=== PATIENT | female | born 1970 | race Caucasian/White ===

== ENCOUNTER → 2017-11-30 13:50 | Outpatient (REF) | payer MEDICAID, SELFPAY ==
[2017-12-03 13:58] LABS: Chlamydia Result Negative; GC Result Negative; Specimen Description CERVIX
== END ==
LOC: LBN 13:50
PROVIDERS: Visit Provider Nurse Practitioner Women's Health
DX: Z11.3 Encounter for screening for infections with a predominantly sexual mode of transmission (principal)
CPT/HCPCS: 87491; 87591

== ENCOUNTER 2017-12-19 02:43 | Outpatient (CLI) | payer MEDICAID, SELFPAY ==
--- NOTE | 2017-12-19 07:48 | DI.US_ITS ---
SYMPTOM/DIAGNOSIS: LT SIDED PELVIC PAIN, H/O LT OOPHORECTOMY PELVIC ULTRASOUND: Transabdominal and transvaginal examination was performed. Comparison is made with 05/28/17. The uterus measures 10 cm. long by 5.4 cm. AP by 6.1 cm. transverse. The endometrial stripe is within normal limits at .2 cm. Note is made of an intrauterine device within good position. No discrete myometrial mass is present. The patient is status post left oophorectomy. The right ovary measures 2 by 1.5 by 2.2 cm. A small follicular cyst is seen. There is blood flow to the right ovary. No suspicious pelvic or adnexal mass is seen. No free pelvic fluid or hydronephrosis is present. Incidental note is made of a single, non obstructing calculus in each of the kidneys. IMPRESSION: 1. Status post left oophorectomy. 2. Intrauterine device in good position. 3. No evidence of a pelvic mass sonographically. 4. Bilateral nephrolithiasis.
== END 2017-12-19 03:03 ==
PROVIDERS: Visit Provider Nurse Practitioner Women's Health
DX: R10.2 Pelvic and perineal pain (principal); N20.0 Calculus of kidney; N83.01 Follicular cyst of right ovary; Z97.5 Presence of (intrauterine) contraceptive device; Z90.721 Acquired absence of ovaries, unilateral
CPT/HCPCS: 76830; 76856

== ENCOUNTER 2018-01-23 01:04 | Outpatient (CLI) | payer MEDICAID, SELFPAY ==
--- NOTE | 2018-01-23 07:44 | DI.CT_ITS ---
SYMPTOMS/DIAGNOSIS: POSITIVE CVA TENDERNESS ,LEFT, H/O BLOOD CLOTS CT EXAMINATION OF THE ABDOMEN AND PELVIS: The study was carried out with an intravenous administration of 100 cc of Omnipaque 350. Only a small portion of the lung bases is demonstrated and appears unremarkable. The liver is incompletely imaged. No abnormality involving the mid or lower portion of the liver is seen. The gallbladder is intact. The possibility of small gallstones could not, however, be entirely excluded. The pancreas and spleen are intact. There is bilateral nonobstructing nephrolithiasis. The adrenals are intact. Surgical clips at the gastroesophageal junction attest to prior surgery. Gas and fluid are identified in the stomach. There is no evidence of bowel obstruction. The appendix is normal. A moderate quantity of gas and scattered fecal material are noted in the colon. The bladder is incompletely distended, but appears grossly intact. An IUD is noted in the uterus. A small right ovarian cyst is identified. There is no evidence of free air or free fluid in the abdomen. A very small fat-containing umbilical hernia is identified. There is no evidence of an aortic aneurysm. No acute bony abnormality is identified. SUMMARY: No evidence of an acute abdomen. Note is made of nonobstructing bilateral nephrolithiasis.
[2018-01-23] MEDS: Omnipaque 350 MG/ML 100 ML BTL IJ (08:30)
== END 2018-01-23 01:24 ==
PROVIDERS: Visit Provider Nurse Practitioner Gerontology
DX: N20.0 Calculus of kidney (principal); R14.0 Abdominal distension (gaseous); N83.291 Other ovarian cyst, right side; Z97.5 Presence of (intrauterine) contraceptive device
CPT/HCPCS: 74178; J3490

== ENCOUNTER 2018-03-14 08:33 | Day surgery (SDC) | payer MEDICAID, SELFPAY ==
[2018-03-14] VITALS (8 sets, daily range): BP systolic 140–217; BP diastolic 96–107; PULSE 66–76; RESP 16–19; TEMP 36.6–36.7; O2SAT 95–98
[2018-03-14] MEDS: Lactated Ringers 1,000 ML 80 ML IV (09:20)
[2018-03-14] MEDS: Lidocaine 2% Jelly 6 ML SYR (10:34)
[2018-03-14] MEDS: Omnipaque 300 MG/ML 50 ML BTL (10:44)
--- NOTE | 2018-03-14 11:28 | W.PM.DSUDISC ---
Discharge Plan Disposition Patient Disposition: HOME Condition: Stable Discharge Details Attending Provider: Catalino Mayfield Primary Care Provider: Vanita Haywood Home Meds and New Rx's Prescriptions: No Action omeprazole 40 mg capsule,delayed release(DR/EC) 40 mg PO DAILY Qty: 1 RF: 0 hydrochlorothiazide 12.5 mg capsule 12.5 mg PO DAILY Qty: 1 RF: 0 allopurinol 300 mg tablet 300 mg PO DAILY Qty: 1 RF: 0 atorvastatin 20 mg tablet 20 mg PO DAILY RF: 0 aspirin [Aspir-Low] 81 MG tablet,delayed release (DR/EC) 81 mg PO DAILY Qty: 90 RF: 4 lisinopril 20 mg tablet 20 mg PO DAILY Qty: 90 RF: 3 acetaminophen-codeine 300-30 mg tablet 1 tab PO QID PRN MDD 4 tab (120mg) PRN (Reason: pain) Qty: 100 RF: 0 tizanidine 4 mg tablet 4 mg PO HS RF: 0 acetaminophen 325 mg Capsule 650 mg PO PRN PRNRF: 0 ascorbic acid (vitamin C) [Vitamin C] 500 MG tablet 500 mg PO DAILY RF: 0 Discharge Instructions Additional Instructions: Followup 4 to 6 weeks with renal US on day of appt No need to strain urine Activity:: Activity as Tolerated Diet:: As Tolerated Discharge Orders Discharge Orders: Discharge Order (Routine); Ordered 03/14/18 Ordered By: Catalino Mayfield
--- NOTE | 2018-03-14 11:28 | DI.RAD_ITS ---
SYMPTOM/DIAGNOSIS:BILAT KIDNEY STONES OR RETROGRADE: Fluoroscopy Time: 19.6 sec 3.51 mGy Fluoroscopy was provided for Dr. Mayfield in the OR while performing a retrograde examination. Images show contrast injection into the left collecting system. A filling defect is seen in the renal pelvis. Please see procedure note for details.
--- NOTE | 2018-03-14 16:34 | ROE_ITS ---
DATE OF OPERATION: March 14, 2018 PREOPERATIVE DIAGNOSIS: Left renal stones. POSTOPERATIVE DIAGNOSIS: Left renal stones. PROCEDURE: Cystoscopy, left retrograde pyelogram, left flexible ureteroscopy, Holmium laser of renal stones, evacuation of stone fragments. SURGEON: Catalino Mayfield M.D. ANESTHESIA: General. COMPLICATIONS: None. ESTIMATED BLOOD LOSS: Minimal. HISTORY: This is a 47-year-old woman who has a history of chronic pain. She has been having some wo rsening left back pain. She was evaluated with a CT scan which demonstrated nonobstructing bilateral kidney stones. She is concerned that the stones may be playing a part in her pain. She presents no w for stone manipulation. OPERATIVE REPORT: The patient was brought to the Operating Room on 03/14/18. After successful induct ion of general anesthesia, she was placed in the dorsal lithotomy position. Her genitalia was preppe d and draped. A 22 Wolof rigid cystoscope was passed through the urethra into the bladder. The bladder was inspec ute with the 30-degree lens. Both ureteral orifices appeared normal. No blood was seen coming from either side. No stones were s een within patient's bladder. We passed a 6 Wolof access catheter through the cystoscope into the left ureteral orifice. We left the access catheter in place and removed the cystoscope. A left retrograde pyelogram was then performed using Omnipaque injected through the access catheter. This outlined the calices for mapping purposes. I then passed a guide wire through the access catheter and maneuvered the wire into the upper pole ca lyx. We removed the axis catheter and replaced it with a dual-lumen catheter. A second wire was then posi tioned, this time in the lower pole calyx. We then passed a ureteral access sheath over the working wire and positioned the access catheter with the tip in the proximal ureter. We left the second wire in place as a safety wire. I then passed the flexible ureteroscope through the sheath, up to the proximal ureter. I inspected e ach of the calices and identified stones in nearly all of the calices. The largest stone burden was in the upper pole. The larger stones were treated with a 272 micron Holmium laser fiber. We used a power setting of 800 and a rate of 8. I was able to fragment the stones quite easily. Any of the la rge fragments were then grasped in a 0-tip stone basket and removed. The fragments were then sent to Pathology for chemical analysis. Any small fragments were left in place as it was expected that the se would be able to pass. Once all of the larger stone fragments had been removed we inspected each of the calices again, with no significant remaining stone burden. We removed the ureteroscope as well as the ureteral access sh [facility]. We elected not to place a ureteral stent. She tolerated this procedure well with no complications. cc: Vanita Haywood N.P.
[2018-03-19 19:33] LABS: Source: Kidney
== END 2018-03-14 13:20 | disposition home or self-care (01) ==
PROVIDERS: Visit Provider Urology
PROC: (CPT 52353; principal; 2018-03-14 10:30)
DX: N20.0 Calculus of kidney (principal); G89.29 Other chronic pain; M54.5 Low back pain; Z87.442 Personal history of urinary calculi; J44.9 Chronic obstructive pulmonary disease, unspecified; I10 Essential (primary) hypertension
CPT/HCPCS: 52353; 81025; 74420; 82360; J0690; J1885; J2250; J2405; Q9967

== ENCOUNTER 2018-04-16 01:13 | Outpatient (CLI) | payer MEDICAID, SELFPAY ==
--- NOTE | 2018-04-16 08:42 | DI.US_ITS ---
SYMPTOMS/DIAGNOSIS: BILATERAL KIDNEY STONES, N20.0, ? HYDRONEPHROSIS RENAL ULTRASOUND: Routine examination. The right kidney measures 11.3 cm long, the left kidney measures 11.2 cm long. There is bilateral nephrolithiasis. No hydronephrosis is identified. The largest stone is seen in the inferior pole of the right kidney and measures 6 mm in size. There is symmetric blood flow to the kidneys. Prevoid urinary bladder volume was only 31 cc. The bladder was not adequately prepared. Postvoid urinary bladder volume was 0. IMPRESSION: Bilateral nephrolithiasis. No evidence of hydronephrosis.
== END 2018-04-16 01:33 ==
PROVIDERS: Visit Provider Urology
DX: N20.0 Calculus of kidney (principal)
CPT/HCPCS: 76770

== ENCOUNTER 2018-05-27 13:23 | Outpatient (REF) | payer MEDICAID, SELFPAY ==
--- NOTE | 2018-05-27 11:25 | PAPFT_PTH ---
PATIENT: Delaney Preston LOC: [facility] U#:[id number] AGE/SX: 47/F ROOM: RE05/27/[address]: Vanita Haywood APRN : 1970 BED: DIS: 05/27/2018 SPEC #: [id number] RECD: 05/27/18 18:22 STATUS: ADELAIDE REDaina #: [id number] MASON: 05/27/18 11:[address]: Vanita Haywood DEPT: [facility], [facility] Cytology RECD BY: Jeanette Gutierrez Tissues: 1 - CX/ENDOCX FOR PAP SMEARS Procedures: PAP THIN PREP/UVM Screening HPV DNA PROBE Comments: [id number]
== END 2018-05-27 13:43 ==
LOC: LBN 13:23
DX: Z12.4 Encounter for screening for malignant neoplasm of cervix (principal); Z11.51 Encounter for screening for human papillomavirus (HPV)
CPT/HCPCS: 88142; 87624

== ENCOUNTER 2018-07-12 02:51 | Outpatient (CLI) | payer MEDICAID, SELFPAY ==
[2018-07-12 09:46] LABS: ALT 23 U/L (12-78); AST 13 U/L (15-37); Albumin 3.8 g/dL (3.4-5.0); Alkaline Phosphatase 96 U/L (46-116); Anion Gap 8.6 mmol/L (3-11); BUN 8 mg/dL (7-18); Bilirubin, Total 0.5 mg/dL (0.2-1.0); CO2 30.4 mmol/L (21.0-32.0); CREATININE 0.67 mg/dL (0.55-1.02); Calcium 9.1 mg/dL (8.5-10.1); Chloride 102 mmol/L (98-107); Cholesterol 215 mg/dL (50-200); Glucose 98 mg/dL (70-100); HDL Cholesterol 43 mg/dL (40-60); LDL CHOLESTEROL 144 mg/dL (<100); Potassium 3.4 mmol/L (3.5-5.1); Sodium 141 mmol/L (136-145); Total Protein 7.1 g/dL (6.4-8.2); Triglyceride 112 mg/dL (30-150)
== END 2018-07-12 03:11 ==
DX: E03.9 Hypothyroidism, unspecified (principal); K21.9 Gastro-esophageal reflux disease without esophagitis; F17.200 Nicotine dependence, unspecified, uncomplicated; R63.8 Other symptoms and signs concerning food and fluid intake; E78.5 Hyperlipidemia, unspecified; I10 Essential (primary) hypertension; M25.561 Pain in right knee; G89.29 Other chronic pain; M54.5 Low back pain
CPT/HCPCS: 36415; 80053; 80061; 83721

== ENCOUNTER 2018-07-19 00:21 | Outpatient (CLI) | payer MEDICAID, SELFPAY ==
--- NOTE | 2018-07-19 15:30 | DI.MAMMO_ITS ---
SYMPTOMS/DIAGNOSIS: SCREENING, Z12.31 MAMMOGRAM: Mammograms were interpreted according to the usual protocol including computer analysis with CAD system, tomosynthesis and C view imaging. The breasts are of moderate density with fairly symmetrical distribution of fibroglandular tissue. No dominant mass or clumped microcalcification is identified in either breast. The current examination is compared with previous examinations including January 2017 and there is question of increased prominence of a focal area of asymmetric density seen laterally in the right breast on CC view only. Additional mammographic views of this area are requested to include CC spot compression view of the right breast. CONCLUSION: Additional mammographic views of the right breast requested as described above. Breast ultrasound may be indicated as well depending on the results of the additional mammographic views. Category 0. Breast density Category B. MQSA ASSESSMENT OF FINDINGS: Incomplete: Needs additional imaging evaluation. Category 0. Patient will receive a letter notifying them of these results. BI-RADS category B. There are scattered areas of fibroglandular density.
== END 2018-07-19 00:41 ==
DX: R92.8 Other abnormal and inconclusive findings on diagnostic imaging of breast
CPT/HCPCS: 77063; 77067

== ENCOUNTER 2018-08-02 09:00 | Outpatient (CLI) | payer MEDICAID, SELFPAY ==
--- NOTE | 2018-08-02 09:30 | DI.MAMMO_ITS ---
SYMPTOM/DIAGNOSIS: F/U MAMMO, INCREASED PROMINENCE OF FOCAL AREA OF ASYMMETRIC DENSITY RIGHT BREAST ADDITIONAL VIEWS: Additional images are interpreted according to the usual protocol including tomosynthesis and 2D imaging. A CC spot compression view of the lateral right breast was performed for a questioned nodular asymmetry. No persistent abnormality is seen. The findings are consistent with overlying fibroglandular tissue. IMPRESSION: Category 1, negative mammogram. Yearly screening mammography is recommended. SA ASSESSMENT OF FINDINGS: Negative. Category 1. Patient will receive a letter notifying them of these results. BI-RADS category B. There are scattered areas of fibroglandular density.
== END 2018-08-02 09:20 ==
DX: Z12.31 Encounter for screening mammogram for malignant neoplasm of breast (principal); R92.8 Other abnormal and inconclusive findings on diagnostic imaging of breast; N64.59 Other signs and symptoms in breast
CPT/HCPCS: 77063; 77067

== ENCOUNTER 2018-09-13 09:08 | Emergency (ER) | payer MEDICAID, SELFPAY ==
[2018-09-13] VITALS (32 sets, daily range): BP systolic 93–130; BP diastolic 45–80; PULSE 58–90; RESP 11–20; TEMP 37.1; O2SAT 92–98
--- NOTE | 2018-09-13 09:39 | DI.RAD_ITS ---
SYMPTOM/DIAGNOSIS: S/P FALL, R/O ACUTE FRACTURE LEFT SHOULDER: Five views. Comparison chest x-ray is 07/29/14 Post surgical changes are seen in the proximal left humerus and acromioclavicular joint. No acute fracture or dislocation is seen. The soft tissues are unremarkable. IMPRESSION: No acute abnormality.
--- NOTE | 2018-09-13 09:42 | W.ED.GENAD ---
Discharge Plan Disposition Patient Disposition: HOME Condition: Improving Discharge Details Chief Complaint: Chest Pain Clinical Impression: Syncope, Chest wall pain, Contusion of left shoulder, Contusion, buttock Primary Care Provider: Vanita Haywood ED Provider: Shelly Alvarez Home Meds and New Rx's Prescriptions: Continued albuterol sulfate 90 mcg/actuation HFA aerosol inhaler 2 puff IH Q6H PRN (Reason: shortness of breath or wheezing) Qty: 24 RF: 2 hydrochlorothiazide 12.5 mg capsule 12.5 mg PO DAILY Qty: 1 RF: 0 allopurinol 300 mg tablet 300 mg PO DAILY Qty: 90 RF: 4 aspirin [Aspir-Low] 81 MG tablet,delayed release (DR/EC) 81 mg PO DAILY Qty: 90 RF: 4 lisinopril 20 mg tablet 20 mg PO DAILY Qty: 90 RF: 3 tizanidine 4 mg tablet 4 mg PO HS Qty: 30 RF: 2 omeprazole 40 mg capsule,delayed release(DR/EC) 40 mg PO DAILY Qty: 90 RF: 3 acetaminophen-codeine 300-30 mg tablet 1 tab PO TID PRN MDD 3 tab (90mg) Qty: 90 RF: 0 acetaminophen 325 mg Capsule 650 mg PO PRN PRNRF: 0 Discharge Instructions Instructions: Syncope (ED), Contusion in Adults (ED), Chest Wall Pain (ED) Additional Instructions: Alternate Tylenol and Motrin as needed and directed for pain. Drink plenty of fluids and get plenty of rest. Follow-up with Zaira from respiratory therapy today regarding placement of the Holter monitor. Call your primary care doctor today to schedule a follow-up appointment for reevaluation next week. Return immediately to the emergency department if you develop any worsening or new concerning symptoms. Discharge Data Discharge Physician: Shelly Alvarez Medical Decision Making 47-year-old female with history of GERD, hypertension, hyperlipidemia, COPD who presents for evaluation status post syncopal episode 2 days ago. She states her was concerned due to his own cardiac history and wanted her evaluated. She is complaining of left shoulder and right buttock pain, and left neck stiffness. She is also complaining of chest heaviness that started a few hours prior to her syncopal episode and has been worse since then. Vitals within normal limits. Patient appears nontoxic. She has anterior chest tenderness to palpation without evidence of trauma or rash. Pain in left shoulder with range of motion and tenderness but no deformity. Normal buttock exam without evidence of deformity or trauma. Considering patient's age and history, will do a cardiac work-up. Pain in left shoulder with range of motion and palpation. Lower midline C-spine tenderness. No focal deficits. Suspect her chest heaviness is muscular as it is reproducible. Denies any tearing sensation so doubt dissection. She is PERC negative and no DVT/PE risk factors so doubt PE. Will obtain a chest x-ray, CT head and cervical spine, left shoulder x-ray and give a dose of Toradol. 1220 --labs and imaging reviewed. Potassium 3.1, patient given oral potassium. Remainder of labs unremarkable. D-dimer and troponin negative. Chest x-ray, shoulder x-ray, and CT head and C-spine negative. Patient feels much better and she is requesting to go home. Discussed with respiratory department regarding placement of a Holter monitor. There are no Holter models available at this time but will be possibly available later today. Zaira discussed with patient at bedside and she will call patient at home today and patient will likely return to the hospital this evening for placement of a Holter monitor. Patient instructed to call her primary care doctor today to schedule follow-up appointment for reevaluation and for referral for an outpatient stress test. She is instructed to return here immediately with any worsening or new concerning symptoms. Medical Records Medical records reviewed: Yes I reviewed the patient's medical records. Imaging Data Radiologic Study: Radiologist's impression: CT BRAIN: Noncontrast. Comparison 01/28/[address] was performed. The ventricular system is normal in appearance. There is no evidence of an intracranial mass lesion. There is no evidence of a subdural or epidural hematoma. No focal areas of decreased attenuation are seen. CONCLUSION: Normal noncontrast Cranial CT. CT CERVICAL SPINE: Multiple contiguous axial images of the cervical spine were obtained. Sagittal and coronal reformatted images were evaluated on the [employer]'s workstation. There is normal alignment of the cervical spine. No acute fractures or subluxations are seen. Mild degenerative changes are present throughout the cervical spine. The odontoid is intact, lateral masses well aligned. The soft tissues are unremarkable. No acute abnormality is seen in the lung apices. IMPRESSION: No acute fractures or subluxations of the cervical spine. Radiologic Study #2: Radiologist's impression: CHEST X-RAY: PA and lateral. Comparison 07/29/14. The heart is normal in size. The lungs are clear. The mediastinal structures and pleura appear intact. CONCLUSION: Normal chest. Radiologic Study #3: Radiologist's impression: LEFT SHOULDER: Five views. Comparison chest x-ray is 07/29/14 Post surgical changes are seen in the proximal left humerus and acromioclavicular joint. No acute fracture or dislocation is seen. The soft tissues are unremarkable. IMPRESSION: No acute abnormality. Lab Data Lab results reviewed: Yes I reviewed the patient's lab results. Laboratory Tests Range/Units 09/13/18 09/13/18 09/13/18 09:25 09:25 09:25 WBC (4.4-10.8) k/cumm 8.95 RBC (4.00-5.20) m/cumm 4.49 Hgb (12.0-15.5) g/dL 14.5 Hct (36.0-46.0) % 41.9 MCV (80-95) fL 93.3 MCH (27.0-33.0) pg 32.3 MCHC (32.0-36.0) g/dL 34.6 RDW (11.7-14.6) % 13.1 Plt Count (130-400) x1000/uL 341 MPV (8.0-11.0) fL 10.5 Immature Gran % 0.1 Neutrophils % 64.9 Lymphocytes % 25.5 Monocytes % 7.6 Eosinophils % 1.6 Basophils % 0.3 Absolute Neutrophils (1.2-6.7) k/cumm 5.81 Absolute Lymphocytes (1.2-3.4) k/cumm 2.28 Absolute Monocytes (0.11-0.7) k/cumm 0.68 Absolute Eosinophils (0.0-0.7) k/cumm 0.14 Absolute Basophils (0.0-0.2) k/cumm 0.03 D-Dimer (<500) ng/mlFEU 270 Sodium (136-145) mmol/L 137 Potassium (3.5-5.1) mmol/L 3.1 L Chloride (98-107) mmol/L 99 Carbon Dioxide (21.0-32.0) mmol/L 28.7 Anion Gap (3-11) mmol/L 9.3 BUN (7-18) mg/dL 9 Creatinine (0.55-1.02) mg/dL 0.69 Estimated GFR/1.73 m2 (mL/min/1.73m2) >= 60.00 Glucose (70-100) mg/dL 88 Calcium (8.5-10.1) mg/dL 9.0 Magnesium (1.8-2.4) mg/dL 2.1 Total Bilirubin (0.2-1.0) mg/dL 0.4 AST (15-37) U/L 11 L ALT (12-78) U/L 18 Alkaline Phosphatase (46-116) U/L 81 Troponin I (0.00-0.06) ng/mL < 0.02 Total Protein (6.4-8.2) g/dL 7.6 Albumin (3.4-5.0) g/dL 3.4 ECG Data Attestation: I personally reviewed and interpreted this ECG (s) as follows: Interpretation: rate of 82bpm. Sinus. TWI in III. No acute ST elevation or depression. QTc 437. QRS 98. No acute change from previous EKG. HPI General Mode of arrival: ambulatory. Date/Time Provider Initiated Documentation: 09/13/18 09:09. Limitations to Documentation: no limitations. Information obtained by: patient. HPI Narrative: Pt is a 47yo F who presents to the ED with a complaint of syncopal episode 2 days ago. Patient states she was standing in her kitchen pouring a bowl of cereal when she felt funny. She states she cannot describe with this funny feeling was like but describes it as possibly dizziness. She states she then woke up on the floor. She states she thinks she hit her head but denies any head injury and admitted to some headache yesterday but not today. She also is complaining of left-sided neck stiffness, left shoulder and right buttock pain from the fall. She states she has been able to ambulate without pain. She states she has had anterior chest heaviness since a few hours prior to her syncopal episode 2 days ago. She states since the syncopal episode and fall, her chest heaviness has been slightly worse. She states the pain is currently 7/10. She states she has otherwise been eating and drinking normally, denies any vomiting or diarrhea, abdominal pain, urinary symptoms, fever, or shortness of breath. She states she has not taken any medication for her symptoms. She denies any recent travel, recent surgery, leg pain or swelling. Related Data Home Medications Medication Instructions Recorded Confirmed aspirin [Aspir-Low] 81 mg PO DAILY #90 07/06/15 09/13/18 hydrochlorothiazide 12.5 mg capsule 12.5 mg PO DAILY #1 cap 12/12/17 09/13/18 lisinopril 20 mg tablet 20 mg PO DAILY #90 tab 12/12/17 09/13/18 acetaminophen 650 mg PO PRN PRN 03/13/18 09/13/18 albuterol sulfate HFA 90 2 puff IH Q6H PRN #24 gm 05/27/18 09/13/18 mcg/actuation aerosol inhaler tizanidine 4 mg tablet 4 mg PO HS #30 tab 08/08/18 09/13/18 allopurinol 300 mg tablet 300 mg PO DAILY #90 tab 08/28/18 09/13/18 acetaminophen 300 mg-codeine 30 mg 1 tab PO TID PRN #90 tab MDD 3 tab 09/05/18 09/13/18 tablet (90mg) omeprazole 40 mg capsule,delayed 40 mg PO DAILY #90 cap 09/05/18 09/13/18 release Previous Rx's Medication Instructions Recorded hydrochlorothiazide 12.5 mg capsule 12.5 mg PO DAILY #1 cap 12/12/17 lisinopril 20 mg tablet 20 mg PO DAILY #90 tab 12/12/17 albuterol sulfate HFA 90 2 puff IH Q6H PRN #24 gm 05/27/18 mcg/actuation aerosol inhaler tizanidine 4 mg tablet 4 mg PO HS #30 tab 08/08/18 allopurinol 300 mg tablet 300 mg PO DAILY #90 tab 08/28/18 acetaminophen 300 mg-codeine 30 mg 1 tab PO TID PRN #90 tab MDD 3 tab 09/05/18 tablet (90mg) omeprazole 40 mg capsule,delayed 40 mg PO DAILY #90 cap 09/05/18 release Allergies Allergy/AdvReac Type Severity Reaction Status Date / Time doxycycline Allergy Intermediate hives Verified 09/13/18 09:21 Tetracyclines Allergy Intermediate hives Verified 09/13/18 09:21 adhesive Allergy Unknown skin rash Verified 09/13/18 09:21 nortriptyline AdvReac Mild hyperactivi Verified 09/13/18 09:21 ty General Stated Complaint: Chest Pain MAMIE: 2 Review of Systems Review of Systems All systems reviewed & are unremarkable except as noted in HPI and below Constitutional Reports as per HPI, Denies chills and Denies fever(s) Eyes Denies blurry vision ENT Denies dizziness, Denies sore throat and Denies throat swelling Cardiovascular Reports chest pain and Denies dyspnea Respiratory Denies cough and Denies dyspnea Gastrointestinal Denies abdominal pain, Denies diarrhea and Denies vomiting Genitourinary Denies hematuria and Denies dysuria Musculoskeletal Denies back pain, Denies numbness and Reports other (L shoulder pain, R buttock pain) Integumentary/Breasts Denies lesions and Denies rash Neurologic Denies dizziness, Denies focal weakness and Denies numbness Allergic/Immunologic Denies throat swelling [facility] Medical History Uric acid renal calculus (Resolved) Chronic GERD (Acute 11/20/12) Smoker (Acute 11/20/12) Increased BMI (Acute 05/25/16) Hyperlipidemia (Chronic 04/18/12) Urinary, incontinence, stress female (Chronic) Essential hypertension (Chronic 05/25/16) Chronic pain of right knee (Chronic 12/02/14) Chronic obstructive lung disease (Chronic 08/01/12) Chronic low back pain (Chronic 11/20/12) Asthma (Chronic 11/20/12) Asthma COPD (chronic obstructive pulmonary disease) Chronic back pain GERD (gastroesophageal reflux disease) Hoarseness of voice Hypertension Surgical History Arthroplasty of knee Endoscopy (~2004) GASTROPEXY Ligation of fallopian tube Manipulation, Under Anesthesia (03/13/12) [place] Fundoplication (~2002) Oophrectomy, Left (06/06/17) Open Carpal Tunnel release Replacement of total knee joint (01/15/12) Family History Mother Essential hypertension Hyperlipidemia Father Diabetes Essential hypertension Heart disease Hyperlipidemia Stroke Asthma Sister Essential hypertension Sister Essential hypertension Brother No problems noted. 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 Pets and animals: Yes Pets and animals: cat(s) and dog(s) Dottie/Buddhism: None Do you feel safe at home: Yes Do you feel safe in your relationship?: Yes Exam Const General: cooperative and healthy appearing Orientation: alert and awake HENMT Head: normal to inspection Ears: hearing grossly normal bilaterally, external ears normal and TM's normal bilaterally General nose exam: external nose normal Face and sinus: normal facial exam Mouth: oral mucosae normal Teeth and gingiva: dentition normal Throat: posterior oropharynx normal Eyes General: appearance normal, both eyes and all related structures Eyelids: eyelids normal Pupils: PERRL EOM: EOM intact bilaterally Neck Neck: normal visual inspection Lymphatic: no lymphadenopathy noted Chest Chest: normal inspection of the chest and tenderness (anterior chest tender to palp, no evidence of trauma) Resp Effort & Inspection: normal respiratory effort and able to speak in complete sentences Auscultation: clear to auscultation bilaterally Cardio Rate: regular rate Rhythm: regular rhythm GI Inspection: normal to inspection Palpation: soft, not firm, no guarding, no hepatosplenomegaly, no masses and nontender Auscultation: normal bowel sounds Back/Spine/Pelvis Back: no CVA tenderness Cervical Spine: cervical muscular tenderness (L sided) and cervical spinal tenderness (lower midline spine) Thoracic/Lumbar Spine: thoracic and lumbar spine normal to inspection, No thoracic spinal tenderness and No lumbar spinal tenderness Back/spine/pelvis image: 1. Localized area of tenderness without step-off, crepitus, ecchymosis, erythema, edema. Skin General skin exam: no rashes or lesions noted Neuro General: alert, awake, moves all extremities, no meningeal signs and no focal motor deficits Cranial Nerves: CN's II-XI intact bilaterally Cognition: normal cognition Speech: speech normal Gait: normal gait Motor: muscle tone normal throughout and strength 5/5 throughout Sensory Exam: no sensory deficits noted Extrem General: normal to inspection, full ROM and normal capillary refill Other: Pain in left shoulder with range of motion and palpation. No deformities noted. No ecchymosis, erythema, edema noted to left shoulder. Tenderness to palpation overlying left trapezius with no evidence of trauma. Full range of motion at hips bilaterally without pain, shortening or external rotation. Left radial and ulnar pulses intact. Cap refill less than 2 seconds. Psych Appearance: grossly normal Mental Status: mental status grossly normal Speech and Movement: speech and movement normal Affect: normal affect Thought Process: normal Course Vital Signs Temperature 98.8 F 09/13/18 09:12 Pulse 90 09/13/18 09:12 Respiratory Rate 20 09/13/18 09:12 Blood Pressure 121/80 09/13/18 09:12 Pulse Oximetry 98 09/13/18 09:12 Temperature 98.8 F 09/13/18 09:12 Temperature Source Temporal Artery Scan 09/13/18 09:12 Pulse 82 09/13/18 09:16 Pulse 84 09/13/18 09:20 Respiratory Rate 20 09/13/18 09:22 Respiratory Effort Non-Labored 09/13/18 09:22 Respiratory Depth Normal 09/13/18 09:22 Respiratory Pattern Normal 09/13/18 09:22 Blood Pressure 122/78 09/13/18 09:16 Blood Pressure Mean 84 09/13/18 09:16 Pulse Oximetry 95 09/13/18 09:20 Oxygen Delivery Method Room Air 09/13/18 09:12 Oxygen Flow Rate 0 09/13/18 09:12 Pain Level 6 09/13/18 09:12
[2018-09-13 09:55] LABS: Abs Immature Grans 0.01 k/cumm (0.0-0.09); Absolute Basophil Count 0.03 k/cumm (0.0-0.2); Absolute Eosinophil Count 0.14 k/cumm (0.0-0.7); Absolute Lymphocyte Count 2.28 k/cumm (1.2-3.4); Absolute Monocyte Count 0.68 k/cumm (0.11-0.7); Absolute Neutrophil Count 5.81 k/cumm (1.2-6.7); Basophils % 0.3; Eosinophils % 1.6; HCT 41.9 % (36.0-46.0); HGB 14.5 g/dL (12.0-15.5); Immature Grans % 0.1; Lymphocytes % 25.5; Mean Corp. HGB Concentration 34.6 g/dL (32.0-36.0); Mean Corpuscular Hemoglobin 32.3 pg (27.0-33.0); Mean Corpuscular Volume 93.3 fL (80-95); Mean Platelet Volume 10.5 fL (8.0-11.0); Monocytes % 7.6; Neutrophils % 64.9; Platelet Count 341 x1000/uL (130-400); RBC 4.49 m/cumm (4.00-5.20); RBC Distribution Width 13.1 % (11.7-14.6); White Blood Cell Count 8.95 k/cumm (4.4-10.8)
[2018-09-13 10:24] LABS: ALT 18 U/L (12-78); AST 11 U/L (15-37); Albumin 3.4 g/dL (3.4-5.0); Alkaline Phosphatase 81 U/L (46-116); Anion Gap 9.3 mmol/L (3-11); BUN 9 mg/dL (7-18); Bilirubin, Total 0.4 mg/dL (0.2-1.0); CO2 28.7 mmol/L (21.0-32.0); CREATININE 0.69 mg/dL (0.55-1.02); Chloride 99 mmol/L (98-107); Glucose 88 mg/dL (70-100); Magnesium 2.1 mg/dL (1.8-2.4); Potassium 3.1 mmol/L (3.5-5.1); Sodium 137 mmol/L (136-145); Total Protein 7.6 g/dL (6.4-8.2)
[2018-09-13 10:29] LABS: D-Dimer 270 ng/mlFEU (<500)
[2018-09-13 10:31] LABS: Troponin I < 0.02 ng/mL (0.00-0.06)
[2018-09-13] MEDS: Potassium Chloride 20 MEQ TABCR 40 MEQ PO (10:42)
--- NOTE | 2018-09-13 10:45 | DI.RAD_ITS ---
SYMPTOM/DIAGNOSIS; CHEST HEAVINESS, R/O ACUTE DISEASE CHEST X-RAY: PA and lateral. Comparison 07/29/14. The heart is normal in size. The lungs are clear. The mediastinal structures and pleura appear intact. CONCLUSION: Normal chest.
[2018-09-13] MEDS: Ketorolac 30 MG/ML VIAL IVP (11:08)
[2018-09-13] MEDS: Normal Saline 250 ML 500 ML IV (11:08)
--- NOTE | 2018-09-17 10:30 | HOLTER_ITS ---
DATE OF DICTATION: September 17, 2018 STUDY INDICATION: Syncope. REQUESTING PROVIDER: Vanita Haywood N.P. FINDINGS: The patient was monitored for 2 days. Baseline sinus rhythm. Average heart rate 75 bpm. Heart rate range 55-130 bpm. No PVC's. 5 PAC's. No pauses greater than 3 seconds. No high degree heart block. Two patient events. None of these events correlated with arrhythmias. FINAL INTERPRETATION: Normal study.
== END 2018-09-13 12:41 | disposition home or self-care (01) ==
PROVIDERS: Emergency Provider Physician Assistant
DX: R55 Syncope and collapse (principal); R07.89 Other chest pain; S30.0XXA Contusion of lower back and pelvis, initial encounter; S40.012A Contusion of left shoulder, initial encounter; I10 Essential (primary) hypertension; J44.9 Chronic obstructive pulmonary disease, unspecified
CPT/HCPCS: 36415; 80053; 96361; 96374; 99284; 70450; 71046; 72125; 73030; 83735; 84484; 85025; 85379; 93225; J1885

== ENCOUNTER 2018-09-16 13:03 | Outpatient (CLI) | payer MEDICAID, SELFPAY | END 2018-09-16 13:23 | PROVIDERS: Visit Provider Physician Assistant | DX: R55 Syncope and collapse (principal); I49.1 Atrial premature depolarization | CPT/HCPCS: 93226 ==

== ENCOUNTER 2018-11-01 01:01 | Outpatient (CLI) | payer MEDICAID, SELFPAY ==
--- NOTE | 2018-11-01 13:17 | DI.US_ITS ---
SYMPTOMS/DIAGNOSIS: F/U STONES, BILATERAL KIDNEY STONES, N20.0 RENAL ULTRASOUND: Comparison is made with 19. The left kidney measures 10.6 cm in length. A 5 mm stone is seen in the mid left kidney. There is also question of additional calcification at the upper pole of the left kidney. There is mild dilatation of the right renal pelvis and intrarenal collecting system when compared with the previous exams. The right kidney measures 11.1 cm in length. There are multiple nonobstructing stones in both upper and lower poles of the right kidney. No right hydronephrosis is seen. The prevoid bladder volume measures 372 cc's. There is no postvoid residual. No bladder calculi or wall thickening are seen. Both ureteral jets were visualized. IMPRESSION: Bilateral renal calculi, right greater than left. There is apparent mild left hydronephrosis, not seen on the previous exam.
== END 2018-11-01 01:21 ==
PROVIDERS: Visit Provider Urology
DX: N20.0 Calculus of kidney (principal); N13.30 Unspecified hydronephrosis
CPT/HCPCS: 76770

== ENCOUNTER 2018-11-07 07:47 | Day surgery (SDC) | payer MEDICAID, SELFPAY ==
[2018-11-07 08:19] VITALS: BP 154/92; PULSE 64; RESP 16; TEMP 35.7; O2SAT 96
[2018-11-07] MEDS: Lactated Ringers 1,000 ML 80 ML IV (08:36)
[2018-11-07] MEDS: ceFAZolin 1 GM/50 ML BAG IVPB (10:49)
[2018-11-07] MEDS: Lidocaine 2% Jelly 6 ML SYR (11:03)
[2018-11-07] MEDS: Omnipaque 300 MG/ML 50 ML BTL (11:05)
--- NOTE | 2018-11-07 12:06 | W.PM.DSUDISC ---
Discharge Plan Disposition Patient Disposition: HOME Condition: Stable Discharge Details Reason For Visit: BILATERAL KIDNEY STONE Attending Provider: Catalino Mayfield Primary Care Provider: Vanita Haywood Home Meds and New Rx's Prescriptions: New ketorolac 10 mg tablet 10 mg PO Q6H MDD 4 PRN (Reason: pain) Qty: 15 RF: 0 tamsulosin 0.4 mg capsule 0.4 mg PO DAILY PRN (Reason: ureteral spasm) Qty: 7 RF: 0 No Action albuterol sulfate 90 mcg/actuation HFA aerosol inhaler 2 puff IH Q6H PRN (Reason: shortness of breath or wheezing) Qty: 24 RF: 2 hydrochlorothiazide 12.5 mg capsule 12.5 mg PO DAILY Qty: 1 RF: 0 allopurinol 300 mg tablet 300 mg PO DAILY Qty: 90 RF: 4 aspirin [Aspir-Low] 81 MG tablet,delayed release (DR/EC) 81 mg PO DAILY Qty: 90 RF: 4 lisinopril 20 mg tablet 20 mg PO DAILY Qty: 90 RF: 3 omeprazole 40 mg capsule,delayed release(DR/EC) 40 mg PO DAILY Qty: 90 RF: 3 tizanidine 4 mg tablet 4 mg PO HS Qty: 30 RF: 2 acetaminophen-codeine 300-30 mg tablet 1 tab PO TID PRN MDD 3 tab (90mg) Qty: 90 RF: 0 acetaminophen 325 mg Capsule 650 mg PO PRN PRNRF: 0 Discharge Instructions Additional Instructions: No need to strain urine F/U 4 to 6 weeks for renal US and stone analyses Script for Flomax and Ketorolac sent to pharmacy Activity:: Activity as Tolerated Shower/Bathe:: 24 hours Diet:: As Tolerated Discharge Orders Discharge Orders: Discharge Order (Routine); Ordered 11/07/18 Ordered By: Catalino Mayfield DS: Diagnosis Discharge Diagnosis (1) Bilateral kidney stones: Status: Acute
[2018-11-07 12:12] VITALS: BP 128/68; PULSE 62; RESP 14; TEMP 36.6; O2SAT 95
--- NOTE | 2018-11-07 12:15 | DI.RAD_ITS ---
SYMPTOMS/DIAGNOSIS: BILATERAL KIDNEY STONES BILATERAL RETROGRADE EXAMINATION: Fluoroscopy Time: 36.4 sec., 6.58 mGy. Under fluoroscopic control, Dr. Mayfield carried out a bilateral retrograde examination. When compared with the previous study of 03/14/18, a filling defect is no longer seen at the ureteropelvic junction of the left kidney and the study appears unremarkable. A retrograde study of the left kidney reveals incomplete filling of the intrarenal collecting structures with apparent deformity of an upper and mid pole calyx. The visualized portions of the right ureter are unremarkable. Please see Dr. Mayfield's procedure report for further information.
[2018-11-07 12:17] VITALS: BP 131/59; PULSE 63; RESP 15; TEMP 36.6; O2SAT 96
[2018-11-07 12:22] VITALS: BP 146/60; PULSE 60; RESP 15; TEMP 36.6; O2SAT 96
[2018-11-07 12:27] VITALS: BP 146/60; PULSE 63; RESP 15; TEMP 36.6; O2SAT 96
[2018-11-07] MEDS: Ketorolac 30 MG/ML VIAL IVP (12:27)
[2018-11-07] MEDS: Phenazopyridine 200 MG TAB PO (13:00)
[2018-11-07 13:05] VITALS: BP 138/81; PULSE 61; RESP 16; TEMP 35.8; O2SAT 95
--- NOTE | 2018-11-08 07:29 | ROE_ITS ---
REPORT OF OPERATIVE PROCEDURE DATE OF PROCEDURE November 07, 2018 PREOPERATIVE DIAGNOSIS Bilateral kidney stones. POSTOPERATIVE DIAGNOSIS Bilateral kidney stones. PROCEDURE Cystoscopy, bilateral retrograde pyelogram, bilateral flexible ureteroscopy, left renal stone extract ion, right sided Holmium laser lithotripsy of renal stone, and extraction of stone fragments. SURGEON Catalino Mayfield M.D. ANESTHESIA General. COMPLICATIONS None. ESTIMATED BLOOD LOSS Minimal. SPECIMENS 1. Left-sided kidney stones for chemical analysis. 2. Right-sided kidney stones for chemical analysis. HISTORY This is a 47-year-old woman who has a history of chronic pain. She has a finding of bilateral nonobst ructing kidney stones. She is not sure if the stones are contributing to any of her pain at this poin t, but she is interested in having them removed to prevent future renal colic episodes and to see if her current pain improves. PROCEDURE DESCRIPTION The patient was brought to the Operating Room on 11/07/2018. After successful induction of general anes thesia, she was placed in the dorsal lithotomy position. Her genitalia was prepped and draped. A #22-[place] rigid cystoscope was passed through the urethra into the bladder. The bladder was inspec ute with a 30-degree lens. We began on the left side and found the left ureteral orifice. The orifice was cannulated with a #6-F rench access catheter. A retrograde film was obtained to outline the calyces. A Glidewire was advanced through the access catheter. A Dual lumen catheter was then passed over the wire and a second wire was positioned. We choose one of the wires as a working wire and the second as a safety wire. We then passed a ureteral access sheath over the working wire. We positioned the tip of the sheath in the proximal ureter. The flexible ureteroscope was then introduced through the access sheath and each of the calyces was i nspected. Multiple small stones were identified in the calyces. These stones seemed adherent to the calyceal mu cosa. We were able to manipulate the stones and remove them directly in a ZeroTip stone basket. Multi ple small fragments were sent to Pathology for chemical analysis. We then performed a similar procedure on the right side. We removed the flexible ureteroscope and efra dewires. We re-introduced the #22-[place] rigid cystoscope. The right ureteral orifice was identified and a #6-[place] access catheter was passed through the cyst oscope into the right ureteral orifice. A retrograde film was obtained by injecting Omnipaque through the access catheter under fluoroscopic guidance. We again outlined the calyceal system, no stones or hydronephrosis were seen in the ureters. We passed a Glidewire up through the access catheter. We removed the access catheter and replaced it with a Dual lumen catheter. A second wire was then positioned. A ureteral access sheath was advanced over the working wire leaving the safety wire in place. The fle xible ureteroscope was passed through the access sheath up to the renal pelvis. Each of the calyces were inspected. The largest stone burden was in the upper pole, we initially were able to grasp the stone, but brought it down to the upper ureter. We then used a 272 Micron Holmium laser fiber to fragment the stone into two. We were able to grasp the two fragments in Zero tip stone baskets and remove them from the ureter. We re-introduced the scope and again, identified multiple stones and multiple calyces. Each of the la rger fragments were grasped in a Zero tip stone basket and removed. The right sided stones were all placed together in a specimen cup and sent to pathology for chemical analysis. We then passed an access catheter over the safety wire. We positioned the access catheter in the uppe r ureter and injected Omnipaque. No ureteral extravasation was seen, so we elected not to use a urete ral stent postop. The patient tolerated this procedure well. There were no complications.
== END 2018-11-07 13:26 | disposition home or self-care (01) ==
PROVIDERS: Visit Provider Urology
PROC: (CPT 52353; principal; 2018-11-07 09:00)
DX: N20.0 Calculus of kidney (principal); J44.9 Chronic obstructive pulmonary disease, unspecified; K21.9 Gastro-esophageal reflux disease without esophagitis; I10 Essential (primary) hypertension; F17.210 Nicotine dependence, cigarettes, uncomplicated
CPT/HCPCS: 52353; 52352; 74420; 82365; J0690; J1885; J2405; J3010; Q9967

== ENCOUNTER 2019-03-19 09:15 | Emergency (ER) | payer OTHER, SELFPAY ==
[2019-03-19 09:18] VITALS: BP 180/91; PULSE 75; RESP 18; TEMP 36.6; O2SAT 95
[2019-03-19] MEDS: Acetaminophen 325 MG TAB (09:39)
--- NOTE | 2019-03-19 09:39 | ED.GENADUL_ITS ---
Discharge Plan Disposition Patient Disposition: HOME Condition: Stable Discharge Details Chief Complaint: Orthopedic Clinical Impression: Left wrist sprain, Muscle strain of left upper arm Primary Care Provider: Vanita Haywood ED Provider: Shelly Alvarez Home Meds and New Rx's Prescriptions: Continued albuterol sulfate 90 mcg/actuation HFA aerosol inhaler 2 puff IH Q6H PRN (Reason: shortness of breath or wheezing) Qty: 24 RF: 2 allopurinol 300 mg tablet 300 mg PO DAILY Qty: 90 RF: 4 aspirin [Aspir-Low] 81 MG tablet,delayed release (DR/EC) 81 mg PO DAILY Qty: 90 RF: 4 lisinopril 20 mg tablet 20 mg PO DAILY Qty: 90 RF: 3 omeprazole 40 mg capsule,delayed release(DR/EC) 40 mg PO DAILY Qty: 90 RF: 3 tizanidine 4 mg tablet 4 mg PO HS Qty: 30 RF: 1 acetaminophen-codeine 300-30 mg tablet 1 tab PO TID PRN MDD 3 tab (90mg) Qty: 90 RF: 0 acetaminophen 325 mg Capsule 650 mg PO PRN PRNRF: 0 Discharge Instructions Instructions: Muscle Strain (ED), Wrist Sprain (ED) Additional Instructions: Rest, ice, elevate left wrist as much as possible. Take Tylenol as needed and directed for pain. Follow-up with your primary care doctor within the next week for reevaluation as needed. Return to the emergency department if you develop any worsening or new concerning symptoms. Stand Alone Forms: Work Release Discharge Data Discharge Physician: Shelly Alvarez Medical Decision Making 48-year-old female presents with left wrist pain with radiation up to her left upper arm and shoulder after using her left outstretched arm at the brace when near falling yesterday at work. Denies any other injuries. There is tenderness to palpation of dorsal wrist with a localized area of swelling but no obvious deformity. Neurovascular intact. Normal range of motion at left shoulder and left upper arm without evidence of trauma or deformity. She cannot take ibuprofen due to GI issues. Xray negative. Pt given work note and wrist splint. Advise on RICE. Usual and customary return precautions given prior to discharge Medical Records Medical records reviewed: Yes I reviewed the patient's medical records. Imaging Data Radiologic Study: Radiologist's impression: XR WRIST LT COMPLETE CLINICAL HISTORY: s/p fall onto L wrist, r/o acute fracture. TECHNIQUE: 2D digital imaging was performed. COMPARISON: No exams were available for comparison FINDINGS: BONES: No acute fracture is present. No bony destructive lesion is seen. JOINTS: The carpal bones are normally aligned. SOFT TISSUE: Normal. IMPRESSION: Unremarkable radiographs of the left wrist. HPI General Mode of arrival: ambulatory . Date/Time Provider Initiated Documentation: 03/19/19 09:17 . Limitations to Documentation: no limitations . Information obtained by: patient . HPI Narrative: Patient is a 48-year-old female who presents with left wrist left upper arm and left shoulder pain after fall at work yesterday. Patient states she was turning at work yesterday when she lost her footing and used her outstretched left arm to stabilize herself and is now completing a pain in her left wrist and radiating from her left upper arm to left shoulder. Patient denies head injury, other pain or injury. Patient has not taken any medication for pain today. Patient states she has not taken anything for pain today. Patient states she cannot take ibuprofen due to issues with her stomach. Related Data Home Medications Medication Instructions Recorded Confirmed aspirin [Aspir-Low] 81 mg PO DAILY #90 07/06/15 03/19/19 lisinopril 20 mg tablet 20 mg PO DAILY #90 tab 12/12/17 03/19/19 acetaminophen 650 mg PO PRN PRN 03/13/18 03/19/19 albuterol sulfate 90 mcg/actuation 2 puff IH Q6H PRN #24 gm 05/27/18 03/19/19 aerosol inhaler allopurinol 300 mg tablet 300 mg PO DAILY #90 tab 08/28/18 03/19/19 omeprazole 40 mg capsule,delayed 40 mg PO DAILY #90 cap 09/05/18 03/19/19 release tizanidine 4 mg tablet 4 mg PO HS #30 tab 01/29/19 03/19/19 acetaminophen 300 mg-codeine 30 mg 1 tab PO TID PRN #90 tab MDD 3 tab 03/07/19 03/19/19 tablet (90mg) Previous Rx's Medication Instructions Recorded lisinopril 20 mg tablet 20 mg PO DAILY #90 tab 12/12/17 albuterol sulfate 90 mcg/actuation 2 puff IH Q6H PRN #24 gm 05/27/18 aerosol inhaler allopurinol 300 mg tablet 300 mg PO DAILY #90 tab 08/28/18 omeprazole 40 mg capsule,delayed 40 mg PO DAILY #90 cap 09/05/18 release tizanidine 4 mg tablet 4 mg PO HS #30 tab 01/29/19 acetaminophen 300 mg-codeine 30 mg 1 tab PO TID PRN #90 tab MDD 3 tab 03/07/19 tablet (90mg) Allergies Allergy/AdvReac Type Severity Reaction Status Date / Time doxycycline Allergy Intermediate hives Verified 03/19/19 09:24 Tetracyclines Allergy Intermediate hives Verified 03/19/19 09:24 adhesive Allergy Unknown skin rash Verified 03/19/19 09:24 nortriptyline AdvReac Mild hyperactivi Verified 03/19/19 09:24 ty General Stated Complaint: Orthopedic MAMIE: 4 Review of Systems All systems reviewed & are unremarkable except as noted in HPI and below Constitutional Constitutional: Reports as per HPI, Denies chills and Denies fever(s) Eyes Eyes: Denies blurry vision ENT Ears, Nose, Mouth, and Throat: Denies dizziness, Denies sore throat and Denies throat swelling Cardiovascular Cardiovascular: Denies chest pain and Denies dyspnea Respiratory Respiratory: Denies cough and Denies dyspnea Gastrointestinal Gastrointestinal: Denies abdominal pain, Denies diarrhea and Denies vomiting Genitourinary Genitourinary: Denies hematuria and Denies dysuria Musculoskeletal Musculoskeletal: Denies back pain and Denies numbness Integumentary/Breasts Skin/Breast: Denies lesions and Denies rash Neurologic Neurologic: Denies dizziness, Denies focal weakness and Denies numbness Allergic/Immunologic Allergic/Immunologic: Denies throat swelling [facility] Medical History Asthma Asthma (Chronic 11/20/12) Carpal tunnel syndrome (Chronic) Chronic back pain Chronic GERD (Acute 11/20/12) CHRONIC HOARSENESS SECONDARY TO GERD Chronic low back pain (Chronic 11/20/12) Chronic obstructive lung disease (Chronic 08/01/12) Chronic pain of right knee (Chronic 12/02/14) COPD (chronic obstructive pulmonary disease) Cyst of left ovary (Resolved 05/30/17) Essential hypertension (Chronic 05/25/16) GERD (gastroesophageal reflux disease) Gout (Chronic) Hoarseness of voice secondary to reflux Hyperlipidemia (Chronic 04/18/12) Hypertension Increased BMI (Acute 05/25/16) Migraine headache (Chronic) Plantar wart (Resolved) Smoker (Acute 11/20/12) Uric acid renal calculus (Resolved) Urinary, incontinence, stress female (Chronic) Surgical History Arthroplasty of knee RIGHT Endoscopy (~2004) NEG GASTROPEXY History of bilateral ligation of fallopian tubes (Chronic) History of cystoscopy (Acute) Cysto/laser/retorgrade History of endoscopy (Chronic) History of salpingo-oophorectomy (Resolved 06/06/17) Ligation of fallopian tube Manipulation, Under Anesthesia (03/13/12) right TKA Yosi Fundoplication (~2002) Oophrectomy, Left (06/06/17) L oophorectomy. Bilateral salpingectomy. Benign indications. Open Carpal Tunnel release RIGHT Replacement of total knee joint (01/15/12) right Status post carpal tunnel release (Resolved) Status post Oysi fundoplication (Resolved) Status post surgical manipulation of knee joint (Resolved) Social History Smoking/Tobacco Use Status: Current every day Tobacco Type: cigarettes Smoking packs per day: 1 Smoking cigarettes per day: 20.0 Years smoked: 30 Smoking pack- years: 30.00 Alcohol Intake: current Alcohol Intake frequency: holidays/special occasions only Alcohol type: beer Drug use: Never Substance use type: does not use Household members: other Details: 2 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 Pets and animals: Yes Pets and animals: cat(s) and dog(s) Dottie/Synagogue: None Do you feel safe at home: Yes Do you feel safe in your relationship?: Yes Exam Const General: cooperative, healthy appearing and no acute distress HENMT Head: normal to inspection Mouth: oral mucosae normal Eyes General: appearance normal, both eyes and all related structures Neck Neck: normal visual inspection Resp Effort & Inspection: normal respiratory effort and able to speak in complete sentences Cardio Rate: regular rate Skin General skin exam: no rashes or lesions noted Neuro General: alert, awake and oriented x3 Motor: muscle tone normal throughout Extrem Other: Tenderness to palpation left dorsal wrist. There is a 2 x 2 centimeter area of edema in center of dorsal wrist. No obvious ecchymosis. No erythema. Some pain with range of motion. No left snuffbox tenderness. Full range of motion at left shoulder and upper arm with some pain but no obvious deformity, crepitus, clicking. No shoulder, upper arm, elbow or forearm edema, ecchymosis, erythema. No tenderness to palpation of left elbow or forearm. Left radial and ulnar pulses intact. Cap refill less than 2 seconds. Psych Appearance: grossly normal Affect: normal affect Course Vital Signs Vital signs: Vital Signs Temperature 97.9 F 03/19/19 09:18 Pulse 75 03/19/19 09:18 Respiratory Rate 18 03/19/19 09:18 Blood Pressure 180/91 H 03/19/19 09:18 Pulse Oximetry 95 03/19/19 09:18 Temperature 97.9 F 03/19/19 09:18 Temperature Source Skin 03/19/19 09:18 Pulse 75 03/19/19 09:18 Respiratory Rate 18 03/19/19 09:18 Respiratory Effort Non-Labored 03/19/19 09:23 Blood Pressure 180/91 H 03/19/19 09:18 Pulse Oximetry 95 03/19/19 09:18 Oxygen Delivery Method Room Air 03/19/19 09:18 Oxygen Flow Rate 0 03/19/19 09:18 Pain Level 5 03/19/19 09:18
[2019-03-19 10:58] VITALS: BP 122/86; PULSE 78; RESP 18; TEMP 36.9; O2SAT 98
== END 2019-03-19 11:00 | disposition home or self-care (01) ==
PROVIDERS: Emergency Provider Physician Assistant
DX: S63.502A Unspecified sprain of left wrist, initial encounter (principal); S46.812A Strain of other muscles, fascia and tendons at shoulder and upper arm level, left arm, initial encounter; W19.XXXA Unspecified fall, initial encounter; Y99.0 Civilian activity done for income or pay; J44.9 Chronic obstructive pulmonary disease, unspecified; F17.210 Nicotine dependence, cigarettes, uncomplicated; I10 Essential (primary) hypertension
CPT/HCPCS: 29125; 99283; 73110; L3908

== ENCOUNTER 2020-12-27 10:13 | Outpatient (CLI) | payer OTHER, SELFPAY ==
--- NOTE | 2020-12-27 09:30 | DI.RAD_ITS ---
Exam(s) XR SHOULDER LT COMPLETE 2+V EXAM: XR SHOULDER LT COMPLETE 2+V CLINICAL HISTORY: left shoulder pain M25.512. TECHNIQUE: 2D digital imaging was performed. COMPARISON: CR XR shoulder LT complete 2+V from 09/13/2018 FINDINGS: No evidence of fracture nor dislocation glenohumeral joint. No degenerative changes in the glenohume ral joint. There is a lucency in the proximal diaphysis of the humerus consistent with a biceps teno desis site. There has been resection of the distal clavicle, unchanged. No calcifications evident i n the soft tissues including the subacromial space. IMPRESSION: Findings as above but appearing unchanged when compared to September 2018. DATA REPOSITORY: RADIATION DOSE DELIVERED:
== END 2020-12-27 10:33 ==
PROVIDERS: Visit Provider Nurse Practitioner Family
DX: M25.512 Pain in left shoulder (principal)
CPT/HCPCS: 73030

== ENCOUNTER 2021-02-17 01:04 | Outpatient (CLI) | payer OTHER, SELFPAY ==
--- NOTE | 2021-02-17 08:20 | DI.MRI_ITS ---
Exam(s) MR UPPER JOINT RT WO EXAM: MR UPPER JOINT RT WO CLINICAL HISTORY: persistent left shoulder pain, r/o rotator cuff TEAR,M25.512. TECHNIQUE: Multiplanar multisequence MRI was performed. COMPARISON: None. FINDINGS: Bones: There is no fracture or contusion pattern. Subchondral cyst posterior humeral head. The acromioclav icular joint shows no significant inferior spurring.. Glenohumeral joint: Small glenohumeral. Small amount of fluid in subacromial subdeltoid bursa and subcoracoid bursa.. Rotator Cuff: The supraspinatus and infraspinatus tendons are intact. The subscapularis and teres minor are normal. No significant muscle atrophy. Labrum and biceps anchor: The biceps tendon is located. . The labrum is within normal limits. IMPRESSION: Small joint effusion and fluid in the subacromial subdeltoid bursa. No evidence of rotator cuff tear . DATA REPOSITORY:
--- NOTE | 2021-02-17 11:30 | DI.MRI_ITS ---
Exam(s) MR UPPER JOINT LT WO EXAM: MR UPPER JOINT LT WO CLINICAL HISTORY: PERSISTENT LT SHOULDER PAIN, ? ROTATOR CUFF TEAR, M25.512. TECHNIQUE: Multiplanar multisequence MRI was performed. COMPARISON: Plain films 27 December 2020 FINDINGS: Bones: There is no fracture or contusion pattern. There has been previous distal clavicular resection. No n o evidence of current and impingement. Glenohumeral joint: No subacromial, subcoracoid or glenohumer al joint effusion is present. Rotator Cuff: The supraspinatus and infraspinatus tendons are intact. The subscapularis and teres minor are normal. Labrum and biceps anchor: The long head of the biceps tendon is not seen. The short head of the biceps tendon appears intact. There is a postsurgical defect in the upper humeral shaft. The labrum is within normal limits. IMPRESSION: Previous surgery. The long head of the biceps tendon is not seen. Clinical correlation is recommend ed. DATA REPOSITORY:
== END 2021-02-17 01:24 ==
PROVIDERS: Visit Provider Family Medicine
DX: M25.512 Pain in left shoulder (principal); Z98.890 Other specified postprocedural states
CPT/HCPCS: 73221

== ENCOUNTER 2021-04-15 00:27 | Outpatient (CLI) | payer OTHER, SELFPAY ==
--- NOTE | 2021-04-15 06:15 | DI.MAMMO_ITS ---
Exam(s) MAMMO SCREENING EXAM: MAMMO SCREENING CLINICAL HISTORY: screening,Z12.39 TECHNIQUE: Bilateral full field digital CC and MLO mammographic images were obtained with 3D tomosyn thesis and utilizing computer aided detection (CAD). COMPARISON: Available for comparison. FINDINGS: Masses/Architectural Distortion: There is a focal asymmetry in the retroareolar region of the right b reast seen on the craniocaudad view 5 cm from the nipple. This area should be further evaluated with spot compression view. Microcalcifications: No suspicious pleomorphic-type are seen. Skin Thickening/Nipple Retraction: None. IMPRESSION: 1. Focal asymmetry in the retroareolar region of the right breast seen on the CC view. 2. This area should be further evaluated with a spot compression view. Ultrasound may be indicated a t that time. BI-RADS Category 0 - Assessment Incomplete: Need additional imaging evaluation Breast Density - Category B - Scattered areas of fibroglandular density Breast density category C or D implies that the patient has dense breast tissue. Dense breast tissue is very common and is not abnormal but dense breast tissue can make it harder to find cancer on a ma mmogram. Also, dense breast tissue may increase their breast cancer risk. This information about the result of the mammogram report was provided to the patient to raise their awareness. Use this report when you speak with the patient about their risks for breast cancer, which includes their family hist ory. At that time, you may recommend for more screening tests (Ultrasound or MRI) as they might be us eful based on their risk. A negative radiographic report should not delay biopsy if a dominant or clinically suspicious mass is present. Up to ten percent of cancers are not identified on mammography. A negative report may reinforce clinical impression. Adenosis and dense breasts may obscure an underlying neoplasm. False positive reports average 6 to 10%. Patient will receive a letter notifying them of these results.
== END 2021-04-15 00:47 ==
DX: Z12.31 Encounter for screening mammogram for malignant neoplasm of breast (principal); R92.8 Other abnormal and inconclusive findings on diagnostic imaging of breast
CPT/HCPCS: 77063; 77067

== ENCOUNTER 2021-05-04 00:38 | Outpatient (CLI) | payer OTHER, SELFPAY ==
--- NOTE | 2021-05-04 | DI.US_ITS ---
Exam(s) MG MAMMO SCREEN CALL BACK UNI US BREAST RT COMPLETE EXAM: MG MAMMO SCREEN CALL BACK UNI - RIGHT and COMPLETE RIGHT BREAST ULTRASOUND CLINICAL HISTORY: F/U ABNL MAMMO, FOCAL ASYMMETRY RETROAREOLAR REGION, RT BREAST. TECHNIQUE: Unilateral spot mammographic images obtained with 3D tomosynthesisand utilizing computer aided detection (CAD). . Complete RIGHT breast Ultrasound was also performed, including all 4 quadrants, the retroareolar az on, and the ipsilateral axilla. COMPARISON: Prior mammograms were reviewed. This additional imaging was performed due to findings described on the recent screening mammogram of . FINDINGS: Additional mammographic views performed todayrevealed that this new nodule persists. Ultrasound performed today reveals a corresponding finding at the 12 o'clock position which has the a ppearance of a mildly septated wider than taller cyst measuring 6 x 4 millimeter.. There are no othe r focal findings in all 4 quadrants of the right breast. Right axilla is negative for significant adenopathy. IMPRESSION: Benign findings. The new nodule on the mammogram corresponds to a 6 x 4 millimeter septated microcys t. Appropriate follow-up is repeat right breast mammogram in 6 months, with earlier imaging if a self d etected breast changes noted.. The patient was informed of these findings and recommendations prior to leaving the department today. BI-RADS Category 3 - 6 month - Probably Benign Finding: Recommend follow-up mammography in 6 months Breast Density - Category B - Scattered areas of fibroglandular density Breast density Category C or D implies that the patient has dense breast tissue. Dense breast tissue can make it harder to find cancer on a mammogram. Dense breast tissue is also associated with an incr eased risk of breast cancer. This information about the result of the mammogram report was provided to the patient to raise their awareness. Use this report when you speak with the patient about their risks for breast cancer, which includes their family history. At that time, you may recommend additional screening tests (Ultrasoun d or MRI) as these tests may add significant information. A negative radiographic report should not delay biopsy if a dominant or clinically suspicious mass is present. Up to ten percent of cancers are not identified on mammography. A negative report may reinforce clinical impression. Adenosis and dense breasts may obscure an underlying neoplasm. False positive reports average 6 to 10%. Patient will receive a letter notifying them of these results.
== END 2021-05-04 00:58 ==
DX: Z12.31 Encounter for screening mammogram for malignant neoplasm of breast (principal); R92.8 Other abnormal and inconclusive findings on diagnostic imaging of breast; N60.01 Solitary cyst of right breast
CPT/HCPCS: 76642; 77063; 77067

== ENCOUNTER 2021-07-12 08:06 | Emergency (ER) | payer OTHER, SELFPAY ==
[2021-07-12] VITALS (42 sets, daily range): BP systolic 109–143; BP diastolic 63–80; PULSE 67–97; RESP 9–24; TEMP 37–37.1; O2SAT 90–99
--- NOTE | 2021-07-12 08:00 | RT.EKG_ITS ---
APPROVED REPORT Exam: Resting ECG Reason for Exam: chest pain Patient Location: E HR:75 bpm ECG Measurements Heart Rate 75 AXIS AK 151 P 29 QRSd 91 QRS -16 QT 379 T -4 QTc 424 Conclusion Sinus rhythm...normal P axis, V-rate 60- 99
[2021-07-12] MEDS: nitroGLYcerin 0.4 MG TAB SL ×2 (08:39→08:47)
--- NOTE | 2021-07-12 08:39 | ED.GENADUL_ITS ---
Discharge Plan Disposition Patient Disposition: AGAINST MEDICAL ADVICE Condition: Serious Discharge Details Clinical Impression: Chest pain Primary Care Provider: Vanita Haywood ED Provider: Jesus Watson Home Meds and New Rx's Prescriptions: New nitroglycerin 0.4 mg tablet, sublingual 0.4 mg sublingual Q5-15M PRN (Reason: chest pain) Qty: 30 0RF Rx Instructions: do not exceed 3 doses per episode Continued albuterol sulfate 90 mcg/actuation HFA aerosol inhaler 2 puff IH Q6H PRN (Reason: shortness of breath or wheezing) Qty: 24 2RF acetaminophen-codeine 300-30 mg tablet 1 tab PO TID PRN MDD 3 tab (90mg) Qty: 62 0RF Rx Instructions: monthly refills only- weaning -May fill 06/27/21 aspirin [Aspir-Low] 81 MG tablet,delayed release (DR/EC) 81 mg PO DAILY Qty: 90 4RF omeprazole 40 mg capsule,delayed release(DR/EC) 40 mg PO DAILY Qty: 90 3RF acetaminophen 325 mg capsule 650 mg PO PRN PRN (Reason: fever or pain) Qty: 30 0RF tizanidine 4 mg tablet 4 mg PO HS Qty: 30 11RF lisinopril 20 mg tablet 20 mg PO DAILY Qty: 90 3RF Discharge Instructions Instructions: Against Medical Advice (ED) Additional Instructions: You are leaving AGAINST MEDICAL ADVICE and may have life-threatening or lifestyle modifying disease that will not be treated. Please follow-up with your primary care physician as soon as possible. Please have cardiac stress test as soon as possible. Avoid any exertional activities until cleared by your doctor. Return to the ER at any time for further work-up and treatment as recommended. Stand Alone Forms: Work Release Referrals: Vanita Haywood NP [Primary Care Provider] - Discharge Data Discharge Date/Time-TO BE ENTERED AT DEPARTURE: 07/12/21 13:33 Medical Decision Making 844 --50-year-old female with history of hypertension, hyperlipidemia, chronic smoker, positive family history for coronary artery disease, here with chest pain now localized to lower upper arm with associated diaphoresis earlier and continued lightheadedness. High concern for acute coronary syndrome. EKG was reviewed and interpreted by me: Please see report, no STEMI, T wave inversion noted lead III. S1Q3T3 present. Patient has no lower extremity edema or calf pain/tenderness. Plan to trend troponin. I will give nitroglycerin sublingual as initial dose earlier today did seem to help her discomfort. -- Patient reassessed and pain free after nitro x1. -- Labs reviewed, initial trop neg. Ddimer neg. Patient reassessed and remains pain free. 1300 -- I called and attempted to arrange cardiac stress testing today and unfortunate this was not available. Plan for hospitalization given concerning history and elevated heart score. Plan discussed with patient who declined - she prefer to go home and have outpatient stress test. I had a lenghty discussion with the patient about my diagnostic/treatment plan. She declines plan and wishes to leave against medical advise. I reiterated my concerns to the patient and explained the risks of leaving prior to completion of workup and treatment. I specifically emphasized the possibility of life- threatening or lifestyle modifying disease that would not be appropriately treated if they leave. Patient verbalized understanding of my concerns and the potential for life threatening or lifestyle modifying disease. Patient has capacity to make informed decision. I again explained my concerns and urged the patient to stay for treatment as outlined. Patient continued to refuse. I then discussed potential less ideal alternatives to diagnostic/treatment plan as outlines and patient refused. I recommended that the patient follow-up with primary care physician TRAN or return to the Emergency Department at any time for further treatment. I will prescribe nitroglycerin sublingual and encouraged her to take aspirin daily. I also recommended she avoid any exertional activities until cleared. HPI General Mode of arrival: ambulatory . Date/Time Provider Initiated Documentation: 07/12/21 08:14 . Limitations to Documentation: no limitations . Information obtained by: patient . HPI Narrative: 50-year-old female with history of hypertension, hyperlipidemia, COPD, chronic smoker, positive family history of coronary artery disease, here with chest pain. Patient notes chest pain started around 5 AM this morning and has persisted. She notes that when the pain came on she had diaphoresis and felt lightheaded. Pain is waxing and waning but constantly present. Patient notes pain is currently 3/10 but has been more severe. Pain localized to left chest initially and now left upper arm. Patient took one of her husbands nitroglycerin sublingual tablet earlier this morning which did seem to help discomfort. Patient notes she did take full dose aspirin today, she denies associated leg swelling or calf pain recently. Patient has associated lightheadedness and weakness in her legs bilaterally. Yesterday she was feeling well with no symptoms. Related Data Home Medications Medication Instructions Recorded Confirmed aspirin 81 mg tablet,delayed 81 mg PO DAILY #90 07/06/15 07/12/21 release (Aspir-Low) albuterol sulfate 90 mcg/actuation 2 puff IH Q6H PRN #24 gm 05/27/18 07/12/21 aerosol inhaler omeprazole 40 mg capsule,delayed 40 mg PO DAILY #90 cap 09/05/18 07/12/21 release acetaminophen 325 mg capsule 650 mg PO PRN PRN #30 cap 09/02/20 07/12/21 lisinopril 20 mg tablet 20 mg PO DAILY #90 tab 10/28/20 07/12/21 tizanidine 4 mg tablet 4 mg PO HS #30 tab 10/28/20 07/12/21 acetaminophen 300 mg-codeine 30 mg 1 tab PO TID PRN #62 tab MDD 3 tab 04/26/21 07/12/21 tablet (90mg) nitroglycerin 0.4 mg sublingual 0.4 mg SUBLINGUAL Q5-15M PRN #30 07/12/21 tablet tab Previous Rx's Medication Instructions Recorded albuterol sulfate 90 mcg/actuation 2 puff IH Q6H PRN #24 gm 05/27/18 aerosol inhaler omeprazole 40 mg capsule,delayed 40 mg PO DAILY #90 cap 09/05/18 release acetaminophen 325 mg capsule 650 mg PO PRN PRN #30 cap 09/02/20 lisinopril 20 mg tablet 20 mg PO DAILY #90 tab 10/28/20 tizanidine 4 mg tablet 4 mg PO HS #30 tab 10/28/20 acetaminophen 300 mg-codeine 30 mg 1 tab PO TID PRN #62 tab MDD 3 tab 04/26/21 tablet (90mg) nitroglycerin 0.4 mg sublingual 0.4 mg SUBLINGUAL Q5-15M PRN #30 07/12/21 tablet tab Allergies Allergy/AdvReac Type Severity Reaction Status Date / Time doxycycline Allergy Intermediate hives Verified 07/12/21 08:42 Tetracyclines Allergy Intermediate hives Verified 07/12/21 08:42 adhesive Allergy Unknown skin rash Verified 07/12/21 08:42 nortriptyline AdvReac Mild hyperactivi Verified 07/12/21 08:42 ty General Stated Complaint: Chest Pain MAMIE: 2 Review of Systems All systems reviewed & are unremarkable except as noted in HPI and below Constitutional Constitutional: Denies fever(s) Cardiovascular Cardiovascular: Reports chest pain and Denies dyspnea Respiratory Respiratory: Denies dyspnea Gastrointestinal Gastrointestinal: Reports nausea PFSH All Active Problems (Updated 07/12/21 @ 13:07 by Jesus Watson MD) Chest pain (Acute) Mammography less than 12 months ago (Acute) Right breast microcyst Tendinitis of left rotator cuff (Acute) Colon cancer screening (Acute) Cellulitis, face (Acute) Bilateral kidney stones (Acute) Carpal tunnel syndrome (Chronic) History of bilateral ligation of fallopian tubes (Chronic) History of endoscopy (Chronic) Chronic GERD (Acute 11/20/12) CHRONIC HOARSENESS SECONDARY TO GERD Smoker (Acute 11/20/12) Increased BMI (Acute 05/25/16) Hyperlipidemia (Chronic 04/18/12) Urinary, incontinence, stress female (Chronic) Essential hypertension (Chronic 05/25/16) Chronic pain of right knee (Chronic 12/02/14) Chronic obstructive lung disease (Chronic 08/01/12) Chronic low back pain (Chronic 11/20/12) Asthma (Chronic 11/20/12) Medical History (Updated 07/12/21 @ 13:07 by Jesus Watson MD) COPD (chronic obstructive pulmonary disease) Gout Hoarseness of voice secondary to reflux Hypertension Migraine headache Surgical History Arthroplasty of knee RIGHT Endoscopy (~2004) NEG GASTROPEXY History of cystoscopy Cysto/laser/retorgrade History of salpingo-oophorectomy (06/06/17) Ligation of fallopian tube Manipulation, Under Anesthesia (03/13/12) right TKA Yosi Fundoplication (~2002) Oophrectomy, Left (06/06/17) L oophorectomy. Bilateral salpingectomy. Benign indications. Open Carpal Tunnel release RIGHT Replacement of total knee joint (01/15/12) right Family History Mother Essential hypertension Hyperlipidemia Father Diabetes Essential hypertension Heart disease Hyperlipidemia Stroke Asthma Sister Essential hypertension Sister Essential hypertension Brother No problems noted. Social History Smoking/Tobacco Use Status: Current every day Tobacco Type: cigarettes Smoking packs per day: 1 Smoking cigarettes per day: 20.0 Years smoked: 30 Smoking pack- years: 30.00 Tobacco: How many years used: 35 Quit status: not considering quitting Second Hand Exposure: Yes Smoking risk assessment performed?: Yes Alcohol Intake: current Alcohol Intake frequency: a few times a month Alcohol type: beer Drug use: Never Substance use type: does not use Counseling given: No Caregiver/Support person: No Household members: spouse and children Housing: house Communication Needs: None Do you need help understanding health information?: Never 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 Pets and animals: Yes Pets and animals: cat(s) and dog(s) Sexually active: No Do you think of yourself as: straight/heterosexual Current gender identity: female What is your relationship status?: How often do you talk on the phone with friends or family?: three or more times per week How often do you get together with friends or relatives?: twice per week How often do you attend holiness or jew services?: decline to answer Do you belong to any clubs or organized social groups?: no Panel score (0-1 are the most socially isolated patients): 2 What type of physical activity do you participate in: walking Duration: 45-60 minutes/day Frequency: 3-4 times per week Dottie/Jew: None Special dottie needs: No Seatbelt use: always Drive intox or ride w/intox residential driver: No Do you feel safe at home: Yes Do you feel safe in your relationship?: Yes Exam Const General: cooperative and no acute distress HENMT Mouth: moist mucous membranes Eyes Conjunctivae: normal conjunctivae Sclera: normal sclerae Neck Neck: trachea midline and supple Resp Auscultation: clear to auscultation bilaterally, no rales, no rhonchi and no wheezes Cardio Rate: regular rate and not tachycardic Rhythm: regular rhythm Heart Sounds: no gallops, no murmurs and no rubs GI Palpation: soft, not firm, no guarding, no masses, not rigid and nontender Skin General skin exam: no rashes or lesions noted Neuro General: patient alert, patient awake, patient oriented x3 and tone normal Extrem General: no calf tenderness and no edema Psych Appearance: grossly normal Mental Status: mental status grossly normal Speech and Movement: speech and movement normal Course Vital Signs Vital signs: Vital Signs Temperature 37.1 C 07/12/21 08:23 Pulse 77 07/12/21 08:23 Respiratory Rate 17 07/12/21 08:23 Blood Pressure 143/79 H 07/12/21 08:23 Pulse Oximetry 98 07/12/21 08:23 Temperature 37.1 C 07/12/21 08:23 Temperature Source Temporal Artery Scan 07/12/21 08:23 Pulse 77 07/12/21 08:23 Respiratory Rate 18 07/12/21 08:35 Respiratory Effort Non-Labored 07/12/21 08:35 Respiratory Depth Normal 07/12/21 08:35 Respiratory Pattern Normal 07/12/21 08:35 Blood Pressure 143/79 H 07/12/21 08:23 Blood Pressure Position Sitting 07/12/21 08:23 Pulse Oximetry 98 07/12/21 08:23 Oxygen Delivery Method Room Air 07/12/21 08:23 Oxygen Flow Rate 0 07/12/21 08:23 Pain Level 4 07/12/21 08:35
[2021-07-12 08:41] LABS: Abs Immature Grans 0.04 10^3/uL (0.0-0.06); Absolute Basophil Count 0.04 10^3/uL (0.0-0.2); Absolute Eosinophil Count 0.14 10^3/uL (0.0-0.7); Absolute Lymphocyte Count 1.81 10^3/uL (1.2-3.4); Absolute Monocyte Count 0.71 10^3/uL (0.1-0.8); Absolute Neutrophil Count 6.41 10^3/uL (1.2-6.7); Basophils % 0.4; Eosinophils % 1.5; HCT 45.5 % (36.0-46.0); HGB 15.1 g/dL (11.2-15.7); Immature Grans % 0.4; Lymphocytes % 19.8; MCH 31.5 pg (27.0-33.0); MCHC 33.2 % (32.0-36.0); MCV 94.8 fL (80-95); MPV 10.2 fL (8.0-11.0); Monocytes % 7.8; Neutrophils % 70.1; Nucleated RBC 0 %; Platelet Count 284 10^3/uL (130-400); RDW 12.3 % (11.7-14.6); RDW-SD 43.1 fL; WBC 9.15 10^3/uL (4.4-10.8)
[2021-07-12 08:53] LABS: ALT 23 U/L (14-59); AST 9 U/L (15-37); Albumin 4.1 g/dL (3.4-5.0); Alkaline Phosphatase 93 U/L (46-116); Anion Gap 7.2 mmol/L (3-11); BUN 11 mg/dL (7-18); Bilirubin, Total 0.5 mg/dL (0.2-1.0); CO2 27.8 mmol/L (21.0-32.0); CREATININE 0.7 mg/dL (0.55-1.02); Calcium 8.8 mg/dL (8.5-10.1); Chloride 106 mmol/L (98-107); Glucose 81 mg/dL (74-106); Potassium 3.6 mmol/L (3.5-5.1); Sodium 141 mmol/L (136-145); Total Protein 7.8 g/dL (6.4-8.2); Troponin I < 50 ng/L (<or=60)
[2021-07-12 09:22] LABS: D-Dimer 309 ng/mlFEU (<500)
--- NOTE | 2021-07-12 09:45 | DI.RAD_ITS ---
Exam(s) XR CHEST 2V PA LATERAL EXAM: XR CHEST 2V PA LATERAL CLINICAL HISTORY: chest pain TECHNIQUE: 2D digital imaging was performed of the chest. Two images were obtained. PA and lateral views were obtained. COMPARISON: CR XR CHEST 2V PA LATERAL from 09/13/2018 FINDINGS: MEDIASTINUM: Normal. HEART: Normal. PULMONARY VASCULATURE: Normal. LUNGS: Clear. PLEURAL SPACE: No pleural effusion or pneumothorax. BONE:Within normal limits for the patient's age. OTHER FINDINGS:Normal. IMPRESSION: No acute pulmonary findings. DATA REPOSITORY: RADIATION DOSE DELIVERED:
[2021-07-12 11:10] LABS: COVID-19 PCR Negative (Negative); Source Nasal/Nares
--- NOTE | 2021-07-12 12:00 | RT.EKG_ITS ---
APPROVED REPORT Exam: Resting ECG Reason for Exam: chest pain Patient Location: E HR:66 bpm ECG Measurements Heart Rate 66 AXIS WI 144 P 20 QRSd 94 QRS 0 QT 425 T 5 QTc 445 Conclusion Sinus rhythm...normal P axis, V-rate 60- 99
[2021-07-12 12:09] LABS: Troponin I < 50 ng/L (<or=60)
--- NOTE | 2021-07-12 12:25 | NUR.NOTE ---
Nursing Note: F/U EKG done after repeat blood work done. Pt denies pain, SOB or other complaints at this time, at bedside, cont. to monitor.
== END 2021-07-12 13:33 | disposition left against medical advice (07) ==
PROVIDERS: Emergency Provider Student in an Organized Health Care Education/Training Program
DX: R07.9 Chest pain, unspecified (principal); Z53.29 Procedure and treatment not carried out because of patient's decision for other reasons; M79.622 Pain in left upper arm; Z20.822 Contact with and (suspected) exposure to COVID-19
CPT/HCPCS: 36415; 80053; 87635; 93005; 99284; 71046; 84484; 85025; 85379; 93010

== ENCOUNTER 2021-07-14 00:27 | Outpatient (CLI) | payer OTHER, SELFPAY ==
--- NOTE | 2021-07-14 15:00 | ETT_ITS ---
APPROVED REPORT Exam: Exercise Treadmill Patient Location: Out-Patient Room/Bed: Stress Nurse: Anisa Linton RN Ordering Provider:JOHN MURPHY, Contact Number: [phone] BMI: 29.11 Baseline Rhythm: Sinus Rhythm Comment: Flipped T waves lead III Indications: Chest pain Medical History Medical History: Hypertension, hyperlipidemia, asthma, COPD, smoker (current), obesity, gerd Cardiac Medications: Aspirin, lisinopril, nitroglycerin, omeprazole, albuterol sulfate Allergies: Adhesives, nortriptyline, doxycycline, tetracyclines Cardiac Risk Factors: Hypertension, hyperlipidemia, asthma, COPD, smoker (current), obesity Previous Cardiac Procedures: None Pretest Chest Pain Characteristics: None Exercise History: Sedentary Physical Disabilities: None Lung Sounds: Inspiratory wheezing in BLL Heart Sounds: Regular Stress Test Details Test: Exercise stress testing was performed using a Cristóbal protocol. Rest Stress HR Resting HR Supine: 71 bpm Max Heart Rate (APMHR): 170 bpm Resting HR Standin bpm Target HR (85% APMHR): 144 bpm Max HR Achieved: 146 bpm % of APMHR: 85 Recovery HR: 83 bpm HR response to stress: Normal HR response to stress BP Resting BP Supine: 114/68 mmHg Resting BP Standin/68 mmHg Max BP: 162/78 mmHg Recovery BP: 178/84 mmHg BP response to stress: Normal blood pressure response to stress. ECG Resting ECG: Sinus Rhythm, flipped T waves lead III Ectopy: None Stress ECG: Sinus Tachycardia ST Change: No significant ST segment changes noted Arrhythmia: None Recovery ECG: Sinus Rhythm Recovery ST Change: No significant ST segment changes noted Recovery Arrhythmia: None Clinical Reason for Termination: Fatigue, Dyspnea Stress Symptoms: General Fatigue, Dyspnea Exercise duration: 7 min57 sec Highest Stage Reached: Stage 3: 3.4 mph at 14% grade. Exercise capacity: 10.06 METs Real Treadmill Score: 7.6 Rate Pressure Product: [id number] Stress ECG Conclusion 1. The resting electrocardiogram showed minor inferolateral ST-T abnormalities 2. Patient exercised on the Cristóbal protocol and completed a workload of 10.06 METS, stopping due to fa tigue 3. Normal heart rate and blood pressure response to exercise. Patient achieved 85% of predicted hear t rate for age 4. There was no electrocardiographic evidence of myocardial ischemia 5. There were no significant dysrhythmias Real Treadmill Score is 7.6 which is Low risk. 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 Denied angina during exercise.
== END 2021-07-14 00:47 ==
LOC: DI 00:28
PROVIDERS: Visit Provider Student in an Organized Health Care Education/Training Program
DX: R07.89 Other chest pain (principal); Z72.0 Tobacco use
CPT/HCPCS: 93017

== ENCOUNTER 2021-08-04 14:48 | Outpatient (REF) | payer OTHER, SELFPAY ==
[2021-08-04 14:08] LABS: *AMPHETAMINES SCREEN URINE Negative (Negative); *BARBITURATES SCREEN URINE Negative (Negative); *BENZODIAZEPINES SCREEN URINE Negative (Negative); Cannabinoids THC Negative (Negative); Cocaine Screen,Urine Negative (Negative); METHADONE URINE SCREEN Negative (Negative); OPIATES URINE SCREEN Positive (Negative)
[2021-08-04 14:09] LABS: Tricyclic Antidepressants Negative (Negative)
== END 2021-08-04 14:49 | disposition home or self-care (01) ==
LOC: LBN 14:48
DX: G89.4 Chronic pain syndrome (principal)
CPT/HCPCS: 80307

== ENCOUNTER 2021-11-03 02:04 | Outpatient (CLI) | payer OTHER, SELFPAY ==
--- NOTE | 2021-11-03 | DI.MAMMO_ITS ---
Exam(s) MG MAMMO DIAGNOSTIC UNI EXAM: MAMMO DIAGNOSTIC UNI CLINICAL HISTORY: F/U ABNL MAMMO, 3-6 MO F/U RT BREAST, Z09, R92.8. TECHNIQUE: Craniocaudal and mediolateral oblique Full Field Digital Mammography views of the right b reast with Computer Aided Diagnosis followed by Tomosynthesis. COMPARISON: Comparison with prior examinations. FINDINGS: Mammography/Tomosynthesis: Masses/Architectural Distortion: None seen. Microcalcifictions: No suspicious pleomorphic-type are seen. Skin Thickening/Nipple Retraction: None. IMPRESSION: 1. No evidence of malignancy is noted. 2. Unless there is more urgent need, follow-up screening mammography is recommended, as per [employer] [employer] guidelines. 3. The findings were discussed with the patient on the date of the examination. BI-RADS Category 1 - Negative Breast Density - Category B - Scattered areas of fibroglandular density Breast density Category C or D implies that the patient has dense breast tissue. Dense breast tissue can make it harder to find cancer on a mammogram. Dense breast tissue is also associated with an incr eased risk of breast cancer. This information about the result of the mammogram report was provided to the patient to raise their awareness. Use this report when you speak with the patient about their risks for breast cancer, which includes their family history. At that time, you may recommend additional screening tests (Ultrasoun d or MRI) as these tests may add significant information. A negative radiographic report should not delay biopsy if a dominant or clinically suspicious mass is present. Up to ten percent of cancers are not identified on mammography. A negative report may reinforce clinical impression. Adenosis and dense breasts may obscure an underlying neoplasm. False positive reports average 6 to 10%. Patient will receive a letter notifying them of these results.
== END 2021-11-03 02:24 ==
LOC: DI 02:05
DX: R92.8 Other abnormal and inconclusive findings on diagnostic imaging of breast (principal)
CPT/HCPCS: 77061; 77065; G0279

== ENCOUNTER 2022-03-24 08:51 | Outpatient (CLI) | payer OTHER, SELFPAY ==
--- NOTE | 2022-03-24 08:55 | DI.RAD_ITS ---
Exam(s) XR KNEE RT 3V AP,LAT,JUAN DIEGO EXAM: XR KNEE RT 3V AP,LAT,JUAN DIEGO CLINICAL HISTORY: right knee pain. TECHNIQUE: 2D digital imaging was performed. COMPARISON: CR RIGHT KNEE 3 VIEWS from 07/28/2016 FINDINGS: 3 views Satisfactory position alignment of the components of the knee prosthesis. No fracture or loosening e vident. IMPRESSION: Satisfactory appearance. DATA REPOSITORY: RADIATION DOSE DELIVERED:
== END 2022-03-24 08:52 | disposition home or self-care (01) ==
LOC: DIORS 08:52
PROVIDERS: PCP Nurse Practitioner Family; Referring Provider Nurse Practitioner Family; Visit Provider Student in an Organized Health Care Education/Training Program
DX: M25.561 Pain in right knee (principal); Z96.651 Presence of right artificial knee joint
CPT/HCPCS: 73562

== ENCOUNTER 2022-04-07 00:20 | Outpatient (CLI) | payer OTHER, SELFPAY ==
--- NOTE | 2022-04-07 07:15 | DI.NM_ITS ---
Exam(s) NM BONE SCAN 3 PHASE EXAM: NM BONE SCAN 3 PHASE CLINICAL HISTORY: PAIN, ?LOOSENING,infection,z96.651,t84.84xa,t84.52xa. TECHNIQUE: Injected Dose: 20 mCi Tc-99m MDP COMPARISON: CR XR KNEE RT 3V AP,LAT,JUAN DIEGO from 03/24/[address] LOWER EXTREMITY RT WO from 04/07/2022 FINDINGS: Perfusion: Symmetric. Blood Pool: Mildly increased activity around the femoral and tibial components of the prosthesis. Delayed: Increased activity is noted at the medial femoral condyle and tibial plateau, greater medial ly. Findings are suspicious for loosening. No significantly increased activity in the patella. IMPRESSION: 1. Increased activity around the femoral and tibial components of the total knee prosthesis greater m edially, suspicious for loosening. DATA REPOSITORY:
--- NOTE | 2022-04-07 07:15 | DI.CT_ITS ---
Exam(s) CT LOWER EXTREMITY RT WO EXAM: CT LOWER EXTREMITY RT WO CLINICAL HISTORY: PAIN, ?LOOSENING,infection,t84.84xa,z96.651,t84.52xa. TECHNIQUE: Imaging Protocol: Axial computed tomography images with coronal and sagittal reformatted images were created and reviewed. CONTRAST MATERIAL: Noncontrast COMPARISON: CR RIGHT KNEE LIMITED 1 OR 2 VIEW from 04/22/2015 CR RIGHT KNEE 3 VIEWS from 07/28/2016 CR XR KNEE RT 3V AP,LAT,JUAN DIEGO from 03/24/2022 FINDINGS: There is a total knee prosthesis in place which creates artifact. There is no evidence of fracture. There is an elongated area of lucency seen in the distal femur at the medial metaphyseal region which is consistent with cystic change. There is no evidence of loosen ing of the the femoral or tibial components. The patella is unremarkable as visualized but is partia lly obscured by artifact. No significant joint effusion is visible. The bones appear osteopenic. T he soft tissues are unremarkable. IMPRESSION: Elongated area of cystic change in the medial femoral metaphysis. No evidence of fracture or prosthe tic loosening. RADIATION DOSE DELIVERED: 354.08mGy.cm Total DLP DATA REPOSITORY: All CT scans at this facility are submitted to the National Radiology Data Registry (NRDR) Dose Index Registry (DIR) with the [employer] ([employer]). RADIATION OPTIMIZATION: All CT scans at this facility use at least one of these dose optimization te chniques: automated exposure control; mA and/or kV adjustment per patient size (includes targeted exa ms where dose is matched to clinical indication); or iterative reconstruction.
[2022-04-07 10:59] LABS: ESR 13 mm/hr (0-30)
[2022-04-07 11:09] LABS: C-Reactive Protein 0.62 mg/dL (0.0-0.3)
== END 2022-04-07 00:40 ==
LOC: DI 00:20
PROVIDERS: PCP Nurse Practitioner Family; Visit Provider Student in an Organized Health Care Education/Training Program
DX: T84.52XA Infection and inflammatory reaction due to internal left hip prosthesis, initial encounter (principal); T84.84XA Pain due to internal orthopedic prosthetic devices, implants and grafts, initial encounter; Z96.651 Presence of right artificial knee joint; M25.561 Pain in right knee; M85.88 Other specified disorders of bone density and structure, other site
CPT/HCPCS: 85652; 73700; 78315; 86140

== ENCOUNTER 2022-04-13 16:13 | Outpatient (REF) | payer OTHER, SELFPAY ==
[2022-04-13 14:07] LABS: Clarity Cloudy
[2022-04-13 14:08] LABS: Nucleated Cells 1910 uL (0)
== END 2022-04-13 16:14 | disposition home or self-care (01) ==
LOC: LBN 16:13
PROVIDERS: PCP Nurse Practitioner Family; Visit Provider Student in an Organized Health Care Education/Training Program
DX: T84.84XA Pain due to internal orthopedic prosthetic devices, implants and grafts, initial encounter (principal); Z96.651 Presence of right artificial knee joint
CPT/HCPCS: 87070; 87205; 89051

== ENCOUNTER 2022-05-04 02:32 | Outpatient (CLI) | payer OTHER, SELFPAY ==
[2022-05-04 13:41] LABS: HCT 45.2 % (36.0-46.0); HGB 15.2 g/dL (11.2-15.7); MCH 31.7 pg (27.0-33.0); MCHC 33.6 % (32.0-36.0); MCV 94 fL (80-95); MPV 9.8 fL (8.0-11.0); Platelet Count 260 10^3/uL (130-400); RBC 4.79 10^6/uL (3.93-5.22); RDW 12.6 % (11.7-14.6); RDW-SD 43.9 fL; WBC 8.71 10^3/uL (4.4-10.8)
[2022-05-04 13:51] LABS: Anion Gap 8.8 mmol/L (3-11); BUN 8 mg/dL (7-18); CO2 27.2 mmol/L (21.0-32.0); CREATININE 0.9 mg/dL (0.55-1.02); Calcium 9.1 mg/dL (8.5-10.1); Chloride 102 mmol/L (98-107); Glucose 89 mg/dL (74-106); Potassium 3.1 mmol/L (3.5-5.1); Sodium 138 mmol/L (136-145)
== END 2022-05-04 02:33 | disposition home or self-care (01) ==
LOC: LBO 02:32
PROVIDERS: PCP Nurse Practitioner Family; Visit Provider Student in an Organized Health Care Education/Training Program
DX: T84.038A Mechanical loosening of other internal prosthetic joint, initial encounter (principal); T84.84XA Pain due to internal orthopedic prosthetic devices, implants and grafts, initial encounter; Z96.651 Presence of right artificial knee joint; M25.561 Pain in right knee; Z01.818 Encounter for other preprocedural examination; Z01.812 Encounter for preprocedural laboratory examination
CPT/HCPCS: 36415; 80048; 85027

== ENCOUNTER 2022-05-09 12:28 | Observation (INO) | payer OTHER, SELFPAY ==
[2022-05-09] VITALS (13 sets, daily range): BP systolic 114–145; BP diastolic 57–82; PULSE 61–86; RESP 14–20; TEMP 36.1–36.8; O2SAT 93–99; BMI 29.6
--- NOTE | 2022-05-09 | DI.RAD_ITS ---
Exam(s) XR KNEE RT 2V AP,LAT EXAM: XR KNEE RT 2V AP,LAT CLINICAL HISTORY: s/p revision R TKA. TECHNIQUE: 2D digital imaging was performed of the right knee. Two views obtained. AP and lateral views were obtained. COMPARISON: CR XR KNEE RT 3V AP,LAT,JUAN DIEGO from 03/24/2022 FINDINGS: BONES: No acute fracture is present. No bony destructive lesion is seen. JOINTS: The patient is now status post right total knee revision. The orthopedic hardware appears in good position. No lucencies are seen in or about the orthopedic hardware. No joint effusion is see n. SOFT TISSUE: Postsurgical changes are seen in the soft tissues. IMPRESSION: Status post right TKA revision. DATA REPOSITORY: RADIATION DOSE DELIVERED:
--- NOTE | 2022-05-09 08:52 | W.PM.DS.N ---
Date of service: 05/10/22 Time of Service: 07:30 DS: Diagnosis Discharge Diagnosis (1) Aseptic loosening of prosthetic knee: Status: Acute Discharge Plan Disposition Patient Disposition: Home Condition: Good Discharge Details Reason For Visit: aseptic loosening of right TKA Admit Date/Time: 05/09/22 09:44 Admit Provider: Neal Pichardo Attending Provider: Neal Pichardo Primary Care Provider: Laureano Benoit Hospital Course Hospital Course: Patient was admitted to the medical/surgical floor following the procedure. The surgery was tolerated well without any notable medical, surgical, or anesthetic complications. Mobilization began postoperatively. She was voiding spontaneously. Vitals were stable. Physical therapy worked with the patient and was cleared for discharge home. No acute medical issues. Pain was controlled on oral regimen. Home Meds and New Rx's Prescriptions: New acetaminophen 500 mg tablet 500 mg PO Q6H PRN (Reason: pain) Qty: 60 2RF aspirin 81 mg tablet,delayed release (DR/EC) 81 mg PO BID 30 Days Qty: 60 0RF celecoxib [Celebrex] 200 mg capsule 200 mg PO BID PRNQty: 60 0RF Rx Instructions: Take one tablet twice daily for pain and inflammation docusate sodium [Colace] 100 mg capsule 100 mg PO BID Qty: 30 0RF dexamethasone 4 mg tablet 4 mg PO DAILY Qty: 2 0RF Rx Instructions: Take one tablet once daily for two days Continued sertraline 50 mg tablet 100 mg PO DAILY Qty: 90 3RF lisinopril 20 mg tablet 20 mg PO DAILY Qty: 90 3RF albuterol sulfate 90 mcg/actuation HFA aerosol inhaler 2 puff IH Q6H PRN (Reason: shortness of breath or wheezing) Qty: 24 2RF acetaminophen-codeine 300-30 mg tablet 1 tab PO BID MDD 2 tab (60mg) PRN (Reason: pain) Qty: 56 0RF Rx Instructions: Continue weaning. omeprazole 40 mg capsule,delayed release(DR/EC) 40 mg PO DAILY Qty: 90 3RF gabapentin 300 mg capsule 300 mg PO BID Qty: 180 0RF tizanidine 4 mg tablet 4 mg PO HS Qty: 30 3RF nitroglycerin 0.4 mg tablet, sublingual 0.4 mg sublingual Q5-15M PRN (Reason: chest pain) Qty: 30 0RF Label Comments: only taken once in the ER here at [facility] per pt Rx Instructions: do not exceed 3 doses per episode Discontinued aspirin [Aspir-Low] 81 MG tablet,delayed release (DR/EC) 81 mg PO DAILY Qty: 90 acetaminophen 325 mg capsule 650 mg PO PRN PRN (Reason: fever or pain) Qty: 30 0RF Discharge Instructions Additional Instructions: Revision Total Knee Discharge Instructions Activity: The most important activity is to walk and to work on gentle motion (both flexion and extension). You should try to take short walks a few times a day. It is important that when resting you work on keeping the knee straight. Avoid putting a pillow behind the knee as this will encourage flexion. Work on range of motion exercises as provided by Physical Therapy. - Start outpatient physical therapy within 2 weeks. - You should wear the RAYNE hose on both legs for 2 weeks. You may remove these at night. You may also use any compression sock in place of the RAYNE hose. - Utilize [employer] to review exercises, see videos on exercises and obtain basic information pertaining to your surgery and your recovery. Dressing: Remove the Rai wrap by 2 days after your surgery and put on the RAYNE stocking given to you from the hospital. Keep the surgical dressing (underneath the RAI wrap) in place for at least one week. After the first week it may be removed and replaced with light gauze and tape or nothing. The wound and dressing may get wet after 3 days but avoid soaking the dressing or otherwise it will need to be changed. Many people prefer covering the dressing with cling wrap (saran wrap) to minimize it from getting soaked. If it gets wet, just pat dry. If it starts to peel off then it will need to be changed. Medications: - You should take Tylenol and anti-inflammatory Celebrex as your primary pain control medications. If the Celebrex is too expensive or not covered, please call the office for another alternative (Advil/Ibuprofen or Naproxen/Aleve) - You have been prescribed a stronger pain medication Oxycodone for breakthrough pain, take as needed as prescribed. - You normally take a stomach acid reduction agent Omeprazole to help reduce stomach acid and reflux - continue with this medication. - You normally take Gabapentin - continue with this medication especially at night for restlessness and nerve pain. - You will be taking Aspirin 81mg twice a day for DVT prevention unless instructed otherwise. - You have also been prescribed Decadron to take to control post-operative nausea and pain. You will start this tomorrow. - If you have constipation you should take Colace (which has been prescribed) or Miralax (which is available [id number]). It takes most people 3-4 days to have a bowel movement. Follow-up: 2 weeks If you have any acute concerns or questions, please do not hesitate to contact the office at [phone]. You may contact Dr. Pichardo with any questions after hours through the hospital at [phone] or on his cell phone at [phone]. Referrals: Neal Pichardo MD [ [facility] STAFF PHYSICIAN] - Activity:: Activity as Tolerated Equipment/Supplies:: Walker Diet:: As Tolerated Discharge Orders Discharge Orders: Discharge Order (Routine); Ordered 05/10/22 Ordered By: Neal Pichardo DS: Summary Time Spent with Patient providing and/or coordinating discharge services: Less than 30 minutes Status at Discharge Functional status at discharge: uses cane/walker Overall status at discharge: patient is progressing back to baseline Mental Status: mental status grossly normal Speech and Movement: speech and movement normal Mood: congruent mood Affect: normal affect Exam Psych Mental Status: mental status grossly normal Speech and Movement: speech and movement normal Mood: congruent mood Affect: normal affect DS: Data Vitals/I&O Vitals and I&O: Intake & Output 05/08/22 05/08/22 05/09/22 11:59 23:59 11:59 Weight 171 lb Data Completed and Pending Labs on day of discharge: Labs from last 24 hours 05/09/22 10:00 COVID-19 Source Pending SARS-CoV-2 (PCR) Pending [facility] All Active Problems Aseptic loosening of prosthetic knee (Acute) RIGHT Screening for colorectal cancer (Acute) Right knee pain (Acute) Anxiety (Chronic) Chronic pain syndrome (Chronic) Chronic low back pain (Chronic 11/20/12) Essential hypertension (Chronic 05/25/16) Hyperlipidemia (Chronic 04/18/12) Smoker (Chronic 11/20/12) Overweight (BMI 25.0-29.9) (Acute) Mammography less than 12 months ago (Chronic) Right breast microcyst Tendinitis of left rotator cuff (Chronic) Chronic GERD (Chronic 11/20/12) CHRONIC HOARSENESS SECONDARY TO GERD Chronic obstructive lung disease (Chronic 08/01/12) Asthma (Chronic 11/20/12) Urinary, incontinence, stress female (Chronic) Medical History Bilateral kidney stones COPD (chronic obstructive pulmonary disease) Gout Hoarseness of voice secondary to reflux Hypertension Migraine headache Plantar wart Uric acid renal calculus Surgical History Endoscopy (~2004) NEG GASTROPEXY History of cystoscopy Cysto/laser/retorgrade History of salpingo-oophorectomy (06/06/17) History of total right knee replacement (TKR) (01/15/12) Ligation of fallopian tube Manipulation, Under Anesthesia (03/13/12) right TKA Yosi Fundoplication (~2002) Oophrectomy, Left (06/06/17) L oophorectomy. Bilateral salpingectomy. Benign indications. Open Carpal Tunnel release RIGHT Replacement of total knee joint (01/15/12) right Family History Mother Essential hypertension Hyperlipidemia Father Diabetes Essential hypertension Heart disease Hyperlipidemia Stroke Asthma Sister Essential hypertension Sister Essential hypertension Brother No problems noted. Social History Smoking/Tobacco Use Status: Current every day Tobacco Type: cigarettes Smoking packs per day: 1 Smoking cigarettes per day: 20.0 Years smoked: 30 Smoking pack-years: 30.00 Tobacco: How many years used: 35 Quit status: considering quitting Second Hand Exposure: Yes Smoking risk assessment performed?: Yes Alcohol Intake: current Alcohol Intake frequency: a few times a month Alcohol type: beer Drug use: Never Substance use type: does not use Counseling given: No Caregiver/Support person: No Household members: spouse and children Housing: house Communication Needs: None Do you need help understanding health information?: Never 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 Pets and animals: Yes Pets and animals: cat(s) and dog(s) Sexually active: No Do you think of yourself as: straight/heterosexual Current gender identity: female What is your relationship status?: How often do you talk on the phone with friends or family?: three or more times per week How often do you get together with friends or relatives?: twice per week How often do you attend shinto or rastafarian services?: decline to answer Do you belong to any clubs or organized social groups?: no Panel score (0-1 are the most socially isolated patients): 2 What type of physical activity do you participate in: walking Duration: 45-60 minutes/day Frequency: 3-4 times per week Dottie/Samaritan: None Special dottie needs: No Seatbelt use: always Drive intox or ride w/intox sales route driver: No Do you feel safe at home: Yes Do you feel safe in your relationship?: Yes Time Spent with Patient Time Spent with Patient: <45 minutes Time was spent: preparing to see the patient(eg.review tests) and ordering medications,tests, procedures
[2022-05-09 10:04] LABS: Source Nasal/Nares
[2022-05-09] MEDS: Lactated Ringers 1,000 ML 80 ML IV (10:30)
[2022-05-09] MEDS: Acetaminophen 500 MG TAB 1000 MG PO ×2 (10:40→17:47)
[2022-05-09] MEDS: Celecoxib 200 MG CAP 400 MG PO (10:40)
[2022-05-09] MEDS: Gabapentin 300 MG CAP PO (10:42)
[2022-05-09 10:45] LABS: COVID-19 PCR Negative (Negative)
--- NOTE | 2022-05-09 11:25 | ANES.PREOP_ITS ---
General Info Date of Service Date Performed: 05/09/22 Height: 5 ft 4.5 in Weight: 79.6 kg Body Mass Index (BMI): 29.6 Surgical Procedure: Operation Date: 05/09/22 13:55 Proposed Procedure Side Surgeon p Knee Total Revision-ATTUNE Right Neal Pichardo MD Meds Allergies and Home Medications Allergies Allergy/AdvReac Type Severity Reaction Status Date / Time doxycycline Allergy Intermediate hives Verified 05/08/22 13:34 Tetracyclines Allergy Intermediate hives Verified 05/08/22 13:34 adhesive Allergy Unknown skin rash Verified 05/08/22 13:34 nortriptyline AdvReac Mild hyperactivi Verified 05/08/22 13:34 ty Home Medication Medication Instructions Recorded omeprazole 40 mg capsule,delayed 40 mg PO DAILY #90 caps 09/05/18 release nitroglycerin 0.4 mg sublingual 0.4 mg sublingual Q5-15M PRN chest 07/12/21 tablet pain #30 tabs gabapentin 300 mg capsule 300 mg PO BID #180 caps 02/15/22 tizanidine 4 mg tablet 4 mg PO HS #30 tabs 02/20/22 albuterol sulfate 90 mcg/actuation 2 puff inhalation Q6H PRN 02/24/22 aerosol inhaler shortness of breath or wheezing #24 grams lisinopril 20 mg tablet 20 mg PO DAILY #90 tabs 02/24/22 sertraline 50 mg tablet 100 mg PO DAILY anxiety #90 tabs 02/24/22 acetaminophen 300 mg-codeine 30 mg 1 tab PO BID PRN pain #56 tabs 04/25/22 tablet acetaminophen 500 mg tablet 500 mg PO Q6H PRN pain #60 tabs 05/09/22 aspirin 81 mg tablet,delayed 81 mg PO BID 30 days #60 tabs 05/09/22 release celecoxib 200 mg capsule (Celebrex) 200 mg PO BID PRN #60 caps 05/09/22 dexamethasone 4 mg tablet 4 mg PO DAILY #2 tabs 05/09/22 docusate sodium 100 mg capsule 100 mg PO BID #30 caps 05/09/22 (Colace) Current Visit Medications: Current Medications Generic Name Dose Route Start Last Admin Trade Name Freq PRN Reason Stop Dose Admin Acetaminophen 1,000 mg 05/09/22 06:00 05/09/22 10:40 Acetaminophen 500 Mg Tab PO 1,000 mg PREOP ZAYRA Administration Acetaminophen 1,000 mg 05/09/22 14:00 Acetaminophen 500 Mg Tab PO TID ZAYRA Aspirin 81 mg 05/09/22 20:00 Aspirin E.C. 81 Mg Tabec PO BID ZAYRA Celecoxib 400 mg 05/09/22 06:00 05/09/22 10:40 Celecoxib 200 Mg Cap PO 400 mg PREOP ZAYRA Administration Celecoxib 200 mg 05/09/22 20:00 Celecoxib 200 Mg Cap PO BID ZAYRA Dexamethasone 4 mg 05/10/22 08:30 Dexamethasone 4 Mg Tab PO 05/11/22 08:31 DAILY ZAYRA Docusate Sodium 100 mg 05/09/22 08:49 Docusate Sodium 100 Mg Cap PO BID PRN PRN Constipation Gabapentin 300 mg 05/09/22 06:00 05/09/22 10:42 Gabapentin 300 Mg Cap PO 300 mg PREOP ZAYRA Administration Gabapentin 300 mg 05/09/22 22:00 Gabapentin 300 Mg Cap PO HS ZAYRA Hydromorphone HCl 0.5 mg 05/09/22 08:49 Hydromorphone 2 Mg/Ml Syr IVP Q2H PRN PRN Tranexamic Acid 1,000 mg/ 60 mls @ 360 mls/hr 05/09/22 06:00 Sodium Chloride IVPB 05/09/22 18:00 PREOP ZAYRA Ringer's Solution 1,000 mls @ 80 mls/hr 05/09/22 06:00 05/09/22 10:30 IV 06/07/22 23:59 80 mls/hr INFUSION ZAYRA Administration Cefazolin Sodium/Dextrose 2 gm in 50 mls @ 100 mls/hr 05/09/22 06:00 Ancef Duplex IVPB 06/07/22 23:59 PREOP ZAYRA Cefazolin Sodium/Dextrose 1 gm in 50 mls @ 100 mls/hr 05/09/22 10:00 Ancef Duplex IVPB 05/10/22 02:29 Q8H [facility] IV Miscellaneous Supplies 1 each 05/09/22 06:00 Iv Access IV 06/07/22 23:59 DIRECTED ZAYRA Oxycodone HCl 0 mg 05/09/22 08:49 Oxycodone 5 Mg Tab PO Q3H PRN PRN Pain Pantoprazole Sodium 40 mg 05/10/22 07:30 Pantoprazole 40 Mg Tabcr PO DAILY@0730 ZAYRA Sodium Chloride 0 ml 05/09/22 06:00 Normal Saline Flush 10 Ml Syr IV 06/07/22 23:59 PRN PRN Sodium Chloride 0 ml 05/09/22 06:00 Normal Saline 10 Ml Vial IJ 06/07/22 23:59 DIRECTED PRN Sterile Water 0 ml 05/09/22 06:00 Water,Injection,Sterile 10 Ml Vial IJ 06/07/22 23:59 DIRECTED PRN PFSH Active Problems Active Problems: Problem Status Onset Code 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, Z96.659 Screening for colorectal cancer Z12.11, Z12.12 Right knee pain M25.561 Anxiety F41.9 Chronic pain syndrome G89.4 Chronic low back pain 11/20/12 M54.5, G89.29 Essential hypertension 05/25/16 I10 Hyperlipidemia 04/18/12 E78.5 Smoker 11/20/12 F17.200 Overweight (BMI 25.0-29.9) E66.3 Mammography less than 12 months ago Z78.9 Tendinitis of left rotator cuff M75.82 Chronic GERD 11/20/12 K21.9 Chronic obstructive lung disease 08/01/12 J44.9 Asthma 11/20/12 J45.909 Urinary, incontinence, stress female N39.3 Medical History Medical History Bilateral kidney stones COPD (chronic obstructive pulmonary disease) Gout Hoarseness of voice secondary to reflux Hypertension Migraine headache Plantar wart Uric acid renal calculus Medical History Comments:: smoked 1 cigarette this am Surgical History Surgical History Endoscopy (~2004) NEG GASTROPEXY History of cystoscopy Cysto/laser/retorgrade History of salpingo-oophorectomy (06/06/17) History of total right knee replacement (TKR) (01/15/12) Ligation of fallopian tube Manipulation, Under Anesthesia (03/13/12) right TKA Yosi Fundoplication (~2002) Oophrectomy, Left (06/06/17) L oophorectomy. Bilateral salpingectomy. Benign indications. Open Carpal Tunnel release RIGHT Replacement of total knee joint (01/15/12) right Tobacco Smoking/Tobacco Use Status: Current every day Tobacco Type: cigarettes Smoking packs per day: 1 Smoking cigarettes per day: 20.0 Years smoked: 30 Smoking pack- years: 30.00 Passive smoking exposure: Yes Second hand exposure: Yes Alcohol Alcohol Intake: current Alcohol intake frequency: a few times a month Alcohol type: beer Substance Use Substance use: Never Substance use type: does not use Vital Signs and Lab Results Vital Signs Most Recent Vital Signs in EMR: Most Recent Vital Signs Temp Pulse Resp BP Pulse Ox 36.8 C 71 16 141/79 H 98 05/09/22 10:00 05/09/22 10:00 05/09/22 10:00 05/09/22 10:00 05/09/22 10:00 Lab Results Blood Type / Crossmatch: No Data to Display Complete Blood Count: White Blood Count 8.71 10^3/uL (4.4-10.8) 05/04/22 13:37 Red Blood Count 4.79 10^6/uL (3.93-5.22) 05/04/22 13:37 Hemoglobin 15.2 g/dL (11.2-15.7) 05/04/22 13:37 Hematocrit 45.2 % (36.0-46.0) 05/04/22 13:37 Platelet Count 260 10^3/uL (130-400) 05/04/22 13:37 Complete Metabolic Panel: Sodium 138 mmol/L (136-145) 05/04/22 13:37 Potassium 3.1 mmol/L (3.5-5.1) L 05/04/22 13:37 Chloride 102 mmol/L (98-107) 05/04/22 13:37 Carbon Dioxide 27.2 mmol/L (21.0-32.0) 05/04/22 13:37 BUN 8 mg/dL (7-18) 05/04/22 13:37 Creatinine 0.9 mg/dL (0.55-1.02) 05/04/22 13:37 Est GFR (CKD-EPI 2020) 77.40 (mL/min/1.73m2) 05/04/22 13:37 Calcium 9.1 mg/dL (8.5-10.1) 05/04/22 13:37 Glucose 89 mg/dL (74-106) 05/04/22 13:37 Liver Function Panel: No Data to Display Coagulation Panel: No Data to Display Cardiac Panel: No Data to Display Arterial Blood Gas: No Data to Display Venous Blood Gas: No Data to Display Pancreas Panel: No Data to Display Thyroid Panel: No Data to Display Infectious Disease: Coronavirus (COVID-19)(PCR) Negative (Negative) 05/09/22 09:55 Coronavirus 2019 Source Nasal/Nares 05/09/22 09:55 Blood Cultures: No Data to Display Toxicology Panel: No Data to Display Panel: No Data to Display Imaging and Studies Imaging and Studies Study information below may be from another EMR and interpreted by another provider. Please see original notes in EMR for more complete details. EKG Summary: Conclusion Sinus rhythm...normal P axis, V-rate 60- 99 07/12/21 Stress Test Summary: Stress ECG Conclusion 1. The resting electrocardiogram showed minor inferolateral ST-T abnormalities 2. Patient exercised on the Cristóbal protocol and completed a workload of 10.06 METS, stopping due to fatigue 3. Normal heart rate and blood pressure response to exercise. Patient achieved 85% of predicted heart rate for age 4. There was no electrocardiographic evidence of myocardial ischemia 5. There were no significant dysrhythmias Real Treadmill Score is 7.6 which is Low risk. 07/14/21 Anesthesia Assessment and Plan Anesthesia History Personal History: No History of Anesthesia Complications Family History: No Family History of Anesthesia Complications Exercise Tolerance Exercise Tolerance: Metabolic Equivalents>4 Pertinent Negatives Pertinent Negatives: No Symptoms of GERD, No Major Cardiovascular Symptoms or Complaints and No History of CVA/TIA Cardiac & Pulmonary Exam Cardiac Exam: Normal S1/S2 Heart Sounds Pulmonary Exam: Clear Bilateral Breath Sounds Implantable Cardiac Device Does patient have a Pacemaker or an ICD?: No Airway Exam Known Difficult Airway: No Mallampati Class: 3 Mouth Opening: Normal (> 3cm) Thyromental Distance: Greater than 3 cm Neck Range of Motion: Full ROM Neck Circumference: Normal Teeth Condition: Generalized Poor Dentition Airway Comments: Missing teeth- one tooth on upper left. Missing lower molars ASA Classification ASA Score: ASA 3 Emergency Case?: No NPO Status NPO Status: NPO Clears >2 hours, Solids >8 hours Status Status: Not Per Patient Anesthesia Plan Resuscitation Status: Full Code Anesthesia Technique: Spinal Anesthesia Airway Planned: Natural Airway Pain Management: Surgeon and patient request nerve block Monitors Used: Standard Monitors Preoperative Comments:: COPD - inhailer hasn?t been used in months Nitro prescription never used per patient outside of trip to ED
[2022-05-09] MEDS: Bupivacaine 0.25% Pres-Free 10 ML VIAL (12:00)
[2022-05-09] MEDS: Lidocaine 2% Pres-Free 5 ML VIAL (12:00)
--- NOTE | 2022-05-09 12:20 | W.ANESNERVE ---
Nerve Block Single Injection Procedure Date and Time Date Performed: 05/09/22 Procedure Start: 12:00 Location Where Procedure Performed Procedure Location: Day Surgery Unit Reason Performed: Postoperative Analgesia Requesting Provider: Neal Pichardo Timeout Performed Timeout Performed: Yes Monitoring Used ECG, Blood Pressure, SpO2 and See EMR for corresponding vital signs Sterility Sterility: Hand Hygiene, Surgical Cap, Surgical Mask, Sterile Gloves and Chlorhexidine Sedation Given During Procedure Sedation Given (Indicate Dose Given): Versed IV Dose:: 2 mg Patient Mental Status Patient Mental Status: Awake Nerve Block 1st Nerve Block: Laterality: Right Block Type: Adductor Canal Ultrasound Image Saved?: Yes Needle / Catheter Used: 100mm SonoPlex II Local Anesthetic Bolus (Indicate Dose Given): Lidocaine used for local infiltration of skin, Injected in 3-5ml increments after negative blood aspiration and Bupivacaine 0.25% Dose:: 15 ml Additives (Indicate Dose Given): None Ultrasound: Sterile probe cover and gel used Nerve Stimulator: Not Used Paresthesia: None Procedure Tolerated: No Complications and Patient tolerated well Procedure Outcome: Successful Performed By: Jessy Phillips Supervised By: Gladis Adrian
[2022-05-09] MEDS: ceFAZolin 2 GM/50 ML BAG IVPB (12:26)
--- NOTE | 2022-05-09 15:54 | W.ANESPOSTOP ---
Postoperative Evaluation Date, Time and Location Date Performed: 05/09/22 Time Performed: 15:54 Patient Location: PACU Vital Signs Most Recent Imported Vital Signs: Most Recent Vital Signs Temp Pulse Resp BP Pulse Ox 36.8 C 71 16 145/82 H 95 05/09/22 12:00 05/09/22 10:00 05/09/22 12:10 05/09/22 12:10 05/09/22 12:10 Pain Score Most Recent Pain Score: Most Recent Pain Score Pain Level 0 05/09/22 12:10 Assessment Mental Status: Awake (Alert & Oriented to Patient Baseline) Airway and Respiratory Function: Patent airway with normal (patient baseline) respiratory exam Cardiovascular Function: Hemodynamically Stable Hydration Status: Adequately Hydrated Nausea & Vomiting: No Nausea or Vomiting Pain: Pt. Denies Any Pain Peripheral Nerve Block: Regional nerve block not resolved at time of post operative discharge
[2022-05-09] MEDS: HYDROmorphone 2 MG/ML SYR IVP ×2 (16:11→16:21)
[2022-05-09] MEDS: Normal Saline 10 ML VIAL IJ (16:11)
--- NOTE | 2022-05-09 17:05 | PT.INIE ---
Date of service: 05/09/22 Time of Service: 17:05 PT Notes Visit Reasons: aseptic loosening of right TKA Physical Therapy Inpatient Initial Evaluation Date: 05/09/2022 Referring Doctor: RAKAN Escobar PT Orders: PT CONSULT: S/p Ortho surgery Precautions: Fall. Standard. WBAT on R LE with Loftstrand crutches. Patient Profile/Admitting Diagnosis: Delaney 50-year-old female with a septic loosening of right TKA and is status post right total knee arthroplasty revision on postoperative day 0. PMHX: Medical History? Bilateral kidney stones COPD (chronic obstructive pulmonary disease) Gout Hoarseness of voice secondary to refluxHypertension Migraine headache Plantar wart Uric acid renal calculus Surgical History? Endoscopy (~2004) NEG GASTROPEXY History of cystoscopy Cysto/laser/retorgradeHistory of salpingo-oophorectomy (06/06/17) History of total right knee replacement (TKR) (01/15/12) Ligation of fallopian tube Manipulation, Under Anesthesia (03/13/12) right TKA Yosi Fundoplication (~2002) Oophrectomy, Left (06/06/17) L oophorectomy. Bilateral salpingectomy. Benign indications. Open Carpal Tunnel release RIGHT Replacement of total knee joint (01/15/12) right Social History/Home Situation: Will have support at home. Independent with all aspects of ADLs prior to surgery. 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 Has 2 steps to enter the house. Equipment Owned/DME: Bilateral Loftstrand crutches given by friend Subjective: Reports -09/2009 pain in the right knee at rest and with movement. Agreeable to getting out of bed for supper for the session. States that she has had 15 falls in the past year due to her right knee giving way when it started to become sore when she would walk. Feels much better with forearm crutch use. Does not feel safe with the FWW. Does indicate that she still needs to feel more confident with forearm crutch use. Objective: General Observation: Supine in bed. IV through the right LE. GAVIN wraps to right LE. Cryocuff to right knee. Left finger flexion contracture, pre-existing. Mental Status: Alert and oriented as to person, place, time, and purpose. Able to pay attention, focus, and respond appropriately. Pain: 5?6/10 in right knee Vital Signs: WNL both monitored by nursing staff. ROM: Right Upper Extremity: Shoulder Flexion WFL. Shoulder abduction WFL. Elbow flexion WFL. Wrist flexion WFL. Functional opening and closing of hand WFL. Left Upper Extremity: Shoulder Flexion WFL. Shoulder abduction WFL. Elbow flexion WFL. Wrist flexion WFL. Functional opening and closing of hand decreased. Right Lower Extremity: Hip flexion WFL. Hip abduction WFL. Knee flexion 0 degrees to 90 degrees. Knee extension 90 degrees to 0 degrees.. Ankle dorsiflexion WFL. Ankle plantarflexion WFL. Left Lower Extremity: Hip flexion WFL. Hip abduction WFL. Knee flexion WFL. Ankle dorsiflexion WFL. Ankle plantarflexion WFL. Strength: Right Upper Extremity: Shoulder flexors 5/5. Shoulder abductors 5/5. Elbow flexors 5/5. Elbow extensors 5/5. Base Ply Hand strong. Left Upper Extremity: Shoulder flexors 5/5. Shoulder abductors 5/5. Elbow flexors 5/5. Elbow extensors 5/5. Base Ply Hand weak but minimally functional. Right Lower Extremity: Hip flexors4 /5. Hip abductors 4/5. Knee flexors 3-/5. Knee extensors 3/5. Ankle dorsiflexors 4/5. Ankle plantarflexors 4/5. Left Lower Extremity: Hip flexors 5/5. Hip abductors 5/5. Knee flexors 5/5. Knee extensors 5/5. Ankle dorsiflexors 5/5. Ankle plantarflexors 5/5. Bed Mobility/Transfers:. Supine to sit supervision Sit to stand minimal assist as patient needed support for momentary instability she had when she stood up for the first time Stand to sit minimal assist with forearm crutches Bed to bedside commode minimal assist with forearm crutches Bedside commode to bedside chair with minimal assist with forearm crutches Gait: Instructed patient with level surface ambulation of 10 feet requiring minimal assist using Loftsrand crutches. Maria Victoria decreased. Step height and length asymmetric. Full knee extension at midstance on the R. Balance: Static Sitting: Normal Dynamic Sitting: Normal Static Standing: Fair Dynamic Standing: Fair Special Tests: Mobility Limitations Standardized Measure [facility] AM-PAC 6 clicks Basic Mobility Inpatient Short Form: Raw Score: 20 CMS Score: 36% deficit Informed Consent/Education: Patient was instructed in purpose of PT consult and plan of care. Agreeable to proceed with established PT POC to achieve personal goals. Assessment: Requires the use of bilateral Loftstrand crutches due to pre-existing left fwrist/hand flexion contracture. Patient presents with clinical signs and symptoms consistent with current/admitting diagnoses that have resulted to mobility limitations, gait instability, generalized weakness, and overall ADL decline as demonstrated by the following impairment level findings: 1. Decreased strength to R knee major muscle groups 2. Impaired sitting/standing balance 3. Impaired activity tolerance 4. Limitation of joint range of motion in R knee flexion 5. Pain in the R knee at 5-6/10 Impairments are contributing to the following functional limitations: 1. Decline in transfer skills 2. Difficulty with ambulation without assistive device and physical assistance 3. Increased completion time for mobility ADL performance 4. Increased risk for falls 5. Difficulty with managing steps alone safely Patient is assessed as a 61611 moderate complexity based on the following: History: 51-year-old female with past medical history as indicated above Examination: Demonstrable impairment in strength, balance, and mobility level with underlying impairments and functional limitations as exhibited above as well as deficit score of 36% utilizing the [facility] Mobility Inpatient Short Form Presentation: Evolving Decision Makin moderate complexity Goals: Goals X1 week 1. Supine-Sit independent 2. Sit-Supine independent 3. Sit-Stand independent 4. Stand-Sit independent with Lofstrand crutches 5. Bed-Chair independent with Lofstrand crutches 6. Chair-Bed independent with Lofstrand crutches 7. Independent gait on level surface with use of Lofstrand crutches for at least 300 feet without report of pain nor dyspnea 8. Independent stair negotiation while holding onto [] rails for at least [] steps without report of pain nor dyspnea 9. Independent with home exercise program 10. Good static and dynamic standing balance/tolerance Plan of Care/Treatment Plan: 1-2x/day, 7 days/week x 1 week. Plan of care has been reviewed with the MANAGER COMM[employer]ITY OUTREACH providing the service under Physical Therapy direction. Initiate Physical Therapy intervention for pain management as needed, strengthening, bed mobility, transfers, gait, stairs, balance training, and use of assistive device. DISCHARGE RECOMMENDATIONS: [] Home with no services [] [X] Home with services. Patient will benefit from home health PT services in order to progress mobility level using forearm crutches, assess home safety, identify additional equipment needs, and establish a functional maintenance program that will increase ability of patient to remain at home. [] Home with outpatient PT [] [] SNF for continued rehabilitation [] [] Prison [facility] [] [] SNF versus LTC based on ability to participate and progress [] TREATMENT CODE/TIME: 49697 x 26 minutes beginning at 17:05 PM. Thank you for the opportunity to participate in the care of this patient. Ashley Silveira PT, DPT, CLT [facility] [place], [place]
--- NOTE | 2022-05-09 17:16 | W.PM.OP ---
Date of service: 05/09/22 Time of Service: 15:45 Operative Note Operative Note DATE OF PROCEDURE: 05/09/22 PRE-OP DIAGNOSIS: Aseptic Loosening - Right Knee Replacement POST-OP DIAGNOSIS: same PROCEDURE: Revision Right Knee Replacement SURGEON: Neal Pichardo PERSONAL BANKING REPRESENTATIVE: Jenni Watson ANESTHESIA TYPE: Spinal Refer to Anesthesia Record ESTIMATED BLOOD LOSS: 200 PATHOLOGY: none sent TOURNIQUET TIME: 44 COMPLICATIONS: None Patient was transported to: PACU Patient's condition: stable Implants: 1. Depuy Revision Tibial Tray, Cemented, Size 4 - 37mm Cementless Sleeve - 14x60 Cementless Stem 2. Depuy Revision Femoral Component, Cemented, Size 5 - [id number] Cementless Stem - 4mm Distal Augment - Medial and Lateral - 4mm Posterior Augment - Medial and Lateral 3. Depuy CRS Poly, 5x8mm Indications: Delaney is a 51-year-old female who previously had a right knee replacement done in 2011. She reported some pain and limited motion since the initial surgery but in the last 6 months to 1 year she has had quite debilitating pain and instability of the right knee. Work-up revealed that the knee had aseptic loosening. She was negative for infection. Therefore, I recommended a revision knee replacement. I discussed the risk of the procedure to include bleeding, infection, pain, stiffness, damage nerves and vessels, damage to muscle and tendons, weakness, need for repeat procedures, loosening, blood clot. Despite these risks, she elects to proceed. Findings: There is minimal attachment of cement to the tibial component. The femur had cystic change underlying the cement although the majority the cement was adherent to the femoral body itself. Both components were removed with minimal difficulty. A revision arthroplasty was placed. Procedure Description: Delaney was greeted in the preoperative holding area where the correct side was identified and marked. The consent was reviewed with the patient and signed. The history and physical was updated. All questions were answered. Preoperative mediacations were administered: Acetaminophen 1000mg, Celebrex 400mg, and Gabapentin 300mg. An adductor canal block was then administered by the anesthesia team in the PACU. Delaney was taken back to the operating room. A spinal anesthestic was then administered. The patient was placed into the supine position on the operating room table. A nonsterile tourniquet was placed high onto the leg but only used for cementing. Posts were placed for positioning during the procedure. All bony prominences were well padded. Prophylactic antibiotics in the form of Cefazolin were administered. 1g of Tranxemic Acid was given intravenously within 30 minutes of incision. The right leg was then prepped with Chloraprep and draped in a standard fashion with impervious stockinette. A second prep with Chloraprep was performed prior to application of Iodine impregnated skin protection. A timeout to confirm correct identity, side and site, procedure, allergies, anesthesia, and medical concerns was performed. With the knee in some flexion, the previous midline incision was utilized. Full thickness skin flaps were raised once the extensor mechanism was encountered. These were raised medially and laterally. Any bleeding was controlled with electrocautery. Once the extensor mechanism was fully exposed, a medial parapatellar arthrotomy was performed in a flexed position. All bleeding from the arthrotomy and the geniculate arteries was coagulated. A medial subperiosteal peel was performed with electrocautery to the midcoronal plane. The fat pad was removed while keeping the patellar tendon protected. The anterior distal femur synovium was removed for later visualization. The remnant PCL was resected. Extensive synovectomy was performed. Using 2 Allis and 2 Glo clamps the synovium was resected along with any adhesions and scar tissue from the entirety of the knee medially and laterally as well as superiorly. I also released adhesions between the femur and the extensor mechanism and synovium. The adherent tissue between the patellar tendon and the proximal tibia and the tibial tray was also released such that I was able to view the periphery of the tibial tray. Likewise any attachments adjacent to the femoral component were also removed such that I had excellent visualization of the cement?bone interface with the implant. Once the interface of both tibial and femoral components was able to be fully assessed. There is noted to be some fluid extravasating from the anterior chamfer and a portion of the distal femur. I use a set of flexible osteotomes to ensure that the interface between the implant the bone was released. This was done around the periphery of the femoral implant. Then using a bone tamp I was able to remove the femoral component without any significant difficulty. The majority the cement was attached to the femoral component. There is no significant bone loss. However, there was a cystic change within the bone around the level of the notch and the anterior flange. Additionally there is also some cystic change in the posterior condyles where cement was not fully adherent to the femoral component. This excess cement which was remaining of the bone was removed without difficulty using a rongeur. I also fully resected any other soft tissue attachments within the notch including PCL remnant and synovium capsule. The tibia was subluxed forward with the patella translated for excellent visualization of the entirety of the tibial component. Using a flexible osteotome I the layer between the cement and the component with minimal difficulty. There is no resistance laterally and only a slight amount medially. Therefore, I took a bone tamp and easily displaced the tibial component approximately. The tibial component was removed with no cement adherent to the backside of the tibia. I then used curettes and rongeurs as well as osteotomes to remove any remaining cement within the tibia. This was done in such a way to minimize any bone loss. Both femur and tibia were thoroughly irrigated with a pulse lavage and any excess soft tissue, necrotic or destructive bone, or cement was then removed. With the services now exposed I then proceeded with preparation of the revision knee arthroplasty. Using a reamer on hand, I prepared the tibia expecting to use a sleeve with a 60 mm stem. This was taken up to a size 14 mm stem where there was good cortical contact and engagement with rotational control of the tibia. I went ahead and reamed up to a 15 mm stem to allow some ease of insertion of the tibial component. Using the beena-size pneumatic impactor, I proceeded to broach the proximal tibia. This was taken up to a size 37 mm sleeve. This had excellent rotational and axial control within the proximal tibia. I did sync this about 2 mm below the lowest point of the tibia based on preoperative planning where it appeared that the joint line had been raised. I then used the top of the sleeve as a plane to cut the proximal tibia while the surrounding soft tissues were protected. The sleeve was removed and a trial implant was placed. The tibial baseplate was rotated appropriately. This was locked into position. The keel was punched. Attention was then turned to the femur. Similarly, I used a reamer on hand to prepare the femur. This was taken up to size 18 mm stem. This had excellent cortical fixation at that point with good rotational control of femur. I did prepare up to a 19 mm for the majority of the course of this stem to aid in insertion. Given the large box of the femoral component and good bone of the distal medial and lateral aspect of the femur I did not place a sleeve. With the stem in position I then freshened up the distal cut of the femur. Given the joint line being slightly high I went ahead and proceeded with 4 mm augments both medially and laterally. A size 5 femur was selected, upsizing by 1 from her previous 2.5 mm Sigma femoral component. I then used a spacer block to assess the extension gap, approximately 8 mm. I then brought the knee to 90 degrees of flexion and set the rotation the femoral component using the 8 mm spacer block. The femoral component was pinned into position with rotation now locked. The anterior cut was freshened, taking minimal bone. Anterior and posterior chamfers were cut. The posterior condyles each needed augmentation of 4 mm. These cuts were freshened as well. The box cut for the CRS implant was then performed. The cutting guides were removed. Trial components were placed. The knee was taken through range of motion. This had excellent congruity medially. There is approximately 2 to 3 mm of laxity with varus stress throughout the entire motion of the knee, with very firm endpoints. Given the congruity of the medial side I excepted this slight laxity in the lateral compartment. The trial components were removed. The final components, except for the polyethylene were opened on the back table. The periosteal and capsular tissues, especially posteriorly, around the knee were then systematically injected with a periarticular cocktail consisting of 246mg of Ropivacaine, 0.5mg of Epinephrine, 0.08mg of Clonidine, and 30mg of Ketorolac, diluted to 100cc.. The tourniquet was then inflated to 300mmHg. The knee was thoroughly irrigated with a pulse lavage and dried. On the back table, the implants were opened and assembled. The tibia was a size 4 tibia with a 37 mm sleeve on a 14 x 60 mm stem. Femur was assembled with a 18 x 110 mm stem and 4 mm augments medially and laterally distally as well as posteriorly. Once all the components were assembled, 2 batches of medium viscosity cement were prepared with vacuum assistance. After the cement was ready a small amount was placed on to the back side of the tibial component ensuring that no cement was placed onto the cementless stem or sleeve. Likewise, cement was placed over the entire backside of the femur concentrating around the box to ensure cement in all aspects of the femur but not on any of the cementless stem. Cement was manual pressurized and impregnated into the cut surface of the tibia. The tibial component was then inserted into the cut surface and impacted into position. Excess cement was removed and the component was reimpacted. Again, excess cement was removed and our attention was then turned to the femur. The femoral cut surface was once again dried and cement was manually impacted into the cut surface. The tibial component is seated fully without sign of fracture or malpositioning. Cement was also manually pressurized into the surface of the femur. The femoral component was impacted. Excess cement was removed. It was ensured to be down against the cut surface. The trial polyethylene was then inserted and the leg was brought out into full extension for the duration of the cement curing process, approximately 18min. While the cement was hardening, the knee was irrigated with Surgiphor chlorhexadine solution. This was allowed to sit in the knee for 3 minutes and then it was thoroughly irrigated with saline. After the cement had finally cured, approximately 18min, the clamp was removed from the patella and the knee was taken through range of motion. A size 8mm polyethylene component provided the best range of motion and stability with less than 2mm gapping with medial and lateral stress and full extension without significant hyperextension. The patella was tracking with a no-thumbs technique. The trial poly was removed and once again the knee was checked for any loose, excess, or errant cement. The poly component was then inserted and impacted into position after cleaning and drying the tibial tray. The capsule was then reapproximated with a No. 2 FiberWire at multiple locations. The capsule was finally closed with a No. 2 Stratafix, barbed suture. The tourniquet was then released and the arthrotomy appeared watertight without significant bleeding. Deep tissues were then reapproximated with 0 Vicryl and 2-0 Vicryl. The skin was closed with a running 3-0 Monocryl in a subcuticular fashion. This was reinforced with skin glue. A Mepilex silver dressing was applied along with a [id number] GAVIN wrap. A CryoCuff was applied. Delaney was transferred to the hospital bed without difficulty an suffering no apparent complication. Delaney has a good prognosis. Physical therapy will start today and without restrictions, weight-bearing as tolerated. Aspirin 81mg BID will be used for DVT prophylaxis.
[2022-05-09] MEDS: ceFAZolin 1 GM/50 ML BAG IVPB (17:47)
[2022-05-09] MEDS: oxyCODONE 5 MG TAB PO ×2 (18:03→22:14)
[2022-05-09] MEDS: Normal Saline Flush 10 ML SYR IV (20:21)
[2022-05-09] MEDS: Docusate Sodium 100 MG CAP PO (20:21)
[2022-05-09] MEDS: Celecoxib 200 MG CAP PO (20:22)
[2022-05-09] MEDS: HYDROmorphone 2 MG/ML SYR 0.5 MG IVP (20:22)
[2022-05-09] MEDS: Aspirin E.C. 81 MG TABEC PO (20:22)
[2022-05-10] MEDS: oxyCODONE 5 MG TAB PO ×3 (02:16→09:45)
[2022-05-10] MEDS: tiZANidine 4 MG TABLET PO (02:17)
[2022-05-10] MEDS: ceFAZolin 1 GM/50 ML BAG IVPB ×2 (02:17→09:44)
[2022-05-10] MEDS: Normal Saline Flush 10 ML SYR IV ×2 (02:17→09:45)
[2022-05-10 03:15] VITALS: BP 100/52; PULSE 51; RESP 16; TEMP 36.1; O2SAT 97
[2022-05-10 07:17] VITALS: BP 106/65; PULSE 61; RESP 14; TEMP 36; O2SAT 97
--- NOTE | 2022-05-10 07:31 | W.PM.PROGNOT ---
Date of Service Date of service: 05/10/22 Time of Service: 07:32 Assessment and Plan Assessment and plan (1) Aseptic loosening of prosthetic knee: Status: Acute Assessment and plan: Delaney is a 51-year-old who is status post right knee revision arthroplasty for aseptic loosening. She is doing very well. She has been able to mobilize physical therapy. She has no signs complication. At this point she is cleared for discharge to home. Subjective Subjective Interval history since last seen: Delaney is doing well. No acute complaints. She has been able to mobilize with controlled pain. Voiding spontaneously. No F/C. No CP/SOB. Exam Const General: cooperative, healthy appearing, comfortable and no acute distress Extrem Other: Right lower extremity has a clean dry and intact dressing. She is able to straight leg raise without lag. She has active ankle dorsiflexion, plantarflexion, great toe extension, great toe flexion. Sensation intact light touch over the deep and superficial peroneal nerve and tibial nerve. Objective Last Vital Signs Temp 36.0 C L 05/10/22 07:17 Pulse 61 05/10/22 07:17 Resp 14 05/10/22 07:17 BP 106/65 05/10/22 07:17 Pulse Ox 97 05/10/22 07:17 Laboratory Results - last 24 hr 05/09/22 09:55 COVID-19 Source Nasal/Nares SARS-CoV-2 (PCR) Negative Objective Narrative Objective Narrative: X-ray of the right knee was reviewed. This shows a well-placed revision knee arthroplasty without sign of fracture or complication. PAWSS Have you Been Recently Intoxicated or Drunk Within the Last 30 days?: Yes Have you Ever Experienced Previous Episodes of Alcohol Withdrawal?: No Have you ever Experienced Withdrawal Seizures?: No Have you ever Experienced Delirium Tremens(DT)s?: No Have you ever undergone Alcohol Rehabilitation Treatment (i.e, inpt ot outpatient treatment programs)?: No Have you ever Experienced Blackouts?: No Have you ever Combined Alcohol with other Downers within the last 90 days?: No Have you ever Combined Alcohol with any other Substance of Abuse during the last 90 days?: No Positive Blood Alcohol level on Presentation? [PCS.BAL]: No Evidence of Increased Autonomic Activity (i.e. HR>120, tremor, sweating, agitation, nausea)?: No Result: 1 Time Spent with Patient Time Spent with Patient: <25 minutes Time was spent: indepentently interpreting results and counseling the patient
[2022-05-10] MEDS: Acetaminophen 500 MG TAB 1000 MG PO (07:50)
[2022-05-10] MEDS: Celecoxib 200 MG CAP PO (07:50)
[2022-05-10] MEDS: Lisinopril 20 MG TAB PO (07:51)
[2022-05-10] MEDS: Sertraline 50 MG TAB 100 MG PO (07:51)
[2022-05-10] MEDS: Dexamethasone 4 MG TAB PO (07:51)
[2022-05-10] MEDS: Gabapentin 300 MG CAP PO (07:51)
[2022-05-10] MEDS: Omeprazole 20 MG CAPCR 40 MG PO (07:51)
[2022-05-10] MEDS: Aspirin E.C. 81 MG TABEC PO (07:51)
--- NOTE | 2022-05-10 09:49 | PDOC.CMDIS ---
- If Service Date Differs Date of service: 05/10/22 Time of Service: 09:49 LACE Index Scoring Tool - Questions: Length of Stay (in days): 1 Acuity (Admit via E.D.?): No Comorbidities: Chronic Pulmonary Disease E.D. Visits: 1 - Answers: Total Score: 4 Risk of Readmission: Low Risk Care Management Discharge Reason for Hospitalization: Aseptic Loosening of right TKA Discharge Plan: Delaney is discharged home via private vehicle with family. She will follow up with community providers and discharge plan of care as prescribed. No [facility] services are ordered. New RX's are transmitted to [facility]. Delaney will follow up with Dr. Pichardo on 05/22/22, as scheduled. Patient/Family Education Needs: Review discharge instructions, limitations and medications. Discuss ask me three and goals of self care.
[2022-05-10 10:59] VITALS: BP 107/65; PULSE 59; RESP 16; TEMP 36.6; O2SAT 95
--- NOTE | 2022-05-10 12:34 | PT.INTREAT ---
Date of service: 05/10/22 Time of Service: 10:15 PT Notes Visit Reasons: aseptic loosening of right TKA Inpatient Physical Therapy Treatment Note [facility] Date: 05/10/2022 PRECAUTIONS: Activity as tolerated, Fall, WBAT R SUBJECTIVE: Delaney is pleasant and agreeable to participating in PT. She reports that she has been up and walking in the hallways last night. She is feeling better after taking pain meds and is looking forward to discharging to home later today. OBJECTIVE: PAIN: Patient c/o R knee discomfort with ther ex BED MOBILITY/TRANSFERS Sit-stand: S Stand-sit: S GAIT Assistive Device: Lofstrand Forearm Crutches Weight bearing: WBAT R Assist: SBA Distance: 350' Deviation: Somewhat antalgic gait THEREX: Patient was issued and in instructed in a HEP for LE strengthening and stabilization, to include: ankle pumps, quad sets, glute sets, heel slides, LAQ, hip flexion, hip abduction and SLR. STAIRS: Up/down 3x4 and 2x6 using B rails and a step-to pattern with supervision ASSESSMENT: Patient tolerated session well, with minimal c/o R knee discomfort with therex completion. She was able to tolerate a progression in gait distance with B Lofstrand crutches support and SBA. PLAN: Patient to discharge to home later today, per provider. Recommend follow up with OP PT when cleared by Orthopedic Surgeon. TREATMENT CODE/TIME: 25 minutes; 56226, [id number] (10:15)
--- NOTE | 2022-05-10 18:10 | INDS_ITS ---
PT Notes Visit Reasons: Aseptic Loosening of Right TKA Physical Therapy Inpatient Discharge Summary Date: 05/10/2022 Dates of service: 05/09/2022 through 05/10/2022 This is a clinical summary of care provided for the duration of dates listed above. No charge was made in the completion of this documentation. Referring Doctor: RAKAN Escobar PT Orders: PT CONSULT: S/p Ortho surgery Precautions: Fall. Standard.? WBAT on R LE with Loftstrand crutches. Patient Profile/Admitting Diagnosis:? Delaney 50-year-old female with a septic loosening of right TKA and is status post right total knee arthroplasty revision on postoperative day 0. PMHX: Medical History? Bilateral kidney stones COPD (chronic obstructive pulmonary disease) Gout Hoarseness of voice secondary to refluxHypertension Migraine headache Plantar wart Uric acid renal calculus Surgical History? Endoscopy (~2004) NEG GASTROPEXY History of cystoscopy Cysto/laser/retorgradeHistory of salpingo-oophorectomy (06/06/17) History of total right knee replacement (TKR) (01/15/12) Ligation of fallopian tube Manipulation, Under Anesthesia (03/13/12) right TKA Yosi Fundoplication (~2002) Oophrectomy, Left (06/06/17) L oophorectomy. Bilateral salpingectomy. Benign indications. Open Carpal Tunnel release RIGHT Replacement of total knee joint (01/15/12) right Social History/Home Situation: Will have support at home.? Independent with all aspects of ADLs prior to surge ry.? 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 Has 2 steps to enter the house. Equipment Owned/DME: Bilateral Loftstrand crutches given by friend Subjective: NT. See most recent ELECTROMECHANICAL TECHNOLOGIST notes. Objective: General Observation: NT. See most recent ELECTROMECHANICAL TECHNOLOGIST notes. Mental Status: NT. See most recent ELECTROMECHANICAL TECHNOLOGIST notes. Pain: NT. See most recent ELECTROMECHANICAL TECHNOLOGIST notes. Vital Signs: NT. See most recent ELECTROMECHANICAL TECHNOLOGIST notes. ROM: Right Upper Extremity: ? Shoulder Flexion WFL. Shoulder abduction WFL. Elbow flexion WFL. Wrist flexion WFL. Functional opening and closing of hand WFL. Left Upper Extremity:? Shoulder Flexion WFL. Shoulder abduction WFL. Elbow flexion WFL. Wrist flexion WFL. Functional opening and closing of hand decreased. Right Lower Extremity: Hip flexion WFL. Hip abduction WFL. Knee flexion 0 degrees to 90 degrees.? Knee extension 90 degrees to 0 degrees.. Ankle dorsiflexion WFL. Ankle plantarflexion WFL. Left Lower Extremity: Hip flexion WFL. Hip abduction WFL. Knee flexion WFL. Ankle dorsiflexion WFL. Ankle plantarflexion WFL. Strength: Right Upper Extremity: Shoulder flexors 5/5. Shoulder abductors 5/5. Elbow flexors 5/5. Elbow extensors 5/5. Chainstitch Hemmer strong. Left Upper Extremity: Shoulder flexors 5/5. Shoulder abductors 5/5. Elbow flexors 5/5. Elbow extensors 5/5. Chainstitch Hemmer weak but minimally functional. Right Lower Extremity: Hip flexors4 /5. Hip abductors 4/5. Knee flexors 3-/5. Knee extensors 3/5. Ankle dorsiflexors 4/5. Ankle plantarflexors 4/5. Left Lower Extremity: Hip flexors 5/5. Hip abductors 5/5. Knee flexors 5/5. Knee extensors 5/5. Ankle dorsiflexors 5/5. Ankle plantarflexors 5/5. BED MOBILITY/TRANSFERS? Sit-stand: S? Stand-sit: S? GAIT? Assistive Device: Lofstrand Forearm Crutches? Weight bearing: WBAT R Assist: SBA? Distance:? 350'? Deviation: Somewhat antalgic gait? Balance: Static Sitting: Normal Dynamic Sitting: Normal Static Standing: Fair Dynamic Standing: Fair Assessment: Requires the use of bilateral Loftstrand crutches due to pre-existing left fwrist/hand flexion contracture. ? Patient presents with clinical signs and symptoms consistent with current/admitting diagnoses that have resulted to mobility limitations, gait instability, generalized weakness, and overall ADL decline as demonstrated by the following impairment level findings: 1.? Decreased strength to R knee major muscle groups 2.? Impaired sitting/standing balance 3.? Impaired activity tolerance 4.? Limitation of joint range of motion in R knee flexion Impairments are contributing to the following functional limitations: 1.? Decline in transfer skills 2.? Difficulty with ambulation without assistive device and physical assistance 3.? Increased completion time for mobility ADL performance 4.? Increased risk for falls 5.? Difficulty with managing steps alone safely Goals: Goals X1 week 1. Supine-Sit independent NOT MET 2. Sit-Supine independent NOT MET 3. Sit-Stand independent NOT MET 4. Stand-Sit independent with Lofstrand crutches NOT MET 5. Bed-Chair independent with Lofstrand crutches NOT MET 6. Chair-Bed independent with Lofstrand crutches NOT MET 7. Independent gait on level surface with use of Lofstrand crutches for at least 300 feet without report of pain nor dyspnea NOT MET 8. Independent stair negotiation while holding onto [] rails for at least [] steps without report of pain nor dyspnea NOT MET 9. Independent with home exercise program NOT MET 10. Good static and dynamic standing balance/tolerance NOT MET DISCHARGE RECOMMENDATIONS: [] ? Home with no services [] [X] ? Home with services.? Patient will benefit from home health PT services in order to progress mobility level using forearm crutches, assess home safety, identify additional equipment needs, and establish a functional maintenance program that will increase ability of patient to remain at home. [] ? Home with outpatient PT [] [] ? SNF for continued rehabilitation [] [] ? Group Home Care [] [] ? SNF versus LTC based on ability to participate and progress [] TREATMENT CODE/TIME: NC Thank you for the opportunity to participate in the care of this patient. Ashley Silveira PT, DPT, CLT [facility] [place], [place]
== END 2022-05-10 11:59 | disposition home or self-care (01) | DRG 468 ==
LOC: MS 05-10 09:28 → PDS 08-16 11:46 → SUR 08-16 11:46 → MS 08-16 11:48
PROVIDERS: Admitting Provider Student in an Organized Health Care Education/Training Program; PCP Nurse Practitioner Family; Visit Provider Student in an Organized Health Care Education/Training Program
PROC: 0SPC0JZ Removal of Synthetic Substitute from Right Knee Joint, Open Approach (ICD-10-PCS; CPT 27487; principal; 2022-05-09 13:45)
DX: T84.038A Mechanical loosening of other internal prosthetic joint, initial encounter (principal); F41.9 Anxiety disorder, unspecified; G89.4 Chronic pain syndrome; M54.50 Low back pain, unspecified; I10 Essential (primary) hypertension; E78.5 Hyperlipidemia, unspecified; F17.210 Nicotine dependence, cigarettes, uncomplicated; K21.9 Gastro-esophageal reflux disease without esophagitis; J44.9 Chronic obstructive pulmonary disease, unspecified; N39.3 Stress incontinence (female) (male); E66.3 Overweight; Z68.28 Body mass index [BMI] 28.0-28.9, adult; M10.9 Gout, unspecified; G43.909 Migraine, unspecified, not intractable, without status migrainosus; Z79.899 Other long term (current) drug therapy
CPT/HCPCS: 27487; 76942; 87635; 97110; 97162; 97530; 73560; J0690; J1100; J1170; J2250; J2370; J2405; J3490; J8540

== ENCOUNTER 2022-05-22 13:25 | Outpatient (CLI) | payer OTHER, SELFPAY ==
--- NOTE | 2022-05-22 13:15 | DI.RAD_ITS ---
Exam(s) XR KNEE RT 2V AP,LAT EXAM: XR KNEE RT 2V AP,LAT INDICATION: 1ST POST OP REVISION R TKA. COMPARISON: CR XR KNEE RT 2V AP,LAT from 05/09/2022 TECHNIQUE: 2D digital imaging was performed. Two views. FINDINGS: Revised right knee prosthesis appears unchanged. No suspicious bony lucencies. Diffuse soft tissue edema, greatest anterior to patella.. DATA REPOSITORY: RADIATION DOSE DELIVERED:
--- NOTE | 2022-05-22 13:22 | DI.RAD_ITS ---
Exam(s) XR ANKLE RT COMPLETE EXAM: XR ANKLE RT COMPLETE CLINICAL HISTORY: eval R ankle/hindfoot pain s/p TKA. TECHNIQUE: 2D digital imaging was performed. Three views. COMPARISON: No exams were available for comparison FINDINGS: BONES: No acute fracture is present. No bony destructive lesion is seen. Calcaneal enthesophyte. Ti ny plantar calcaneal spur. JOINTS: The ankle mortise is normally aligned. Joint space is maintained. SOFT TISSUE: Lower extremity edema, greater around the medial malleolus. No foreign body or abnormal gas collection. IMPRESSION: Soft tissue edema. Heel spurs. DATA REPOSITORY: RADIATION DOSE DELIVERED:
== END 2022-05-22 13:26 | disposition home or self-care (01) ==
LOC: DIORS 13:26
PROVIDERS: PCP Nurse Practitioner Family; Referring Provider Nurse Practitioner Family; Visit Provider Student in an Organized Health Care Education/Training Program
DX: T84.038A Mechanical loosening of other internal prosthetic joint, initial encounter (principal); Z96.651 Presence of right artificial knee joint; M25.571 Pain in right ankle and joints of right foot
CPT/HCPCS: 73560; 73610

== ENCOUNTER 2022-07-17 09:20 | Outpatient (CLI) | payer OTHER, SELFPAY ==
--- NOTE | 2022-07-17 08:00 | DI.RAD_ITS ---
Exam(s) XR TIB/FIB RT EXAM: XR TIB/FIB RT CLINICAL HISTORY: right tibia pain. TECHNIQUE: 2D digital imaging was performed of the right tibia and fibula. Two images were obtained. AP and lateral views were obtained. COMPARISON: CR XR KNEE RT 2V AP,LAT from 05/22/2022 FINDINGS: BONES: No acute fracture is present. No bony destructive lesion is seen. There are stable postsurgica l changes of a right total knee replacement. The distal fibula is not included on the AP view. SOFT TISSUE: Normal. IMPRESSION: No acute abnormality. DATA REPOSITORY: RADIATION DOSE DELIVERED:
== END 2022-07-17 09:21 | disposition home or self-care (01) ==
LOC: DIORS 09:21
PROVIDERS: PCP Nurse Practitioner Family; Referring Provider Nurse Practitioner Family; Visit Provider Physician Assistant
DX: M79.661 Pain in right lower leg; T84.038A Mechanical loosening of other internal prosthetic joint, initial encounter; Z96.651 Presence of right artificial knee joint
CPT/HCPCS: 73590

== ENCOUNTER 2022-11-13 09:08 | Outpatient (CLI) | payer OTHER, SELFPAY ==
--- NOTE | 2022-11-13 08:45 | DI.RAD_ITS ---
Exam(s) XR KNEE RT 3V AP,LAT,JUAN DIEGO XR TIB/FIB RT EXAM: XR TIB/FIB RT INDICATION: F/U R KNEE REVISION SURGERY. COMPARISON: CR XR TIB/FIB RT from 07/17/2022 CR XR KNEE RT 3V AP,LAT,JUAN DIEGO from 11/13/2022 TECHNIQUE: 2D digital imaging was performed. Two views. FINDINGS: There has been no change in the alignment of the revised right knee prosthesis. No abnormal surround ing bony lucencies. No abnormalities are seen are seen distally in the tibia or fibula. The ankle i s unremarkable as visualized. DATA REPOSITORY: RADIATION DOSE DELIVERED:
== END 2022-11-13 09:09 | disposition home or self-care (01) ==
LOC: DIORS 09:08
PROVIDERS: PCP Nurse Practitioner Family; Visit Provider Student in an Organized Health Care Education/Training Program
DX: Z47.1 Aftercare following joint replacement surgery (principal); Z96.651 Presence of right artificial knee joint
CPT/HCPCS: 73562; 73590

== ENCOUNTER 2022-11-15 02:43 | Outpatient (CLI) | payer OTHER, SELFPAY ==
[2022-11-15 11:07] LABS: C-Reactive Protein 0.84 mg/dL (0.0-0.3)
[2022-11-15 11:12] LABS: ESR 14 mm/hr (0-30)
== END 2022-11-15 02:44 | disposition home or self-care (01) ==
LOC: LBO 02:43
PROVIDERS: PCP Nurse Practitioner Family; Visit Provider Student in an Organized Health Care Education/Training Program
DX: M25.561 Pain in right knee (principal); Z96.651 Presence of right artificial knee joint; T84.032A Mechanical loosening of internal right knee prosthetic joint, initial encounter
CPT/HCPCS: 36415; 85652; 86140

== ENCOUNTER 2023-02-04 10:36 | Emergency (ER) | payer OTHER, SELFPAY ==
[2023-02-04] VITALS (16 sets, daily range): BP systolic 122–161; BP diastolic 60–80; PULSE 75–103; RESP 12–26; TEMP 36.5; O2SAT 92–98
--- NOTE | 2023-02-04 10:45 | DI.CT_ITS ---
Exam(s) CT ABDOMEN PELVIS W EXAM: CT ABDOMEN PELVIS W CLINICAL HISTORY: L sided flank/side pain. TECHNIQUE: Imaging Protocol: Axial computed tomography images with coronal and sagittal reformatted images were created and reviewed CONTRAST MATERIAL: Intravenous: Omnipaque 350 Contrast volume:100 ml Oral: / no FINDINGS: ABDOMEN and PELVIS: Lung Bases: Normal where visualized. Tiny hiatal hernia. Surgical clips near the GE junction. Liver: Normal density. No measurable mass. Gallbladder and biliary tract: No radiodense calculus or dilation. Pancreas: Normal density. No abnormal calcifications or inflammatory process. No evidence of mass. Spleen: Normal. Kidneys: Normal size, contour and axis. Tiny nonobstructing ureteral calculi. No obstructive uropat hy. No suspicious masses seen. No perinephric stranding. Adrenal glands: No masses seen. Vasculature: Abdominal aorta non-dilated. Mild atherosclerotic changes. Soft tissues: Small fatty containing umbilical hernia. Bladder: No gross wall thickening. No calculi.No focal mass. Bowel: Diverticulosis. No evidence of diverticulitis. No obstruction. No bowel wall thickening. A ppendix normal. Peritoneal cavity: No ascites. No focal collection or mesenteric inflammatory response. Bones: Unremarkable for age. Reproductive organs: Within normal limits. IUD. Lymph nodes: Unremarkable. IMPRESSION:: Bilateral nonobstructing renal calculi. Diverticulosis. No evidence of diverticulitis. RADIATION DOSE DELIVERED: Total DLP DATA REPOSITORY: All CT scans at this facility are submitted to the National Radiology Data Registry (NRDR) Dose Index Registry (DIR) with the [employer] (ACR). RADIATION OPTIMIZATION: All CT scans at this facility use at least one of these dose optimization te chniques: automated exposure control; mA and/or kV adjustment per patient size (includes targeted exa ms where dose is matched to clinical indication); or iterative reconstruction.
--- NOTE | 2023-02-04 10:54 | W.ED.GENAD ---
Discharge Plan Disposition Patient Disposition: Home Discharge Details Clinical Impression: Diverticulosis, Bilateral kidney stones Primary Care Provider: Laureano Benoit ED Provider: Ted Rushing Home Meds and New Rx's Prescriptions: New ondansetron 4 mg tablet,disintegrating 4 mg PO TID 3 Days Qty: 9 0RF tramadol 50 mg tablet 50 mg PO TID PRN (Reason: pain) Qty: 7 0RF No Action lisinopril 20 mg tablet 20 mg PO DAILY Qty: 90 3RF albuterol sulfate 90 mcg/actuation HFA aerosol inhaler 2 puff IH Q6H PRN (Reason: shortness of breath or wheezing) Qty: 24 2RF acetaminophen 500 mg tablet 500 mg PO Q6H PRN (Reason: pain) Qty: 60 2RF gabapentin 300 mg capsule 600 mg PO BID Qty: 270 1RF Rx Instructions: 300 mg qam and 600 mg qpm sertraline 100 mg tablet 100 mg PO DAILY Qty: 90 3RF omeprazole 40 mg capsule,delayed release(DR/EC) 40 mg PO DAILY Qty: 90 3RF tizanidine 4 mg tablet See Rx Instructions .ROUTE .COMPLEX Qty: 30 3RF Dose Instruction: TAKE ONE TABLET BY MOUTH EVERY DAY AT BEDTIME Rx Instructions: TAKE ONE TABLET BY MOUTH EVERY DAY AT BEDTIME hydrocodone-acetaminophen 5-325 mg tablet 1 tab PO QHS MDD 1 tab PRN (Reason: pain) Qty: 30 0RF aspirin 81 mg tablet,delayed release (DR/EC) 81 mg PO DAILY Patient Comments: TAKE ONE TABLET BY MOUTH TWICE A DAY nitroglycerin 0.4 mg tablet, sublingual 0.4 mg sublingual Q5-15M PRN (Reason: chest pain) Qty: 30 0RF Patient Comments: only taken once in the ER here at [facility] per pt Rx Instructions: do not exceed 3 doses per episode Discharge Instructions Instructions: Kidney Stones (ED) HPI General Date/Time Provider Initiated Documentation: 02/04/23 10:39. HPI Narrative: 52 year old female presents to the ED with c/o left sided back/flank pain over the past 5 days. She says that the pain has been constant, maybe a little worse with bending over, otherwise nothing making better or worse. She did have a fall 2 days prior to that, stating she went outside her house at night, light was not on and she tripped, but does not think this is related. Since her pain started she has had a decreased appetite, but denies any fever/chills, no n/v/d, no urinary sx's, no blood in her urine or stool. No cp/sob. Related Data Home Medications Medication Instructions Recorded Confirmed omeprazole 40 mg capsule,delayed 40 mg PO DAILY #90 caps 09/05/18 02/04/23 release nitroglycerin 0.4 mg sublingual 0.4 mg sublingual Q5-15M PRN chest 07/12/21 02/04/23 tablet pain #30 tabs albuterol sulfate 90 mcg/actuation 2 puff inhalation Q6H PRN 02/24/22 02/04/23 aerosol inhaler shortness of breath or wheezing #24 grams lisinopril 20 mg tablet 20 mg PO DAILY #90 tabs 02/24/22 02/04/23 acetaminophen 500 mg tablet 500 mg PO Q6H PRN pain #60 tabs 06/19/22 02/04/23 gabapentin 300 mg capsule 600 mg (2 x 300 mg) PO BID #270 08/25/22 02/04/23 caps sertraline 100 mg tablet 100 mg PO DAILY anxiety #90 tabs 08/25/22 02/04/23 tizanidine 4 mg tablet See Rx Instructions .Route 11/21/22 02/04/23 .COMPLEX #30 tabs hydrocodone 5 mg-acetaminophen 325 1 tab PO QHS PRN pain #30 tabs 01/15/23 02/04/23 mg tablet aspirin 81 mg tablet,delayed 81 mg PO DAILY 02/04/23 02/04/23 release ondansetron 4 mg disintegrating 4 mg PO TID 3 days #9 tabs 02/04/23 tablet tramadol 50 mg tablet 50 mg PO TID PRN pain #7 tabs 02/04/23 Previous Rx's Medication Instructions Recorded omeprazole 40 mg capsule,delayed 40 mg PO DAILY #90 caps 09/05/18 release nitroglycerin 0.4 mg sublingual 0.4 mg sublingual Q5-15M PRN chest 07/12/21 tablet pain #30 tabs albuterol sulfate 90 mcg/actuation 2 puff inhalation Q6H PRN 02/24/22 aerosol inhaler shortness of breath or wheezing #24 grams lisinopril 20 mg tablet 20 mg PO DAILY #90 tabs 02/24/22 acetaminophen 500 mg tablet 500 mg PO Q6H PRN pain #60 tabs 06/19/22 gabapentin 300 mg capsule 600 mg (2 x 300 mg) PO BID #270 08/25/22 caps sertraline 100 mg tablet 100 mg PO DAILY anxiety #90 tabs 08/25/22 tizanidine 4 mg tablet See Rx Instructions .Route 11/21/22 .COMPLEX #30 tabs hydrocodone 5 mg-acetaminophen 325 1 tab PO QHS PRN pain #30 tabs 01/15/23 mg tablet ondansetron 4 mg disintegrating 4 mg PO TID 3 days #9 tabs 02/04/23 tablet tramadol 50 mg tablet 50 mg PO TID PRN pain #7 tabs 02/04/23 Allergies Allergy/AdvReac Type Severity Reaction Status Date / Time doxycycline Allergy Intermediate hives Verified 02/04/23 10:59 Tetracyclines Allergy Intermediate hives Verified 02/04/23 10:59 adhesive Allergy Unknown skin rash Verified 02/04/23 10:59 nortriptyline AdvReac Mild hyperactivi Verified 02/04/23 10:59 ty General Stated Complaint: Nk/Back Pain MAMIE: 3 Review of Systems Narrative: CONST: no fever or chills HEENT: no sore throat SKIN: no rashes PULM: no sob, no cough CARD: no cp, no palpitations ABD: no abd pain. +flank pain EXTR: no swelling NEURO: No focal weakness PFSH All Active Problems (Updated 02/04/23 @ 12:33 by Ted Rushing MD) Bilateral kidney stones (Acute) Diverticulosis (Acute) Painful total knee replacement, right (Acute) Asthma (Chronic 11/20/12) Chronic low back pain (Chronic 11/20/12) Chronic obstructive lung disease (Chronic 08/01/12) Essential hypertension (Chronic 05/25/16) Urinary, incontinence, stress female (Chronic) Hyperlipidemia (Chronic 04/18/12) Smoker (Chronic 11/20/12) Chronic GERD (Chronic 11/20/12) CHRONIC HOARSENESS SECONDARY TO GERD Tendinitis of left rotator cuff (Chronic) Mammography less than 12 months ago (Chronic) Right breast microcyst Chronic pain syndrome (Chronic) Overweight (BMI 25.0-29.9) (Acute) Anxiety (Chronic) Right knee pain (Acute) Screening for colorectal cancer (Acute) 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 - 05/09/22 Achilles tendinitis of right lower extremity (Acute) Medical History Bilateral kidney stones COPD (chronic obstructive pulmonary disease) Gout Hoarseness of voice secondary to reflux Hypertension Migraine headache Plantar wart Uric acid renal calculus Surgical History Endoscopy (~2004) NEG GASTROPEXY History of cystoscopy Cysto/laser/retorgrade History of salpingo-oophorectomy (06/06/17) History of total right knee replacement (TKR) (01/15/12) Ligation of fallopian tube Manipulation, Under Anesthesia (03/13/12) right TKA Yosi Fundoplication (~2002) Oophrectomy, Left (06/06/17) L oophorectomy. Bilateral salpingectomy. Benign indications. Open Carpal Tunnel release RIGHT Replacement of total knee joint (01/15/12) right Family History Mother Essential hypertension Hyperlipidemia Father Diabetes Essential hypertension Heart disease Hyperlipidemia Stroke Asthma Sister Essential hypertension Sister Essential hypertension Brother No problems noted. Social History Smoking/Tobacco Use Status: Current every day Tobacco Type: cigarettes Smoking packs per day: 1 Smoking cigarettes per day: 20.0 Years smoked: 30 Smoking pack-years: 30.00 Tobacco: How many years used: 35 Quit status: considering quitting Second Hand Exposure: Yes Smoking risk assessment performed?: Yes Alcohol Intake: current Alcohol Intake frequency: a few times a month Alcohol type: beer Drug use: Never Substance use type: does not use Counseling given: No Caregiver/Support person: No Household members: spouse and children Housing: house Communication Needs: None Do you need help understanding health information?: Never 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 Pets and animals: Yes Pets and animals: cat(s) and dog(s) Sexually active: No Do you think of yourself as: straight/heterosexual Current gender identity: female What is your relationship status?: How often do you talk on the phone with friends or family?: three or more times per week How often do you get together with friends or relatives?: twice per week How often do you attend tenriism or mosque services?: decline to answer Do you belong to any clubs or organized social groups?: no Panel score (0-1 are the most socially isolated patients): 2 What type of physical activity do you participate in: walking Duration: 45-60 minutes/day Frequency: 3-4 times per week Dottie/Christian: None Special dottie needs: No Seatbelt use: always Drive intox or ride w/intox interstate bus driver: No Do you feel safe at home: Yes Do you feel safe in your relationship?: Yes Exam Narrative Exam Narrative: Const: well appearing, no acute distress HEENT: normocephalic, atraumatic; MMM Lungs: CTA, no wheezing or rales Heart: RRR Abd: soft, NT/ND. +L CVA tenderness Ext: well perfused Neuro: non-focal Skin: no rashes Course 52 yo female with L flank pain over the past 5 days, with some intermittent nausea, zofran given in the ED. CT a/p showed b/l kidney stones, diverticulosis, otherwise nothing acute, and labs reassuring. Will give rx for pain/nausea, and f/u with pcp. Return for any worsening or concerning sx's. Vital Signs Vital signs: Vital Signs Temperature 36.5 C 02/04/23 10:39 Pulse 94 H 02/04/23 10:39 Respiratory Rate 18 02/04/23 10:39 Blood Pressure 161/69 H 02/04/23 10:39 Pulse Oximetry 98 02/04/23 10:39 Temperature 36.5 C 02/04/23 10:39 Temperature Source Oral 02/04/23 10:39 Pulse 94 H 02/04/23 10:39 Respiratory Rate 18 02/04/23 10:39 Respiratory Effort Normal 02/04/23 10:46 Blood Pressure 161/69 H 02/04/23 10:39 Pulse Oximetry 98 02/04/23 10:39 Oxygen Delivery Method Room Air 02/04/23 10:39 Oxygen Flow Rate 0 02/04/23 10:39 Pain Level 10 02/04/23 10:39
[2023-02-04 11:23] LABS: Abs Immature Grans 0.03 10^3/uL (0.0-0.06); Absolute Basophil Count 0.03 10^3/uL (0.0-0.2); Absolute Eosinophil Count 0.06 10^3/uL (0.0-0.7); Absolute Lymphocyte Count 1.41 10^3/uL (1.2-3.4); Absolute Monocyte Count 0.27 10^3/uL (0.1-0.8); Absolute Neutrophil Count 5.69 10^3/uL (1.2-6.7); Basophils % 0.4; Eosinophils % 0.8; HCT 45.1 % (36.0-46.0); HGB 14.8 g/dL (11.2-15.7); Immature Grans % 0.4; Lactate 3.4 mmol/L (0.6-1.4); Lymphocytes % 18.8; MCHC 32.8 % (32.0-36.0); MCV 92 fL (80-95); MPV 9.9 fL (8.0-11.0); Monocytes % 3.6; Platelet Count 261 10^3/uL (130-400); RBC 4.93 10^6/uL (3.93-5.22); RDW 12.9 % (11.7-14.6); RDW-SD 43.8 fL; WBC 7.49 10^3/uL (4.4-10.8)
[2023-02-04 11:26] LABS: Bilirubin Negative (Negative); Blood Negative (Negative); Clarity Clear (Clear); Glucose Negative (Negative); Ketones Negative (Negative); Leukocyte Esterase Negative (Negative); Nitrite Negative (Negative); Specific Gravity <= 1.005 (1.005-1.025); Urobilinogen 0.2 mg/dL (Up to 0.2); pH 5.5 (5-8)
[2023-02-04] MEDS: Normal Saline - Diluent 50 ML VIAL IJ (11:29)
[2023-02-04] MEDS: Omnipaque 350 MG/ML 100 ML BTL IJ (11:31)
[2023-02-04] MEDS: Normal Saline Flush 10 ML SYR IVP (11:33)
[2023-02-04] MEDS: Normal Saline 1,000 ML 1000 ML IV (11:37)
[2023-02-04 11:39] LABS: ALT 18 U/L (14-59); AST 10 U/L (15-37); Albumin 3.9 g/dL (3.4-5.0); Alkaline Phosphatase 99 U/L (46-116); Anion Gap 10.3 mmol/L (3-11); BUN 7 mg/dL (7-18); Bilirubin, Total 0.3 mg/dL (0.2-1.0); CO2 24.7 mmol/L (21.0-32.0); Calcium 9.2 mg/dL (8.5-10.1); Chloride 100 mmol/L (98-107); Estimated GFR 67.78 (mL/min/1.73m2); Glucose 169 mg/dL (74-106); Lipase 21 U/L (16-77); Potassium 3.3 mmol/L (3.5-5.1); Sodium 135 mmol/L (136-145); Total Protein 8.2 g/dL (6.4-8.2)
[2023-02-04] MEDS: Ondansetron 4 MG/2 ML VIAL IVP (11:42)
--- NOTE | 2023-02-04 12:06 | DI.VRAD_ITS ---
PROCEDURE INFORMATION: Exam: CT Abdomen And Pelvis With Contrast Exam date and time: 02/04/2023 11:23 AM Age: 52 years old Clinical indication: Other: Left flank pain and side pain; Patient HX: HX of stones TECHNIQUE: Imaging protocol: Computed tomography of the abdomen and pelvis with contrast. Contrast material: OMNIPAQUE 350; Contrast volume: 100 ml; Contrast route: INTRAVENOUS (IV); COMPARISON: CT Abdomen^UROGRAM (Adult) 01/23/2018 8:07 AM FINDINGS: Lungs: Visualized portions lung bases included appear clear bilaterally. Diaphragm: Possible small hiatal hernia. Clips project upper abdomen and near upper stomach. Liver: Liver appears within normal. Gallbladder and bile ducts: No calcific stone seen of gallbladder. No bile duct dilatation seen. Pancreas: Pancreas appears within normal. Spleen: Spleen appears within normal. Adrenal glands: Adrenals appear within normal bilaterally. Kidneys and ureters: Numerous stones/calculi of kidneys, nonobstructing, bilaterally, with the largest measured at about 8-9 mm projecting lower right kidney, similar to 01/23/2018. Some of the stones/calculi appear progressed , with some diminished or absent compared to01/23/2018. Otherwise, no calcific stone seen of visualized portions ureters bilaterally, nor urinary bladder. No marked dilation seen of visualized portions of renal collecting systems, ureters bilaterally. No marked perinephric stranding seen bilaterally. Probable areas renal cortical/parenchymal thinning or atrophy bilaterally. Hypodense lesion mid upper medial right kidney suggesting tiny cyst perhaps slightly more prominent than 01/23/2018. Stomach and bowel: Stomach appears partly filled with gas, fluid. Small bowel pattern appears nonobstructive. Diverticula of colon without current radiographic evidence of acute diverticulitis. Appendix: No acute appendicitis seen. Intraperitoneal space: No free intraperitoneal air and no free abdominal or pelvic fluid collection seen. Vasculature: Atherosclerotic disease, but no aneurysm seen of abdominal aorta. Lymph nodes: Scattered small lymph nodes, nonspecific. Urinary bladder: Urinary bladder appears partly filled. Reproductive: IUD within uterus. Bones/joints: Degenerative changes spine. Soft tissues: Fat containing umbilical/paraumbilical hernia. IMPRESSION: Numerous stones/calculi of kidneys, nonobstructing, bilaterally, with the largest measured at about 8-9 mm projecting lower right kidney, similar to 01/23/2018. Some of the stones/calculi appear progressed, with some diminished or absent compared to01/23/2018. Otherwise, no calcific stone seen of visualized portions ureters bilaterally, nor urinary bladder. No marked dilation seen of visualized portions of renal collecting systems, ureters bilaterally. No marked perinephric stranding seen bilaterally. Probable areas renal cortical/parenchymal thinning or atrophy bilaterally. Hypodense lesion mid upper medial right kidney suggesting tiny cyst perhaps slightly more prominent than 01/23/2018. Dictated and Authenticated by: Jairon Dolan MD. Ordering:PATY Jean MD
== END 2023-02-04 12:47 | disposition home or self-care (01) ==
PROVIDERS: Emergency Provider Emergency Medicine; PCP Nurse Practitioner Family
DX: N20.0 Calculus of kidney (principal); K57.90 Diverticulosis of intestine, part unspecified, without perforation or abscess without bleeding
CPT/HCPCS: 80053; 83690; 96374; 99285; 74177; 81003; 83605; 85025; 99284; J2405; J3490

== ENCOUNTER 2023-02-22 06:11 | Day surgery (SDC) | payer OTHER, SELFPAY ==
[2023-02-22] VITALS (9 sets, daily range): BP systolic 133–176; BP diastolic 60–98; PULSE 59–74; RESP 13–18; TEMP 36.1–36.8; O2SAT 93–97; BMI 31.3
--- NOTE | 2023-02-22 06:42 | W.PM.HP.N ---
Date of service: 02/22/23 Time of Service: 06:42 Assessment and Plan Assessment and plan (1) Bilateral kidney stones: Status: Acute Assessment and plan: We will move ahead with bilateral ureteroscopy. I would expect that we can extract the left-sided kidney stones without needing to fragment them any further. On the right side, we will certainly need to holmium laser lithotripter. We may need a staged procedure on the right given the much larger stone burden. History of Present Illness History of Present Illness Chief Complaint: Bilateral kidney stones Narrative: This is a 52-year-old woman who has a history of kidney stones. He has undergone bilateral ureteroscopy's in the past. Her stone analysis has shown calcium oxalate monohydrate and calcium phosphate composition's. She came in to see us with bilateral back pain. Her CT scan demonstrated nonobstructing stones, so we do not believe that the stones are the source of her pain. She is interested in moving ahead with treatment of her stones to prevent future episodes of renal colic. Given the size of the stones, we expect that we would be able to simply extract the left-sided stones. There is a much larger right sided lower pole stone that will require holmium laser lithotripsy. She is not having any fevers, chills or gross hematuria. Review of Systems Narrative: No fevers or chills No vision change or dysphasia No diabetes or thyroid SOB related to asthma. No cough or hemoptysis No chest pain or palpitations GERD. No hepatitis, ulcers, jaundice No seizures, strokes or peripheral neuropathy No bleeding disorders or anemia Chronic pain. Knee prosthesis within past 2 years. No gout PFSH All Active Problems Bilateral kidney stones (Acute) Diverticulosis (Acute) Painful total knee replacement, right (Acute) Asthma (Chronic 11/20/12) Chronic low back pain (Chronic 11/20/12) Chronic obstructive lung disease (Chronic 08/01/12) Essential hypertension (Chronic 05/25/16) Urinary, incontinence, stress female (Chronic) Hyperlipidemia (Chronic 04/18/12) Smoker (Chronic 11/20/12) Chronic GERD (Chronic 11/20/12) CHRONIC HOARSENESS SECONDARY TO GERD Tendinitis of left rotator cuff (Chronic) Mammography less than 12 months ago (Chronic) Right breast microcyst Chronic pain syndrome (Chronic) Overweight (BMI 25.0-29.9) (Acute) Anxiety (Chronic) Right knee pain (Acute) Screening for colorectal cancer (Acute) 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 Bilateral salpingectomy. Benign indications. Yosi Fundoplication (~2002) Manipulation, Under Anesthesia (03/13/12) right TKA GASTROPEXY Endoscopy (~2004) NEG Family History Mother Essential hypertension Hyperlipidemia Father Diabetes Essential hypertension Heart disease Hyperlipidemia Stroke Asthma Sister Essential hypertension Sister Essential hypertension Brother No problems noted. Social History Smoking/Tobacco Use Status: Current every day Tobacco Type: cigarettes Smoking packs per day: 1 Smoking cigarettes per day: 20.0 Years smoked: 30 Smoking pack-years: 30.00 Tobacco: How many years used: 35 Quit status: considering quitting Second Hand Exposure: Yes Smoking risk assessment performed?: Yes Alcohol Intake: former Drug use: Never Substance use type: does not use Counseling given: No Details: pt denies current use of alcohol Caregiver/Support person: No Household members: spouse and children Housing: house Communication Needs: None Do you need help understanding health information?: Never 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 Pets and animals: Yes Pets and animals: cat(s) and dog(s) Sexually active: No Do you think of yourself as: straight/heterosexual Current gender identity: female What is your relationship status?: How often do you talk on the phone with friends or family?: three or more times per week How often do you get together with friends or relatives?: twice per week How often do you attend mu-ism or adventist services?: decline to answer Do you belong to any clubs or organized social groups?: no Panel score (0-1 are the most socially isolated patients): 2 What type of physical activity do you participate in: walking Duration: 45-60 minutes/day Frequency: 3-4 times per week Dottie/Evangelical: None Special dottie needs: No Seatbelt use: always Drive intox or ride w/intox 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 driver: No Do you feel safe at home: Yes Do you feel safe in your relationship?: Yes Meds Allergies and Home Medications Allergies Allergy/AdvReac Type Severity Reaction Status Date / Time doxycycline Allergy Intermediate hives Verified 02/22/23 06:22 Tetracyclines Allergy Intermediate hives Verified 02/22/23 06:22 adhesive Allergy Unknown skin rash Verified 02/22/23 06:22 nortriptyline AdvReac Mild hyperactivi Verified 02/22/23 06:22 ty Home Medications Medication Instructions Recorded Confirmed Type omeprazole 40 mg capsule,delayed 40 mg PO DAILY #90 caps 09/05/18 02/22/23 Rx release nitroglycerin 0.4 mg sublingual 0.4 mg sublingual Q5-15M PRN chest 07/12/21 02/22/23 Rx tablet pain #30 tabs albuterol sulfate 90 mcg/actuation 2 puff inhalation Q6H PRN 02/24/22 02/22/23 Rx aerosol inhaler shortness of breath or wheezing #24 grams lisinopril 20 mg tablet 20 mg PO DAILY #90 tabs 02/24/22 02/22/23 Rx acetaminophen 500 mg tablet 500 mg PO Q6H PRN pain #60 tabs 06/19/22 02/22/23 Rx gabapentin 300 mg capsule 600 mg (2 x 300 mg) PO BID #270 08/25/22 02/22/23 Rx caps sertraline 100 mg tablet 100 mg PO DAILY anxiety #90 tabs 08/25/22 02/22/23 Rx tizanidine 4 mg tablet See Rx Instructions .Route 11/21/22 02/22/23 Rx .COMPLEX #30 tabs aspirin 81 mg tablet,delayed 81 mg PO DAILY 02/04/23 02/21/23 History release tramadol 50 mg tablet 50 mg PO TID PRN pain #40 tabs 02/07/23 02/22/23 Rx hydrocodone 5 mg-acetaminophen 325 1 tab PO QHS PRN pain #30 tabs 02/17/23 02/22/23 Rx mg tablet Exam Const General: cooperative Neck Neck: supple Resp Effort & Inspection: normal respiratory effort Auscultation: clear to auscultation bilaterally Cardio Rate: regular rate Rhythm: regular rhythm GI Inspection: normal to inspection and obesity Palpation: soft Neuro General: patient alert, patient awake and patient oriented x3 Results Last Vital Signs Temp 36.8 C 02/22/23 06:28 Pulse 74 02/22/23 06:28 Resp 18 02/22/23 06:28 BP 149/98 H 02/22/23 06:28 Pulse Ox 96 02/22/23 06:28 Time Spent Time spent with Patient: <40 minutes Time was spent: other
--- NOTE | 2023-02-22 06:56 | ANES.PREOP_ITS ---
General Info Date of Service Date Performed: 02/22/23 Height: 5 ft 4.5 in Weight: 84.1 kg Body Mass Index (BMI): 31.3 Surgical Procedure: Operation Date: 02/22/23 07:40 Proposed Procedure Side Surgeon p Cystoscopy/Laser/Retrograde/Ureteroscopy Bilateral Catalino Mayfield MD Meds Allergies and Home Medications Allergies Allergy/AdvReac Type Severity Reaction Status Date / Time doxycycline Allergy Intermediate hives Verified 02/22/23 06:22 Tetracyclines Allergy Intermediate hives Verified 02/22/23 06:22 adhesive Allergy Unknown skin rash Verified 02/22/23 06:22 nortriptyline AdvReac Mild hyperactivi Verified 02/22/23 06:22 ty Home Medication Medication Instructions Recorded omeprazole 40 mg capsule,delayed 40 mg PO DAILY #90 caps 09/05/18 release nitroglycerin 0.4 mg sublingual 0.4 mg sublingual Q5-15M PRN chest 07/12/21 tablet pain #30 tabs albuterol sulfate 90 mcg/actuation 2 puff inhalation Q6H PRN 02/24/22 aerosol inhaler shortness of breath or wheezing #24 grams lisinopril 20 mg tablet 20 mg PO DAILY #90 tabs 02/24/22 acetaminophen 500 mg tablet 500 mg PO Q6H PRN pain #60 tabs 06/19/22 gabapentin 300 mg capsule 600 mg (2 x 300 mg) PO BID #270 08/25/22 caps sertraline 100 mg tablet 100 mg PO DAILY anxiety #90 tabs 08/25/22 tizanidine 4 mg tablet See Rx Instructions .Route 11/21/22 .COMPLEX #30 tabs aspirin 81 mg tablet,delayed 81 mg PO DAILY 02/04/23 release tramadol 50 mg tablet 50 mg PO TID PRN pain #40 tabs 02/07/23 hydrocodone 5 mg-acetaminophen 325 1 tab PO QHS PRN pain #30 tabs 02/17/23 mg tablet Current Visit Medications: Current Medications Generic Name Dose Route Start Last Admin Trade Name Freq PRN Reason Stop Dose Admin Ringer's Solution 1,000 mls @ 80 mls/hr 02/22/23 06:00 IV 03/08/23 23:59 INFUSION ZAYRA Cefazolin Sodium/Dextrose 2 gm in 50 mls @ 100 mls/hr 02/22/23 06:00 Ancef Duplex IVPB 02/22/23 23:59 PREOP ZAYRA Gentamicin Sulfate 160 mg/ 104 mls @ 208 mls/hr 02/22/23 06:00 Sodium Chloride IVPB 02/22/23 16:00 PREOP ZAYRA IV Miscellaneous Supplies 1 each 02/22/23 06:00 Iv Access IV 03/08/23 23:59 DIRECTED ZAYRA Sodium Chloride 0 ml 02/22/23 06:00 Normal Saline Flush 10 Ml Syr IV 03/08/23 23:59 PRN PRN Sodium Chloride 0 ml 02/22/23 06:00 Normal Saline 10 Ml Vial IJ 03/08/23 23:59 DIRECTED PRN Sterile Water 0 ml 02/22/23 06:00 Water,Injection,Sterile 10 Ml Vial IJ 03/08/23 23:59 DIRECTED PRN PFSH Active Problems Active Problems: Problem Status Onset Code Bilateral kidney stones N20.0 Diverticulosis K57.90 Painful total knee replacement, right T84.84XA, Z96.651 Asthma 11/20/12 J45.909 Chronic low back pain 11/20/12 M54.5, G89.29 Chronic obstructive lung disease 08/01/12 J44.9 Essential hypertension 05/25/16 I10 Urinary, incontinence, stress female N39.3 Hyperlipidemia 04/18/12 E78.5 Smoker 11/20/12 F17.200 Chronic GERD 11/20/12 K21.9 Tendinitis of left rotator cuff M75.82 Mammography less than 12 months ago Z78.9 Chronic pain syndrome G89.4 Overweight (BMI 25.0-29.9) E66.3 Anxiety F41.9 Right knee pain M25.561 Screening for colorectal cancer Z12.11, Z12.12 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, Z96.659 Achilles tendinitis of right lower extremity M76.61 Medical History Medical History Migraine headache Gout Bilateral kidney stones Plantar wart Uric acid renal calculus Hypertension COPD (chronic obstructive pulmonary disease) Hoarseness of voice secondary to reflux Medical History Comments:: smoked 1 cigarette this am Surgical History Surgical History History of total right knee replacement (TKR) (01/15/12) History of cystoscopy Cysto/laser/retorgrade History of salpingo-oophorectomy (06/06/17) Ligation of fallopian tube Replacement of total knee joint (01/15/12) right Open Carpal Tunnel release RIGHT Oophrectomy, Left (06/06/17) L oophorectomy. Bilateral salpingectomy. Benign indications. Yosi Fundoplication (~2002) Manipulation, Under Anesthesia (03/13/12) right TKA GASTROPEXY Endoscopy (~2004) NEG Tobacco Smoking/Tobacco Use Status: Current every day Tobacco Type: cigarettes Smoking packs per day: 1 Smoking cigarettes per day: 20.0 Years smoked: 30 Smoking pack- years: 30.00 Passive smoking exposure: Yes Second hand exposure: Yes Alcohol Alcohol Intake: former Substance Use Substance use: Never Substance use type: does not use Details: pt denies current use of alcohol Vital Signs and Lab Results Vital Signs Most Recent Vital Signs in EMR: Most Recent Vital Signs Temp Pulse Resp BP Pulse Ox 36.8 C 74 18 149/98 H 96 02/22/23 06:28 02/22/23 06:28 02/22/23 06:28 02/22/23 06:28 02/22/23 06:28 Lab Results Blood Type / Crossmatch: No Data to Display Complete Blood Count: White Blood Count 7.49 10^3/uL (4.4-10.8) 02/04/23 11:05 Red Blood Count 4.93 10^6/uL (3.93-5.22) 02/04/23 11:05 Hemoglobin 14.8 g/dL (11.2-15.7) 02/04/23 11:05 Hematocrit 45.1 % (36.0-46.0) 02/04/23 11:05 Platelet Count 261 10^3/uL (130-400) 02/04/23 11:05 Venous Blood Lactate 3.4 mmol/L (0.6-1.4) H* 02/04/23 11:05 Complete Metabolic Panel: Sodium 135 mmol/L (136-145) L 02/04/23 11:05 Potassium 3.3 mmol/L (3.5-5.1) L 02/04/23 11:05 Chloride 100 mmol/L (98-107) 02/04/23 11:05 Carbon Dioxide 24.7 mmol/L (21.0-32.0) 02/04/23 11:05 BUN 7 mg/dL (7-18) 02/04/23 11:05 Creatinine 1.0 mg/dL (0.55-1.02) 02/04/23 11:05 Est GFR (CKD-EPI 2020) 67.78 (mL/min/1.73m2) 02/04/23 11:05 Calcium 9.2 mg/dL (8.5-10.1) 02/04/23 11:05 Albumin 3.9 g/dL (3.4-5.0) 02/04/23 11:05 Glucose 169 mg/dL (74-106) H 02/04/23 11:05 Liver Function Panel: Alanine Aminotransferase (ALT/SGPT) 18 U/L (14-59) 02/04/23 11: 05 Aspartate Amino Transf (AST/SGOT) 10 U/L (15-37) L 02/04/23 11: 05 Coagulation Panel: No Data to Display Cardiac Panel: No Data to Display Arterial Blood Gas: No Data to Display Venous Blood Gas: No Data to Display Pancreas Panel: Lipase 21 U/L (16-77) 02/04/23 11:05 Thyroid Panel: No Data to Display Infectious Disease: No Data to Display Blood Cultures: No Data to Display Toxicology Panel: No Data to Display Panel: No Data to Display Imaging and Studies Imaging and Studies Study information below may be from another EMR and interpreted by another provider. Please see original notes in EMR for more complete details. EKG Summary: Conclusion Sinus rhythm...normal P axis, V-rate 60- 99 07/12/21 Stress Test Summary: Stress ECG Conclusion 1. The resting electrocardiogram showed minor inferolateral ST-T abnormalities 2. Patient exercised on the Cristóbal protocol and completed a workload of 10.06 METS, stopping due to fatigue 3. Normal heart rate and blood pressure response to exercise. Patient achieved 85% of predicted heart rate for age 4. There was no electrocardiographic evidence of myocardial ischemia 5. There were no significant dysrhythmias Real Treadmill Score is 7.6 which is Low risk. 07/14/21 Anesthesia Assessment and Plan Anesthesia History Personal History: No History of Anesthesia Complications Family History: No Family History of Anesthesia Complications Exercise Tolerance Exercise Tolerance: Metabolic Equivalents>4 Pertinent Negatives Pertinent Negatives: No Symptoms of GERD, No Major Cardiovascular Symptoms or Complaints and No Major Pulmonary Symptoms or Complaints Cardiac & Pulmonary Exam Cardiac Exam: Normal S1/S2 Heart Sounds Pulmonary Exam: Clear Bilateral Breath Sounds Implantable Cardiac Device Does patient have a Pacemaker or an ICD?: No Airway Exam Known Difficult Airway: No Mallampati Class: 3 Mouth Opening: Normal (> 3cm) Thyromental Distance: Greater than 3 cm Neck Range of Motion: Full ROM Neck Circumference: Normal Teeth Condition: Generalized Poor Dentition Airway Comments: Missing teeth- one tooth on upper left. Missing lower molars ASA Classification ASA Score: ASA 2 Emergency Case?: No NPO Status NPO Status: NPO Clears >2 hours, Solids >8 hours Status Status: Not Relevant due to Medical History Anesthesia Plan Resuscitation Status: Full Code Anesthesia Technique: General Anesthesia Airway Planned: LMA Monitors Used: Standard Monitors
[2023-02-22] MEDS: Lactated Ringers 1,000 ML 80 ML IV (07:05)
[2023-02-22] MEDS: ceFAZolin 2 GM/50 ML BAG IVPB (07:10)
[2023-02-22] MEDS: GENTAMICIN 160 MG in Normal Saline 100 ML 208 MG IVPB (07:39)
[2023-02-22] MEDS: Lidocaine 2% Jelly 11 ML SYR (08:00)
[2023-02-22] MEDS: Omnipaque 300 MG/ML 50 ML BTL (08:20)
--- NOTE | 2023-02-22 08:37 | DI.RAD_ITS ---
Exam(s) XR RETROGRADE IN OR EXAM: XR RETROGRADE IN OR CLINICAL HISTORY: bilateral kidney stones. TECHNIQUE: Fluoroscopy was provided for the referring physician for guidance with performing retrogr vikram procedure. COMPARISON: CT CT ABDOMEN PELVIS W from 02/04/2023 FINDINGS: Please see procedure note for details. Fluoro time: 31.9 seconds RADIATION DOSE DELIVERED: garcia Galvez=8.96 mGy
--- NOTE | 2023-02-22 08:47 | W.PM.DSUDISC ---
Date of service: 02/22/23 Time of Service: 08:48 Discharge Plan Disposition Patient Disposition: Home Condition: Stable Discharge Details Reason For Visit: ureteroscopy Attending Provider: Catalino Mayfield Primary Care Provider: Laureano Benoit Home Meds and New Rx's Prescriptions: No Action lisinopril 20 mg tablet 20 mg PO DAILY Qty: 90 3RF albuterol sulfate 90 mcg/actuation HFA aerosol inhaler 2 puff IH Q6H PRN (Reason: shortness of breath or wheezing) Qty: 24 2RF acetaminophen 500 mg tablet 500 mg PO Q6H PRN (Reason: pain) Qty: 60 2RF gabapentin 300 mg capsule 600 mg PO BID Qty: 270 1RF Rx Instructions: 300 mg qam and 600 mg qpm sertraline 100 mg tablet 100 mg PO DAILY Qty: 90 3RF tramadol 50 mg tablet 50 mg PO TID PRN (Reason: pain) Qty: 40 0RF omeprazole 40 mg capsule,delayed release(DR/EC) 40 mg PO DAILY Qty: 90 3RF tizanidine 4 mg tablet See Rx Instructions .ROUTE .COMPLEX Qty: 30 3RF Dose Instruction: TAKE ONE TABLET BY MOUTH EVERY DAY AT BEDTIME Rx Instructions: TAKE ONE TABLET BY MOUTH EVERY DAY AT BEDTIME hydrocodone-acetaminophen 5-325 mg tablet 1 tab PO QHS MDD 1 tab PRN (Reason: pain) Qty: 30 0RF aspirin 81 mg tablet,delayed release (DR/EC) 81 mg PO DAILY Patient Comments: TAKE ONE TABLET BY MOUTH TWICE A DAY nitroglycerin 0.4 mg tablet, sublingual 0.4 mg sublingual Q5-15M PRN (Reason: chest pain) Qty: 30 0RF Patient Comments: only taken once in the ER here at [facility] per pt Rx Instructions: do not exceed 3 doses per episode Discharge Instructions Additional Instructions: no need to strain urine my office will contact pt to arrange follow up cystoscopy, stent removal, right retrograde pyelogram, ureteroscopy with extraction of remaining stone fragments Activity:: Activity as Tolerated Shower/Bathe:: 24 hours Diet:: As Tolerated Discharge Orders Discharge Orders: Discharge Order (Routine); Ordered 02/22/23 Ordered By: Catalino Mayfield DS: Diagnosis Discharge Diagnosis (1) Bilateral kidney stones: Status: Acute
--- NOTE | 2023-02-22 08:52 | ROE_ITS ---
Date of service: 02/22/23 Time of Service: 08:52 Operative Note Operative Note DATE OF PROCEDURE: 02/22/23 PRE-OP DIAGNOSIS: bilateral kidney stones POST-OP DIAGNOSIS: same PROCEDURE: cystoscopy, bilateral retrograde pyelogram, bilateral flexible ureteroscopy, bilateral stone extractions, insert right ureteral stent SURGEON: Catalino Mayfield ANESTHESIA TYPE: Local By Surgeon and General LMA/ETT Refer to Anesthesia Record ESTIMATED BLOOD LOSS: 10 PATHOLOGY: other (Bilateral kidney stones (sent separately as RIGHT and LEFT)) Implants: 4.8 chadian by 22 to 30 cm left ureteral stent Indications: This is a 52-year-old woman who had a recent ER visit for flank pain. On CT scan she had nonobstructing stones in the kidneys. We did not believe the stones were the cause of her flank pain, but she was concerned about possibly developing renal colic if the stones decided to move. She presents now for stone manipulation. Findings: Multiple bilateral small kidney stones Procedure Description: The patient was brought to the operating room on 02/22/2023. She was given preoperative IV antibiotics. After successful induction of general anesthesia, she was placed in the dorsal lithotomy position. Her genitalia was prepped and draped. 2% Xylocaine jelly was instilled into the urethra to act as a local anesthetic. A 22 [place] rigid cystoscope was passed through the urethra into the bladder. The bladder was inspected with the 30 degree lens. Both ureteral orifices appeared normal with no blood seen coming from either side. No stones were seen within the lumen of the bladder. No papillary or nodular mucosal based lesions were seen. We cannulated the left ureteral orifice with a 5 [place] access catheter. Retrograde pyelogram was obtained by injecting Omnipaque through the access catheter under fluoroscopic guidance. The retrograde pyelogram allowed us to outline the collecting. A guidewire was then advanced through the access catheter and the catheter was removed. A dual-lumen catheter was advanced and a second wire was positioned. We chose one of the wires as a working wire and the other as a safety wire. We then passed a ureteral access sheath over the working wire leaving the safety wire in place. We passed the flexible ureteroscope through the lumen of the ureteral access sheath. We then inspected each of the calyces and found multiple small stone fragments. Each of the stone fragments was grasped in a 0 tip stone basket and the stones were removed. They were sent together to the laboratory for chemical analysis. With no remaining large stone burden on the left side, we removed the scope and access sheath. We removed the safety wire. We then cannulated the right ureteral orifice with a 5 [place] access catheter. A right retrograde pyelogram was obtained and we outlined the calyces. We then passed a guidewire through the lumen of the access catheter and removed the catheter. We passed the dual-lumen catheter and chose one of the wires as a working wire and the other as a safety wire. We passed the ureteral access s robi over the working wire leaving the safety wire in place. We passed the flexible ureteroscope through the access sheath and inspected each of the calyces. On the right side, we were expecting a larger stone, but again, we saw multiple smaller stones. Several of these were collected in the same calyx which may have been the explanation for the CT appearance. Each of the stone fragments was grasped in a 0 tip stone basket and removed. The stones were then sent to pathology for chemical analysis. At the completion of the procedure, I was not certain that all stone fragments had been dealt with. We placed a 4.8 [place] variable length stent over the safety wire. The proximal end of the stent was curled in the renal pelvis and the distal end was curled within the bladder. The positioning of the stent was confirmed both fluoroscopically and cystoscopically. We we will make arrangements for return trip to the operating room so that we can remove the stent and perform repeat ureteroscopy to ensure all stone fragments had been dealt with. The patient tolerated the procedure well with no complications.
[2023-02-22] MEDS: HYDROcodone 5/Acetaminophen 325 TAB PO (10:02)
[2023-02-22] MEDS: Phenazopyridine 200 MG TAB PO (10:02)
--- NOTE | 2023-02-22 14:30 | W.ANESPOSTOP ---
Postoperative Evaluation Date, Time and Location Date Performed: 02/22/23 Time Performed: 09:25 Patient Location: PACU Vital Signs Most Recent Imported Vital Signs: Most Recent Vital Signs Temp Pulse Resp BP Pulse Ox 36.4 C L 59 L 16 166/90 H 96 02/22/23 10:15 02/22/23 10:15 02/22/23 10:15 02/22/23 10:15 02/22/23 10:15 Pain Score Most Recent Pain Score: Most Recent Pain Score Pain Level 5 02/22/23 10:15 Assessment Mental Status: Awake (Alert & Oriented to Patient Baseline) Airway and Respiratory Function: Patent airway with normal (patient baseline) respiratory exam Cardiovascular Function: Hemodynamically Stable Hydration Status: Adequately Hydrated Nausea & Vomiting: No Nausea or Vomiting Pain: Pain is tolerable per patient Peripheral Nerve Block: Patient did not receive a nerve block
[2023-02-28 11:57] LABS: Source: Left Kidney
[2023-02-28 11:58] LABS: Source: Right Kidney
== END 2023-02-22 10:30 | disposition home or self-care (01) ==
PROVIDERS: PCP Nurse Practitioner Family; Visit Provider Urology
PROC: (CPT 52352; principal; 2023-02-22 07:30)
DX: N20.0 Calculus of kidney (principal); J44.9 Chronic obstructive pulmonary disease, unspecified; F17.210 Nicotine dependence, cigarettes, uncomplicated; E78.5 Hyperlipidemia, unspecified
CPT/HCPCS: 52352; 52332; 81025; 74420; 82365; J0131; J0690; J1100; J1580; J1885; J2250; J2405; J2704; J3010; Q9967

== ENCOUNTER 2023-03-15 07:17 | Day surgery (SDC) | payer OTHER, SELFPAY ==
[2023-03-15 07:19] VITALS: BP 158/87; PULSE 83; RESP 16; TEMP 36.3; O2SAT 94
[2023-03-15] MEDS: GENTAMICIN 160 MG in Normal Saline 100 ML 208 MG IVPB (07:58)
[2023-03-15] MEDS: Lactated Ringers 1,000 ML 80 ML IV (07:59)
--- NOTE | 2023-03-15 08:20 | ANES.PREOP_ITS ---
General Info Date of Service Date Performed: 03/15/23 Height: 5 ft 4.5 in Weight: 83.5 kg Body Mass Index (BMI): 31.1 Surgical Procedure: Operation Date: 03/15/23 09:25 Proposed Procedure Side Surgeon p Cystoscopy/Retrograde/Repeat Ureteroscopy/ Stone Extraction/ Stent Removal Right Catalino Mayfield MD Meds Allergies and Home Medications Allergies Allergy/AdvReac Type Severity Reaction Status Date / Time doxycycline Allergy Intermediate hives Verified 03/14/23 15:35 Tetracyclines Allergy Intermediate hives Verified 03/14/23 15:35 adhesive Allergy Unknown skin rash Verified 03/14/23 15:35 nortriptyline AdvReac Mild hyperactivi Verified 03/14/23 15:35 ty Home Medication Medication Instructions Recorded omeprazole 40 mg capsule,delayed 40 mg PO DAILY #90 caps 09/05/18 release nitroglycerin 0.4 mg sublingual 0.4 mg sublingual Q5-15M PRN chest 07/12/21 tablet pain #30 tabs albuterol sulfate 90 mcg/actuation 2 puff inhalation Q6H PRN 02/24/22 aerosol inhaler shortness of breath or wheezing #24 grams lisinopril 20 mg tablet 20 mg PO DAILY #90 tabs 02/24/22 acetaminophen 500 mg tablet 500 mg PO Q6H PRN pain #60 tabs 06/19/22 sertraline 100 mg tablet 100 mg PO DAILY anxiety #90 tabs 08/25/22 tizanidine 4 mg tablet See Rx Instructions .Route 11/21/22 .COMPLEX #30 tabs aspirin 81 mg tablet,delayed 81 mg PO DAILY 02/04/23 release hydrocodone 5 mg-acetaminophen 325 1 tab PO QHS PRN pain #30 tabs 02/17/23 mg tablet tramadol 50 mg tablet 50 mg PO TID PRN pain #40 tabs 02/26/23 gabapentin 300 mg capsule 600 mg (2 x 300 mg) PO BID #270 03/07/23 caps Current Visit Medications: Current Medications Generic Name Dose Route Start Last Admin Trade Name Freq PRN Reason Stop Dose Admin Ringer's Solution 1,000 mls @ 80 mls/hr 03/15/23 06:00 03/15/23 07:59 IV 03/15/23 23:59 80 mls/hr INFUSION ZAYRA Administration Cefazolin Sodium/Dextrose 2 gm in 50 mls @ 100 mls/hr 03/15/23 06:00 Ancef Duplex IVPB 03/15/23 23:59 PREOP ZAYRA Gentamicin Sulfate 160 mg/ 104 mls @ 208 mls/hr 03/15/23 06:00 03/15/23 07:58 Sodium Chloride IVPB 03/15/23 23:59 208 mls/hr PREOP ZAYRA Administration IV Miscellaneous Supplies 1 each 03/15/23 06:00 Iv Access IV 03/15/23 23:59 DIRECTED ZAYRA Sodium Chloride 0 ml 03/15/23 06:00 Normal Saline Flush 10 Ml Syr IV 03/15/23 23:59 PRN PRN Sodium Chloride 0 ml 03/15/23 06:00 Normal Saline 10 Ml Vial IJ 03/15/23 23:59 DIRECTED PRN Sterile Water 0 ml 03/15/23 06:00 Water,Injection,Sterile 10 Ml Vial IJ 03/15/23 23:59 DIRECTED PRN PFSH Active Problems Active Problems: Problem Status Onset Code Painful total knee replacement, right T84.84XA, Z96.651 Asthma 11/20/12 J45.909 Chronic low back pain 11/20/12 M54.5, G89.29 Chronic obstructive lung disease 08/01/12 J44.9 Essential hypertension 05/25/16 I10 Urinary, incontinence, stress female N39.3 Hyperlipidemia 04/18/12 E78.5 Smoker 11/20/12 F17.200 Chronic GERD 11/20/12 K21.9 Tendinitis of left rotator cuff M75.82 Mammography less than 12 months ago Z78.9 Chronic pain syndrome G89.4 Overweight (BMI 25.0-29.9) E66.3 Anxiety F41.9 Right knee pain M25.561 Screening for colorectal cancer Z12.11, Z12.12 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, Z96.659 Achilles tendinitis of right lower extremity M76.61 Medical History Medical History Migraine headache Gout Bilateral kidney stones Plantar wart Uric acid renal calculus Hypertension COPD (chronic obstructive pulmonary disease) Hoarseness of voice secondary to reflux Medical History Comments:: smoked 1 cigarette this am Surgical History Surgical History History of total right knee replacement (TKR) (01/15/12) History of cystoscopy Cysto/laser/retorgrade History of salpingo-oophorectomy (06/06/17) Ligation of fallopian tube Replacement of total knee joint (01/15/12) right Open Carpal Tunnel release RIGHT Oophrectomy, Left (06/06/17) L oophorectomy. Bilateral salpingectomy. Benign indications. Yosi Fundoplication (~2002) Manipulation, Under Anesthesia (03/13/12) right TKA GASTROPEXY Endoscopy (~2004) NEG Tobacco Smoking/Tobacco Use Status: Current every day Tobacco Type: cigarettes Smoking packs per day: 1 Smoking cigarettes per day: 20.0 Years smoked: 30 Smoking pack- years: 30.00 Passive smoking exposure: Yes Second hand exposure: Yes Alcohol Alcohol Intake: former Substance Use Substance use: Never Substance use type: does not use Vital Signs and Lab Results Vital Signs Most Recent Vital Signs in EMR: Most Recent Vital Signs Temp Pulse Resp BP Pulse Ox 36.3 C L 83 16 158/87 H 94 03/15/23 07:19 03/15/23 07:19 03/15/23 07:19 03/15/23 07:19 03/15/23 07:19 Lab Results Blood Type / Crossmatch: No Data to Display Complete Blood Count: No Data to Display Complete Metabolic Panel: No Data to Display Liver Function Panel: No Data to Display Coagulation Panel: No Data to Display Cardiac Panel: No Data to Display Arterial Blood Gas: No Data to Display Venous Blood Gas: No Data to Display Pancreas Panel: No Data to Display Thyroid Panel: No Data to Display Infectious Disease: No Data to Display Blood Cultures: No Data to Display Toxicology Panel: No Data to Display Panel: No Data to Display Imaging and Studies Imaging and Studies Study information below may be from another EMR and interpreted by another provider. Please see original notes in EMR for more complete details. EKG Summary: Conclusion Sinus rhythm...normal P axis, V-rate 60- 99 07/12/21 Stress Test Summary: Stress ECG Conclusion 1. The resting electrocardiogram showed minor inferolateral ST-T abnormalities 2. Patient exercised on the Cristóbal protocol and completed a workload of 10.06 METS, stopping due to fatigue 3. Normal heart rate and blood pressure response to exercise. Patient achieved 85% of predicted heart rate for age 4. There was no electrocardiographic evidence of myocardial ischemia 5. There were no significant dysrhythmias Real Treadmill Score is 7.6 which is Low risk. 07/14/21 Anesthesia Assessment and Plan Anesthesia History Personal History: No History of Anesthesia Complications Family History: No Family History of Anesthesia Complications Exercise Tolerance Exercise Tolerance: Metabolic Equivalents>4 Pertinent Negatives Pertinent Negatives: No Major Cardiovascular Symptoms or Complaints and No Major Pulmonary Symptoms or Complaints (slight wheeze in bases, clears with cough, had patient use albuterol inhaler 2 puffs) Cardiac & Pulmonary Exam Cardiac Exam: Normal S1/S2 Heart Sounds Pulmonary Exam: Wheezing Present (see note above) Implantable Cardiac Device Does patient have a Pacemaker or an ICD?: No Airway Exam Known Difficult Airway: No Mallampati Class: 3 Mouth Opening: Normal (> 3cm) Thyromental Distance: Greater than 3 cm Neck Range of Motion: Full ROM Neck Circumference: Normal Teeth Condition: Generalized Poor Dentition Airway Comments: Missing teeth- one tooth on upper left. Missing lower molars ASA Classification ASA Score: ASA 2 Emergency Case?: No NPO Status NPO Status: NPO Clears >2 hours, Solids >8 hours Status Status: Not Relevant due to Medical History Anesthesia Plan Resuscitation Status: Full Code Anesthesia Technique: General Anesthesia Airway Planned: Natural Airway Monitors Used: Standard Monitors
[2023-03-15 08:30] VITALS: BMI 31.1
--- NOTE | 2023-03-15 08:34 | W.PM.HP.N ---
Date of service: 03/15/23 Time of Service: 08:42 Assessment and Plan Assessment and plan (1) Bilateral kidney stones: Assessment and plan: We will remove her stent and run the ureteroscope back up to the right kidney to make sure that all significant stone fragments have been addressed. History of Present Illness History of Present Illness Chief Complaint: Bilateral kidney stones Narrative: This is a 52-year-old woman who has a history of kidney stones. He has undergone bilateral ureteroscopy's in the past. Her stone analysis has shown calcium oxalate monohydrate and calcium phosphate composition's. She came in to see us with bilateral back pain. Her CT scan demonstrated nonobstructing stones, so we do not believe that the stones are the source of her pain, but she was interested in having the stones treated. I did bilateral ureteroscopy and was able to clear out all the stones on the left. I cleared the majority of stones on the right, but I was not convinced that all stone fragments had been addressed. I placed a ureteral stent. She presents now for stent removal, repeat ureteroscopy and extraction of stone fragments. She has noticed that her left-sided discomfort has actually improved since the stones were cleared. She does have frequency and occasional blood in the urine related to her indwelling stent. She has not been having any fevers or chills. Review of Systems Narrative: No fevers or chills No vision change or dysphasia No diabetes or thyroid dysfunction SOB related to COPD. No hemoptysis No chest pain or palpitations No nausea, vomiting, hepatitis, ulcers, jaundice No seizures, strokes or peripheral neuropathy No bleeding disorders or anemia No gout PFSH All Active Problems Painful total knee replacement, right (Acute) Asthma (Chronic 11/20/12) Chronic low back pain (Chronic 11/20/12) Chronic obstructive lung disease (Chronic 08/01/12) Essential hypertension (Chronic 05/25/16) Urinary, incontinence, stress female (Chronic) Hyperlipidemia (Chronic 04/18/12) Smoker (Chronic 11/20/12) Chronic GERD (Chronic 11/20/12) CHRONIC HOARSENESS SECONDARY TO GERD Tendinitis of left rotator cuff (Chronic) Mammography less than 12 months ago (Chronic) Right breast microcyst Chronic pain syndrome (Chronic) Overweight (BMI 25.0-29.9) (Acute) Anxiety (Chronic) Right knee pain (Acute) Screening for colorectal cancer (Acute) 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 Bilateral salpingectomy. Benign indications. Yosi Fundoplication (~2002) Manipulation, Under Anesthesia (03/13/12) right TKA GASTROPEXY Endoscopy (~2004) NEG Family History Mother Essential hypertension Hyperlipidemia Father Diabetes Essential hypertension Heart disease Hyperlipidemia Stroke Asthma Sister Essential hypertension Sister Essential hypertension Brother No problems noted. 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 Pets and animals: Yes Pets and animals: cat(s) and dog(s) Sexually active: No Do you think of yourself as: straight/heterosexual Current gender identity: female What is your relationship status?: How often do you talk on the phone with friends or family?: three or more times per week How often do you get together with friends or relatives?: twice per week How often do you attend congregational or quaker services?: decline to answer Do you belong to any clubs or organized social groups?: no Panel score (0-1 are the most socially isolated patients): 2 What type of physical activity do you participate in: walking Duration: 45-60 minutes/day Frequency: 3-4 times per week Dottie/Yazidism: None Special dottie needs: No Seatbelt use: always Drive intox or ride w/intox paratransit driver: No Do you feel safe at home: Yes Do you feel safe in your relationship?: Yes Meds Allergies and Home Medications Allergies Allergy/AdvReac Type Severity Reaction Status Date / Time doxycycline Allergy Intermediate hives Verified 03/14/23 15:35 Tetracyclines Allergy Intermediate hives Verified 03/14/23 15:35 adhesive Allergy Unknown skin rash Verified 03/14/23 15:35 nortriptyline AdvReac Mild hyperactivi Verified 03/14/23 15:35 ty Home Medications Medication Instructions Recorded Confirmed Type omeprazole 40 mg capsule,delayed 40 mg PO DAILY #90 caps 09/05/18 03/15/23 Rx release nitroglycerin 0.4 mg sublingual 0.4 mg sublingual Q5-15M PRN chest 07/12/21 03/15/23 Rx tablet pain #30 tabs albuterol sulfate 90 mcg/actuation 2 puff inhalation Q6H PRN 02/24/22 03/15/23 Rx aerosol inhaler shortness of breath or wheezing #24 grams lisinopril 20 mg tablet 20 mg PO DAILY #90 tabs 02/24/22 03/15/23 Rx acetaminophen 500 mg tablet 500 mg PO Q6H PRN pain #60 tabs 06/19/22 03/15/23 Rx sertraline 100 mg tablet 100 mg PO DAILY anxiety #90 tabs 08/25/22 03/15/23 Rx tizanidine 4 mg tablet See Rx Instructions .Route 11/21/22 03/15/23 Rx .COMPLEX #30 tabs aspirin 81 mg tablet,delayed 81 mg PO DAILY 02/04/23 03/14/23 History release hydrocodone 5 mg-acetaminophen 325 1 tab PO QHS PRN pain #30 tabs 02/17/23 03/15/23 Rx mg tablet tramadol 50 mg tablet 50 mg PO TID PRN pain #40 tabs 02/26/23 03/15/23 Rx gabapentin 300 mg capsule 600 mg (2 x 300 mg) PO BID #270 03/07/23 03/15/23 Rx caps Exam Const General: cooperative Neck Neck: supple Resp Effort & Inspection: normal respiratory effort Auscultation: clear to auscultation bilaterally Cardio Rate: regular rate Rhythm: regular rhythm GI Palpation: soft and no masses Neuro General: patient alert, patient awake and patient oriented x3 Results Imaging Additional studies: RUN DATE: 03/15/23 [facility] PAGE 1 RUN TIME: [id number] RUN USER: [place] [address] Sophia Branham MD,PhD PATIENT REPORT PATIENT: Delaney Preston LOC: [facility] U #: [id number] /SX: 1970 F ROOM: RE02/22/[address]: CHLOE HAINES MD STATUS: [facility] BED: DIS: SPEC #: [id number] MASON: 02/22/23 STATUS: COMP REQ #: [id number] RECD: 02/22/[address]: CHLOE HAINES MD ENTERED: 02/22/[address] [facility] [address]: Breanna CLAUDIO, Laureano FAX #: ORDERED: Stone Anaylsis COMMENTS: SPECIMEN 2 QUERIES: Source: Right Kidney Test Result Flag Reference Verified Kidney Stone Analysis Source: Right Kidney 02/28/23 Interpretation See Comment 02/28/23 50% Calcium oxalate monohydrate. 30% Calcium oxalate dihydrate. 20% Calcium phosphate (apatite). Result Comment See Comment 02/28/23 For stones containing calcium oxalate, calcium phosphate, and/or uric acid, a 24 hr urinary supersaturation test may help detect underlying risk factors for this type of stone formation and provide guidance for a stone prevention strategy. ADDITIONAL INFORMATION This test was developed and its performance characteristics determined by [facility] in a manner consistent with CLIA requirements. This test has not been cleared or approved by the U.S. Food and Drug Administration. Test Performed by: [facility] - [address] [address] Seismograph Operator: Madhav Manrique M.D. 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 Acct#[id number] Unit#[id number] RUN DATE: 03/15/23 [facility] PAGE 1 RUN TIME: [id number] RUN USER: [place] [address] Sophia Branham MD,PhD PATIENT REPORT PATIENT: Delaney Preston LOC: [facility] U #: [id number] /SX: 1970 F ROOM: RE02/22/[address]: CHLOE HAINES MD STATUS: [facility] BED: DIS: SPEC #: [id number] MASON: 02/22/23 STATUS: COMP REQ #: [id number] RECD: 02/22/[address]: CHLOE HAINES MD ENTERED: 02/22/[address] [facility] [address]: Breanna CLAUDIO Laureano FAX #: ORDERED: Stone Anaylsis COMMENTS: SPECIMEN 1 QUERIES: Source: Left Kidney Test Result Flag Reference Verified Kidney Stone Analysis Source: Left Kidney 02/28/23 Interpretation See Comment 02/28/23 60% Calcium phosphate (apatite). 20% Calcium oxalate dihydrate. 20% Calcium oxalate monohydrate. Result Comment See Comment 02/28/23 For stones containing calcium oxalate, calcium phosphate, and/or uric acid, a 24 hr urinary supersaturation test may help detect underlying risk factors for this type of stone formation and provide guidance for a stone prevention strategy. ADDITIONAL INFORMATION This test was developed and its performance characteristics determined by [facility] in a manner consistent with CLIA requirements. This test has not been cleared or approved by the U.S. Food and Drug Administration. Test Performed by: [facility] - [address] [address] Seismograph Operator: Madhav Manrique M.D. Ph.D.; CLIA# [id number] Last Vital Signs Temp 36.3 C L 03/15/23 07:19 Pulse 83 03/15/23 07:19 Resp 16 03/15/23 07:19 BP 158/87 H 03/15/23 07:19 Pulse Ox 94 03/15/23 07:19 Time Spent Time spent with Patient: <40 minutes Time was spent: other
[2023-03-15] MEDS: ceFAZolin 2 GM/50 ML BAG IVPB (09:20)
[2023-03-15] MEDS: Lidocaine 2% Jelly 11 ML SYR (09:30)
[2023-03-15] MEDS: Omnipaque 300 MG/ML 50 ML BTL (09:30)
--- NOTE | 2023-03-15 10:11 | PDOC.DSDIS_ITS ---
Date of service: 03/15/23 Time of Service: 10:12 Discharge Plan Disposition Patient Disposition: Home Discharge Details Attending Provider: Catalino Mayfield Primary Care Provider: Laureano Benoit Home Meds and New Rx's Prescriptions: New oxycodone-acetaminophen [Percocet] 5-325 mg tablet 1 tab PO Q6H PRN (Reason: pain) Qty: 20 0RF Continued lisinopril 20 mg tablet 20 mg PO DAILY Qty: 90 3RF albuterol sulfate 90 mcg/actuation HFA aerosol inhaler 2 puff IH Q6H PRN (Reason: shortness of breath or wheezing) Qty: 24 2RF acetaminophen 500 mg tablet 500 mg PO Q6H PRN (Reason: pain) Qty: 60 2RF sertraline 100 mg tablet 100 mg PO DAILY Qty: 90 3RF omeprazole 40 mg capsule,delayed release(DR/EC) 40 mg PO DAILY Qty: 90 3RF tizanidine 4 mg tablet See Rx Instructions .ROUTE .COMPLEX Qty: 30 3RF Dose Instruction: TAKE ONE TABLET BY MOUTH EVERY DAY AT BEDTIME Rx Instructions: TAKE ONE TABLET BY MOUTH EVERY DAY AT BEDTIME hydrocodone-acetaminophen 5-325 mg tablet 1 tab PO QHS MDD 1 tab PRN (Reason: pain) Qty: 30 0RF gabapentin 300 mg capsule 600 mg PO BID Qty: 270 1RF Rx Instructions: 300 mg qam and 600 mg qpm aspirin 81 mg tablet,delayed release (DR/EC) 81 mg PO DAILY Patient Comments: TAKE ONE TABLET BY MOUTH TWICE A DAY nitroglycerin 0.4 mg tablet, sublingual 0.4 mg sublingual Q5-15M PRN (Reason: chest pain) Qty: 30 0RF Patient Comments: only taken once in the ER here at [facility] per pt Rx Instructions: do not exceed 3 doses per episode Discontinued tramadol 50 mg tablet 50 mg PO TID PRN (Reason: pain) Qty: 40 0RF Discharge Instructions Additional Instructions: no need to srain urine followup 6 to 8 weeks with renal ultrasound Activity:: Activity as Tolerated Shower/Bathe:: 24 hours Diet:: As Tolerated DS: Diagnosis Discharge Diagnosis (1) Bilateral kidney stones:
[2023-03-15 10:12] VITALS: BP 146/76; PULSE 77; RESP 16; TEMP 36.1; O2SAT 93
--- NOTE | 2023-03-15 10:16 | ROE_ITS ---
Date of service: 03/15/23 Time of Service: 10:16 Operative Note Operative Note DATE OF PROCEDURE: 03/15/23 PRE-OP DIAGNOSIS: Right kidney stones POST-OP DIAGNOSIS: same PROCEDURE: cystoscopy, remove right ureteral stent, right retrograde pyelogram, right flexible ureteroscopy with holmium laser lithotripsy, extraction of stone fragments SURGEON: Catalino Mayfield ANESTHESIA TYPE: Local By Surgeon and General:No Airway Refer to Anesthesia Record ESTIMATED BLOOD LOSS: 10 PATHOLOGY: other (stones for chemical analysis) COMPLICATIONS: None Patient was transported to: same day Patient's condition: stable Implants: none Indications: This is a 52-year-old woman who has a history of bilateral kidney stones. None of the stones were obstructing, so we did not believe they were responsible for any of her flank pain complaints. She requested treatment for the stones however. We initially did bilateral ureteroscopy's and we were able to clear out the small stones from her left kidney. On the right side, we removed some stones but we were unable to deal with all of the stone fragments. She presents now for cystoscopy, remove right ureteral stent, and a repeat right ureteroscopy. Findings: stone in lower pole calyx manipulated into renal pelvis and treated Procedure Description: The patient was given IV antibiotics and brought to the operating room on 03/15/2023. After successful induction of general anesthesia without intubation, she was placed in the dorsal lithotomy position. Her genitalia was prepped with Betadine. The perineum was then draped. 2% Xylocaine jelly was instilled into the urethra to act as a local anesthetic. A 22 Bengali rigid cystoscope was passed through the urethra into the bladder. The bladder was inspected with a 30 degree lens. A stent could be seen protruding from the right ureteral orifice. The stent was grasped and alligator forceps and brought to the level of the urethral meatus. A Glidewire was then advanced through the lumen of the ureteral stent and the stent was removed leaving the wire in place. A dual-lumen catheter was advanced over the wire and positioned with the proximal end of the catheter in the proximal ureter. Omnipaque was injected through the lumen of the dual-lumen catheter and the calyces were outlined. No specific filling defects were seen. A second wire was then passed through the lumen of the dual-lumen catheter. We chose one of the wires as a working wire and the other as a safety wire. We then removed the dual-lumen catheter. A ureteral access sheath was advanced over the working wire. The proximal end o f the sheath was positioned in the proximal ureter. The safety wire was secured. I then passed a flexible ureteroscope through the ureteral access sheath up to the renal pelvis. Each of the calyces were inspected. A few small stone fragments were seen in the upper pole calyces, but in the lower pole calyx, a larger stone was visualized. The stone was grasped in a 0 tip stone basket and brought to the renal pelvis. We then switched over to a 272 ?m holmium laser fiber and fragmented the stone into multiple pieces. The stone fragments were then grasped with the 0 tip stone basket. The stone fragments were extracted and sent to pathology for chemical analysis. Since she had already had a stent for approximately 3 weeks, we elected not to replace her stent. The patient tolerated the procedure well with no complications. She was taken back to the day surgery unit in stable condition.
--- NOTE | 2023-03-15 10:23 | DI.RAD_ITS ---
Exam(s) XR RETROGRADE IN OR EXAM: XR RETROGRADE IN OR CLINICAL HISTORY: BILATERAL KIDNEY STONES. TECHNIQUE: Fluoroscopy was provided for the referring physician for guidance with performing retrogr vikram procedure. COMPARISON: No exams were available for comparison FINDINGS: Please see procedure note for details. Fluoro time: 23.7 seconds RADIATION DOSE DELIVERED: garcia Galvez=6.51 mGy
[2023-03-15] MEDS: Albuterol/Ipratropium 3 ML UPD VIAL UPD (10:37)
[2023-03-15 10:39] VITALS: BP 145/80; PULSE 66; RESP 16; TEMP 36.4; O2SAT 90
[2023-03-15 10:50] VITALS: BP 109/84; PULSE 72; RESP 16; TEMP 36.4; O2SAT 94
[2023-03-15] MEDS: Phenazopyridine 200 MG TAB PO (11:01)
[2023-03-15 11:17] VITALS: BP 120/65; PULSE 73; RESP 16; TEMP 36.4; O2SAT 95
[2023-03-15 12:15] VITALS: BP 151/73; PULSE 76; RESP 16; TEMP 36.5; O2SAT 94
--- NOTE | 2023-03-15 16:22 | W.ANESPOSTOP ---
Postoperative Evaluation Date, Time and Location Date Performed: 03/15/23 Time Performed: 16:22 Patient Location: Day Surgery Unit Vital Signs Most Recent Imported Vital Signs: Most Recent Vital Signs Temp Pulse Resp BP Pulse Ox 36.5 C 76 16 151/73 H 94 03/15/23 12:15 03/15/23 12:15 03/15/23 12:15 03/15/23 12:15 03/15/23 12:15 Pain Score Most Recent Pain Score: Most Recent Pain Score Pain Level 2 03/15/23 12:15 Assessment Mental Status: Awake (Alert & Oriented to Patient Baseline) Airway and Respiratory Function: Patent airway with normal (patient baseline) respiratory exam Cardiovascular Function: Hemodynamically Stable Hydration Status: Adequately Hydrated Nausea & Vomiting: No Nausea or Vomiting Pain: Pain is tolerable per patient Peripheral Nerve Block: Patient did not receive a nerve block
[2023-03-20 21:46] LABS: Source: Right Kidney
== END 2023-03-15 07:18 | disposition home or self-care (01) ==
PROVIDERS: PCP Nurse Practitioner Family; Visit Provider Urology
PROC: (CPT 52353; principal; 2023-03-15 09:15)
DX: N20.0 Calculus of kidney (principal); J44.9 Chronic obstructive pulmonary disease, unspecified; E78.5 Hyperlipidemia, unspecified; F17.210 Nicotine dependence, cigarettes, uncomplicated; K21.9 Gastro-esophageal reflux disease without esophagitis
CPT/HCPCS: 52353; 74420; 82365; J0690; J1100; J1580; J1885; J2250; J2405; J7620; Q9967

== ENCOUNTER 2023-06-14 14:51 | Outpatient (CLI) | payer OTHER, SELFPAY ==
--- NOTE | 2023-06-14 07:45 | DI.RAD_ITS ---
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 TECHNIQUE: 2D digital imaging was performed. Three views. COMPARISON: CR XR KNEE RT 3V AP,LAT,JUAN DIEGO from 11/13/2022 FINDINGS: BONES: No acute fracture is present. No bony destructive lesion is seen. JOINTS: There has been no change in the alignment of the knee prosthesis. A small joint effusion is seen. SOFT TISSUE: Normal. IMPRESSION: Stable appearance of knee prosthesis. DATA REPOSITORY: RADIATION DOSE DELIVERED:
[2023-06-14 09:56] LABS: Clarity Clear; Mononuclear Cells 64 %; Nucleated Cells 750 uL (0); Polynuclear Cells 36 %
== END 2023-06-14 14:52 | disposition home or self-care (01) ==
LOC: DIORS 14:51
PROVIDERS: PCP Nurse Practitioner Family; Visit Provider Student in an Organized Health Care Education/Training Program
DX: T84.84XA Pain due to internal orthopedic prosthetic devices, implants and grafts, initial encounter (principal); Z96.651 Presence of right artificial knee joint
CPT/HCPCS: 73562; 87070; 87205; 89051

== ENCOUNTER 2023-07-27 06:54 | Day surgery (SDC) | payer OTHER, SELFPAY ==
--- NOTE | 2023-07-26 18:57 | W.PM.DSUDISC ---
Date of service: 07/27/23 Time of Service: 11:22 Discharge Plan Disposition Patient Disposition: Home Condition: Good Discharge Details Reason For Visit: colon scope Attending Provider: Dinora Tse Primary Care Provider: Laureano Benoit Home Meds and New Rx's Prescriptions: Continued allopurinol 100 mg tablet 100 mg PO DAILY Qty: 90 4RF acetaminophen 500 mg tablet 500 mg PO Q6H PRN (Reason: pain) Qty: 60 2RF sertraline 100 mg tablet 100 mg PO DAILY Qty: 90 3RF omeprazole 40 mg capsule,delayed release(DR/EC) 40 mg PO DAILY Qty: 90 3RF gabapentin 300 mg capsule 600 mg PO BID Qty: 270 1RF Rx Instructions: 300 mg qam and 600 mg qpm albuterol sulfate 90 mcg/actuation HFA aerosol inhaler 2 puff IH Q6H PRN (Reason: shortness of breath or wheezing) Qty: 24 2RF tizanidine 4 mg tablet See Rx Instructions .ROUTE .COMPLEX Qty: 30 3RF Dose Instruction: TAKE ONE TABLET BY MOUTH EVERY DAY AT BEDTIME Rx Instructions: TAKE ONE TABLET BY MOUTH EVERY DAY AT BEDTIME lisinopril 20 mg tablet 20 mg PO DAILY Qty: 90 3RF nitroglycerin 0.4 mg tablet, sublingual 0.4 mg sublingual Q5-15M PRN (Reason: chest pain) Qty: 30 0RF Patient Comments: only taken once in the ER here at [facility] per pt Rx Instructions: do not exceed 3 doses per episode aspirin 81 mg tablet,delayed release (DR/EC) 81 mg PO DAILY Patient Comments: TAKE ONE TABLET BY MOUTH TWICE A DAY Discontinued bisacodyl [Dulcolax (bisacodyl)] 5 mg tablet,delayed release (DR/EC) 5 mg PO ONCE Qty: 4 0RF Rx Instructions: Take per colonoscopy instructions provided by ordering providers office polyethylene glycol 3350 17 gram/dose powder 17 g PO ONCE Qty: 238 0RF Rx Instructions: Take per colonoscopy instructions provided by ordering providers office No Action hydrocodone-acetaminophen 5-325 mg tablet 1 tab PO BID MDD 2 tab PRN (Reason: pain) Qty: 60 0RF Discharge Instructions Additional Instructions: DSU Colonoscopy Post-Op Instructions Instructions for Everyone who is given Anesthesia: For your safety, please do the following for the next twenty-four (24) hours: *Do Not operate a motor vehicle (car, truck, motorcycle, etc.) *Do Not drink alcoholic beverages or use any recreational drugs for the first 24 hours or while taking pain medications. The medications in your body may have a reaction that can be dangerous. *Do Not make any important decisions or sign any important papers. -No ASA/NSAID's for 72hrs. You may notice blood in stools for a few days. Findings: mass in colon. Follow up: Dr. Tse 08/01 at 9:45am 1. No lifting over 20 pounds or strenuous activity for the first 72 hours after your procedure. After 72 hours there are no restrictions on your activity but you may feel fatigued for a few days. 2. After you arrive home you may have a light meal and return to your normal diet as you can tolerate it without feeling sick to your stomach. 3. You may have a bloated, gaseous feeling in your belly (abdomen) after a colonoscopy. Passing gas and belching will help. Walking or lying down on your left side with your knees flexed may relieve the discomfort. Call the office at [phone] (Office) or [phone] (Hospital) right away if you notice any of the following: a.Vomiting of blood or ?coffee ground stools?. b.Rectal bleeding 1Tbsp, blood clots or continuous bleeding. c.Severe belly (abdominal) pain. d.A hard distended belly (abdomen) and an inability to pass gas. 4. Please don?t expect to have a normal BM (bowel movement) for 2-3 days after your procedure. 5. If there are questions regarding the findings of your procedure, please contact your doctor 6. If you are unable to contact your doctor with a problem, contact the hospital at [phone]. 7. Continue all your regular medications unless directed otherwise. I understand the above instructions and have no questions. Signature of Patient or Adult Escort Name of Responsible Adult Escort Signature of Nurse Date/Time Activity:: see above Diet:: As Tolerated Discharge Orders Discharge Orders: Discharge Order (Routine); Ordered 07/27/23 Ordered By: Dinora Tse DS: Diagnosis Discharge Diagnosis (1) Essential hypertension: Status: Chronic (2) Hyperlipidemia: Status: Chronic (3) Overweight (BMI 25.0-29.9): Status: Acute (4) Chronic GERD: Status: Chronic (5) Screening for colorectal cancer: Status: Acute Asessment and Plan: The patient is seen and examined after their colonoscopy.? The patient has been able to pass gas.? They are not having abdominal pain.? They have been able to tolerate liquids and a snack.? They do not have any nausea or vomiting.? They are not having any chest pain or shortness of breath.??? They are not having any rectal bleeding. Their vital signs have been stable-see nursing notes. We discussed findings during their colonoscopy, and any biopsies that were done/polyps that were removed. The patient will be sent a letter with any biopsy results, and when to repeat the colonoscopy.-see discharge instructions. Patient was given explicit instructions to follow-up regarding colonoscopy-refer to discharge instructions.? We reviewed resumption of medications. Patient verbalized understanding and discharged in stable and satisfactory condition- See nursing notes. 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
--- NOTE | 2023-07-26 19:08 | COLE_ITS ---
Date of service: 07/27/23 Time of Service: 09:32 Colonoscopy Report Date of procedure: 07/27/23 Pre-op diagnosis general: CRC screening Post-op diagnosis procedure note: other (Colon polyps/diverticulosis/external hemorrhoids/cecal mass at 80 cm) Surgeon: Dinora Tse Anesthesia Type: General:No Airway Estimated blood loss (mL): 5 Pathology: other Complications: None Disposition: same day Prep: Miralax/Dulcolax Retraction Time: 45 Procedure Description: After informed consent was obtained the patient was taken to the procedure room and placed in a left decubitous position. Monitors were applied and a time out was done. The patients name, date of , procedure, allergies to medications and metal in their body was reviewed. The patient was then sedated. Once sedated and comfortable a rectal exam was done. External exam shows external hemorrhoids internal exam revealed a normal sphincter tone and no palpable masses. The scope was then introduced and retrofelexed. No internal hemorrhoids were identified. The scope was then advanced to the cecum without difficulty. The TI and appendiceal orifice were identified. The scope was then slowly retracted over 39 minutes back into the rectum. This area was tattooed. There is a polyp in the cecum that is removed with a cold snare. It is 0.75 cm in size. At about 85 to 90 cm she has polypoid flat mass in the cecum it is unclear if this is just a very large flat polyp or it is a early stage cancer. It covers about 20% of the circumferene of the wall. A large pharmaceutical service representative piece was able to be removed with a cold snare. Several biopsies are taken with a cold biopsy forcep. No bleeding is noted all specimens are retrieved. She has [place] diverticula in the sigmoid colon and a moderate amount. There is no signs of active bleeding or infection. She has x 3 polyps in the rectum. 2 were removed with a cold biting forcep. x1 is a centimeter in size. A clip is placed over the defect of this polyp that was removed. No bleeding is noted. Another is 0.75 cm in size. There is a .5cm polyp that is removed with a cold biopsy forcep. All specimens are retrieved. The scope was removed and the patient was woken up and taken back to Same day surgery in stable condition. The patient tolerated the procedure well and there were no immediate complications. Follow up: The patient should follow up in 7 to 10 days for biopsy results and further recommendations. [place] Bowel Prep [place] Bowel Prep Right Colon: 3 Left Colon: 3 Transverse Colon: 3 Total Score: 9
[2023-07-27 07:07] VITALS: BMI 30.7
--- NOTE | 2023-07-27 07:07 | ANES.PREOP_ITS ---
General Info Date of Service Date Performed: 07/27/23 Height: 5 ft 5 in Weight: 83.915 kg Body Mass Index (BMI): 30.7 Surgical Procedure: Operation Date: 07/27/23 08:20 Proposed Procedure Side Surgeon demi Tse, Meds Allergies and Home Medications Allergies Allergy/AdvReac Type Severity Reaction Status Date / Time doxycycline Allergy Intermediate hives Verified 07/27/23 07:10 Tetracyclines Allergy Intermediate hives Verified 07/27/23 07:10 adhesive Allergy Unknown skin rash Verified 07/27/23 07:10 nortriptyline AdvReac Mild hyperactivi Verified 07/27/23 07:10 ty Home Medication Medication Instructions Recorded omeprazole 40 mg capsule,delayed 40 mg PO DAILY #90 caps 09/05/18 release acetaminophen 500 mg tablet 500 mg PO Q6H PRN pain #60 tabs 06/19/22 sertraline 100 mg tablet 100 mg PO DAILY anxiety #90 tabs 08/25/22 aspirin 81 mg tablet,delayed 81 mg PO DAILY 02/04/23 release gabapentin 300 mg capsule 600 mg (2 x 300 mg) PO BID #270 03/07/23 caps albuterol sulfate 90 mcg/actuation 2 puff inhalation Q6H PRN 03/20/23 aerosol inhaler shortness of breath or wheezing #24 grams tizanidine 4 mg tablet See Rx Instructions .Route 04/10/23 .COMPLEX #30 tabs allopurinol 100 mg tablet 100 mg PO DAILY stone prevention 05/08/23 #90 tabs lisinopril 20 mg tablet 20 mg PO DAILY #90 tabs 06/05/23 nitroglycerin 0.4 mg sublingual 0.4 mg sublingual Q5-15M PRN chest 06/05/23 tablet pain #30 tabs hydrocodone 5 mg-acetaminophen 325 1 tab PO BID PRN pain #60 tabs 06/28/23 mg tablet Current Visit Medications: Current Medications Generic Name Dose Route Start Last Admin Trade Name Freq PRN Reason Stop Dose Admin Clindamycin HCl 600 mg 07/27/23 07:00 Clindamycin 300 Mg Cap PO 08/26/23 06:59 PREOP ZAYRA Ondansetron HCl 4 mg 07/27/23 02:00 Ondansetron 4 Mg/2 Ml Vial IVP 08/26/23 01:59 Q4H PRN PRN Nausea / Vomiting PFSH Active Problems Active Problems: Problem Status Onset Code Painful total knee replacement, right T84.84XA, Z96.651 Asthma 11/20/12 J45.909 Chronic low back pain 11/20/12 M54.5, G89.29 Chronic obstructive lung disease 08/01/12 J44.9 Essential hypertension 05/25/16 I10 Urinary, incontinence, stress female N39.3 Hyperlipidemia 04/18/12 E78.5 Smoker 11/20/12 F17.200 Chronic GERD 11/20/12 K21.9 Tendinitis of left rotator cuff M75.82 Mammography less than 12 months ago Z78.9 Chronic pain syndrome G89.4 Overweight (BMI 25.0-29.9) E66.3 Anxiety F41.9 Right knee pain M25.561 Screening for colorectal cancer Z12.11, Z12.12 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, Z96.659 Achilles tendinitis of right lower extremity M76.61 Medical History Medical History Migraine headache Gout Bilateral kidney stones Plantar wart Uric acid renal calculus Hypertension COPD (chronic obstructive pulmonary disease) Hoarseness of voice secondary to reflux Medical History Comments:: smoked 1 cigarette this am Surgical History Surgical History History of total right knee replacement (TKR) (01/15/12) History of cystoscopy Cysto/laser/retorgrade History of salpingo-oophorectomy (06/06/17) Ligation of fallopian tube Replacement of total knee joint (01/15/12) right Open Carpal Tunnel release RIGHT Oophrectomy, Left (06/06/17) L oophorectomy. Bilateral salpingectomy. Benign indications. Yosi Fundoplication (~2002) Manipulation, Under Anesthesia (03/13/12) right TKA GASTROPEXY Endoscopy (~2004) NEG Tobacco Smoking/Tobacco Use Status: Current every day Tobacco Type: cigarettes Smoking packs per day: 1 Smoking cigarettes per day: 20.0 Years smoked: 30 Smoking pack- years: 30.00 Passive smoking exposure: Yes Second hand exposure: Yes Alcohol Alcohol Intake: former Substance Use Substance use: Never Substance use type: does not use Vital Signs and Lab Results Vital Signs Most Recent Vital Signs in EMR: Temp Pulse Resp BP Pulse Ox 36.3 C L 77 18 157/89 H 97 07/27/23 07:22 07/27/23 07:22 07/27/23 07:22 07/27/23 07:22 07/27/23 07:22 Lab Results Blood Type / Crossmatch: No Data to Display Complete Blood Count: No Data to Display Complete Metabolic Panel: No Data to Display Liver Function Panel: No Data to Display Coagulation Panel: No Data to Display Cardiac Panel: No Data to Display Arterial Blood Gas: No Data to Display Venous Blood Gas: No Data to Display Pancreas Panel: No Data to Display Thyroid Panel: No Data to Display Infectious Disease: No Data to Display Blood Cultures: No Data to Display Toxicology Panel: No Data to Display Panel: No Data to Display Imaging and Studies Imaging and Studies Study information below may be from another EMR and interpreted by another provider. Please see original notes in EMR for more complete details. EKG Summary: Conclusion Sinus rhythm...normal P axis, V-rate 60- 99 07/12/21 Stress Test Summary: Stress ECG Conclusion 1. The resting electrocardiogram showed minor inferolateral ST-T abnormalities 2. Patient exercised on the Cristóbal protocol and completed a workload of 10.06 METS, stopping due to fatigue 3. Normal heart rate and blood pressure response to exercise. Patient achieved 85% of predicted heart rate for age 4. There was no electrocardiographic evidence of myocardial ischemia 5. There were no significant dysrhythmias Real Treadmill Score is 7.6 which is Low risk. 07/14/21 Anesthesia Assessment and Plan Anesthesia History Personal History: No History of Anesthesia Complications Family History: No Family History of Anesthesia Complications Exercise Tolerance Exercise Tolerance: Metabolic Equivalents>4 Pertinent Negatives Pertinent Negatives: No Symptoms of GERD, No Major Cardiovascular Symptoms or Complaints and No History of CVA/TIA Cardiac & Pulmonary Exam Cardiac Exam: Normal S1/S2 Heart Sounds Pulmonary Exam: Clear Bilateral Breath Sounds Implantable Cardiac Device Does patient have a Pacemaker or an ICD?: No Airway Exam Known Difficult Airway: No Mallampati Class: 3 Mouth Opening: Normal (> 3cm) Thyromental Distance: Greater than 3 cm Neck Range of Motion: Full ROM Neck Circumference: Normal Teeth Condition: Generalized Poor Dentition Airway Comments: Missing teeth- one tooth on upper left. Missing lower molars ASA Classification ASA Score: ASA 2 Emergency Case?: No NPO Status NPO Status: NPO Clears >2 hours, Solids >8 hours Status Status: Not Relevant due to Medical History Anesthesia Plan Resuscitation Status: Full Code Anesthesia Technique: General Anesthesia Airway Planned: Natural Airway Monitors Used: Standard Monitors
[2023-07-27 07:22] VITALS: BP 157/89; PULSE 77; RESP 18; TEMP 36.3; O2SAT 97
[2023-07-27] MEDS: Lactated Ringers 1,000 ML 80 ML IV (07:49)
[2023-07-27] MEDS: Endoscopic Tattoo 5 ML SYR IJ (08:45)
--- NOTE | 2023-07-27 08:45 | BOWEL_PTH ---
PATIENT: Delaney Preston LOC: [facility] U#:[id number] AGE/SX: 52/F ROOM: RE07/27/[address]: Dinora Tse : 1970 BED: DIS: 07/27/2023 SPEC #: [id number] RECD: 07/27/23 12:09 STATUS: [place] REQ #: [id number] MASON: 07/27/23 08:[address]: Dinora Tse DEPT: Surgical Specimen RECD BY: Jeanette Gutierrez ENTERED: 07/27/23 12:10 SP TYPE: Bowel OTHR DR: Laureano Carlos, SHANON Tissues: 1 - BIOPSY BOWEL 2 - BIOPSY BOWEL Procedures: GROSS AND MICRO LEVEL 4 Comments: [id number]
[2023-07-27 09:32] VITALS: BP 167/79; PULSE 68; RESP 16; TEMP 36.4; O2SAT 94
[2023-07-27] MEDS: Breeza Beverage 473 ML BTL PO ×2 (09:56→09:59)
[2023-07-27] MEDS: Omnipaque 350 MG/ML 50 ML BTL PO (09:59)
[2023-07-27 10:02] VITALS: BP 144/64; PULSE 60; RESP 16; TEMP 36.8; O2SAT 96
--- NOTE | 2023-07-27 10:06 | W.ANESPOSTOP ---
Postoperative Evaluation Date, Time and Location Date Performed: 07/27/23 Time Performed: 10:06 Patient Location: Day Surgery Unit Vital Signs Most Recent Imported Vital Signs: Most Recent Vital Signs Temp Pulse Resp BP Pulse Ox 36.4 C L 68 16 167/79 H 94 07/27/23 09:32 07/27/23 09:32 07/27/23 09:32 07/27/23 09:32 07/27/23 09:32 Pain Score Most Recent Pain Score: Most Recent Pain Score Pain Level 0 07/27/23 09:32 Assessment Mental Status: Awake (Alert & Oriented to Patient Baseline) Airway and Respiratory Function: Patent airway with normal (patient baseline) respiratory exam Cardiovascular Function: Hemodynamically Stable Hydration Status: Adequately Hydrated Nausea & Vomiting: No Nausea or Vomiting Pain: Pt. Denies Any Pain Peripheral Nerve Block: Patient did not receive a nerve block
[2023-07-27 10:36] LABS: Abs Immature Grans 0.02 10^3/uL (0.0-0.06); Absolute Basophil Count 0.03 10^3/uL (0.0-0.2); Absolute Eosinophil Count 0.16 10^3/uL (0.0-0.7); Absolute Lymphocyte Count 2.18 10^3/uL (1.2-3.4); Absolute Monocyte Count 0.48 10^3/uL (0.1-0.8); Absolute Neutrophil Count 4.01 10^3/uL (1.2-6.7); Basophils % 0.4; Eosinophils % 2.3; HCT 42.5 % (36.0-46.0); HGB 14.3 g/dL (11.2-15.7); Immature Grans % 0.3; Lymphocytes % 31.7; MCH 31.2 pg (27.0-33.0); MCHC 33.6 % (32.0-36.0); MCV 93 fL (80-95); MPV 9.9 fL (8.0-11.0); Neutrophils % 58.3; Platelet Count 256 10^3/uL (130-400); RBC 4.59 10^6/uL (3.93-5.22); RDW 13.2 % (11.7-14.6); RDW-SD 44.9 fL; WBC 6.88 10^3/uL (4.4-10.8)
[2023-07-27 10:44] LABS: INR 1.1 (0.9-1.1); Prothrombin Time 10.9 sec (9.1-11.1)
[2023-07-27 10:59] LABS: ALT 32 U/L (14-59); AST 15 U/L (15-37); Albumin 3.5 g/dL (3.4-5.0); Alkaline Phosphatase 110 U/L (46-116); Anion Gap 10.4 mmol/L (3-11); BUN 8 mg/dL (7-18); Bilirubin, Total 0.5 mg/dL (0.2-1.0); C-Reactive Protein 1.17 mg/dL (<or=0.5); CO2 27.6 mmol/L (21.0-32.0); CREATININE 0.6 mg/dL (0.55-1.02); Calcium 8.4 mg/dL (8.5-10.1); Chloride 101 mmol/L (98-107); Estimated GFR 107.93 (mL/min/1.73m2); Glucose 100 mg/dL (74-106); Potassium 3.6 mmol/L (3.5-5.1); Sodium 139 mmol/L (136-145); Total Protein 7.3 g/dL (6.4-8.2)
[2023-07-27] MEDS: Normal Saline Flush 10 ML SYR IV (10:59)
[2023-07-27 11:24] LABS: Ferritin 65 ng/mL (8-252)
--- NOTE | 2023-07-27 12:46 | DI.CT_ITS ---
Exam(s) CT ABDOMEN PELVIS W EXAM: CT ABDOMEN PELVIS W CLINICAL HISTORY: mass in colon at 85/90cm. TECHNIQUE: Imaging Protocol: Axial computed tomography images with coronal and sagittal reformatted images were created and reviewed CONTRAST MATERIAL: Intravenous: Omnipaque 350 Contrast volume:100 ml Oral: yes / no COMPARISON: CT CT ABDOMEN PELVIS W from 02/04/2023 FINDINGS: ABDOMEN and PELVIS: Lung Bases: No acute findings. Atelectasis versus scarring at the medial inferior lingula. Liver: Normal density. No measurable mass. Gallbladder and biliary tract: No radiodense calculus or biliary dilation. Pancreas: Normal density. No abnormal calcifications or inflammatory process. No evidence of mass. Spleen: Normal. Kidneys: Normal size, contour and axis. Tiny bilateral nonobstructing renal calculi. No obstructive uropathy. No suspicious masses seen. Adrenal glands: No masses seen. Vasculature: Abdominal aorta non-dilated. Soft tissues: Small fatty containing umbilical hernia. Bladder: No gross wall thickening. No calculi.No focal mass. Bowel: Suture material near GE junction. No small-bowel obstruction. No bowel wall thickening. Appe ndix normal. Mild diverticulosis. No colonic mass is visible. Normal quantity of stool. Peritoneal cavity: No ascites. No focal collection or mesenteric inflammatory response. Bones: Unremarkable for age. Reproductive organs: IUD noted. Lymph nodes: Unremarkable. IMPRESSION:: No colonic masses identified. No evidence of adenopathy or metastatic disease. Mild d iverticulosis. RADIATION DOSE DELIVERED: 1,004.9mGy.cm Total DLP DATA REPOSITORY: All CT scans at this facility are submitted to the National Radiology Data Registry (NRDR) Dose Index Registry (DIR) with the [employer] (A[employer]). RADIATION OPTIMIZATION: All CT scans at this facility use at least one of these dose optimization te chniques: automated exposure control; mA and/or kV adjustment per patient size (includes targeted exa ms where dose is matched to clinical indication); or iterative reconstruction.
[2023-07-27] MEDS: Omnipaque 350 MG/ML 100 ML BTL IJ (12:47)
[2023-07-27] MEDS: Normal Saline - Diluent 50 ML VIAL IJ (12:47)
== END 2023-07-27 13:00 | disposition home or self-care (01) ==
LOC: SUR 06:56
PROVIDERS: PCP Nurse Practitioner Family; Visit Provider Surgery
PROC: 0DJD8ZZ Inspection of Lower Intestinal Tract, Via Natural or Artificial Opening Endoscopic (ICD-10-PCS; CPT 45378; principal; 2023-07-27 08:15)
DX: Z12.11 Encounter for screening for malignant neoplasm of colon (principal); D37.5 Neoplasm of uncertain behavior of rectum; D12.3 Benign neoplasm of transverse colon; F17.200 Nicotine dependence, unspecified, uncomplicated; I10 Essential (primary) hypertension
CPT/HCPCS: 45380; 45385; 36415; 80053; 81025; 88305; 74177; 82728; 85025; 85610; 86140; J2001; J2704; J3490; Q9967

== ENCOUNTER 2023-08-14 08:46 | Inpatient (IN) | payer OTHER, SELFPAY ==
[2023-08-14] VITALS (16 sets, daily range): BP systolic 92–135; BP diastolic 53–90; PULSE 74–108; RESP 14–23; TEMP 36.3–36.8; O2SAT 91–97; BMI 29.8
[2023-08-14] MEDS: Gabapentin 300 MG CAP 600 MG PO (09:08)
[2023-08-14] MEDS: Acetaminophen 500 MG TAB 1000 MG PO (09:08)
--- NOTE | 2023-08-14 09:13 | W.ANESPRE ---
General Info Date of Service Date Performed: 08/14/23 Height: 5 ft 5 in Weight: 81.3 kg Body Mass Index (BMI): 29.8 Surgical Procedure: Operation Date: 08/14/23 10:50 Proposed Procedure Side Surgeon p Hemicolectomy Laparoscopic, Possible Open Right Dinora Tse DO Pre-Op Diagnosis Post-Op Diagnosis (1) Villous adenoma of rectum (2) Adenomatous polyp of ascending colon Meds Allergies and Home Medications Allergies Allergy/AdvReac Type Severity Reaction Status Date / Time doxycycline Allergy Intermediate hives Verified 08/14/23 08:55 Tetracyclines Allergy Intermediate hives Verified 08/14/23 08:55 adhesive Allergy Unknown skin rash Verified 08/14/23 08:55 nortriptyline AdvReac Mild hyperactivi Verified 08/14/23 08:55 ty Home Medication Medication Instructions Recorded omeprazole 40 mg capsule,delayed 40 mg PO DAILY #90 caps 09/05/18 release acetaminophen 500 mg tablet 500 mg PO Q6H PRN pain #60 tabs 06/19/22 sertraline 100 mg tablet 100 mg PO DAILY anxiety #90 tabs 08/25/22 gabapentin 300 mg capsule 600 mg (2 x 300 mg) PO BID #270 03/07/23 caps albuterol sulfate 90 mcg/actuation 2 puff inhalation Q6H PRN 03/20/23 aerosol inhaler shortness of breath or wheezing #24 grams allopurinol 100 mg tablet 100 mg PO DAILY stone prevention 05/08/23 #90 tabs lisinopril 20 mg tablet 20 mg PO DAILY #90 tabs 06/05/23 nitroglycerin 0.4 mg sublingual 0.4 mg sublingual Q5-15M PRN chest 06/05/23 tablet pain #30 tabs hydrocodone 5 mg-acetaminophen 325 1 tab PO BID PRN pain #60 tabs 07/27/23 mg tablet tizanidine 4 mg tablet See Rx Instructions .Route 07/30/23 .COMPLEX #30 tabs bisacodyl 5 mg tablet,delayed 5 mg PO ONCE colonscopy bowel prep 08/02/23 release (Dulcolax (bisacodyl)) #8 tabs metronidazole 500 mg tablet 500 mg PO DIRECTED #8 tabs 08/02/23 neomycin 500 mg tablet 500 mg PO DIRECTED #8 tabs 08/02/23 ondansetron HCl 4 mg tablet 4 mg PO QID PRN nausea and 08/02/23 vomiting #10 tabs polyethylene glycol 3350 17 238 g PO ONCE colonoscopy prep 08/02/23 gram/dose oral powder #238 grams Current Visit Medications: Current Medications Generic Name Dose Route Start Last Admin Trade Name Kelq PRN Reason Stop Dose Admin Acetaminophen 1,000 mg 08/14/23 06:00 08/14/23 09:08 Acetaminophen 500 Mg Tab PO 08/14/23 16:00 1,000 mg PREOP ZAYRA Administration Gabapentin 600 mg 08/14/23 06:00 08/14/23 09:08 Gabapentin 300 Mg Cap PO 08/14/23 16:00 600 mg PREOP ZAYRA Administration Ertapenem/Sodium Chloride 1 gm 50 mls @ 100 mls/hr 08/14/23 06:00 / Sodium Chloride IVPB 08/14/23 16:00 PREOP ZAYRA Ringer's Solution 1,000 mls @ 80 mls/hr 08/14/23 06:00 IV 09/12/23 23:59 INF[facility]ION [facility] IV Miscellaneous Supplies 1 each 08/14/23 06:00 Iv Access IV 09/12/23 23:59 DIRECTED ZAYRA Indocyanine Green 5 mg 08/14/23 06:00 Indocyanine Green 25 Mg Vial IVP 08/14/23 16:00 [employer]PER[employer] HELPER ZAYRA Sodium Chloride 0 ml 08/14/23 06:00 Normal Saline Flush 10 Ml Syr IV 09/12/23 23:59 PRN PRN Sodium Chloride 0 ml 08/14/23 06:00 Normal Saline 10 Ml Vial IJ 09/12/23 23:59 DIRECTED PRN Sterile Water 0 ml 08/14/23 06:00 Water,Injection,Sterile 10 Ml Vial IJ 09/12/23 23:59 DIRECTED PRN PFSH Active Problems Active Problems: Problem Status Onset Code Adenomatous polyp of ascending colon D12.2 Villous adenoma of rectum D37.5 Painful total knee replacement, right T84.84XA, Z96.651 Asthma 11/20/12 J45.909 Chronic low back pain 11/20/12 M54.5, G89.29 Chronic obstructive lung disease 08/01/12 J44.9 Essential hypertension 05/25/16 I10 Urinary, incontinence, stress female N39.3 Hyperlipidemia 04/18/12 E78.5 Smoker 11/20/12 F17.200 Chronic GERD 11/20/12 K21.9 Tendinitis of left rotator cuff M75.82 Mammography less than 12 months ago Z78.9 Chronic pain syndrome G89.4 Overweight (BMI 25.0-29.9) E66.3 Anxiety F41.9 Right knee pain M25.561 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, Z96.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 Achilles tendinitis of right lower extremity M76.61 Medical History Medical History Migraine headache Gout Bilateral kidney stones Plantar wart Uric acid renal calculus Hypertension COPD (chronic obstructive pulmonary disease) Hoarseness of voice secondary to reflux Medical History Comments:: smoked 1 cigarette this am Surgical History Surgical History History of colonoscopy (~07/2023) History of total right knee replacement (TKR) (01/15/12) History of cystoscopy Cysto/laser/retorgrade History of salpingo-oophorectomy (06/06/17) Ligation of fallopian tube Replacement of total knee joint (01/15/12) right Open Carpal Tunnel release RIGHT Oophrectomy, Left (06/06/17) L oophorectomy. Bilateral salpingectomy. Benign indications. Yosi Fundoplication (~2002) Manipulation, Under Anesthesia (03/13/12) right TKA GASTROPEXY Endoscopy (~2004) NEG Tobacco Smoking/Tobacco Use Status: Current every day Tobacco Type: cigarettes Smoking packs per day: 1 Smoking cigarettes per day: 20.0 Years smoked: 30 Smoking pack-years: 30.00 Passive smoking exposure: Yes Second hand exposure: Yes Alcohol Alcohol Intake: never Substance Use Substance use: Never Substance use type: does not use Vital Signs and Lab Results Vital Signs Most Recent Vital Signs in EMR: Most Recent Vital Signs Temp Pulse Resp BP Pulse Ox 36.3 C L 108 H 18 135/90 97 08/14/23 08:50 08/14/23 08:50 08/14/23 08:50 08/14/23 08:50 08/14/23 08:50 Lab Results Blood Type / Crossmatch: No Data to Display Complete Blood Count: White Blood Count 6.88 10^3/uL (4.4-10.8) 07/27/23 10:23 Red Blood Count 4.59 10^6/uL (3.93-5.22) 07/27/23 10:23 Hemoglobin 14.3 g/dL (11.2-15.7) 07/27/23 10:23 Hematocrit 42.5 % (36.0-46.0) 07/27/23 10:23 Platelet Count 256 10^3/uL (130-400) 07/27/23 10:23 Complete Metabolic Panel: Sodium 139 mmol/L (136-145) 07/27/23 10:23 Potassium 3.6 mmol/L (3.5-5.1) 07/27/23 10:23 Chloride 101 mmol/L (98-107) 07/27/23 10:23 Carbon Dioxide 27.6 mmol/L (21.0-32.0) 07/27/23 10:23 BUN 8 mg/dL (7-18) 07/27/23 10:23 Creatinine 0.6 mg/dL (0.55-1.02) 07/27/23 10:23 Est GFR (CKD-EPI 2020) 107.93 (mL/min/1.73m2) 07/27/23 10:23 Calcium 8.4 mg/dL (8.5-10.1) L 07/27/23 10:23 Albumin 3.5 g/dL (3.4-5.0) 07/27/23 10:23 Glucose 100 mg/dL (74-106) 07/27/23 10:23 C-Reactive Protein 1.17 mg/dL (<or=0.5) H 07/27/23 10:23 Liver Function Panel: Alanine Aminotransferase (ALT/SGPT) 32 U/L (14-59) 07/27/23 10:23 Aspartate Amino Transf (AST/SGOT) 15 U/L (15-37) 07/27/23 10:23 Coagulation Panel: INR International Normalized Ratio 1.1 (0.9-1.1) 07/27/23 10:23 Prothrombin Time 10.9 sec (9.1-11.1) 07/27/23 10:23 Cardiac Panel: No Data to Display Arterial Blood Gas: No Data to Display Venous Blood Gas: No Data to Display Pancreas Panel: No Data to Display Thyroid Panel: No Data to Display Infectious Disease: No Data to Display Blood Cultures: No Data to Display Toxicology Panel: No Data to Display Panel: No Data to Display Imaging and Studies Imaging and Studies Study information below may be from another EMR and interpreted by another provider. Please see original notes in EMR for more complete details. EKG Summary: Conclusion Sinus rhythm...normal P axis, V-rate 60- 99 07/12/21 Stress Test Summary: Stress ECG Conclusion 1. The resting electrocardiogram showed minor inferolateral ST-T abnormalities 2. Patient exercised on the Cristóbal protocol and completed a workload of 10.06 METS, stopping due to fatigue 3. Normal heart rate and blood pressure response to exercise. Patient achieved 85% of predicted heart rate for age 4. There was no electrocardiographic evidence of myocardial ischemia 5. There were no significant dysrhythmias Real Treadmill Score is 7.6 which is Low risk. 07/14/21 Anesthesia Assessment and Plan Anesthesia History Personal History: No History of Anesthesia Complications Family History: No Family History of Anesthesia Complications Exercise Tolerance Exercise Tolerance: Metabolic Equivalents>4 Pertinent Negatives Pertinent Negatives: No Symptoms of GERD, No Major Cardiovascular Symptoms or Complaints and No History of CVA/TIA Cardiac & Pulmonary Exam Cardiac Exam: Normal S1/S2 Heart Sounds Pulmonary Exam: Clear Bilateral Breath Sounds Implantable Cardiac Device Does patient have a Pacemaker or an ICD?: No Airway Exam Known Difficult Airway: No Mallampati Class: 2 Mouth Opening: Normal (> 3cm) Thyromental Distance: Greater than 3 cm Neck Range of Motion: Full ROM Neck Circumference: Normal Teeth Condition: Generalized Poor Dentition Airway Comments: Missing teeth- one tooth on upper left. Missing lower molars ASA Classification ASA Score: ASA 2 Emergency Case?: No NPO Status NPO Status: NPO Clears >2 hours, Solids >8 hours Status Status: Not Relevant due to Medical History Anesthesia Plan Resuscitation Status: Full Code Anesthesia Technique: General Anesthesia Airway Planned: Endotracheal Tube Pain Management: Epidural Monitors Used: Standard Monitors
--- NOTE | 2023-08-14 09:18 | NUR.NOTE ---
One Failed IV attempt to left forearm by this RN. Gauze and compression wrap placed over site. One failed IV attempt to left AC site. Gauze and compression dressing placed over site. Nneka Duncan RN 08/14/23 09:10AM Nursing Note:
[2023-08-14] MEDS: Lactated Ringers 1,000 ML 80 ML IV (09:19)
[2023-08-14] MEDS: FentaNYL/ROPIvacaine 2 mcg/ml and 0.1% 200 ML CADD Cassette EP ×2 (10:21→22:27)
[2023-08-14] MEDS: ERTAPENEM 1 GM in Normal Saline 50 ML IVPB (10:32)
[2023-08-14] MEDS: Lidocaine 1% Multi-Dose W/EPI 1/100,000 50 ML VIAL (11:00)
--- NOTE | 2023-08-14 11:01 | ANES.NEUR_ITS ---
Epidural/Spinal Catheter Date Performed: 08/14/23 Procedure Start: 10:10 Procedure Stop: 10:26 Requesting Provider: Dinora Tse Procedure Location: PACU Reason Performed: Postoperative Analgesia Standard Monitors Applied: Blood Pressure, SpO2 and See EMR for corresponding vital signs Patient Position: Sitting Sedation Given (Indicate Dose Given): Versed IV Dose:: 2mg Patient Mental Status: Awake Sterility: Hand Hygiene, Surgical Cap, Surgical Mask, Sterile Gloves, Sterile Drape/Sheet and Chlorhexidine Procedure Location: L4-L5 Interspace Epidural Needle: Tuohy 18 Gauge Needle Length: 3.5 Inch Needle Approach: Midline Epidural Procedure: Skin Prepped, Sterile Drape Placed, 1% Lidocaine to skin and subcutaneous tissue with 25G needle, Tuohy Needle placed, YAHAIRA to Saline Used, Epidural Catheter Placed, Negative Heme, Negative CSF Flow and Tuohy Needle Removed Catheter Placed?: Catheter Placed Test Dose (Indicate Dose Given): 3ml 1.5% Lidocaine with 1:200K Epinephrine Given and Negative Test Dose Loss of Resistance Depth (cm): 6 Catheter depth at skin (cm): 12 Dressing: Sorbaview Dressing Placed, Mastisol Used and Dressing reinforced with Tape Epidural Provider Bolus (Indicate Dose Given): None Given Additives (Indicate Dose Given ): None Infusion Medication: No Infusion Started Block Level: N/A Paresthesia: None Ultrasound: Not Used Number of Attempts (See previous attempts in note section): 2 Procedure Tolerated: No Complications and Patient tolerated well Procedure Outcome: Successful Procedure Comment:: 1st attempt with bone contact at same space. moved 1 cm down with good placeme nt. Will start in OR. Uneventful placement. Performed By: Jacob Drew
--- NOTE | 2023-08-14 13:06 | BOWEL_PTH ---
PATIENT: Delaney Preston LOC: [facility]#:[id number] AGE/SX: 52/F ROOM: 229 RE08/14/[address]: Dinora Tse : 1970 BED: A DIS: 08/18/2023 SPEC #: [id number] RECD: 08/14/23 17:10 STATUS: [place] REQ #: [id number] MASON: 08/14/23 13:[address]: Dinora Tse DEPT: Surgical Specimen RECD BY: Jeanette Gutierrez ENTERED: 08/14/23 17:11 SP TYPE: Bowel OTHR DR: Laureano Carlos, SHANON Tissues: 1 - BOWEL RESECTION(OTHER) Procedures: GROSS AND MICRO LEVEL 5 Comments: [id number]
--- NOTE | 2023-08-14 16:01 | W.ANESPOSTOP ---
Postoperative Evaluation Date, Time and Location Date Performed: 08/14/23 Time Performed: 16:01 Patient Location: PACU Vital Signs Most Recent Imported Vital Signs: Most Recent Vital Signs Temp Pulse Resp BP Pulse Ox 36.7 C 94 H 17 92/74 L 94 08/14/23 15:32 08/14/23 15:32 08/14/23 15:32 08/14/23 15:32 08/14/23 15:32 Pain Score Most Recent Pain Score: Most Recent Pain Score Pain Level 5 08/14/23 15:32 Assessment Mental Status: Awake (Alert & Oriented to Patient Baseline) Airway and Respiratory Function: Patent airway with normal (patient baseline) respiratory exam Cardiovascular Function: Hemodynamically Stable Hydration Status: Adequately Hydrated Nausea & Vomiting: No Nausea or Vomiting Pain: Pain is tolerable per patient Peripheral Nerve Block: Patient did not receive a nerve block
--- NOTE | 2023-08-14 17:32 | ROE_ITS ---
Date of service: 08/14/23 Time of Service: 15:00 Operative Note Operative Note DATE OF PROCEDURE: 08/14/23 PRE-OP DIAGNOSIS: Adenomatous polyp that could not be resected endoscopically POST-OP DIAGNOSIS: same PROCEDURE: Laparoscopic right hemicolectomy with primary anastomosis SURGEON: Dinora Tse MILK PICKUP DRIVER: Jenni Watson ANESTHESIA TYPE: Local By Surgeon, General LMA/ETT and Epidural Refer to Anesthesia Record ESTIMATED BLOOD LOSS: 100 PATHOLOGY: other COMPLICATIONS: None Patient was transported to: PACU Patient's condition: stable Procedure Description: ?After the patient was consented for laparoscopic right hemicolectomy, the patient was taken to the operating room and given general endotracheal anesthesia. He was placed in the supine position. A Dacosta catheter was placed. The abdomen was prepped and draped in the standard surgical fashion. A 1 cm incision is made at the umbilicus. She does have a small hernia in the umbilicus. The finger is placed through the hernia and the edges are swept down. The 1012 port is placed into the abdomen and the abdominal cavity was insufflated with CO2 gas. Two 5 mm ports are placed 1 in the left upper quadrant and 1 in the left lower quadrant. The incision for extraction of the colon was mapped out in the subxiphoid position. A third 5 mm trocar was placed in the most distal aspect of this incision. A 10 mm, 30 degree scope was placed in the abdominal cavity. She does have some omental adhesions up to the anterior abdominal wall. 30 minutes was spent in lysis of the adhesions using the LigaSure. Upon inspection of the abdomen, the lesion was identified by tattoo in the midportion of the ascending colon. The ileocolic vein and artery are dissected out from the omentum and are clipped and ligated. We then worked on Freeing up the hepatic flexure using the LigaSure. Following that, the terminal ileum was mobilized and the right paracolic reflections were taken down along the line of Toldt with the use of the LigaSure. The omentum was taken off of the transverse colon to the level of the mid transverse colon. The right colic artery was identified and taken with the use of the laparoscopic LigaSure. The duodenum was identified and mobilized medially. The terminal ileum, approximately 5 cm proximal to the ileocecal valve, was transected with a 60 EndoGIA stapler Once the colon was completely mobilized to the level of the mid to distal transverse colon, the 5 mm trocars were removed. The terminal ileum was grasped with a grasper, and the incision through the upper abdomen was extended to approximately 3-1/2 inches in length with the use of cautery. An Jeff was placed into the wound. The bowel, including the terminal ileum, right colon and transverse colon, were brought up through the incision. The mid transverse colon was transected with a 60 BALDOMERO stapler . The mesentery was taken with the use of The specimen was pass ed off the field, labeled as right colon, and there was noted to be a with several large lymph nodes adherent to it. Next, a functional [id number] anastomosis was created with a 60 BALDOMERO stapler followed by closure with a TA60. The created anastomosis was reinforced with 4-0 Prolene in an interrupted fashion. The staple line was reinforced with 4-0 Prolene in an interrupted Lembert fashion. There was no bleeding from the staple line from the TIA that was visualized prior to closing with the TA. There is a good lumen palpable. The edges of the bowel are pink and healthy. There are no leaks noted. The bowel was then returned to the abdominal cavity. The omentum was draped over the bowel. The abdomen was then copiously irrigated. There was no evidence of any bleeding. A sheet of Interceed was placed in the abdominal cavity. The fascia was approximated with 0 Vicryl in a running fashion. Subcutaneous tissue was copiously irrigated and the skin was approximated with nya. We then returned laparoscopically. The dissection sites were irrigated with a liter of saline. All saline is removed. There is no bleeding noted. The bowel was then visualized under Stutsman chromic light having IVIG instilled. There is good blood flow noted to both ends of the bowel that were used to create the anastomosis. All trocars are removed. There is no bleeding from the sites. The skin at the umbilicus is closed with 0 Vicryl in interrupted fashion and repairing hernia was present. Trocar sites are irrigated. There is no need for drain placement. The trocar sites were approximated with 4-0 Monocryl in a subcuticular fashion. The wounds are closed with skin glue. The abdomen was cleaned and dried.. The patient was awakened, extubated, and transported to the recovery room alert, aw carlos, and in stable condition. All sponge and instrument counts were correct at the end of the case. The patient tolerated the procedure well without complication and transferred to recovery room in stable condition. Her was apprised of her findings and her condition.
--- NOTE | 2023-08-14 17:32 | BRIEFOP_ITS ---
Date of service: 08/14/23 Time of Service: 14:00 Brief Operative Note Procedure/Pre & Post Op Diagnoses/Recycling Specialist: Operation Date: 08/14/23 10:50 Actual Procedures p Hemicolectomy Laparoscopic and hand assisted(Right) - Dinora Tse DO Pre-Op Diagnosis: (1) Villous adenoma of rectum (2) Adenomatous polyp of ascending colon Post-Op Diagnosis: (1) Adenoma of Right Colon (2) Adenomatous polyp of ascending colon Case Staff Physician Recycling Specialist: Jenni Watson Anesthesia Anesthesia Type: Local By Surgeon, General LMA/ETT and Epidural Estimated Blood Loss Output, Estimated Blood Loss 100 Amount Specimen/Culture Specimen(s): Right Colon Ressection Complications Complications: None
[2023-08-14] MEDS: ACETAMINOPHEN 1,000 MG/100 ML BTL 400 MG IVPB ×2 (17:38→21:54)
[2023-08-14] MEDS: Normal Saline Flush 10 ML SYR IVP ×2 (17:39)
[2023-08-14] MEDS: Normal Saline 10 ML VIAL IJ (17:43)
[2023-08-14] MEDS: Pantoprazole 40 MG VIAL IVP (17:43)
[2023-08-14] MEDS: Ketorolac 15 MG/ML VIAL IVP (17:43)
[2023-08-14] MEDS: DEXTROSE 5%-0.45% SALINE 1,000 ML 75 ML IV (17:54)
[2023-08-14] MEDS: Enoxaparin 40 MG/0.4 ML SYR SC (21:55)
[2023-08-15] VITALS (21 sets, daily range): BP systolic 95–118; BP diastolic 56–75; PULSE 36–70; RESP 15–20; TEMP 35.8–37.1; O2SAT 90–97
[2023-08-15] MEDS: Ketorolac 15 MG/ML VIAL IVP ×5 (00:22→23:16)
[2023-08-15] MEDS: MORPHine 2 MG/ML SYR IVP (02:48)
[2023-08-15] MEDS: ACETAMINOPHEN 1,000 MG/100 ML BTL 400 MG IVPB ×4 (04:43→21:53)
[2023-08-15] MEDS: DEXTROSE 5%-0.45% SALINE 1,000 ML 75 ML IV ×2 (05:51→20:36)
[2023-08-15] MEDS: FentaNYL/ROPIvacaine 2 mcg/ml and 0.1% 200 ML CADD Cassette EP ×2 (06:43→18:42)
[2023-08-15 07:01] LABS: Abs Immature Grans 0.04 10^3/uL (0.0-0.06); Absolute Basophil Count 0.04 10^3/uL (0.0-0.2); Absolute Eosinophil Count 0.05 10^3/uL (0.0-0.7); Absolute Monocyte Count 1.04 10^3/uL (0.1-0.8); Basophils % 0.3 %; Eosinophils % 0.4 %; HCT 39.6 % (36.0-46.0); HGB 13.4 g/dL (11.2-15.7); Immature Grans % 0.3 %; Lymphocytes % 16.7 %; MCH 31.7 pg (27.0-33.0); MCHC 33.8 % (32.0-36.0); MCV 94 fL (80-95); MPV 10.1 fL (8.0-11.0); Neutrophils % 74.3 %; Platelet Count 261 10^3/uL (130-400); RBC 4.23 10^6/uL (3.93-5.22); RDW 13.7 % (11.7-14.6); RDW-SD 47.2 fL; WBC 13.03 10^3/uL (4.4-10.8)
[2023-08-15 07:09] LABS: Absolute Lymphocyte Count 2.18 10^3/uL (1.2-3.4); Absolute Neutrophil Count 9.68 10^3/uL (1.2-6.7)
[2023-08-15 07:17] LABS: BUN 20 mg/dL (7-18); Calcium 8.5 mg/dL (8.5-10.1); Chloride 105 mmol/L (98-107); Estimated GFR 67.78 (mL/min/1.73m2); Glucose 114 mg/dL (74-106); Magnesium 1.8 mg/dL (1.8-2.4); Potassium 3.4 mmol/L (3.5-5.1); Sodium 141 mmol/L (136-145)
[2023-08-15] MEDS: Gabapentin 300 MG CAP 600 MG PO ×2 (08:29→20:36)
[2023-08-15] MEDS: Normal Saline Flush 10 ML SYR IVP ×4 (08:29→18:15)
[2023-08-15] MEDS: Sertraline 100 MG TAB PO (08:29)
--- NOTE | 2023-08-15 08:50 | W.PM.PROGNOT ---
Date of Service Date of service: 08/15/23 Time of Service: 08:50 Assessment and Plan Assessment and plan (1) Adenomatous polyp of ascending colon: Status: Acute Assessment and plan: POD #1 s/p Right laproscopic hand assisted hemicolectomy NPO, awaiting for bowel function to return Pain is well controlled Strongly encouraged activity OOB, ambulation and sitting in the chair Dacosta in place. As activity increases will be able to d/c this Leukocytosis noted on morning labs, anticipate this is normal post op response. Will continue to monitor. Subjective Subjective Interval history since last seen: Arrive with the patient sitting up in bed. She states she is feeling okay however is hungry and would like a 'Coke. She reports some abdominal pain, that is tolerable. Exam Const General: cooperative, healthy appearing and comfortable Orientation: alert and oriented x3 Resp Effort & Inspection: normal respiratory effort, no audible wheezes and no cough GI Inspection: normal to inspection Palpation: soft, no guarding and tender Auscultation: normal bowel sounds Objective Last Vital Signs Temp 37.0 C 08/15/23 08:16 Pulse 58 L 08/15/23 08:30 Resp 16 08/15/23 08:30 BP 103/62 08/15/23 08:30 Pulse Ox 92 08/15/23 08:30 Laboratory Results - last 24 hr 08/15/23 06:23 WBC 13.03 H RBC 4.23 Hgb 13.4 Hct 39.6 MCV 94 MCH 31.7 MCHC 33.8 RDW 13.7 Plt Count 261 MPV 10.1 Immature Gran % 0.3 Neutrophils % 74.3 Lymphocytes % 16.7 Monocytes % 8.0 Eosinophils % 0.4 Basophils % 0.3 Nucleated RBC % 0.0 Absolute Neutrophils 9.68 H Absolute Lymphocytes 2.18 Absolute Monocytes 1.04 H Absolute Eosinophils 0.05 Absolute Basophils 0.04 Sodium 141 Potassium 3.4 L Chloride 105 Carbon Dioxide 27.0 Anion Gap 9.0 BUN 20 H Creatinine 1.0 Est GFR (CKD-EPI 2020) 67.78 Glucose 114 H Calcium 8.5 Magnesium 1.8 Time Spent with Patient Time Spent with Patient: <25 minutes Time was spent: preparing to see the patient(eg.review tests), obtaining and/or reviewing separately otained hiistory and counseling the patient
--- NOTE | 2023-08-15 12:50 | IN_ITS ---
PT Notes Visit Reasons: S/P R LEISA Physical Therapy Inpatient Initial Evaluation Date: 08/15/2023 Referring Doctor: Dinora Tse MD PT Orders: PT CONSULT: pat is s/p laparascopic R hemicolectomy Precautions: Fall. Standard. Activity as tolerated. Patient Profile/Admitting Diagnosis: Delaney 52-year-old female with villous adenoma of colon and adenomatous polyp of ascending colon and is S/P R laparoscopic hand assisted hemicolectomy on 08/14/2023. PMHX: All Active Problems Painful total knee replacement, right (Acute) Asthma (Chronic 11/20/12) Chronic low back pain (Chronic 11/20/12) Chronic obstructive lung disease (Chronic 08/01/12) Essential hypertension (Chronic 05/25/16) Urinary, incontinence, stress female (Chronic) Hyperlipidemia (Chronic 04/18/12) Smoker (Chronic 11/20/12) Chronic GERD (Chronic 11/20/12) CHRONIC HOARSENESS SECONDARY TO GERD Tendinitis of left rotator cuff (Chronic) Mammography less than 12 months ago (Chronic) Right breast microcystChronic pain syndrome (Chronic) Overweight (BMI 25.0-29.9) (Acute) Anxiety (Chronic) Right knee pain (Acute) Screening for colorectal cancer (Acute) 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 Bilateral salpingectomy. Benign indications. Yosi Fundoplication (~2002) Manipulation, Under Anesthesia (03/13/12) right TKA GASTROPEXY Endoscopy (~2004) NEG Social History/Home Situation: Will have support at home from and daughter. Independent with all aspects of ADLs prior to surgery. 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 Has 3 steps to enter the house. R knee unstable due to R TKA and one R TKA revision in the past. Equipment Owned/DME: Bilateral [place] crutches given by friend Subjective: Reports 4/10 pain at surgical incision. Has chronic instability of her R knee, unable to use just any brace due to allergy from materials used in them. Agreeable to getting out of bed for mobilization post-op. States that she has had more than 15 falls in the past year due to her right knee giving way. Agreeable to using FWW. Objective: General Observation: Supine in bed. IV through the right LE. Surgical incision covered with dressing. Dacosta catheter in place. Left finger flexion contracture, pre-existing. Mental Status: Alert and oriented as to person, place, time, and purpose. Able to pay attention, focus, and respond appropriately. Pain: As above Vital Signs: WNL both monitored by nursing staff. ROM: Right Upper Extremity: Shoulder Flexion WFL. Shoulder abduction WFL. Elbow flexion WFL. Wrist flexion WFL. Functional opening and closing of hand WFL. Left Upper Extremity: Shoulder Flexion WFL. Shoulder abduction WFL. Elbow flexion WFL. Wrist flexion WFL. Functional opening and closing of hand decreased. Right Lower Extremity: Hip flexion WFL. Hip abduction WFL. Knee flexion 0 degrees to 100 degrees. Ankle dorsiflexion WFL. Ankle plantarflexion WFL. Left Lower Extremity: Hip flexion WFL. Hip abduction WFL. Knee flexion WFL. Ankle dorsiflexion WFL. Ankle plantarflexion WFL. Strength: Right Upper Extremity: Shoulder flexors 5/5. Shoulder abductors 5/5. Elbow flexors 5/5. Elbow extensors 5/5. Sales Administration Manager strong. Left Upper Extremity: Shoulder flexors 5/5. Shoulder abductors 5/5. Elbow flexors 5/5. Elbow extensors 5/5. Sales Administration Manager weak but minimally functional. Right Lower Extremity: Hip flexors 4 /5. Hip abductors 4/5. Knee flexors 3-/5. Knee extensors 3/5. Ankle dorsiflexors 4/5. Ankle plantarflexors 4/5. Left Lower Extremity: Hip flexors 5/5. Hip abductors 5/5. Knee flexors 5/5. Knee extensors 5/5. Ankle dorsiflexors 5/5. Ankle plantarflexors 5/5. Bed Mobility/Transfers:. Supine to sit supervision Sit to stand minimal assist Stand to sit minimal assist with FWW Gait: Instructed patient with level surface ambulation of 250 feet requiring minimal assist using front-wheeled walker. [place] decreased. Step height and length asymmetric. Able to do full terminal knee extension on R but has a compensatory posterior lateral (to R) postural sway. No LOB throughout. Step height and length asymmetric. Balance: Static Sitting: Normal Dynamic Sitting: Normal Static Standing: Fair Dynamic Standing: Fair Special Tests: Mobility Limitations Standardized Measure [facility] AM-PAC 6 clicks Basic Mobility Inpatient Short Form: Raw Score: 20 CMS Score: 36% deficit Informed Consent/Education: Patient was instructed in purpose of PT consult and plan of care. Agreeable to proceed with established PT POC to achieve personal goals. Assessment: Requires the use of front-wheeled walker to off load abdominal area and minimize pain. R knee chronincally unstablea and use of FWW provides needed stability considering postoperative status. R Patient presents with clinical signs and symptoms consistent with current/admitting diagnoses that have resulted to mobility limitations, gait instability, generalized weakness, and overall ADL decline as demonstrated by the following impairment level findings: 1. Decreased strength to B hip flexors and R knee major muscle groups 2. Impaired sitting/standing balance 3. Impaired activity tolerance 4. Limitation of joint range of motion in R knee flexion 5. Post op pain at 4-5/10 and chronic R knee pain at 3-4/10 Impairments are contributing to the following functional limitations: 1. Decline in transfer skills 2. Difficulty with ambulation without assistive device and physical assistance 3. Increased completion time for mobility ADL performance 4. Increased risk for falls 5. Difficulty with managing steps alone safely Patient is assessed as a 10732 moderate complexity based on the following: History: 52-year-old female with past medical history as indicated above Examination: Demonstrable impairment in strength, balance, and mobility level with underlying impairments and functional limitations as exhibited above as well as deficit score of 47% utilizing the [facility] Mobility Inpatient Short Form Presentation: Evolving Decision Makin moderate complexity Goals: Goals X1 week 1. Supine-Sit independent 2. Sit-Supine independent 3. Sit-Stand independent 4. Stand-Sit independent with FWW 5. Bed-Chair independent with FWW 6. Chair-Bed independent with FWW 7. Independent gait on level surface with use of FWW for at least 300 feet without report of pain nor dyspnea 8. Independent stair negotiation while holding onto B rails for at least 3 steps without report of pain nor dyspnea 9. Independent with home exercise program 10. Good static and dynamic standing balance/tolerance Plan of Care/Treatment Plan: 1-2x/day, 7 days/week x 1 week. Plan of care has been reviewed with the TRUCK TRAILER MECHANIC providing the service under Physical Therapy direction. Initiate Physical Therapy intervention for pain management as needed, strengthening, bed mobility, transfers, gait, stairs, balance training, and use of assistive device. DISCHARGE RECOMMENDATIONS: [] Home with no services [] [X] Home with services. Patient will benefit from home health PT services in order to progress mobility level using forearm crutches, assess home safety, identify additional equipment needs, and establish a functional maintenance program that will increase ability of patient to remain at home. [] Home with outpatient PT [] [] SNF for continued rehabilitation [] [] Long-Term Care [] [] SNF versus LTC based on ability to participate and progress [] TREATMENT CODE/TIME: 17408 x 20 minutes for 1 unit, 09984 x 13 minutes for 1 unit (12:50-13:23). Thank you for the opportunity to participate in the care of this patient. Ashley Silveira PT, DPT, CLT [facility] [place], [place]
--- NOTE | 2023-08-15 13:11 | INITIAL_ITS ---
Date of service: 08/15/23 Time of Service: 13:12 Care Management Initial Assmt Initial Assessment REASON FOR HOSPITALIZATION:: S/P Right Hemicolectomy PREVIOUS FUNCTIONAL STATUS/SOCIAL/FAMILY SUPPORTS:: Delaney resides in [place], with her , Jama. She is independent at baseline. CURRENT FUNCTIONAL STATUS:: Delaney is being closely monitored today post operation day number one, per provider her pain is managed, she is being encouraged to get out of bed and sit in her chair. Dacosta remains in place and Delaney remains on NPO status until bowel function returns. Delaney was reclining in her chair, sleeping when CM attempted to meet with her. ADVANCE DIRECTIVES:: None on file. Has patient been provided with info about the portal/API?: Yes Did the patient sign up for the portal?: Yes CODE STATUS:: DNR/DNI INSURANCE COVERAGE / FINANCIAL ISSUES:: [employer] CURRENT HOME/COMMUNITY SERVICES/EQUIPMENT:: Chronic pain management. PRIMARY CARE PHYSICIAN:: Laureano Arevalo POTENTIAL DISCHARGE NEEDS:: Follow up appointments. PATIENT/FAMILY EDUCATION NEEDS:: Review discharge instructions, discuss Ask Me Three. ANTICIPATED BARRIERS TO DISCHARGE:: None identified. TRANSPORTATION:: Via private vehicle with her . PLAN:: Delaney will return home when ready per MD, she will follow up with her PCP and plan of care as prescribed. CM continues to follow. PFSH All Active Problems Adenomatous polyp of ascending colon (Acute) Villous adenoma of rectum (Acute) Painful total knee replacement, right (Acute) Asthma (Chronic 11/20/12) Chronic low back pain (Chronic 11/20/12) Chronic obstructive lung disease (Chronic 08/01/12) Essential hypertension (Chronic 05/25/16) Urinary, incontinence, stress female (Chronic) Hyperlipidemia (Chronic 04/18/12) Smoker (Chronic 11/20/12) Chronic GERD (Chronic 11/20/12) CHRONIC HOARSENESS SECONDARY TO GERD Tendinitis of left rotator cuff (Chronic) Mammography less than 12 months ago (Chronic) Right breast microcyst Chronic pain syndrome (Chronic) Overweight (BMI 25.0-29.9) (Acute) Anxiety (Chronic) Right knee pain (Acute) 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 - 05/09/22 Achilles tendinitis of right lower extremity (Acute) Medical History Migraine headache Gout Bilateral kidney stones Plantar wart Uric acid renal calculus Hypertension COPD (chronic obstructive pulmonary disease) Hoarseness of voice secondary to reflux Surgical History History of colonoscopy (~07/2023) History of total right knee replacement (TKR) (01/15/12) History of cystoscopy Cysto/laser/retorgrade History of salpingo-oophorectomy (06/06/17) Ligation of fallopian tube Replacement of total knee joint (01/15/12) right Open Carpal Tunnel release RIGHT Oophrectomy, Left (06/06/17) L oophorectomy. Bilateral salpingectomy. Benign indications. Yosi Fundoplication (~2002) Manipulation, Under Anesthesia (03/13/12) right TKA GASTROPEXY Endoscopy (~2004) NEG Family History Mother Essential hypertension Hyperlipidemia Father Diabetes Essential hypertension Heart disease Hyperlipidemia Stroke Asthma Sister Essential hypertension Sister Essential hypertension Brother No problems noted. 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 Pets and animals: cat(s) and dog(s) Sexually active: No Do you think of yourself as: straight/heterosexual Current gender identity: female What is your relationship status?: How often do you talk on the phone with friends or family?: three or more times per week How often do you get together with friends or relatives?: twice per week How often do you attend jainism or jainism services?: decline to answer Do you belong to any clubs or organized social groups?: no Panel score (0-1 are the most socially isolated patients): 2 What type of physical activity do you participate in: walking Duration: 45-60 minutes/day Frequency: 3-4 times per week Dottie/Scientologist: None Special dottie needs: No Seatbelt use: always Drive intox or ride w/intox cdl a driver: No Do you feel safe at home: Yes Do you feel safe in your relationship?: Yes
--- NOTE | 2023-08-15 13:47 | W.ANESEPD ---
Epidural/Spinal Daily Note Date Performed: 08/15/23 Assessment Time: 13:52 Patient Location: Med/Surg (229) Catheter Type in Place: Epidural Catheter Dressing Assessment: Dressing intact with good adherence Catheter Assessment: Catheter Labeled and Intact and Functioning Previous Catheter Depth Noted (cm): 12 Current Catheter Depth (cm): 12 Current Medication Infusion: Ropivacaine 0.1% with Fentanyl 2mcg/ml Current Maintenance Infusion Rate (ml/hour): 10 Current PCEA Bolus Dose (ml): 5 Current Pain Score (0-10): 5 Medication Infusion Stopped, Catheter Removal Planned: No New Bolus Given or Change in Infusion Made: No Daily Management Comments: POD1, epidural to continue. Completed By: Jairon Delaney
--- NOTE | 2023-08-15 16:02 | NUR.NOTE ---
Pt reporting decreased sensation to R thigh. R leg slightly weaker than L leg. Normal sensation to lower leg. Anesthesia notified and at bedside to assess pt. No further action required by anesthesia at this time. Will continue to monitor.
[2023-08-15] MEDS: Pantoprazole 40 MG VIAL IVP (16:35)
--- NOTE | 2023-08-15 16:50 | CHAPLAIN ---
Delaney was sitting up in bed when I visited. Her Jama was with her. Delaney said she's been able to eat some ice cream today. I explained my role and offered support.
[2023-08-15] MEDS: Enoxaparin 40 MG/0.4 ML SYR SC (21:53)
[2023-08-16] VITALS (27 sets, daily range): BP systolic 109–144; BP diastolic 54–78; PULSE 36–68; RESP 16–20; TEMP 35.3–36.2; O2SAT 92–98
[2023-08-16] MEDS: ACETAMINOPHEN 1,000 MG/100 ML BTL 400 MG IVPB ×4 (04:06→22:56)
[2023-08-16] MEDS: Ketorolac 15 MG/ML VIAL IVP ×4 (06:00→23:46)
[2023-08-16] MEDS: Sertraline 100 MG TAB PO (08:05)
[2023-08-16] MEDS: Normal Saline Flush 10 ML SYR IVP ×6 (08:05→23:46)
[2023-08-16] MEDS: Gabapentin 300 MG CAP 600 MG PO (08:05)
[2023-08-16] MEDS: MORPHine 2 MG/ML SYR IVP (09:56)
[2023-08-16] MEDS: FentaNYL/ROPIvacaine 2 mcg/ml and 0.1% 200 ML CADD Cassette EP (10:25)
[2023-08-16 10:51] LABS: BUN 9 mg/dL (7-18); Calcium 8.2 mg/dL (8.5-10.1); Glucose 102 mg/dL (74-106)
[2023-08-16 10:52] LABS: Anion Gap 6.5 mmol/L (3-11); CO2 26.5 mmol/L (21.0-32.0); CREATININE 0.6 mg/dL (0.55-1.02); Chloride 109 mmol/L (98-107); Estimated GFR 107.93 (mL/min/1.73m2); Potassium 3.4 mmol/L (3.5-5.1); Sodium 142 mmol/L (136-145)
[2023-08-16 10:54] LABS: HCT 36.9 % (36.0-46.0); HGB 12.4 g/dL (11.2-15.7); MCH 31.4 pg (27.0-33.0); MCHC 33.6 % (32.0-36.0); MCV 93 fL (80-95); MPV 10.3 fL (8.0-11.0); Platelet Count 235 10^3/uL (130-400); RBC 3.95 10^6/uL (3.93-5.22); RDW 13.6 % (11.7-14.6); RDW-SD 46.7 fL
--- NOTE | 2023-08-16 11:08 | W.ANESEPD ---
Epidural/Spinal Daily Note Date Performed: 08/16/23 Assessment Time: 10:06 Patient Location: Med/Surg Catheter Type in Place: Epidural Catheter Dressing Assessment: Dressing intact with good adherence and Dressing Edges Reinforced with Tape Catheter Assessment: Catheter Labeled and Intact and Functioning Previous Catheter Depth Noted (cm): 12 Current Catheter Depth (cm): 12 Current Medication Infusion: Ropivacaine 0.1% with Fentanyl 2mcg/ml Current Maintenance Infusion Rate (ml/hour): 10 Current PCEA Bolus Dose (ml): 5 Current Pain Score (0-10): 4 Medication Infusion Stopped, Catheter Removal Planned: No Sensory / Motor Block Comments: Slight numbness right upper thigh, good motor strength bilaterally. Walked in alexander with PT. New Bolus Given or Change in Infusion Made: No Daily Management Comments: RN noted small air bubble in tubing upon cassette change so epidural was stopped for a time, requiring patient to receive an IV dose of morphine for pain level 8/10. Catheter evaluated, by anesthesia, and air bubble was very small and not a concern so infusion restarted. Current pain level 4/10. POD 2 , continue current infusion. Completed By: Gladis Adrian
[2023-08-16] MEDS: Normal Saline 10 ML VIAL IJ (11:44)
--- NOTE | 2023-08-16 11:47 | PTTR_ITS ---
PT Notes Visit Reasons: S/P R LEISA Date: 08/16/23 PRECAUTIONS: Fall. Standard. Activity as tolerated. SUBJECTIVE: Pt reports pain on incision site, pt wasin in bed when approached for therapy this morning, agreed to participating with session. OBJECTIVE: ?MANAGER OF APPLICATION DEVELOPMENT, epidural pump, IVline, telemetry in place? PAIN: yes on incision site 11/16 VITALS: Closely monitored by nursing Therapeutic Activities 56039: Direct one-on-one instruction in dynamic activities to improve functional performance. ?? BED MOBILITY/TRANSFERS? Rolling L/R: SBA Supine-sit: ? SBA? Sit-supine: ? ?SBA ? Sit-stand: ? ?CGA ? Stand-sit: ??CGA ? Bed-Chair:? CGA? Chair-bed: CGA Provided skilled cues and instruction on performance and technique throughout. Gait Training 85027: Direct one-on-one instruction and skilled instruction in: Employing an assistive device Modified weight-bearing status Movement sequencing Turning and movement with proper form Provided verbal cues for equipment management and technique Provided instruction in gait pattern Patient education regarding pacing and breathing techniques to maximize activity tolerance? GAIT? Assistive Device: ??FWW? Weight bearing: WBAT Assist: ? CGA WC follow for seated rest break, pole management? Distance:??150' 300' ? Deviation: ? Slow jenn speed, WBOS, low step height, short step length.? STAIRS:? 6' 2x4, 4 3x4 bilateral handrail step over step pattern? ASSESSMENT:?Pt reports the pain is well managed, did not report pain increased with activity. PLAN: Continue with balance training, global strengthening and general conditioning for improved safety, mobility and activity tolerance until pt is ready for DC. TREATMENT CODE/TIME: [id number], [id number] 30mins (8:50-9:20am)
--- NOTE | 2023-08-16 15:25 | PDOC.CMPRO ---
Date of service: 08/16/23 Time of Service: 15:25 Care Management Progress Note Progress Note Text Progress Note Text: S/O: Delaney was lying in bed, she shared no concerns at this time; was open to nicotrol inhaler-no longer available at [facility]-declined lozenges and reports adhesive of patches results in allergic reaction (shows inflamed area of chest where other adhesive had been placed). Considering VNA supports, undecided at this time. Reports pain is managed and remarks positively regarding staff support. She has been up ambulating with PT, and sitting in her chair. Delaney reports having more of an appetite and is having pudding during lunch. She remains acute; Epidural catheter, cabrera catheter, IV pain medications continue at this time. No further updates provided from surgical team prior to documentation; CM continues to follow. A: 52 year old admitted to [facility] 08/14/23 S/P R Roman P: Delaney will return home when ready per MD, she is considering accepting home health services, if recommended upon discharge; undecided at this time. Delaney will follow up with her PCP and plan of care as prescribed and transport via private vehicle with her , Jama. CM continues to follow.
--- NOTE | 2023-08-16 15:50 | PT.INTREAT ---
PT Notes Visit Reasons: S/P R LEISA Physical Therapy Inpatient Initial Evaluation Date: 08/15/2023 Referring Doctor: Dinora Tse MD PT Orders: PT CONSULT: pat is s/p laparascopic R hemicolectomy Precautions: Fall. Standard. Activity as tolerated. Patient Profile/Admitting Diagnosis: Delaney 52-year-old female with villous adenoma of colon and adenomatous polyp of ascending colon and is S/P R laparoscopic hand assisted hemicolectomy on 08/14/2023. PMHX: All Active Problems Painful total knee replacement, right (Acute) Asthma (Chronic 11/20/12) Chronic low back pain (Chronic 11/20/12) Chronic obstructive lung disease (Chronic 08/01/12) Essential hypertension (Chronic 05/25/16) Urinary, incontinence, stress female (Chronic) Hyperlipidemia (Chronic 04/18/12) Smoker (Chronic 11/20/12) Chronic GERD (Chronic 11/20/12) CHRONIC HOARSENESS SECONDARY TO GERD Tendinitis of left rotator cuff (Chronic) Mammography less than 12 months ago (Chronic) Right breast microcystChronic pain syndrome (Chronic) Overweight (BMI 25.0-29.9) (Acute) Anxiety (Chronic) Right knee pain (Acute) Screening for colorectal cancer (Acute) 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 Bilateral salpingectomy. Benign indications. Yosi Fundoplication (~2002) Manipulation, Under Anesthesia (03/13/12) right TKA GASTROPEXY Endoscopy (~2004) NEG Social History/Home Situation: Will have support at home from and daughter. Independent with all aspects of ADLs prior to surgery. 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 Has 3 steps to enter the house. R knee unstable due to R TKA and one R TKA revision in the past. Equipment Owned/DME: Bilateral [place] crutches given by friend Subjective: Reports 4/10 pain at surgical incision. Has chronic instability of her R knee, unable to use just any brace due to allergy from materials used in them. Agreeable to getting out of bed for mobilization post-op. States that she has had more than 15 falls in the past year due to her right knee giving way. Agreeable to using FWW. Objective: General Observation: Supine in bed. IV through the right LE. Surgical incision covered with dressing. Dacosta catheter in place. Left finger flexion contracture, pre-existing. Mental Status: Alert and oriented as to person, place, time, and purpose. Able to pay attention, focus, and respond appropriately. Pain: As above Vital Signs: WNL both monitored by nursing staff. ROM: Right Upper Extremity: Shoulder Flexion WFL. Shoulder abduction WFL. Elbow flexion WFL. Wrist flexion WFL. Functional opening and closing of hand WFL. Left Upper Extremity: Shoulder Flexion WFL. Shoulder abduction WFL. Elbow flexion WFL. Wrist flexion WFL. Functional opening and closing of hand decreased. Right Lower Extremity: Hip flexion WFL. Hip abduction WFL. Knee flexion 0 degrees to 100 degrees. Ankle dorsiflexion WFL. Ankle plantarflexion WFL. Left Lower Extremity: Hip flexion WFL. Hip abduction WFL. Knee flexion WFL. Ankle dorsiflexion WFL. Ankle plantarflexion WFL. Strength: Right Upper Extremity: Shoulder flexors 5/5. Shoulder abductors 5/5. Elbow flexors 5/5. Elbow extensors 5/5. Pretzel Twister strong. Left Upper Extremity: Shoulder flexors 5/5. Shoulder abductors 5/5. Elbow flexors 5/5. Elbow extensors 5/5. Pretzel Twister weak but minimally functional. Right Lower Extremity: Hip flexors 4 /5. Hip abductors 4/5. Knee flexors 3-/5. Knee extensors 3/5. Ankle dorsiflexors 4/5. Ankle plantarflexors 4/5. Left Lower Extremity: Hip flexors 5/5. Hip abductors 5/5. Knee flexors 5/5. Knee extensors 5/5. Ankle dorsiflexors 5/5. Ankle plantarflexors 5/5. Bed Mobility/Transfers:. Supine to sit supervision Sit to stand minimal assist Stand to sit minimal assist with FWW Gait: Instructed patient with level surface ambulation of 300 feet requiring stand by assist holding only onto IV pole. Maria Victoria increasing. Step height and length more symmetric. Able to do full terminal knee extension on R without compensatory posterior lateral (to R) postural sway. No LOB throughout. Step height and length becoming more symmetric. THERA EX: Worked on increasing activation and strengthening of B quadriceps while gently engaging core muscles during stepping exercises for 1 minutes without increase in pain but with sensation of increased pull in the lower abdominal area. Facilitated recruitment of B hip abductors during side stepping activities to R and to L for 2 minutes each. Balance: Static Sitting: Normal Dynamic Sitting: Normal Static Standing: Good Dynamic Standing: Fair Assessment: Pain significantly improved and has allowed better and safer mobility ADL performance along with improved activity tolerance. Has not required use of front-wheeled walker for the afternoon walk, she just needed to hold gently onto IV pole without undue pain. Reported pain at 5-6/10 at surgical incision which necessitated use of the BI MANAGER pump. Plan of Care/Treatment Plan: 1-2x/day, 7 days/week x 1 week. Plan of care has been reviewed with the QUALITY REVIEW SPECIALIST providing the service under Physical Therapy direction. Continue with Physical Therapy intervention for pain management as needed, strengthening, bed mobility, transfers, gait, stairs, balance training, and use of assistive device. DISCHARGE RECOMMENDATIONS: [] Home with no services [] [X] Home with services. Patient will benefit from home health PT services in order to progress mobility level using forearm crutches, assess home safety, identify additional equipment needs, and establish a functional maintenance program that will increase ability of patient to remain at home. [] Home with outpatient PT [] [] SNF for continued rehabilitation [] [] [facility] [] [] SNF versus LTC based on ability to participate and progress [] TREATMENT CODE/TIME: 84597 x 17 minutes for 1 unit (15:50-16:07).
--- NOTE | 2023-08-16 15:50 | PT.INTREAT ---
PT Notes Visit Reasons: S/P R LEISA Physical Therapy Treatment Note Date: 08/16/2023 Precautions: Fall. Standard. Activity as tolerated. Subjective: Agreeable to session. Objective: General Observation: Supine in bed. IV through the right LE. Surgical incision covered with dressing. Dacosta catheter in place. Left finger flexion contracture, pre-existing. Mental Status: Alert and oriented as to person, place, time, and purpose. Able to pay attention, focus, and respond appropriately. Pain: As above Vital Signs: WNL both monitored by nursing staff. Bed Mobility/Transfers:. Supine to sit supervision Sit to stand supervision Stand to sit supervision Gait: Instructed patient with level surface ambulation of 300 feet requiring stand by assist holding only onto IV pole. Maria Victoria increasing. Step height and length more symmetric. Able to do full terminal knee extension on R without compensatory posterior lateral (to R) postural sway. No LOB throughout. Step height and length becoming more symmetric. THERA EX: Worked on increasing activation and strengthening of B quadriceps while gently engaging core muscles during stepping exercises for 1 minutes without increase in pain but with sensation of increased pull in the lower abdominal area. Facilitated recruitment of B hip abductors during side stepping activities to R and to L for 2 minutes each. Balance: Static Sitting: Normal Dynamic Sitting: Normal Static Standing: Good Dynamic Standing: Fair Assessment: Pain significantly improved and has allowed better and safer mobility ADL performance along with improved activity tolerance. Has not required use of front-wheeled walker for the afternoon walk, she just needed to hold gently onto IV pole without undue pain. Reported pain at 5-6/10 at surgical incision which necessitated use of the SENIOR FRONT END DEVELOPER pump. Plan of Care/Treatment Plan: 1-2x/day, 7 days/week x 1 week. Plan of care has been reviewed with the EXAMINATION SUPERVISOR providing the service under Physical Therapy direction. Continue with Physical Therapy intervention for pain management as needed, strengthening, bed mobility, transfers, gait, stairs, balance training, and use of assistive device. DISCHARGE RECOMMENDATIONS: [] Home with no services [] [X] Home with services. Patient will benefit from home health PT services in order to progress mobility level using forearm crutches, assess home safety, identify additional equipment needs, and establish a functional maintenance program that will increase ability of patient to remain at home. [] Home with outpatient PT [] [] SNF for continued rehabilitation [] [] [facility] [] [] SNF versus LTC based on ability to participate and progress [] TREATMENT CODE/TIME: 46522 x 17 minutes for 1 unit (15:50-16:07).
--- NOTE | 2023-08-16 16:14 | W.PM.PROGNOT ---
Date of Service Date of service: 08/16/23 Time of Service: 16:14 Assessment and Plan Assessment and plan (1) Adenomatous polyp of ascending colon: Status: Acute Assessment and plan: Delaney is doing wonderful after laparoscopic right hemicolectomy. I suspect will be able to get the epidural out within the next 24 hours, and probably discharge home tomorrow assuming she feels comfortable. Subjective Subjective Interval history since last seen: Delaney looks great. She is up out of bed working with physical therapy. Pain seems very well-controlled. Exam GI Other: Her abdomen is soft and not at all distended. She is not tender. Surgical sites look fine Objective Last Vital Signs Temp 97.0 F L 08/16/23 15:31 Pulse 57 L 08/16/23 15:31 Resp 16 08/16/23 15:31 BP 132/74 08/16/23 15:31 Pulse Ox 96 08/16/23 15:31 Laboratory Results - last 24 hr 08/16/23 06:45 WBC 6.80 RBC 3.95 Hgb 12.4 Hct 36.9 MCV 93 MCH 31.4 MCHC 33.6 RDW 13.6 Plt Count 235 MPV 10.3 Sodium 142 Potassium 3.4 L Chloride 109 H Carbon Dioxide 26.5 Anion Gap 6.5 BUN 9 Creatinine 0.6 Est GFR (CKD-EPI 2020) 107.93 Glucose 102 Calcium 8.2 L Time Spent with Patient Time Spent with Patient: 25-34 minutes Time was spent: preparing to see the patient(eg.review tests), indepentently interpreting results and counseling the patient
[2023-08-16] MEDS: diphenhydrAMINE 25 MG CAP PO (16:22)
[2023-08-16] MEDS: Pantoprazole 40 MG VIAL IVP (16:22)
[2023-08-16] MEDS: Enoxaparin 40 MG/0.4 ML SYR SC (22:55)
[2023-08-17] VITALS (18 sets, daily range): BP systolic 114–158; BP diastolic 64–95; PULSE 52–83; RESP 16–20; TEMP 34.8–36.6; O2SAT 92–98; BMI 29.8
[2023-08-17] MEDS: FentaNYL/ROPIvacaine 2 mcg/ml and 0.1% 200 ML CADD Cassette EP (03:05)
[2023-08-17] MEDS: Normal Saline Flush 10 ML SYR IVP ×5 (04:07→23:25)
[2023-08-17] MEDS: ACETAMINOPHEN 1,000 MG/100 ML BTL 400 MG IVPB ×3 (04:08→16:43)
[2023-08-17] MEDS: Ketorolac 15 MG/ML VIAL IVP (05:20)
[2023-08-17 07:26] LABS: Abs Immature Grans 0.03 10^3/uL (0.0-0.06); Absolute Basophil Count 0.03 10^3/uL (0.0-0.2); Absolute Eosinophil Count 0.22 10^3/uL (0.0-0.7); Absolute Lymphocyte Count 1.68 10^3/uL (1.2-3.4); Absolute Monocyte Count 0.46 10^3/uL (0.1-0.8); Absolute Neutrophil Count 3.46 10^3/uL (1.2-6.7); Basophils % 0.5 %; Eosinophils % 3.7 %; HCT 36.1 % (36.0-46.0); Immature Grans % 0.5 %; Lymphocytes % 28.6 %; MCH 31.1 pg (27.0-33.0); MCHC 33.2 % (32.0-36.0); MCV 94 fL (80-95); MPV 10.2 fL (8.0-11.0); Monocytes % 7.8 %; Neutrophils % 58.9 %; Platelet Count 222 10^3/uL (130-400); RBC 3.86 10^6/uL (3.93-5.22); RDW 13.2 % (11.7-14.6); RDW-SD 45.7 fL; WBC 5.88 10^3/uL (4.4-10.8)
[2023-08-17 07:44] LABS: Anion Gap 7.2 mmol/L (3-11); BUN 12 mg/dL (7-18); CO2 26.8 mmol/L (21.0-32.0); CREATININE 0.7 mg/dL (0.55-1.02); Calcium 8.1 mg/dL (8.5-10.1); Chloride 109 mmol/L (98-107); Glucose 92 mg/dL (74-106); Potassium 3.7 mmol/L (3.5-5.1); Sodium 143 mmol/L (136-145)
[2023-08-17] MEDS: Sertraline 100 MG TAB PO (09:29)
[2023-08-17] MEDS: Ondansetron 4 MG/2 ML VIAL IVP (09:30)
[2023-08-17] MEDS: Gabapentin 300 MG CAP 600 MG PO ×2 (09:30→19:17)
[2023-08-17] MEDS: Lactated Ringers 1,000 ML 80 ML IV (10:45)
--- NOTE | 2023-08-17 11:13 | PDOC.CMDIS ---
Date of service: 08/17/23 Time of Service: 11:15 LACE Index Scoring Tool Questions: Length of Stay (in days): 3 Was the patient admitted via the E.D.?: No Comorbidities: Chronic Pulmonary Disease and Any Tumor E.D. Visits: 0 Answers: Total Score: 8 Risk of Readmission: Low Risk Care Management Discharge Plan Reason for Hospitalization: S/P Right Hemicolectomy Discharge Plan: Delaney will return home when ready per MD. She will follow up with surgical services and her plan of care as prescribed, no additional services anticipated at this time. Delaney will transport via private vehicle with her , Jama. Patient/Family Education Needs: Review discharge instructions, discuss Ask Me Three. SDVT Health Related Social Needs: No Data to Display
--- NOTE | 2023-08-17 12:50 | PDOC.CMPRO ---
Date of service: 08/17/23 Time of Service: 12:51 Care Management Progress Note Progress Note Text Progress Note Text: S/O: Delaney was sitting up in bed, legs extended watching television. She shared frustrations, reporting she began bleeding again and was back on NPO status, which was disappointing after feeling she was making progress. She did report having some appetite, and stated the epidural remains in place as well. She shared no other concerns at this time and was pleasant in interaction. CM continues to follow. A: 52 year old female admitted 08/14/23 S/P laparoscopic right hemicolectomy P: Delaney's pain is reportedly well controlled, she has been out of bed, working with physical therapy and appears much better. She did report that she began bleeding again, and was now again on NPO status. CM continues to follow; uncertain if MD will recommend home health services on discharge or if Delaney will agree, she is well supported by her , Jama, at home. Delaney will return home when ready per MD, she is considering accepting home health services, if recommended upon discharge; undecided at this time. Delaney will follow up with her PCP and plan of care as prescribed and transport via private vehicle with her , Jama. CM continues to follow.
[2023-08-17 12:59] LABS: HCT 32.9 % (36.0-46.0); HGB 10.9 g/dL (11.2-15.7)
--- NOTE | 2023-08-17 14:16 | W.ANESPRE ---
General Info Date of Service Date Performed: 08/17/23 Height: 5 ft 5 in Weight: 81.3 kg Body Mass Index (BMI): 29.8 Surgical Procedure: Operation Date: 08/14/23 10:50 Proposed Procedure Side Surgeon p Hemicolectomy Laparoscopic, Possible Open Right Dinora Tse DO Actual Procedure Side Surgeon p Hemicolectomy Laparoscopic and hand assisted Right Dinora Tse, Pre-Op Diagnosis Post-Op Diagnosis (1) Villous adenoma of rectum (2) Adenomatous polyp of ascending colon (1) Adenoma of Right Colon (2) Adenomatous polyp of ascending colon Operation Date: 08/17/23 14:50 Proposed Procedure Side Surgeon p Colonoscopy Dinora Tse DO Meds Allergies and Home Medications Allergies Allergy/AdvReac Type Severity Reaction Status Date / Time doxycycline Allergy Intermediate hives Verified 08/14/23 08:55 Tetracyclines Allergy Intermediate hives Verified 08/14/23 08:55 adhesive Allergy Unknown skin rash Verified 08/14/23 08:55 nortriptyline AdvReac Mild hyperactivi Verified 08/14/23 08:55 ty Home Medication Medication Instructions Recorded omeprazole 40 mg capsule,delayed 40 mg PO DAILY #90 caps 09/05/18 release acetaminophen 500 mg tablet 500 mg PO Q6H PRN pain #60 tabs 06/19/22 sertraline 100 mg tablet 100 mg PO DAILY anxiety #90 tabs 08/25/22 gabapentin 300 mg capsule 600 mg (2 x 300 mg) PO BID #270 03/07/23 caps albuterol sulfate 90 mcg/actuation 2 puff inhalation Q6H PRN 03/20/23 aerosol inhaler shortness of breath or wheezing #24 grams allopurinol 100 mg tablet 100 mg PO DAILY stone prevention 05/08/23 #90 tabs lisinopril 20 mg tablet 20 mg PO DAILY #90 tabs 06/05/23 nitroglycerin 0.4 mg sublingual 0.4 mg sublingual Q5-15M PRN chest 06/05/23 tablet pain #30 tabs hydrocodone 5 mg-acetaminophen 325 1 tab PO BID PRN pain #60 tabs 07/27/23 mg tablet tizanidine 4 mg tablet See Rx Instructions .Route 07/30/23 .COMPLEX #30 tabs bisacodyl 5 mg tablet,delayed 5 mg PO ONCE colonscopy bowel prep 08/02/23 release (Dulcolax (bisacodyl)) #8 tabs metronidazole 500 mg tablet 500 mg PO DIRECTED #8 tabs 08/02/23 neomycin 500 mg tablet 500 mg PO DIRECTED #8 tabs 08/02/23 ondansetron HCl 4 mg tablet 4 mg PO QID PRN nausea and 08/02/23 vomiting #10 tabs polyethylene glycol 3350 17 238 g PO ONCE colonoscopy prep 08/02/23 gram/dose oral powder #238 grams Current Visit Medications: Current Medications Generic Name Dose Route Start Last Admin Trade Name Freq PRN Reason Stop Dose Admin Albuterol Sulfate 2 puff 08/14/23 14:15 Albuterol Hfa 8 Gm 60 Puff Inh IH Q6H PRN PRN shortness of breath or wheezing Device 1 each 08/14/23 15:00 Inhaler, Assist Device DIRECTED [facility] Enoxaparin Sodium 40 mg 08/14/23 22:00 08/16/23 22:55 Enoxaparin 40 Mg/0.4 Ml Syr SC 40 mg Q24H ZAYRA Administration Gabapentin 600 mg 08/17/23 08:30 08/17/23 09:30 Gabapentin 300 Mg Cap PO 600 mg TID ZAYRA Administration Naloxone HCl 2 mg/ Sodium 500 mls @ 10.163 mls/hr 08/14/23 10:54 Chloride IV INFUSION PRN Pruritis or Nausea/Vomiting 0.5 MCG/KG/HR Nalbuphine HCl 5 mg/ Sodium 50.5 mls @ 100 mls/hr 08/14/23 10:54 Chloride IVPB Q3H PRN PRN Pruritis Acetaminophen 1,000 mg in 100 mls @ 400 mls/hr 08/14/23 16:00 08/17/23 10:39 Ofirmev IVPB Infused Q6H ZAYRA Infusion Ringer's Solution 1,000 mls @ 80 mls/hr 08/17/23 10:15 08/17/23 10:45 IV 80 mls/hr INFUSION ZAYRA Administration IV Miscellaneous Supplies 1 each 08/14/23 14:15 Iv Access IV DIRECTED [facility] Ketorolac Tromethamine 15 mg 08/14/23 18:00 08/17/23 05:20 Ketorolac 15 Mg/Ml Vial IVP 08/19/23 17:59 15 mg Q6H ZAYRA Administration Metaxalone 800 mg 08/14/23 21:49 Metaxalone 800 Mg Tab PO QID PRN PRN Methocarbamol 750 mg 08/17/23 08:20 Methocarbamol 750 Mg Tab PO QID PRN PRN Morphine Sulfate 2 mg 08/14/23 14:06 08/16/23 09:56 Morphine 2 Mg/Ml Syr IVP 2 mg Q1H PRN PRN Administration Naloxone HCl 0.04 mg 08/14/23 10:54 Naloxone 0.4 Mg/Ml Vial IVP PRN PRN Pruritis or Nausea/Vomiting Ondansetron HCl 4 mg 08/14/23 14:06 08/17/23 09:30 Ondansetron 4 Mg/2 Ml Vial IVP 4 mg Q4H PRN PRN Administration Oxycodone HCl 5 mg 08/17/23 08:21 Oxycodone 5 Mg Tab PO Q4H PRN PRN Pantoprazole Sodium 40 mg 08/14/23 16:00 08/16/23 16:22 Pantoprazole 40 Mg Vial IVP 40 mg Q24H ZAYRA Administration Sertraline HCl 100 mg 08/15/23 08:30 08/17/23 09:29 Sertraline 100 Mg Tab PO 100 mg DAILY ZAYRA Administration Sodium Chloride 0 ml 08/14/23 14:06 08/17/23 05:18 Normal Saline Flush 10 Ml Syr IVP 10 ml PRN PRN Administration Sodium Chloride 0 ml 08/14/23 20:00 08/17/23 09:30 Normal Saline Flush 10 Ml Syr IVP 10 ml BID ZAYRA Administration Sodium Chloride 0 ml 08/14/23 14:06 08/16/23 11:44 Normal Saline 10 Ml Vial IJ 10 ml DIRECTED PRN Administration Sterile Water 0 ml 08/14/23 06:00 Water,Injection,Sterile 10 Ml Vial IJ 09/12/23 23:59 DIRECTED PRN PFSH Active Problems Active Problems: Problem Status Onset Code Adenomatous polyp of ascending colon D12.2 Villous adenoma of rectum D37.5 Painful total knee replacement, right T84.84XA, Z96.651 Asthma 11/20/12 J45.909 Chronic low back pain 11/20/12 M54.5, G89.29 Chronic obstructive lung disease 08/01/12 J44.9 Essential hypertension 05/25/16 I10 Urinary, incontinence, stress female N39.3 Hyperlipidemia 04/18/12 E78.5 Smoker 11/20/12 F17.200 Chronic GERD 11/20/12 K21.9 Tendinitis of left rotator cuff M75.82 Mammography less than 12 months ago Z78.9 Chronic pain syndrome G89.4 Overweight (BMI 25.0-29.9) E66.3 Anxiety F41.9 Right knee pain M25.561 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, Z96.659 Achilles tendinitis of right lower extremity M76.61 Medical History Medical History Migraine headache Gout Bilateral kidney stones Plantar wart Uric acid renal calculus Hypertension COPD (chronic obstructive pulmonary disease) Hoarseness of voice secondary to reflux Medical History Comments:: smoked 1 cigarette this am Surgical History Surgical History (Updated 08/17/23 @ 11:28 by Tess Blackwell) History of hemicolectomy (~08/2023) History of colonoscopy (~07/2023) History of total right knee replacement (TKR) (01/15/12) History of cystoscopy Cysto/laser/retorgrade History of salpingo-oophorectomy (06/06/17) Ligation of fallopian tube Replacement of total knee joint (01/15/12) right Open Carpal Tunnel release RIGHT Oophrectomy, Left (06/06/17) L oophorectomy. Bilateral salpingectomy. Benign indications. Yosi Fundoplication (~2002) Manipulation, Under Anesthesia (03/13/12) right TKA GASTROPEXY Endoscopy (~2004) NEG Tobacco Smoking/Tobacco Use Status: Current every day Tobacco Type: cigarettes Smoking packs per day: 1 Smoking cigarettes per day: 20.0 Years smoked: 30 Smoking pack-years: 30.00 Passive smoking exposure: Yes Second hand exposure: Yes Alcohol Alcohol Intake: never Substance Use Substance use: Never Substance use type: does not use Vital Signs and Lab Results Vital Signs Most Recent Vital Signs in EMR: Most Recent Vital Signs Temp Pulse Resp BP Pulse Ox 36.0 C L 76 16 143/83 H 94 08/17/23 13:53 08/17/23 13:53 08/17/23 13:53 08/17/23 13:53 08/17/23 13:53 Lab Results 08/17/23 12:54 08/17/23 06:51 Blood Type / Crossmatch: No Data to Display Complete Blood Count: White Blood Count 5.88 10^3/uL (4.4-10.8) 08/17/23 06:51 Red Blood Count 3.86 10^6/uL (3.93-5.22) L 08/17/23 06:51 Hemoglobin 10.9 g/dL (11.2-15.7) L 08/17/23 12:54 Hematocrit 32.9 % (36.0-46.0) L 08/17/23 12:54 Platelet Count 222 10^3/uL (130-400) 08/17/23 06:51 Complete Metabolic Panel: Sodium 143 mmol/L (136-145) 08/17/23 06:51 Potassium 3.7 mmol/L (3.5-5.1) 08/17/23 06:51 Chloride 109 mmol/L (98-107) H 08/17/23 06:51 Carbon Dioxide 26.8 mmol/L (21.0-32.0) 08/17/23 06:51 BUN 12 mg/dL (7-18) 08/17/23 06:51 Creatinine 0.7 mg/dL (0.55-1.02) 08/17/23 06:51 Est GFR (CKD-EPI 2020) 104.00 (mL/min/1.73m2) 08/17/23 06:51 Magnesium 1.8 mg/dL (1.8-2.4) 08/15/23 06:23 Calcium 8.1 mg/dL (8.5-10.1) L 08/17/23 06:51 Albumin 3.5 g/dL (3.4-5.0) 07/27/23 10:23 Glucose 92 mg/dL (74-106) 08/17/23 06:51 C-Reactive Protein 1.17 mg/dL (<or=0.5) H 07/27/23 10:23 Liver Function Panel: Alanine Aminotransferase (ALT/SGPT) 32 U/L (14-59) 07/27/23 10:23 Aspartate Amino Transf (AST/SGOT) 15 U/L (15-37) 07/27/23 10:23 Coagulation Panel: INR International Normalized Ratio 1.1 (0.9-1.1) 07/27/23 10:23 Prothrombin Time 10.9 sec (9.1-11.1) 07/27/23 10:23 Cardiac Panel: No Data to Display Arterial Blood Gas: No Data to Display Venous Blood Gas: No Data to Display Pancreas Panel: No Data to Display Thyroid Panel: No Data to Display Infectious Disease: No Data to Display Blood Cultures: No Data to Display Toxicology Panel: No Data to Display Panel: No Data to Display Imaging and Studies Imaging and Studies Study information below may be from another EMR and interpreted by another provider. Please see original notes in EMR for more complete details. EKG Summary: Conclusion Sinus rhythm...normal P axis, V-rate 60- 99 07/12/21 Stress Test Summary: Stress ECG Conclusion 1. The resting electrocardiogram showed minor inferolateral ST-T abnormalities 2. Patient exercised on the Cristóbal protocol and completed a workload of 10.06 METS, stopping due to fatigue 3. Normal heart rate and blood pressure response to exercise. Patient achieved 85% of predicted heart rate for age 4. There was no electrocardiographic evidence of myocardial ischemia 5. There were no significant dysrhythmias Real Treadmill Score is 7.6 which is Low risk. 07/14/21 Anesthesia Assessment and Plan Anesthesia History Personal History: No History of Anesthesia Complications Family History: No Family History of Anesthesia Complications Exercise Tolerance Exercise Tolerance: Metabolic Equivalents>4 Cardiac & Pulmonary Exam Cardiac Exam: Normal S1/S2 Heart Sounds Pulmonary Exam: Clear Bilateral Breath Sounds Implantable Cardiac Device Does patient have a Pacemaker or an ICD?: No Airway Exam Known Difficult Airway: No Mallampati Class: 2 Mouth Opening: Normal (> 3cm) Thyromental Distance: Greater than 3 cm Neck Range of Motion: Full ROM Neck Circumference: Normal Teeth Condition: Generalized Poor Dentition Airway Comments: Missing teeth- one tooth on upper left. Missing lower molars ASA Classification ASA Score: ASA 2 Emergency Case?: No NPO Status NPO Status: Full Stomach (Ate breakfast, at ~7 hr.) Status Status: Not Relevant due to Medical History Anesthesia Plan Resuscitation Status: Full Code Anesthesia Technique: General Anesthesia Airway Planned: Endotracheal Tube Monitors Used: Standard Monitors Preoperative Comments:: 52 yo female with recent bowl resection back to OR with BRBPR. hgb 12->10.
[2023-08-17] MEDS: MORPHine 2 MG/ML SYR IVP ×4 (14:19→23:26)
--- NOTE | 2023-08-17 14:46 | PT.INNT ---
PT Notes Visit Reasons: S/P R LEISA Patient down for procedure and subsequently unable to participate in PT. Will attempt tomorrow.
[2023-08-17] MEDS: Tranexamic Acid 1,000 MG/10 ML VIAL 1000 MG (15:07)
--- NOTE | 2023-08-17 15:50 | W.ANESNEU ---
Epidural/Spinal Cath. Removal Date Performed: 08/17/23 Procedure Time: 15:50 Catheter Removal Type: Epidural Catheter Procedure Location: PACU Patient Position: Right Lateral Decubitus Catheter Removal Procedure: Catheter Tip Intact Paresthesia: None Procedure Tolerated: No Complications Procedure Outcome: Successful Performed By: Fran Nolen
--- NOTE | 2023-08-17 15:51 | W.ANESPOSTOP ---
Postoperative Evaluation Date, Time and Location Date Performed: 08/17/23 Time Performed: 15:51 Patient Location: PACU Vital Signs Most Recent Imported Vital Signs: Most Recent Vital Signs Temp Pulse Resp BP Pulse Ox 36.6 C 81 18 145/73 H 97 08/17/23 15:43 08/17/23 15:43 08/17/23 15:43 08/17/23 15:43 08/17/23 15:43 Most Recent Vital Signs Temp Pulse Resp BP Pulse Ox 36.7 C 94 H 17 92/74 L 94 08/14/23 15:32 08/14/23 15:32 08/14/23 15:32 08/14/23 15:32 08/14/23 15:32 Pain Score Most Recent Pain Score: Most Recent Pain Score Pain Level [Mid Abdomen] 0 08/17/23 05:20 Pain Level 8 08/17/23 14:19 Assessment Mental Status: Arousable with meaningful communication Airway and Respiratory Function: Patent airway with normal (patient baseline) respiratory exam Cardiovascular Function: Hemodynamically Stable Hydration Status: Adequately Hydrated Nausea & Vomiting: No Nausea or Vomiting Pain: Pain is tolerable per patient Peripheral Nerve Block: Patient did not receive a nerve block
--- NOTE | 2023-08-17 16:45 | COLE_ITS ---
Date of service: 08/17/23 Time of Service: 16:00 Colonoscopy Report Date of procedure: 08/17/23 Pre-op diagnosis general: postop hemorrhage from incision Post-op diagnosis procedure note: same Surgeon: Dinora Tse Anesthesia Type: General LMA/ETT Estimated blood loss (mL): 0 Pathology: none sent Complications: None Disposition: PACU Prep: Other (none) Procedure Description: After informed consent was obtained , Patient is brought to the operating room suite and placed in the supine position. General anesthesia is administered per the department of anesthesia. a time out was done. The patients name, date of , procedure, allergies to medications and metal in their body was reviewed. a rectal exam was done. External exam was normal. Internal exam revealed a normal sphincter tone and no palpable masses. The scope was then introduced The scope was then advanced to the anastomosis without difficulty. The anastomosis is then encountered. The 2 ends of the bowel are pink and healthy. There is some clot along the anastomosis. There is no signs of active bleeding. Specifically there are no arterial pumpers. The anastomosis was irrigated. And no specific site of bleeding could be discovered. Again there was a small amount of clot adhered to the anastomosis. This appeared well-adhered. The scope was then retracted back into the rectum. She does have diverticula. There is no signs of bleeding from these. The scope was removed and the patient was woken up and taken to PACU. The patient tolerated the procedure well and there were no immediate complications. [place] Bowel Prep [place] Bowel Prep Right Colon: 0 Left Colon: 0 Transverse Colon: 0 Total Score: 0
--- NOTE | 2023-08-17 19:11 | W.PM.PROGNOT ---
Date of Service Date of service: 08/17/23 Time of Service: 19:11 Subjective Subjective Interval history since last seen: I discussed with the patient the findings at the time of colonoscopy. She is doing well. She is not having any chest pain. She is not having any significant abdominal pain. We did also pull her epidural at the same time. Pain management plan was written for. She is on chronic narcotics so pain control may be challenging. I discussed with the patient the findings at the time of colonoscopy. Essentially there was some clot on the anastomosis. But there was no signs of active bleeding or infection. There was a large clot burden throughout the entirety of the colon. But there were no active signs of bleeding or any hemorrhage. The mucosa is pink and healthy on both sides of the anastomosis. The anastomotic line is intact. We will keep her overnight and trend her hemoglobins. She is having a little bit of abdominal pain but she is also tolerated clear liquids and would like more food so we will start her on a soft diet as tolerated. Patient was cautioned that she will pass or bloody stool, even though the bleeding may have been stopped Patient did receive TXA. Lovenox and Toradol are being held. Patient is encouraged to walk. Will check feritin and Venofer if indicated. Repeat lab work in AM. And close nursing observation for any signs of bleeding or deterioration of vital signs. If pt remains stable and no further bleeding/hgb stable can d/c in am This document was created with voice activated software and may contain errors. Objective Last Vital Signs Temp 35.7 C L 08/17/23 16:17 Pulse 69 08/17/23 16:17 Resp 18 08/17/23 16:17 BP 117/69 08/17/23 16:17 Pulse Ox 93 08/17/23 16:17 Laboratory Results - last 24 hr 08/17/23 08/17/23 06:51 12:54 WBC 5.88 RBC 3.86 L Hgb 12.0 10.9 L Hct 36.1 32.9 L MCV 94 MCH 31.1 MCHC 33.2 RDW 13.2 Plt Count 222 MPV 10.2 Immature Gran % 0.5 Neutrophils % 58.9 Lymphocytes % 28.6 Monocytes % 7.8 Eosinophils % 3.7 Basophils % 0.5 Nucleated RBC % 0.0 Absolute Neutrophils 3.46 Absolute Lymphocytes 1.68 Absolute Monocytes 0.46 Absolute Eosinophils 0.22 Absolute Basophils 0.03 Sodium 143 Potassium 3.7 Chloride 109 H Carbon Dioxide 26.8 Anion Gap 7.2 BUN 12 Creatinine 0.7 Est GFR (CKD-EPI 2020) 104.00 Glucose 92 Calcium 8.1 L Time Spent with Patient Time Spent with Patient: 25-34 minutes Time was spent: preparing to see the patient(eg.review tests), obtaining and/or reviewing separately otained hiistory, ordering medications,tests, procedures, referring, communicating with other health career development director, indepentently interpreting results, counseling the patient and care coordination
[2023-08-17] MEDS: Acetaminophen 500 MG TAB 1000 MG PO (21:03)
[2023-08-18 03:08] VITALS: BP 134/67; PULSE 66; RESP 20; TEMP 36; O2SAT 94
[2023-08-18] MEDS: Normal Saline Flush 10 ML SYR IVP ×2 (06:38→09:56)
[2023-08-18] MEDS: Omeprazole 20 MG CAPCR 40 MG PO (06:38)
[2023-08-18] MEDS: MORPHine 2 MG/ML SYR IVP ×2 (06:38→09:54)
[2023-08-18 06:47] LABS: Lab Add On Test DONE
[2023-08-18 06:52] LABS: Abs Immature Grans 0.02 10^3/uL (0.0-0.06); Absolute Basophil Count 0.02 10^3/uL (0.0-0.2); Absolute Eosinophil Count 0.27 10^3/uL (0.0-0.7); Absolute Lymphocyte Count 1.32 10^3/uL (1.2-3.4); Absolute Monocyte Count 0.39 10^3/uL (0.1-0.8); Absolute Neutrophil Count 3.67 10^3/uL (1.2-6.7); Basophils % 0.4 %; Eosinophils % 4.7 %; HCT 33.8 % (36.0-46.0); HGB 11.3 g/dL (11.2-15.7); Immature Grans % 0.4 %; Lymphocytes % 23.2 %; MCHC 33.4 % (32.0-36.0); MCV 93 fL (80-95); Monocytes % 6.9 %; Neutrophils % 64.4 %; Platelet Count 246 10^3/uL (130-400); RBC 3.64 10^6/uL (3.93-5.22); RDW 13.4 % (11.7-14.6); RDW-SD 45.7 fL; WBC 5.69 10^3/uL (4.4-10.8)
[2023-08-18 07:24] LABS: Ferritin 87 ng/mL (8-252)
[2023-08-18 08:34] VITALS: BP 113/65; PULSE 82; RESP 16; TEMP 36.3; O2SAT 96
[2023-08-18] MEDS: Gabapentin 300 MG CAP 600 MG PO (09:15)
[2023-08-18] MEDS: Sertraline 100 MG TAB PO (09:16)
[2023-08-18] MEDS: Acetaminophen 500 MG TAB 1000 MG PO (09:16)
[2023-08-18] MEDS: Lisinopril 20 MG TAB PO (09:16)
--- NOTE | 2023-08-18 11:28 | W.PM.PROGNOT ---
Date of Service Date of service: 08/18/23 Time of Service: 12:30 Assessment and Plan Assessment and plan (1) Adenomatous polyp of ascending colon: Status: Acute Assessment and plan: 52-year-old woman postop day 4 from laparoscopic right hemicolectomy. She is hemodynamically stable and ready to be discharged home. No further evidence of bleeding clinically and her hemoglobin is stable. Epidural catheter was out yesterday, and she does not appear to be in any significant discomfort. She does request additional pain medication for home however I declined this since she takes Vicodin and Neurontin at baseline. She agrees after my explanation and no more pain medication will be prescribed. Overall plan: Discharge home Subjective Subjective Interval history since last seen: No events overnight. No complaints. No significant pain. Incision is mildly sore only. No further bleeding. No nausea or vomiting. Tolerating a regular diet. Having bowel function and voiding adequately. Exam Narrative Exam Narrative: General: Nontoxic, comfortable and interactive Neuro: Alert and oriented x 3 Psych: Good mood and affect, good insight and understanding Abdomen: Soft, nondistended and grossly nontender. The incisions look perfect. There are some mild but old?appearing and stable?appearing ecchymosis around the midline incision. No erythema. Objective Last Vital Signs Temp 97.3 F L 08/18/23 08:34 Pulse 82 08/18/23 08:34 Resp 16 08/18/23 08:34 BP 113/65 08/18/23 08:34 Pulse Ox 96 08/18/23 08:34 Laboratory Results - last 24 hr 08/17/23 08/18/23 12:54 06:30 WBC 5.69 RBC 3.64 L Hgb 10.9 L 11.3 Hct 32.9 L 33.8 L MCV 93 MCH 31.0 MCHC 33.4 RDW 13.4 Plt Count 246 MPV 10.0 Immature Gran % 0.4 Neutrophils % 64.4 Lymphocytes % 23.2 Monocytes % 6.9 Eosinophils % 4.7 Basophils % 0.4 Nucleated RBC % 0.0 Absolute Neutrophils 3.67 Absolute Lymphocytes 1.32 Absolute Monocytes 0.39 Absolute Eosinophils 0.27 Absolute Basophils 0.02 Ferritin 87 Add-On Test Request DONE Time Spent with Patient Time Spent with Patient: 25-34 minutes Time was spent: preparing to see the patient(eg.review tests), counseling the patient and care coordination
--- NOTE | 2023-08-18 11:47 | PT.INTREAT ---
PT Notes Visit Reasons: S/P R LEISA Inpatient Physical Therapy Treatment Note [facility] Date: 08/18/23 SUBJECTIVE: Delaney reports that she has been up to bathroom independently without any problems. Feels ready to go home. OBJECTIVE: []? Therapeutic Activities (27198g2): Direct one-on-one instruction in dynamic activities to improve functional performance. ? BED MOBILITY/TRANSFERS? Rolling L/R: I Supine-sit:I ? Sit-supine:I? Sit-stand: I ? Stand-sit: I ? Bed-Chair: I? Chair-bed: I GAIT? Assistive Device:none ? Weight bearing:full Assist: S ? Distance:?approx 300+'? ASSESSMENT:? tolerated session very well. Is independent with all transfers and functional mobility. Slow jenn due to slight pain in incision. PLAN: will continue until dc TREATMENT CODE/TIME: 20 min. [id number]
[2023-08-18] MEDS: oxyCODONE 5 MG TAB PO (12:07)
--- NOTE | 2023-08-18 13:12 | W.PM.DSUDISC ---
Date of service: 08/18/23 Time of Service: 12:30 Discharge Plan Disposition Patient Disposition: Home Condition: Good Discharge Details Reason For Visit: S/P R LEISA Admit Date/Time: 08/14/23 08:46 Admit Provider: Dinora Tse Attending Provider: Dinora Tse [facility] Course: 52-year-old woman presented for an elective laparoscopic right hemicolectomy. Her procedure went well. She is ready to be discharged on postoperative day 3 however she did have a little bit of GI bleeding and her hemoglobin had dropped slightly. She was taken back to the operating room and a colonoscopy was performed which found the anastomosis to be intact and no evidence of ongoing bleeding. She was thus kept an extra day and her hemoglobin was rechecked on postoperative day 4 and found to be stable and there is no further GI bleeding. She was thus set up for discharge home. She takes pain medication on a daily basis at home at baseline. No further pain medication was prescribed for her. Home Meds and New Rx's Prescriptions: No Action allopurinol 100 mg tablet 100 mg PO DAILY Qty: 90 4RF acetaminophen 500 mg tablet 500 mg PO Q6H PRN (Reason: pain) Qty: 60 2RF sertraline 100 mg tablet 100 mg PO DAILY Qty: 90 3RF ondansetron HCl 4 mg tablet 4 mg PO QID PRN (Reason: nausea and vomiting) Qty: 10 0RF metronidazole 500 mg tablet 500 mg PO DIRECTED Qty: 8 0RF Rx Instructions: bowel prep for surgery neomycin 500 mg tablet 500 mg PO DIRECTED Qty: 8 0RF Rx Instructions: take as directed/bowel prep for surgery bisacodyl [Dulcolax (bisacodyl)] 5 mg tablet,delayed release (DR/EC) 5 mg PO ONCE Qty: 8 0RF Rx Instructions: take per colonoscopy instructions polyethylene glycol 3350 17 gram/dose powder 238 g PO ONCE Qty: 238 0RF Rx Instructions: take per colonoscopy instructions omeprazole 40 mg capsule,delayed release(DR/EC) 40 mg PO DAILY Qty: 90 3RF gabapentin 300 mg capsule 600 mg PO BID Qty: 270 1RF Rx Instructions: 300 mg qam and 600 mg qpm albuterol sulfate 90 mcg/actuation HFA aerosol inhaler 2 puff IH Q6H PRN (Reason: shortness of breath or wheezing) Qty: 24 2RF lisinopril 20 mg tablet 20 mg PO DAILY Qty: 90 3RF nitroglycerin 0.4 mg tablet, sublingual 0.4 mg sublingual Q5-15M PRN (Reason: chest pain) Qty: 30 0RF Patient Comments: only taken once in the ER here at [facility] per pt Rx Instructions: do not exceed 3 doses per episode hydrocodone-acetaminophen 5-325 mg tablet 1 tab PO BID MDD 2 tab PRN (Reason: pain) Qty: 60 0RF tizanidine 4 mg tablet See Rx Instructions .ROUTE .COMPLEX Qty: 30 3RF Dose Instruction: TAKE ONE TABLET BY MOUTH EVERY DAY AT BEDTIME Rx Instructions: TAKE ONE TABLET BY MOUTH EVERY DAY AT BEDTIME Discharge Instructions Additional Instructions: Incision: Does not need to be covered. Okay to shower. Diet: Regular Medications: Take all of your usual home pain medications Activity: As tolerated. No heavy lifting for 4 to 6 weeks. Follow-up: Call Dr. Tse's office to be seen in the next 10 to 14 days Activity:: Activity as Tolerated Equipment/Supplies:: No Equipment Needed Diet:: Normal Diet Discharge Orders Discharge Orders: Discharge Order (Routine); Ordered 08/18/23 Ordered By: Qasim Nicole DS: Diagnosis Discharge Diagnosis (1) Adenomatous polyp of ascending colon: Status: Acute Asessment and Plan: 52-year-old woman postop day 4 from laparoscopic right hemicolectomy. She is hemodynamically stable and doing well. She is having good bowel function. Tolerating p.o. and hydrating adequately. Epidural catheter out yesterday. She is on her usual chronic home pain medications which include Neurontin, Vicodin and possibly others. No additional pain medication will be prescribed. I warned her about not taking too much Tylenol since Vicodin has Tylenol in it. Hemoglobin is stable since yesterday. She can be discharged home.
== END 2023-08-18 13:57 | disposition home or self-care (01) | DRG 330 ==
LOC: PDS 12:02 → MS 15:49
PROVIDERS: Surgery; Admitting Provider Surgery; PCP Nurse Practitioner Family; Visit Provider Surgery
PROC: 0DTF4ZG Resection of Right Large Intestine, Percutaneous Endoscopic Approach, Hand-Assisted (ICD-10-PCS; CPT 44204; principal; 2023-08-14 10:30)
PROC: 0DJD8ZZ Inspection of Lower Intestinal Tract, Via Natural or Artificial Opening Endoscopic (ICD-10-PCS; CPT 45378; principal; 2023-08-17 14:45)
DX: D12.2 Benign neoplasm of ascending colon (principal); K91.840 Postprocedural hemorrhage of a digestive system organ or structure following a digestive system procedure; I10 Essential (primary) hypertension; F41.9 Anxiety disorder, unspecified; E78.5 Hyperlipidemia, unspecified; K21.9 Gastro-esophageal reflux disease without esophagitis; N39.3 Stress incontinence (female) (male); G89.29 Other chronic pain; M54.50 Low back pain, unspecified; E66.3 Overweight; Z68.29 Body mass index [BMI] 29.0-29.9, adult; J44.9 Chronic obstructive pulmonary disease, unspecified; F17.210 Nicotine dependence, cigarettes, uncomplicated; N20.0 Calculus of kidney; M10.9 Gout, unspecified; G43.909 Migraine, unspecified, not intractable, without status migrainosus; Z79.899 Other long term (current) drug therapy; Z90.5 Acquired absence of kidney; Z96.651 Presence of right artificial knee joint; Y83.8 Other surgical procedures as the cause of abnormal reaction of the patient, or of later complication, without mention of misadventure at the time of the procedure
CPT/HCPCS: 44204; 45378; 00123; 36415; 62326; 80048; 85027; 97110; 97116; 97162; 97530; J1650; 82728; 83735; 85014; 85018; 85025; 88307; J0131; J1100; J1335; J1805; J1885; J2001; J2004; J2250; J2270; J2371; J2405; J2470; J2704

== ENCOUNTER 2023-08-21 10:36 | Outpatient (CLI) | payer OTHER, SELFPAY ==
[2023-08-21 10:55] LABS: Abs Immature Grans 0.04 10^3/uL (0.0-0.06); Absolute Basophil Count 0.03 10^3/uL (0.0-0.2); Absolute Eosinophil Count 0.36 10^3/uL (0.0-0.7); Absolute Lymphocyte Count 1.83 10^3/uL (1.2-3.4); Absolute Monocyte Count 0.65 10^3/uL (0.1-0.8); Basophils % 0.4 %; Eosinophils % 4.7 %; HCT 31.7 % (36.0-46.0); HGB 10.9 g/dL (11.2-15.7); Immature Grans % 0.5 %; Lymphocytes % 23.7 %; MCH 31.7 pg (27.0-33.0); MCHC 34.4 % (32.0-36.0); MCV 92 fL (80-95); MPV 10.1 fL (8.0-11.0); Monocytes % 8.4 %; Neutrophils % 62.3 %; Platelet Count 311 10^3/uL (130-400); RBC 3.44 10^6/uL (3.93-5.22); RDW 13.4 % (11.7-14.6); RDW-SD 44.5 fL; WBC 7.71 10^3/uL (4.4-10.8)
[2023-08-21 12:07] LABS: Ferritin 59 ng/mL (8-252)
== END 2023-08-21 10:37 | disposition home or self-care (01) ==
LOC: LBO 10:37
PROVIDERS: PCP Nurse Practitioner Family; Visit Provider Surgery
DX: D37.5 Neoplasm of uncertain behavior of rectum (principal); Z90.49 Acquired absence of other specified parts of digestive tract
CPT/HCPCS: 36415; 82728; 85025

== ENCOUNTER 2023-09-02 11:49 | Emergency (ER) | payer OTHER, SELFPAY ==
[2023-09-02 11:52] VITALS: BP 115/59; PULSE 86; RESP 14; TEMP 36.6; O2SAT 96
--- NOTE | 2023-09-02 12:49 | ED.GENADUL_ITS ---
Discharge Plan Disposition Patient Disposition: Home Condition: Stable Discharge Details Clinical Impression: Wound drainage Primary Care Provider: Laureano Benoit ED Provider: Jesus Watson Home Meds and New Rx's Prescriptions: No Action allopurinol 100 mg tablet 100 mg PO DAILY Qty: 90 4RF Auryxia 210 mg iron tablet 210 mg PO BID Qty: 60 6RF Rx Instructions: administer with a meal gabapentin 300 mg capsule 300 mg PO QHS Qty: 90 12RF Rx Instructions: 300 mg qam and 600 mg qpm trazodone 100 mg tablet 100 mg PO QHS PRN (Reason: sleep) Qty: 30 12RF Metamucil Plus Calcium 1-60 gram-mg capsule 2 - 4 cap PO DAILY Qty: 120 12RF Rx Instructions: administer with large glass of water hydrocortisone 2.5 % ointment 1 applic topical BID Qty: 20 2RF Rx Instructions: apply to affected area L flank for 7 days acetaminophen 500 mg tablet 500 mg PO Q6H PRN (Reason: pain) Qty: 60 2RF sertraline 100 mg tablet 100 mg PO DAILY Qty: 90 3RF omeprazole 40 mg capsule,delayed release(DR/EC) 40 mg PO DAILY Qty: 90 3RF albuterol sulfate 90 mcg/actuation HFA aerosol inhaler 2 puff IH Q6H PRN (Reason: shortness of breath or wheezing) Qty: 24 2RF lisinopril 20 mg tablet 20 mg PO DAILY Qty: 90 3RF nitroglycerin 0.4 mg tablet, sublingual 0.4 mg sublingual Q5-15M PRN (Reason: chest pain) Qty: 30 0RF Patient Comments: only taken once in the ER here at [facility] per pt Rx Instructions: do not exceed 3 doses per episode tizanidine 4 mg tablet See Rx Instructions .ROUTE .COMPLEX Qty: 30 3RF Dose Instruction: TAKE ONE TABLET BY MOUTH EVERY DAY AT BEDTIME Rx Instructions: TAKE ONE TABLET BY MOUTH EVERY DAY AT BEDTIME hydromorphone [Dilaudid] 2 mg tablet 2 mg PO Q6H MDD 6 tabs PRN (Reason: pain) Qty: 12 0RF Rx Instructions: take one tablet by mouth up to every 6 hours if needed for more severe pain. ondansetron HCl 8 mg tablet 8 mg PO Q12H PRN (Reason: nausea and vomiting) Qty: 20 0RF Discharge Instructions Instructions: Seroma (DC) Additional Instructions: Medication reconciliation was not performed today. Please take your medications as directed by your primary care physician. Please contact your primary care physician to arrange follow-up. Return to the ER immediately for any worsening or new concerning symptoms. Referrals: [facility] [Provider Group] Discharge Data Discharge Date/Time-TO BE ENTERED AT DEPARTURE: 09/02/23 14:03 HPI General Mode of arrival: ambulatory . Date/Time Provider Initiated Documentation: 09/02/23 12:27 . Limitations to Documentation: no limitations . Information obtained by: patient . HPI Narrative: 52-year-old female presents 90 days post hemicolectomy with clear fluid drainage that occurred suddenly from her abdominal wound today. Patient notes mild discomfort about the wound. No fever. Related Data Home Medications Medication Instructions Recorded Confirmed omeprazole 40 mg capsule,delayed 40 mg PO DAILY #90 caps 09/05/18 09/12/23 release acetaminophen 500 mg tablet 500 mg PO Q6H PRN pain #60 tabs 06/19/22 09/12/23 sertraline 100 mg tablet 100 mg PO DAILY anxiety #90 tabs 08/25/22 09/12/23 albuterol sulfate 90 mcg/actuation 2 puff inhalation Q6H PRN 03/20/23 09/12/23 aerosol inhaler shortness of breath or wheezing #24 grams allopurinol 100 mg tablet 100 mg PO DAILY stone prevention 05/08/23 09/12/23 #90 tabs lisinopril 20 mg tablet 20 mg PO DAILY #90 tabs 06/05/23 09/12/23 nitroglycerin 0.4 mg sublingual 0.4 mg sublingual Q5-15M PRN chest 06/05/23 09/12/23 tablet pain #30 tabs tizanidine 4 mg tablet See Rx Instructions .Route 07/30/23 09/12/23 .COMPLEX #30 tabs ferric citrate 210 mg iron tablet 210 mg PO BID #60 tabs 08/23/23 09/12/23 (Auryxia) gabapentin 300 mg capsule 300 mg PO QHS #90 caps 08/23/23 09/12/23 hydrocortisone 2.5 % topical 1 applic topical BID #20 grams 08/23/23 09/12/23 ointment psyllium husk-calcium 1 gram-60 mg 2 - 4 cap PO DAILY #120 caps 08/23/23 09/12/23 capsule (Metamucil Plus Calcium) trazodone 100 mg tablet 100 mg PO QHS PRN sleep #30 tabs 08/23/23 09/12/23 hydromorphone 2 mg tablet 2 mg PO Q6H PRN pain #12 tabs 09/10/23 09/12/23 (Dilaudid) ondansetron HCl 8 mg tablet 8 mg PO Q12H PRN nausea and 09/11/23 09/12/23 vomiting #20 tabs Previous Rx's Medication Instructions Recorded omeprazole 40 mg capsule,delayed 40 mg PO DAILY #90 caps 09/05/18 release acetaminophen 500 mg tablet 500 mg PO Q6H PRN pain #60 tabs 06/19/22 sertraline 100 mg tablet 100 mg PO DAILY anxiety #90 tabs 08/25/22 albuterol sulfate 90 mcg/actuation 2 puff inhalation Q6H PRN 03/20/23 aerosol inhaler shortness of breath or wheezing #24 grams allopurinol 100 mg tablet 100 mg PO DAILY stone prevention 05/08/23 #90 tabs lisinopril 20 mg tablet 20 mg PO DAILY #90 tabs 06/05/23 nitroglycerin 0.4 mg sublingual 0.4 mg sublingual Q5-15M PRN chest 06/05/23 tablet pain #30 tabs tizanidine 4 mg tablet See Rx Instructions .Route 07/30/23 .COMPLEX #30 tabs ferric citrate 210 mg iron tablet 210 mg PO BID #60 tabs 08/23/23 (Auryxia) gabapentin 300 mg capsule 300 mg PO QHS #90 caps 08/23/23 hydrocortisone 2.5 % topical 1 applic topical BID #20 grams 08/23/23 ointment psyllium husk-calcium 1 gram-60 mg 2 - 4 cap PO DAILY #120 caps 08/23/23 capsule (Metamucil Plus Calcium) trazodone 100 mg tablet 100 mg PO QHS PRN sleep #30 tabs 08/23/23 hydromorphone 2 mg tablet 2 mg PO Q6H PRN pain #12 tabs 09/10/23 (Dilaudid) ondansetron HCl 8 mg tablet 8 mg PO Q12H PRN nausea and 09/11/23 vomiting #20 tabs Allergies Allergy/AdvReac Type Severity Reaction Status Date / Time doxycycline Allergy Intermediate hives Verified 09/03/23 09:52 Tetracyclines Allergy Intermediate hives Verified 09/03/23 09:52 adhesive Allergy Unknown skin rash Verified 09/03/23 09:52 nortriptyline AdvReac Mild hyperactivi Verified 09/03/23 09:52 ty oracle hyperion consultant tabs Allergy Severe severe Uncoded 09/03/23 09:52 skin rash with blisters General Stated Complaint: Abd Prob MAMIE: 3 Review of Systems Constitutional Constitutional: Denies fever(s) Gastrointestinal Gastrointestinal: Denies nausea and Denies vomiting Exam Const General: cooperative and no acute distress HENMT Mouth: moist mucous membranes Cardio Rate: regular rate and not tachycardic Rhythm: regular rhythm GI Palpation: soft, not firm, no guarding, no masses, not rigid and nontender Skin Other: Midline abdominal wound with small area of dehiscence mid wound, no discharge Course Vital Signs Vital signs: Vital Signs Temperature 36.6 C 09/02/23 11:52 Pulse 86 09/02/23 11:52 Respiratory Rate 14 09/02/23 11:52 Blood Pressure 115/59 L 09/02/23 11:52 Pulse Oximetry 96 09/02/23 11:52 Temperature 36.6 C 09/02/23 11:52 Temperature Source Oral 09/02/23 11:52 Pulse 86 09/02/23 11:52 Respiratory Rate 14 09/02/23 11:52 Respiratory Effort Normal, Non-Labored 09/02/23 12:35 Blood Pressure 115/59 L 09/02/23 11:52 Blood Pressure Position Sitting 09/02/23 11:52 Pulse Oximetry 96 09/02/23 11:52 Oxygen Delivery Method Room Air 09/02/23 11:52 Oxygen Flow Rate 0 09/02/23 11:52 Pain Level 6 09/02/23 11:52 Medical Decision Making 52-year-old female presents 90 days post hemicolectomy with clear fluid drainage that occurred suddenly from her abdominal wound. Suspect seroma, now drained spontaneously. Dr. Santiago was consulted and evaluated the patient. Recommends discharge with outpatient follow-up. Usual customary discharge instructions were reviewed with the patient. Quality:SDOH Health Related Social Needs: No Data to Display PFSH All Active Problems (Updated 09/08/23 @ 00:01 by CHRISTIAN ROBERTS) Abdominal wound dehiscence (Acute) Wound drainage (Acute) Anemia due to blood loss, acute (Acute) Villous adenoma of rectum (Acute) Painful total knee replacement, right (Acute) Asthma (Chronic 11/20/12) Chronic low back pain (Chronic 11/20/12) Chronic obstructive lung disease (Chronic 08/01/12) Essential hypertension (Chronic 05/25/16) Urinary, incontinence, stress female (Chronic) Hyperlipidemia (Chronic 04/18/12) Smoker (Chronic 11/20/12) Chronic GERD (Chronic 11/20/12) CHRONIC HOARSENESS SECONDARY TO GERD Tendinitis of left rotator cuff (Chronic) Mammography less than 12 months ago (Chronic) Right breast microcyst Chronic pain syndrome (Chronic) Overweight (BMI 25.0-29.9) (Acute) Anxiety (Chronic) Right knee pain (Acute) 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 - 05/09/22 Achilles tendinitis of right lower extremity (Acute) Medical History Migraine headache Gout Bilateral kidney stones Plantar wart Uric acid renal calculus Hypertension COPD (chronic obstructive pulmonary disease) Hoarseness of voice secondary to reflux Surgical History History of hemicolectomy (~08/2023) History of colonoscopy (~07/2023) History of total right knee replacement (TKR) (01/15/12) History of cystoscopy Cysto/laser/retorgrade History of salpingo-oophorectomy (06/06/17) Ligation of fallopian tube Replacement of total knee joint (01/15/12) right Open Carpal Tunnel release RIGHT Oophrectomy, Left (06/06/17) L oophorectomy. Bilateral salpingectomy. Benign indications. [place] Fundoplication (~2002) Manipulation, Under Anesthesia (03/13/12) right TKA GASTROPEXY Endoscopy (~2004) NEG Family History Mother Essential hypertension Hyperlipidemia Father Diabetes Essential hypertension Heart disease Hyperlipidemia Stroke Asthma Sister Essential hypertension Sister Essential hypertension Brother No problems noted. 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 Pets and animals: cat(s) and dog(s) Sexually active: No Do you think of yourself as: straight/heterosexual Current gender identity: female What is your relationship status?: How often do you talk on the phone with friends or family?: three or more times per week How often do you get together with friends or relatives?: twice per week How often do you attend episcopalian or episcopalian services?: decline to answer Do you belong to any clubs or organized social groups?: no Panel score (0-1 are the most socially isolated patients): 2 What type of physical activity do you participate in: walking Duration: 45-60 minutes/day Frequency: 3-4 times per week Dottie/Orthodoxy: None Special dottie needs: No Seatbelt use: always Drive intox or ride w/intox wedding transportation driver: No Do you feel safe at home: Yes Do you feel safe in your relationship?: Yes
--- NOTE | 2023-09-02 13:35 | SCONE_ITS ---
Date of service: 09/02/23 Time of Service: 13:35 Assessment and Plan Assessment and plan (1) Wound drainage: Status: Acute Assessment and plan: The character of the effluent appears most consistent with seroma, or perhaps some fat necrosis. I do not see any surrounding erythema that would raise concern for infection at the moment. I advised her to use a dressing on the wound, and wash it at least once daily with warm soapy water. So long as the drainage remains serous, I would just give this more time to heal. Will plan to see her in the office on the , and she can certainly contact me sooner rather than later if needed. History of Present Illness History of Present Illness Chief Complaint: Drainage from surgical wound Narrative: Delaney is 52 years old, and she underwent a laparoscopic right hemicolectomy on August 13. Her postoperative course was complicated by some anastomotic bleeding that required colonoscopy. By that time, the bleeding it stopped. The remainder of her hospital stay was uncomplicated, she is but discharged home. Postoperative course was notable for some loose stools, but those are improving. She has been using Metamucil for that. She was last seen in the office this past week, where she did describe a little bit of redness at the top part of the incision. It was suspected that maybe this portion of the wound is being irritated by her clothing. Today, she has some spontaneous drainage of straw- colored fluid from the upper portion of the wound. Otherwise, she says she been feeling well. She denies any fevers, chills, or other systemic signs of infection. The wound is not particularly tender. Review of Systems Constitutional Constitutional: Denies difficulty sleeping, Denies fatigue, Denies weakness and Denies weight loss Eyes Eyes: Reports system reviewed and no additional complaints, except as documented ENT Ears, Nose, Mouth, and Throat: Reports system reviewed and no additional complaints, except as documented Cardiovascular Cardiovascular: Denies chest pain and Denies dyspnea Respiratory Respiratory: Denies chest congestion, Denies cough and Denies dyspnea Gastrointestinal Gastrointestinal: Denies abdominal pain, Denies bloating, Denies constipation, Denies nausea and Denies vomiting Musculoskeletal Musculoskeletal: Reports system reviewed and no additional complaints, except as documented Neurologic Neurologic: Reports system reviewed and no additional complaints, except as documented and Denies weakness Endocrine Endocrine: Denies fatigue Hematologic/Lymphatic Hematologic/Lymphatic: Denies easy bleeding and Denies easy bruising PFSH All Active Problems Wound drainage (Acute) Anemia due to blood loss, acute (Acute) Villous adenoma of rectum (Acute) Painful total knee replacement, right (Acute) Asthma (Chronic 11/20/12) Chronic low back pain (Chronic 11/20/12) Chronic obstructive lung disease (Chronic 08/01/12) Essential hypertension (Chronic 05/25/16) Urinary, incontinence, stress female (Chronic) Hyperlipidemia (Chronic 04/18/12) Smoker (Chronic 11/20/12) Chronic GERD (Chronic 11/20/12) CHRONIC HOARSENESS SECONDARY TO GERD Tendinitis of left rotator cuff (Chronic) Mammography less than 12 months ago (Chronic) Right breast microcyst Chronic pain syndrome (Chronic) Overweight (BMI 25.0-29.9) (Acute) Anxiety (Chronic) Right knee pain (Acute) 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 - 05/09/22 Achilles tendinitis of right lower extremity (Acute) Medical History Migraine headache Gout Bilateral kidney stones Plantar wart Uric acid renal calculus Hypertension COPD (chronic obstructive pulmonary disease) Hoarseness of voice secondary to reflux Surgical History History of hemicolectomy (~08/2023) History of colonoscopy (~07/2023) History of total right knee replacement (TKR) (01/15/12) History of cystoscopy Cysto/laser/retorgrade History of salpingo-oophorectomy (06/06/17) Ligation of fallopian tube Replacement of total knee joint (01/15/12) right Open Carpal Tunnel release RIGHT Oophrectomy, Left (06/06/17) L oophorectomy. Bilateral salpingectomy. Benign indications. Yosi Fundoplication (~2002) Manipulation, Under Anesthesia (03/13/12) right TKA GASTROPEXY Endoscopy (~2004) NEG Family History Mother Essential hypertension Hyperlipidemia Father Diabetes Essential hypertension Heart disease Hyperlipidemia Stroke Asthma Sister Essential hypertension Sister Essential hypertension Brother No problems noted. 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 Pets and animals: cat(s) and dog(s) Sexually active: No Do you think of yourself as: straight/heterosexual Current gender identity: female What is your relationship status?: How often do you talk on the phone with friends or family?: three or more times per week How often do you get together with friends or relatives?: twice per week How often do you attend advent or hoahaoism services?: decline to answer Do you belong to any clubs or organized social groups?: no Panel score (0-1 are the most socially isolated patients): 2 What type of physical activity do you participate in: walking Duration: 45-60 minutes/day Frequency: 3-4 times per week Dottie/Scientologist: None Special dottie needs: No Seatbelt use: always Drive intox or ride w/intox 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 She is not tender. The incision itself is clean, and there is no surrounding erythema. About 2 cm down from the top portion of the incision is a small area of attenuated skin where it appears the underlying soft tissue perhaps dehisced a bit. There is a tiny amount of fluid here. It is clear. There is no odor. Results Last Vital Signs Temp 97.9 F 09/02/23 11:52 Pulse 86 09/02/23 11:52 Resp 14 09/02/23 11:52 BP 115/59 L 09/02/23 11:52 Pulse Ox 96 09/02/23 11:52
[2023-09-02 14:02] VITALS: BP 110/62; PULSE 72; RESP 18; O2SAT 97
== END 2023-09-02 14:03 | disposition home or self-care (01) ==
PROVIDERS: Emergency Provider Student in an Organized Health Care Education/Training Program; PCP Nurse Practitioner Family
DX: R11.0 Nausea; R10.817 Generalized abdominal tenderness; T81.30XA Disruption of wound, unspecified, initial encounter
CPT/HCPCS: 99281; 99282

== ENCOUNTER 2023-09-03 09:42 | Inpatient (IN) | payer OTHER, SELFPAY ==
[2023-09-03] VITALS (36 sets, daily range): BP systolic 89–153; BP diastolic 32–100; PULSE 65–97; RESP 11–24; TEMP 36.1–36.8; O2SAT 81–100; BMI 15.4
--- NOTE | 2023-09-03 09:58 | W.ED.GENAD ---
Discharge Plan Disposition Patient Disposition: Admit to [facility] Condition: Stable Discharge Details Clinical Impression: Abdominal wound dehiscence Admit Date/Time: 09/05/23 12:42 Admit Provider: Pierre Santiago Attending Provider: Pierre Santiago Primary Care Provider: Laureano Benoit ED Provider: Lien Lloyd Discharge Data Discharge Date/Time-TO BE ENTERED AT DEPARTURE: 09/03/23 11:27 HPI <Lien Lloyd NP - Last Filed: 09/03/23 17:51> General Mode of arrival: ambulatory. Date/Time Provider Initiated Documentation: 09/03/23 09:45. Limitations to Documentation: no limitations. Information obtained by: patient, RN notes reviewed and old records reviewed. HPI Narrative: 52-year-old female presents to the ER for the second time 48 hours she is status post hemicolectomy she reports that she woke up this morning with a protrusion to her abdominal wall. On exam she does have what appears to be intestine small amount approximately 3 cm x 3 cm dehiscence noted. No surrounding redness erythema or drainage noted. It is flesh-colored. She does report some tenderness around the area. A moist sterile dressing was applied by residential treatment staff upon arrival. She she reports when she went to bed last night that this was not present. No other significant associated symptoms or concerns noted. Other past medical history includes COPD hypertension kidney stones migraines and gout. Related Data Home Medications Medication Instructions Recorded Confirmed omeprazole 40 mg capsule,delayed 40 mg PO DAILY #90 caps 09/05/18 09/12/23 release acetaminophen 500 mg tablet 500 mg PO Q6H PRN pain #60 tabs 06/19/22 09/12/23 sertraline 100 mg tablet 100 mg PO DAILY anxiety #90 tabs 08/25/22 09/12/23 albuterol sulfate 90 mcg/actuation 2 puff inhalation Q6H PRN 03/20/23 09/12/23 aerosol inhaler shortness of breath or wheezing #24 grams allopurinol 100 mg tablet 100 mg PO DAILY stone prevention 05/08/23 09/12/23 #90 tabs lisinopril 20 mg tablet 20 mg PO DAILY #90 tabs 06/05/23 09/12/23 nitroglycerin 0.4 mg sublingual 0.4 mg sublingual Q5-15M PRN chest 06/05/23 09/12/23 tablet pain #30 tabs tizanidine 4 mg tablet See Rx Instructions .Route 07/30/23 09/12/23 .COMPLEX #30 tabs ferric citrate 210 mg iron tablet 210 mg PO BID #60 tabs 08/23/23 09/12/23 (Auryxia) gabapentin 300 mg capsule 300 mg PO QHS #90 caps 08/23/23 09/12/23 hydrocortisone 2.5 % topical 1 applic topical BID #20 grams 08/23/23 09/12/23 ointment psyllium husk-calcium 1 gram-60 mg 2 - 4 cap PO DAILY #120 caps 08/23/23 09/12/23 capsule (Metamucil Plus Calcium) trazodone 100 mg tablet 100 mg PO QHS PRN sleep #30 tabs 08/23/23 09/12/23 hydromorphone 2 mg tablet 2 mg PO Q6H PRN pain #12 tabs 09/10/23 09/12/23 (Dilaudid) ondansetron HCl 8 mg tablet 8 mg PO Q12H PRN nausea and 09/11/23 09/12/23 vomiting #20 tabs Previous Rx's Medication Instructions Recorded omeprazole 40 mg capsule,delayed 40 mg PO DAILY #90 caps 09/05/18 release acetaminophen 500 mg tablet 500 mg PO Q6H PRN pain #60 tabs 06/19/22 sertraline 100 mg tablet 100 mg PO DAILY anxiety #90 tabs 08/25/22 albuterol sulfate 90 mcg/actuation 2 puff inhalation Q6H PRN 03/20/23 aerosol inhaler shortness of breath or wheezing #24 grams allopurinol 100 mg tablet 100 mg PO DAILY stone prevention 05/08/23 #90 tabs lisinopril 20 mg tablet 20 mg PO DAILY #90 tabs 06/05/23 nitroglycerin 0.4 mg sublingual 0.4 mg sublingual Q5-15M PRN chest 06/05/23 tablet pain #30 tabs tizanidine 4 mg tablet See Rx Instructions .Route 07/30/23 .COMPLEX #30 tabs ferric citrate 210 mg iron tablet 210 mg PO BID #60 tabs 08/23/23 (Auryxia) gabapentin 300 mg capsule 300 mg PO QHS #90 caps 08/23/23 hydrocortisone 2.5 % topical 1 applic topical BID #20 grams 08/23/23 ointment psyllium husk-calcium 1 gram-60 mg 2 - 4 cap PO DAILY #120 caps 08/23/23 capsule (Metamucil Plus Calcium) trazodone 100 mg tablet 100 mg PO QHS PRN sleep #30 tabs 08/23/23 hydromorphone 2 mg tablet 2 mg PO Q6H PRN pain #12 tabs 09/10/23 (Dilaudid) ondansetron HCl 8 mg tablet 8 mg PO Q12H PRN nausea and 09/11/23 vomiting #20 tabs Allergies Allergy/AdvReac Type Severity Reaction Status Date / Time doxycycline Allergy Intermediate hives Verified 09/03/23 09:52 Tetracyclines Allergy Intermediate hives Verified 09/03/23 09:52 adhesive Allergy Unknown skin rash Verified 09/03/23 09:52 nortriptyline AdvReac Mild hyperactivi Verified 09/03/23 09:52 ty alarm security or surveillance monitor tabs Allergy Severe severe Uncoded 09/03/23 09:52 skin rash with blisters General Stated Complaint: SurgicalRecheck MAMIE: 2 Review of Systems <Lien Lloyd NP - Last Filed: 09/03/23 17:51> All systems reviewed & are unremarkable except as noted in HPI and below Gastrointestinal Gastrointestinal: Reports as per HPI, Reports abdominal pain and Reports other (Abdominal incision dehiscence) Exam <Lien Lloyd NP - Last Filed: 09/03/23 17:51> Narrative Exam Narrative: Constitutional: Alert and oriented x3. Appears stated age. Overweight body habitus. Head: Normocephalic, no trauma. Eyes: Pupils PERRL, Eyelids symmetrical without lesions, discharge, or swelling. Chest: RRR, Normal S1, S2, distal pulses intact. Resp: Lungs clear to auscultation bilaterally, no wheezes, rales, or rhonchi. Abdomen: See GI exam below. Musculoskeletal: Moves all 4 extremities without difficulty. GI Inspection: incision, obesity and other (Bowel dehiscence noted. ) Palpation: soft and tender Course <Lien Lloyd NP - Last Filed: 09/03/23 17:51> Vital Signs Vital signs: Vital Signs Temperature 36.8 C 09/03/23 09:48 Pulse 92 H 09/03/23 09:48 Respiratory Rate 18 09/03/23 09:48 Blood Pressure 153/100 H 09/03/23 09:48 Pulse Oximetry 96 09/03/23 09:48 Temperature 36.8 C 09/03/23 09:48 Temperature Source Tympanic 09/03/23 09:48 Pulse 92 H 09/03/23 09:48 Respiratory Rate 18 09/03/23 09:48 Blood Pressure 153/100 H 09/03/23 09:48 Blood Pressure Position Sitting 09/03/23 09:48 Pulse Oximetry 96 09/03/23 09:48 Oxygen Delivery Method Room Air 09/03/23 09:48 Oxygen Flow Rate 0 09/03/23 09:48 Pain Level 10 09/03/23 09:48 Medical Decision Making <Lien Lloyd NP - Last Filed: 09/03/23 17:51> 52-year-old female presents to the ER for the second time 48 hours she is status post hemicolectomy she reports that she woke up this morning with a protrusion to her abdominal wall. On exam she does have what appears to be intestine small amount approximately 3 cm x 3 cm dehiscence noted. No surrounding redness erythema or drainage noted. It is flesh-colored. She does report some tenderness around the area. A moist sterile dressing was applied by residential treatment staff upon arrival. She she reports when she went to bed last night that this was not present. No other significant associated symptoms or concerns noted. Other past medical history includes COPD hypertension kidney stones migraines and gout. 10:00: IV CBC CMP ordered, will hold off on ordering CT abdomen pelvis until consult with surgery. Surgery paged. 1005: Dr. Santiago to come eval patient in ED. 1020: Dr. Santiago at bedside for patient evaluation, he will be taking patient to the OR. No further recommendations at this time. residential treatment staff requesting pain meds for patient. 2 mg morphine and 4 mg of Zofran IV ordered. This text was generated using Monkey Biznessation system, please disregard any oddities of phrase or misspellings. Patient was transported to floor in stable condition. Medical Records Medical records reviewed: Yes I reviewed the patient's medical records. Lab Data Lab results reviewed: Yes I reviewed the patient's lab results. Labs: Laboratory Tests Range/Units 09/03/23 10:04 WBC (4.4-10.8) 10^3/uL 6.60 RBC (3.93-5.22) 10^6/uL 3.98 Hgb (11.2-15.7) g/dL 12.3 Hct (36.0-46.0) % 38.0 MCV (80-95) fL 96 H MCH (27.0-33.0) pg 30.9 MCHC (32.0-36.0) % 32.4 RDW (11.7-14.6) % 14.0 Plt Count (130-400) 10^3/uL 412 H MPV (8.0-11.0) fL 9.9 Immature Gran % % 0.5 Neutrophils % % 51.9 Lymphocytes % % 29.2 Monocytes % % 6.8 Eosinophils % % 10.8 Basophils % % 0.8 Nucleated RBC % (0.0-0.3) % 0.0 Absolute Neutrophils (1.2-6.7) 10^3/uL 3.43 Absolute Lymphocytes (1.2-3.4) 10^3/uL 1.93 Absolute Monocytes (0.1-0.8) 10^3/uL 0.45 Absolute Eosinophils (0.0-0.7) 10^3/uL 0.71 H Absolute Basophils (0.0-0.2) 10^3/uL 0.05 Sodium (136-145) mmol/L 141 Potassium (3.5-5.1) mmol/L 4.1 Chloride (98-107) mmol/L 105 Carbon Dioxide (21.0-32.0) mmol/L 26.7 Anion Gap (3-11) mmol/L 9.3 BUN (7-18) mg/dL 7 Creatinine (0.55-1.02) mg/dL 0.8 Est GFR (CKD-EPI 2020) (mL/min/1.73m2) 88.60 Glucose (74-106) mg/dL 120 H Calcium (8.5-10.1) mg/dL 9.0 Total Bilirubin (0.2-1.0) mg/dL 0.3 AST (15-37) U/L 22 ALT (14-59) U/L 24 Alkaline Phosphatase (46-116) U/L 94 Total Protein (6.4-8.2) g/dL 7.7 Albumin (3.4-5.0) g/dL 3.4 Quality:SDOH Health Related Social Needs: No Data to Display <Jesus Watson MD - Last Filed: 09/13/23 08:13> Date: 09/03/23 Time: 10:40 Note: Patient seen, examined, and discussed with SEBASTIEN Lloyd. I agree with treatment plan as discussed/documented. PFSH <Lien Lloyd NP - Last Filed: 09/03/23 17:51> All Active Problems (Updated 09/08/23 @ 00:01 by CHRISTIAN ROBERTS) Abdominal wound dehiscence (Acute) Wound drainage (Acute) Anemia due to blood loss, acute (Acute) Villous adenoma of rectum (Acute) Painful total knee replacement, right (Acute) Asthma (Chronic 11/20/12) Chronic low back pain (Chronic 11/20/12) Chronic obstructive lung disease (Chronic 08/01/12) Essential hypertension (Chronic 05/25/16) Urinary, incontinence, stress female (Chronic) Hyperlipidemia (Chronic 04/18/12) Smoker (Chronic 11/20/12) Chronic GERD (Chronic 11/20/12) CHRONIC HOARSENESS SECONDARY TO GERD Tendinitis of left rotator cuff (Chronic) Mammography less than 12 months ago (Chronic) Right breast microcyst Chronic pain syndrome (Chronic) Overweight (BMI 25.0-29.9) (Acute) Anxiety (Chronic) Right knee pain (Acute) 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 - 05/09/22 Achilles tendinitis of right lower extremity (Acute) Medical History Migraine headache Gout Bilateral kidney stones Plantar wart Uric acid renal calculus Hypertension COPD (chronic obstructive pulmonary disease) Hoarseness of voice secondary to reflux Surgical History History of hemicolectomy (~08/2023) History of colonoscopy (~07/2023) History of total right knee replacement (TKR) (01/15/12) History of cystoscopy Cysto/laser/retorgrade History of salpingo-oophorectomy (06/06/17) Ligation of fallopian tube Replacement of total knee joint (01/15/12) right Open Carpal Tunnel release RIGHT Oophrectomy, Left (06/06/17) L oophorectomy. Bilateral salpingectomy. Benign indications. Yosi Fundoplication (~2002) Manipulation, Under Anesthesia (03/13/12) right TKA GASTROPEXY Endoscopy (~2004) NEG Family History Mother Essential hypertension Hyperlipidemia Father Diabetes Essential hypertension Heart disease Hyperlipidemia Stroke Asthma Sister Essential hypertension Sister Essential hypertension Brother No problems noted. 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 Pets and animals: cat(s) and dog(s) Sexually active: No Do you think of yourself as: straight/heterosexual Current gender identity: female What is your relationship status?: How often do you talk on the phone with friends or family?: three or more times per week How often do you get together with friends or relatives?: twice per week How often do you attend mormon or oriental orthodox services?: decline to answer Do you belong to any clubs or organized social groups?: no Panel score (0-1 are the most socially isolated patients): 2 What type of physical activity do you participate in: walking Duration: 45-60 minutes/day Frequency: 3-4 times per week Dottie/Judaism: None Special dottie needs: No Seatbelt use: always Drive 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
[2023-09-03 10:14] LABS: Abs Immature Grans 0.03 10^3/uL (0.0-0.06); Absolute Basophil Count 0.05 10^3/uL (0.0-0.2); Absolute Eosinophil Count 0.71 10^3/uL (0.0-0.7); Absolute Lymphocyte Count 1.93 10^3/uL (1.2-3.4); Absolute Monocyte Count 0.45 10^3/uL (0.1-0.8); Absolute Neutrophil Count 3.43 10^3/uL (1.2-6.7); Basophils % 0.8 %; Eosinophils % 10.8 %; HGB 12.3 g/dL (11.2-15.7); Immature Grans % 0.5 %; Lymphocytes % 29.2 %; MCH 30.9 pg (27.0-33.0); MCHC 32.4 % (32.0-36.0); MCV 96 fL (80-95); MPV 9.9 fL (8.0-11.0); Monocytes % 6.8 %; Neutrophils % 51.9 %; Platelet Count 412 10^3/uL (130-400); RBC 3.98 10^6/uL (3.93-5.22); RDW-SD 46.8 fL
--- NOTE | 2023-09-03 10:21 | HPE_ITS ---
Date of service: 09/03/23 Time of Service: 10:22 Assessment and Plan Assessment and plan (1) Abdominal wound dehiscence: Status: Acute Assessment and plan: I dressed the wound with some saline soaked gauze. I explained the nature of the problem, and the role of surgery to help treat it. I explained that we will move to the operating room emergently, reduce this bit of soft tissue, and attempt to reclose the fascia. Obviously, the conduct of the operation will largely depend upon what is found during the surgery, ideally, the fascia will be closed and the overlying subcutaneous tissues will all be closed as well. If there are any signs of any active infection, we will focus on first restoring abdominal wall continuity, and perhaps delayed primary closure of the skin and soft tissues if necessary. I think she has a very good understanding of what to expect, she was able to provide consent, and will move to the operating room as soon as possible. History of Present Illness History of Present Illness Chief Complaint: Wound complications Narrative: Delaney is a 52-year-old woman who recently underwent laparoscopic right hemicolectomy. She had some issues with her wound during the postoperative course. I saw her in the emergency department yesterday after some spontaneous drainage of what sounded like and appeared to be some simple serous fluid. At that time, the exam seem most consistent with some fat necrosis, or perhaps a seroma. She went home, and felt okay. She was taking her temperature, and had no fevers. She was tolerating a diet okay, and wash the incision with a fresh bandage last night. She woke from sleep this morning with a lump under the bandage, and more serous fluid. She came to the emergency department, with what appears to be evisceration of omentum, and perhaps loop of bowel. She is awake and alert, she denies any significant pain. Review of Systems Constitutional Constitutional: Denies fever(s) and Denies weakness Eyes Eyes: Reports system reviewed and no additional complaints, except as documented ENT Ears, Nose, Mouth, and Throat: Reports system reviewed and no additional complaints, except as documented Cardiovascular Cardiovascular: Denies chest pain and Denies dyspnea Respiratory Respiratory: Denies chest congestion, Reports cough and Denies dyspnea Gastrointestinal Gastrointestinal: Denies nausea and Denies vomiting Genitourinary Genitourinary: Reports system reviewed and no additional complaints, except as documented Musculoskeletal Musculoskeletal: Reports system reviewed and no additional complaints, except as documented Neurologic Neurologic: Denies weakness Hematologic/Lymphatic Hematologic/Lymphatic: Denies easy bleeding and Denies easy bruising PFSH All Active Problems Abdominal wound dehiscence (Acute) Wound drainage (Acute) Anemia due to blood loss, acute (Acute) Villous adenoma of rectum (Acute) Painful total knee replacement, right (Acute) Asthma (Chronic 11/20/12) Chronic low back pain (Chronic 11/20/12) Chronic obstructive lung disease (Chronic 08/01/12) Essential hypertension (Chronic 05/25/16) Urinary, incontinence, stress female (Chronic) Hyperlipidemia (Chronic 04/18/12) Smoker (Chronic 11/20/12) Chronic GERD (Chronic 11/20/12) CHRONIC HOARSENESS SECONDARY TO GERD Tendinitis of left rotator cuff (Chronic) Mammography less than 12 months ago (Chronic) Right breast microcyst Chronic pain syndrome (Chronic) Overweight (BMI 25.0-29.9) (Acute) Anxiety (Chronic) Right knee pain (Acute) 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 - 05/09/22 Achilles tendinitis of right lower extremity (Acute) Medical History Migraine headache Gout Bilateral kidney stones Plantar wart Uric acid renal calculus Hypertension COPD (chronic obstructive pulmonary disease) Hoarseness of voice secondary to reflux Surgical History History of hemicolectomy (~08/2023) History of colonoscopy (~07/2023) History of total right knee replacement (TKR) (01/15/12) History of cystoscopy Cysto/laser/retorgrade History of salpingo-oophorectomy (06/06/17) Ligation of fallopian tube Replacement of total knee joint (01/15/12) right Open Carpal Tunnel release RIGHT Oophrectomy, Left (06/06/17) L oophorectomy. Bilateral salpingectomy. Benign indications. Yosi Fundoplication (~2002) Manipulation, Under Anesthesia (03/13/12) right TKA GASTROPEXY Endoscopy (~2004) NEG Family History Mother Essential hypertension Hyperlipidemia Father Diabetes Essential hypertension Heart disease Hyperlipidemia Stroke Asthma Sister Essential hypertension Sister Essential hypertension Brother No problems noted. 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 Pets and animals: cat(s) and dog(s) Sexually active: No Do you think of yourself as: straight/heterosexual Current gender identity: female What is your relationship status?: How often do you talk on the phone with friends or family?: three or more times per week How often do you get together with friends or relatives?: twice per week How often do you attend roman catholic or mormonism services?: decline to answer Do you belong to any clubs or organized social groups?: no Panel score (0-1 are the most socially isolated patients): 2 What type of physical activity do you participate in: walking Duration: 45-60 minutes/day Frequency: 3-4 times per week Dottie/Tenriism: None Special dottie needs: No Seatbelt use: always Drive intox or ride w/intox intermodal truck driver: No Do you feel safe at home: Yes Do you feel safe in your relationship?: Yes Meds Allergies and Home Medications Allergies Allergy/AdvReac Type Severity Reaction Status Date / Time doxycycline Allergy Intermediate hives Verified 09/03/23 09:52 Tetracyclines Allergy Intermediate hives Verified 09/03/23 09:52 adhesive Allergy Unknown skin rash Verified 09/03/23 09:52 nortriptyline AdvReac Mild hyperactivi Verified 09/03/23 09:52 ty radiation monitor tabs Allergy Severe severe Uncoded 09/03/23 09:52 skin rash with blisters Home Medications Medication Instructions Recorded Confirmed Type omeprazole 40 mg capsule,delayed 40 mg PO DAILY #90 caps 09/05/18 09/03/23 Rx release acetaminophen 500 mg tablet 500 mg PO Q6H PRN pain #60 tabs 06/19/22 09/03/23 Rx sertraline 100 mg tablet 100 mg PO DAILY anxiety #90 tabs 08/25/22 09/03/23 Rx albuterol sulfate 90 mcg/actuation 2 puff inhalation Q6H PRN 03/20/23 09/03/23 Rx aerosol inhaler shortness of breath or wheezing #24 grams allopurinol 100 mg tablet 100 mg PO DAILY stone prevention 05/08/23 09/03/23 Rx #90 tabs lisinopril 20 mg tablet 20 mg PO DAILY #90 tabs 06/05/23 09/03/23 Rx nitroglycerin 0.4 mg sublingual 0.4 mg sublingual Q5-15M PRN chest 06/05/23 09/03/23 Rx tablet pain #30 tabs tizanidine 4 mg tablet See Rx Instructions .Route 07/30/23 09/03/23 Rx .COMPLEX #30 tabs ferric citrate 210 mg iron tablet 210 mg PO BID #60 tabs 08/23/23 09/03/23 Rx (Auryxia) gabapentin 300 mg capsule 300 mg PO QHS #90 caps 08/23/23 09/03/23 Rx hydrocortisone 2.5 % topical 1 applic topical BID #20 grams 08/23/23 09/03/23 Rx ointment psyllium husk-calcium 1 gram-60 mg 2 - 4 cap PO DAILY #120 caps 08/23/23 09/03/23 Rx capsule (Metamucil Plus Calcium) trazodone 100 mg tablet 100 mg PO QHS PRN sleep #30 tabs 08/23/23 09/03/23 Rx hydrocodone 5 mg-acetaminophen 325 1 tab PO BID PRN pain #60 tabs 08/25/23 09/03/23 Rx mg tablet Exam GI Other: There is a bit of soft tissue eviscerated up through the wound. It seems most consistent with some omentum, perhaps some bowel associated with Results Labs 09/03/23 10:04 09/03/23 10:04 Labs: Laboratory Results - last 24 hr 09/03/23 10:04 WBC 6.60 RBC 3.98 Hgb 12.3 Hct 38.0 MCV 96 H MCH 30.9 MCHC 32.4 RDW 14.0 Plt Count 412 H MPV 9.9 Immature Gran % 0.5 Neutrophils % 51.9 Lymphocytes % 29.2 Monocytes % 6.8 Eosinophils % 10.8 Basophils % 0.8 Nucleated RBC % 0.0 Absolute Neutrophils 3.43 Absolute Lymphocytes 1.93 Absolute Monocytes 0.45 Absolute Eosinophils 0.71 H Absolute Basophils 0.05 Last Vital Signs Temp 98.2 F 09/03/23 10:08 Pulse 97 H 09/03/23 10:08 Resp 18 09/03/23 10:08 BP 132/78 09/03/23 10:08 Pulse Ox 96 09/03/23 10:08 Time Spent Time spent with Patient: <40 minutes Time was spent: preparing to see the patient(eg.review tests), indepentently interpreting results, counseling the patient and care coordination
[2023-09-03] MEDS: MORPHine 4 MG/ML SYR 2 MG IVP (10:30)
[2023-09-03] MEDS: Ondansetron 4 MG/2 ML VIAL IVP (10:30)
[2023-09-03 10:31] LABS: ALT 24 U/L (14-59); AST 22 U/L (15-37); Albumin 3.4 g/dL (3.4-5.0); Alkaline Phosphatase 94 U/L (46-116); Anion Gap 9.3 mmol/L (3-11); BUN 7 mg/dL (7-18); Bilirubin, Total 0.3 mg/dL (0.2-1.0); CO2 26.7 mmol/L (21.0-32.0); CREATININE 0.8 mg/dL (0.55-1.02); Chloride 105 mmol/L (98-107); Glucose 120 mg/dL (74-106); Potassium 4.1 mmol/L (3.5-5.1); Sodium 141 mmol/L (136-145); Total Protein 7.7 g/dL (6.4-8.2)
--- NOTE | 2023-09-03 10:38 | ANES.PREOP_ITS ---
General Info Date of Service Date Performed: 09/03/23 Height: 5 ft 5 in Weight: 42 kg Body Mass Index (BMI): 15.4 Meds Allergies and Home Medications Allergies Allergy/AdvReac Type Severity Reaction Status Date / Time doxycycline Allergy Intermediate hives Verified 09/03/23 09:52 Tetracyclines Allergy Intermediate hives Verified 09/03/23 09:52 adhesive Allergy Unknown skin rash Verified 09/03/23 09:52 nortriptyline AdvReac Mild hyperactivi Verified 09/03/23 09:52 ty hotel sales manager tabs Allergy Severe severe Uncoded 09/03/23 09:52 skin rash with blisters Home Medication Medication Instructions Recorded omeprazole 40 mg capsule,delayed 40 mg PO DAILY #90 caps 09/05/18 release acetaminophen 500 mg tablet 500 mg PO Q6H PRN pain #60 tabs 06/19/22 sertraline 100 mg tablet 100 mg PO DAILY anxiety #90 tabs 08/25/22 albuterol sulfate 90 mcg/actuation 2 puff inhalation Q6H PRN 03/20/23 aerosol inhaler shortness of breath or wheezing #24 grams allopurinol 100 mg tablet 100 mg PO DAILY stone prevention 05/08/23 #90 tabs lisinopril 20 mg tablet 20 mg PO DAILY #90 tabs 06/05/23 nitroglycerin 0.4 mg sublingual 0.4 mg sublingual Q5-15M PRN chest 06/05/23 tablet pain #30 tabs tizanidine 4 mg tablet See Rx Instructions .Route 07/30/23 .COMPLEX #30 tabs ferric citrate 210 mg iron tablet 210 mg PO BID #60 tabs 08/23/23 (Auryxia) gabapentin 300 mg capsule 300 mg PO QHS #90 caps 08/23/23 hydrocortisone 2.5 % topical 1 applic topical BID #20 grams 08/23/23 ointment psyllium husk-calcium 1 gram-60 mg 2 - 4 cap PO DAILY #120 caps 08/23/23 capsule (Metamucil Plus Calcium) trazodone 100 mg tablet 100 mg PO QHS PRN sleep #30 tabs 08/23/23 hydrocodone 5 mg-acetaminophen 325 1 tab PO BID PRN pain #60 tabs 08/25/23 mg tablet Current Visit Medications: Current Medications Generic Name Dose Route Start Last Admin Trade Name Freq PRN Reason Stop Dose Admin Cefazolin Sodium/Dextrose 2 gm in 50 mls @ 100 mls/hr 09/03/23 10:45 Ancef Duplex IV 09/03/23 11:14 NOW ONE IV Miscellaneous Supplies 1 each 09/03/23 10:00 Iv Access-Emergency Dept IV DIRECTED ZAYRA Sodium Chloride 0 ml 09/03/23 09:54 Normal Saline Flush 10 Ml Syr IVP PRN PRN Sodium Chloride 0 ml 09/03/23 20:00 Normal Saline Flush 10 Ml Syr IVP BID ZAYRA Sodium Chloride 0 ml 09/03/23 09:54 Normal Saline 10 Ml Vial IJ DIRECTED PRN PFSH Active Problems Active Problems: Problem Status Onset Code Abdominal wound dehiscence T81.30XA Wound drainage T14.8XXA Anemia due to blood loss, acute D62 Villous adenoma of rectum D37.5 Painful total knee replacement, right T84.84XA, Z96.651 Asthma 11/20/12 J45.909 Chronic low back pain 11/20/12 M54.5, G89.29 Chronic obstructive lung disease 08/01/12 J44.9 Essential hypertension 05/25/16 I10 Urinary, incontinence, stress female N39.3 Hyperlipidemia 04/18/12 E78.5 Smoker 11/20/12 F17.200 Chronic GERD 11/20/12 K21.9 Tendinitis of left rotator cuff M75.82 Mammography less than 12 months ago Z78.9 Chronic pain syndrome G89.4 Overweight (BMI 25.0-29.9) E66.3 Anxiety F41.9 Right knee pain M25.561 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, Z96.659 Achilles tendinitis of right lower extremity M76.61 Medical History Medical History Migraine headache Gout Bilateral kidney stones Plantar wart Uric acid renal calculus Hypertension COPD (chronic obstructive pulmonary disease) Hoarseness of voice secondary to reflux Medical History Comments:: smoked 1 cigarette this am Surgical History Surgical History History of hemicolectomy (~08/2023) History of colonoscopy (~07/2023) History of total right knee replacement (TKR) (01/15/12) History of cystoscopy Cysto/laser/retorgrade History of salpingo-oophorectomy (06/06/17) Ligation of fallopian tube Replacement of total knee joint (01/15/12) right Open Carpal Tunnel release RIGHT Oophrectomy, Left (06/06/17) L oophorectomy. Bilateral salpingectomy. Benign indications. Yosi Fundoplication (~2002) Manipulation, Under Anesthesia (03/13/12) right TKA GASTROPEXY Endoscopy (~2004) NEG Tobacco Smoking/Tobacco Use Status: Current every day Tobacco Type: cigarettes Smoking packs per day: 1 Smoking cigarettes per day: 20.0 Years smoked: 30 Smoking pack- years: 30.00 Passive smoking exposure: Yes Second hand exposure: Yes Alcohol Alcohol Intake: never Substance Use Substance use: Never Substance use type: does not use Vital Signs and Lab Results Vital Signs Most Recent Vital Signs in EMR: Most Recent Vital Signs Temp Pulse Resp BP Pulse Ox 36.8 C 97 H 18 132/78 96 09/03/23 10:08 09/03/23 10:08 09/03/23 10:08 09/03/23 10:08 09/03/23 10:08 Lab Results 09/03/23 10:04 09/03/23 10:04 Blood Type / Crossmatch: 2 No Data to Display Complete Blood Count: 2 White Blood Count 6.60 10^3/uL (4.4-10.8) 09/03/23 10:04 Red Blood Count 3.98 10^6/uL (3.93-5.22) 09/03/23 10:04 Hemoglobin 12.3 g/dL (11.2-15.7) 09/03/23 10:04 Hematocrit 38.0 % (36.0-46.0) 09/03/23 10:04 Platelet Count 412 10^3/uL (130-400) H 09/03/23 10:04 Complete Metabolic Panel: 2 Sodium 141 mmol/L (136-145) 09/03/23 10:04 Potassium 4.1 mmol/L (3.5-5.1) 09/03/23 10:04 Chloride 105 mmol/L (98-107) 09/03/23 10:04 Carbon Dioxide 26.7 mmol/L (21.0-32.0) 09/03/23 10:04 BUN 7 mg/dL (7-18) 09/03/23 10:04 Creatinine 0.8 mg/dL (0.55-1.02) 09/03/23 10:04 Est GFR (CKD-EPI 2020) 88.60 (mL/min/1.73m2) 09/03/23 10:04 Magnesium 1.8 mg/dL (1.8-2.4) 08/15/23 06:23 Calcium 9.0 mg/dL (8.5-10.1) 09/03/23 10:04 Albumin 3.4 g/dL (3.4-5.0) 09/03/23 10:04 Glucose 120 mg/dL (74-106) H 09/03/23 10:04 Liver Function Panel: 2 Alanine Aminotransferase (ALT/SGPT) 24 U/L (14-59) 09/03/23 10: 04 Aspartate Amino Transf (AST/SGOT) 22 U/L (15-37) 09/03/23 10:04 Coagulation Panel: 2 No Data to Display Cardiac Panel: 2 No Data to Display Arterial Blood Gas: 2 No Data to Display Venous Blood Gas: 2 No Data to Display Pancreas Panel: 2 No Data to Display Thyroid Panel: 2 No Data to Display Infectious Disease: 2 No Data to Display Blood Cultures: 2 No Data to Display Toxicology Panel: 2 No Data to Display Panel: 2 No Data to Display Imaging and Studies Imaging and Studies Study information below may be from another EMR and interpreted by another provider. Please see original notes in EMR for more complete details. EKG Summary: Conclusion Sinus rhythm...normal P axis, V-rate 60- 99 07/12/21 Stress Test Summary: Stress ECG Conclusion 1. The resting electrocardiogram showed minor inferolateral ST-T abnormalities 2. Patient exercised on the Cristóbal protocol and completed a workload of 10.06 METS, stopping due to fatigue 3. Normal heart rate and blood pressure response to exercise. Patient achieved 85% of predicted heart rate for age 4. There was no electrocardiographic evidence of myocardial ischemia 5. There were no significant dysrhythmias Real Treadmill Score is 7.6 which is Low risk. 07/14/21 Anesthesia Assessment and Plan Anesthesia History Personal History: No History of Anesthesia Complications Family History: No Family History of Anesthesia Complications Exercise Tolerance Exercise Tolerance: Metabolic Equivalents>4 Cardiac & Pulmonary Exam Cardiac Exam: Normal S1/S2 Heart Sounds Pulmonary Exam: Clear Bilateral Breath Sounds Implantable Cardiac Device Does patient have a Pacemaker or an ICD?: No Airway Exam Known Difficult Airway: No Mallampati Class: 2 Mouth Opening: Normal (> 3cm) Thyromental Distance: Greater than 3 cm Neck Range of Motion: Full ROM Neck Circumference: Normal Teeth Condition: Generalized Poor Dentition Airway Comments: Missing teeth- one tooth on upper left. Missing lower molars ASA Classification ASA Score: ASA 2 Emergency Case?: No NPO Status NPO Status: NPO Clear Liquids>2 hours Status Status: Not Relevant due to Medical History Anesthesia Plan Resuscitation Status: Full Code Anesthesia Technique: General Anesthesia Airway Planned: Endotracheal Tube Monitors Used: Standard Monitors Preoperative Comments:: 52 yo with dehiscence s/p bowl resection. Previous Anes: - mac 3 and glide 3 grade 1. - challenging pulmonary status with high PIPs, reasonable Pplat. Currently in ER, in significant pain (morphine 2 mg given), Neb was ordered and given (states breathing feels ok, however SPO2 talking with her between 84-97%). Discussed GAETT, +/- regional anesthesia (rectus sheath block).
[2023-09-03] MEDS: ceFAZolin 2 GM/50 ML BAG IV (10:51)
[2023-09-03] MEDS: Albuterol/Ipratropium 3 ML UPD VIAL UPD (10:51)
[2023-09-03] MEDS: Lactated Ringers 1,000 ML 30 ML IV ×2 (11:26→13:20)
[2023-09-03] MEDS: Bupivacaine LIPOSOME/PF 133 MG/10 ML VIAL IJ (11:49)
[2023-09-03] MEDS: Bupivacaine 0.25% Pres-Free W/EPI 30 ML VIAL (11:49)
--- NOTE | 2023-09-03 12:24 | ROE_ITS ---
Date of service: 09/03/23 Time of Service: 12:24 Operative Note Operative Note DATE OF PROCEDURE: 09/03/23 PRE-OP DIAGNOSIS: Fascial dehiscence with evisceration POST-OP DIAGNOSIS: same PROCEDURE: Reopening of recent laparotomy, washout and reclosure of fascial incision SURGEON: Pierre Santiago ANESTHESIA TYPE: Local By Surgeon and General LMA/ETT Refer to Anesthesia Record ESTIMATED BLOOD LOSS: 25 PATHOLOGY: none sent COMPLICATIONS: None Patient was transported to: PACU Patient's condition: stable Indications: Delaney is a 52-year-old woman who underwent a right hemicolectomy for what turned out to be a large colonic tubular adenoma. She came back to the emergency department today evisceration of some peritoneal contents above the skin incisio n. Findings: Disruption of the fascial closure with evisceration some omental fat, and perhaps a portion of small bowel. Procedure Description: Delaney was brought to the operating room, and assisted over to the OR table. Great care was taken to pad and support her appropriately. Next, she underwent induction of general endotracheal anesthesia without any issues. Previous dressings from the emergency department were then removed. The soft tissue that it eviscerated through was viable, and relatively healthy appearing. The anterior abdominal wall was then prepped with Betadine, and draped out in usual fashion. Next, I sharply opened the remaining portion of the previous skin incision. This was done cephalad and caudal to the dehisced section. The deep layers of the skin and subcutaneous fat were healthy appearing, without any obvious signs of infection. There was no purulence here. The soft tissue was gently reintroduced into the peritoneal space, and the defect was examined. It appeared that the upper left side of the fascia had pulled away from the closure. I cannot tell if the suture pulled through the fascia or if the suture material itself is broke. The stitch did feel a bit adherent to the underside of the fascia on some of the omentum in the peritoneal space, but the cause of this is a little difficult to decipher given the acuity of some of the inflammation. Regardless, the suture material was debrided clean. There is a small area of nonviable tissue on the right side of the fascia that is approximately 2 cm long. This sharply debrided back to healthy tissue. The proper fascial edges difficult to delineate because of adhesions to the overlying soft tissue. Similarly, there are 2 small foci of necrotic tissue on the left side of the fascia in a similar area. These were also debrided clean. I do not see any obvious signs of infection on the underlying hollow viscera. With what appeared to be otherwise normal-appearing peritoneal space, I did not feel compelled to perform a complete exploration of the peritoneal cavity. There is no obvious signs of infection, nor are there any clinical indicators of obstruction or the other pathology that may be resulting from her operation. Therefore, I felt the safest thing to do at this point was to try to reapproximate the fascia. I did this using 0 PDS suture placed in [id number] fashion. Tails were all left loose until all of the sutures were appropriately placed. With this complete, with relaxation of the anterior abdominal wall, great care was taken to ensure that the underlying viscera were free from the abdominal wall, and gentle traction was placed on each of the [id number] stitches to pulling the midline fascia back together. Once this was complete, the individual stitches were tied down. The incision was gently palpated. It seems well-approximated, and I was not able to appreciate any areas of defect between the stitches. The overlying fat and skin were irrigated. Although there is no obvious sign of infection at this point, I did think the safest option would be to leave the overlying subcutaneous tissues open and reassess over the next day anticipating a delayed primary closure. Therefore, the wound was packed with sterile Kerlix gauze, and ABDs were applied over top. An abdominal binder was used to help hold everything in place, and the patient was then awakened from her anesthetic and extubated. She was brought to the recovery unit prior to transfer to the floor
[2023-09-03] MEDS: HYDROmorphone 2 MG/ML SYR IVP ×3 (12:34→12:59)
[2023-09-03] MEDS: LORazepam 2 MG/ML VIAL 0.5 MG IVP (13:06)
[2023-09-03] MEDS: fentaNYL 100 MCG/2 ML VIAL (13:14)
--- NOTE | 2023-09-03 14:10 | W.ANESPOSTOP ---
Postoperative Evaluation Date, Time and Location Date Performed: 09/03/23 Time Performed: 14:10 Patient Location: PACU Vital Signs Most Recent Imported Vital Signs: Most Recent Vital Signs Temp Pulse Resp BP Pulse Ox 36.8 C 80 17 104/72 94 09/03/23 14:04 09/03/23 14:04 09/03/23 14:04 09/03/23 14:04 09/03/23 14:04 Pain Score Most Recent Pain Score: Most Recent Pain Score Pain Level 6 09/03/23 14:04 Assessment Mental Status: Awake (Alert & Oriented to Patient Baseline) Airway and Respiratory Function: Patent airway with normal (patient baseline) respiratory exam Cardiovascular Function: Hemodynamically Stable Hydration Status: Adequately Hydrated Nausea & Vomiting: No Nausea or Vomiting Pain: Pain is tolerable per patient (challenging to get pain under control. ) Peripheral Nerve Block: Patient did not receive a nerve block
[2023-09-03] MEDS: Enoxaparin 40 MG/0.4 ML SYR SC (17:07)
[2023-09-03] MEDS: oxyCODONE 5 MG TAB PO ×2 (17:08→23:24)
[2023-09-03] MEDS: Ketorolac 30 MG/ML VIAL IVP (19:03)
[2023-09-03] MEDS: Gabapentin 300 MG CAP PO (20:09)
[2023-09-03] MEDS: tiZANidine 4 MG TABLET PO (20:09)
[2023-09-03] MEDS: Normal Saline Flush 10 ML SYR IVP (20:10)
[2023-09-04 00:25] VITALS: BP 122/78; PULSE 80; RESP 16; TEMP 36.4; O2SAT 94
[2023-09-04] MEDS: Ketorolac 30 MG/ML VIAL IVP ×3 (01:02→15:34)
[2023-09-04] MEDS: oxyCODONE 5 MG TAB PO ×3 (07:15→20:04)
[2023-09-04 07:32] VITALS: BP 135/85; PULSE 76; RESP 19; TEMP 36; O2SAT 97
[2023-09-04] MEDS: HYDROmorphone 2 MG/ML SYR 0.5 MG IVP ×3 (08:06→21:25)
[2023-09-04] MEDS: Normal Saline Flush 10 ML SYR IVP ×6 (08:07→21:46)
[2023-09-04] MEDS: Ondansetron 4 MG/2 ML VIAL IVP ×2 (08:13→21:27)
--- NOTE | 2023-09-04 09:23 | PDOC.CMIN ---
Date of service: 09/04/23 Time of Service: 09:23 Care Management Initial Assmt Initial Assessment Reason for Hospitalization: Abdominal Wound dehiscence Functional Status/Living Situation Patient Presentation: Delaney was awake and lying in bed when CM met with her. She shares with CM that she is frustrated because she is doing everything right and running into complications. Her has been very supportive. 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 Activities of Daily Living (ADLs): Independent Activities/Hobbies/SocialSupport: Enjoys going to [place] Medications Medication Management: No Issues/Barriers identified Physical Functioning/Mobility Assistive Device: None Advance Directives Advance Directives: Do you have an Advance Directive: N 02/07/18 12:10 AD On File at [facility]: N 02/07/18 12:10 Date Asked 09/03/23 09/03/23 09:47 AD Date Reviewed COLST On File at [facility] No 09/03/23 09:47 COLST Date Scanned Code Status Resuscitation Status Full Code Portal Pt does not currently have a portal and education provided: Yes Insurance Coverage/Financial Issues Insurance: LEONARDO ACO Member: Yes Care Team Visit Care Team Role Provider Type Laureano Arevalo NP Primary Care Provider NURSE PRACTITIONER Lien Lloyd NP Emergency Provider NURSE PRACTITIONER Pierre Santiago MD Admit Provider [facility] STAFF PHYSICIAN Attending Provider Discharge Potential Discharge Needs: PCP F/U Appt and Surgical F/U Appt Patient/Family Education Needs: Review discharge instructions, discuss Ask Me Three Transportation: Private vehicle Plan: Anticipate, Delaney will return home when ready per Surgical provider. She will follow up with community providers and her discharge plan of care as instructed. CM continues to follow. PFSH All Active Problems Abdominal wound dehiscence (Acute) Wound drainage (Acute) Anemia due to blood loss, acute (Acute) Villous adenoma of rectum (Acute) Painful total knee replacement, right (Acute) Asthma (Chronic 11/20/12) Chronic low back pain (Chronic 11/20/12) Chronic obstructive lung disease (Chronic 08/01/12) Essential hypertension (Chronic 05/25/16) Urinary, incontinence, stress female (Chronic) Hyperlipidemia (Chronic 04/18/12) Smoker (Chronic 11/20/12) Chronic GERD (Chronic 11/20/12) CHRONIC HOARSENESS SECONDARY TO GERD Tendinitis of left rotator cuff (Chronic) Mammography less than 12 months ago (Chronic) Right breast microcyst Chronic pain syndrome (Chronic) Overweight (BMI 25.0-29.9) (Acute) Anxiety (Chronic) Right knee pain (Acute) 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 - 05/09/22 Achilles tendinitis of right lower extremity (Acute) Medical History Migraine headache Gout Bilateral kidney stones Plantar wart Uric acid renal calculus Hypertension COPD (chronic obstructive pulmonary disease) Hoarseness of voice secondary to reflux Surgical History History of hemicolectomy (~08/2023) History of colonoscopy (~07/2023) History of total right knee replacement (TKR) (01/15/12) History of cystoscopy Cysto/laser/retorgrade History of salpingo-oophorectomy (06/06/17) Ligation of fallopian tube Replacement of total knee joint (01/15/12) right Open Carpal Tunnel release RIGHT Oophrectomy, Left (06/06/17) L oophorectomy. Bilateral salpingectomy. Benign indications. Yosi Fundoplication (~2002) Manipulation, Under Anesthesia (03/13/12) right TKA GASTROPEXY Endoscopy (~2004) NEG Family History Mother Essential hypertension Hyperlipidemia Father Diabetes Essential hypertension Heart disease Hyperlipidemia Stroke Asthma Sister Essential hypertension Sister Essential hypertension Brother No problems noted. 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 Pets and animals: cat(s) and dog(s) Sexually active: No Do you think of yourself as: straight/heterosexual Current gender identity: female What is your relationship status?: How often do you talk on the phone with friends or family?: three or more times per week How often do you get together with friends or relatives?: twice per week How often do you attend hinduism or restoration services?: decline to answer Do you belong to any clubs or organized social groups?: no Panel score (0-1 are the most socially isolated patients): 2 What type of physical activity do you participate in: walking Duration: 45-60 minutes/day Frequency: 3-4 times per week Dottie/Taoism: None Special dottie needs: No Seatbelt use: always Drive intox or ride w/intox chuck wagon driver: No Do you feel safe at home: Yes Do you feel safe in your relationship?: Yes SDOH(Care Management) Screening Will the Patient Participate in the Screening?: Yes Do you worry about having a steady place to live?: no Problems where you live: no known problems In the past 12 months, have you had to go without electric, gas, oil or water in your home?: no Have you or anyone in your house had to go without enough food to eat?: no Has lack of transportation kept you from medical appointments or from doing things needed for daily living?: no Has anyone in your support network made you feel unsafe for any reason?: no
[2023-09-04] MEDS: Allopurinol 100 MG TAB PO (10:31)
[2023-09-04] MEDS: Lisinopril 20 MG TAB PO (10:31)
[2023-09-04] MEDS: Omeprazole 20 MG CAPCR 40 MG PO (10:31)
[2023-09-04] MEDS: Sertraline 100 MG TAB PO (10:31)
[2023-09-04] MEDS: Psyllium PKT 1 EACH PO (10:32)
--- NOTE | 2023-09-04 11:37 | CHAPLAIN ---
Delaney said she was feeling a little better. She was curled up in bed and said she's been her since Sunday. I explained my role and offered support.
--- NOTE | 2023-09-04 12:06 | W.PM.PROGNOT ---
Date of Service Date of service: 09/04/23 Time of Service: 12:06 Assessment and Plan Assessment and plan (1) Abdominal wound dehiscence: Status: Acute Assessment and plan: POD #1 s/p exploratory laparotomy for fascia dehiscence and evisceration Patient is wearing the abdominal binder Abdominal wound left open with packing, this will be changed later today. Encouraged activity OOB as tolerated. Pain is poorly controlled at this time, will continue to work on this. Will order nicotine lozenges to help with cigarette cravings. Subjective Subjective Interval history since last seen: Patient reports that she is continues to be very uncomfortable since post op. She states that she would really like a cigarette and is becoming frustrated and worn down by her multiple surgeries and lack of progress. She denies any nausea, vomiting, fevers or chills. Exam Const General: cooperative, healthy appearing and comfortable Orientation: alert and oriented x3 Resp Effort & Inspection: normal respiratory effort and cough (Intermittent) GI Other: She is currently wearing an abdominal binder. Encouraged use of the pillow to help with bracing, for her discomfort. Objective Last Vital Signs Temp 36.0 C L 09/04/23 07:32 Pulse 76 09/04/23 07:32 Resp 19 09/04/23 07:32 BP 135/85 09/04/23 07:32 Pulse Ox 97 09/04/23 07:32 Time Spent with Patient Time Spent with Patient: <25 minutes Time was spent: preparing to see the patient(eg.review tests), obtaining and/or reviewing separately otained hiistory and counseling the patient
[2023-09-04] MEDS: Gabapentin 300 MG CAP PO ×3 (14:22→20:04)
[2023-09-04] MEDS: tiZANidine 4 MG TABLET PO (14:31)
[2023-09-04 14:46] VITALS: BP 165/82; PULSE 68; RESP 19; TEMP 36.9; O2SAT 94
[2023-09-04] MEDS: ACETAMINOPHEN 1,000 MG/100 ML BTL 400 MG IVPB ×2 (15:35→23:18)
[2023-09-04] MEDS: Enoxaparin 40 MG/0.4 ML SYR SC (16:00)
[2023-09-04 19:44] VITALS: BP 130/78; PULSE 68; RESP 20; TEMP 36.1; O2SAT 94
[2023-09-04] MEDS: ceFAZolin 2,000 MG in Normal Saline 100 ML 200 MG IVPB (21:44)
[2023-09-04 23:07] VITALS: BP 149/80; PULSE 70; RESP 17; TEMP 36.3; O2SAT 96
[2023-09-05] MEDS: oxyCODONE 5 MG TAB PO ×4 (03:05→19:58)
[2023-09-05] MEDS: HYDROmorphone 2 MG/ML SYR 0.5 MG IVP ×4 (03:28→21:59)
[2023-09-05] MEDS: ACETAMINOPHEN 1,000 MG/100 ML BTL 400 MG IVPB ×4 (05:30→21:52)
[2023-09-05] MEDS: ceFAZolin 2,000 MG in Normal Saline 100 ML 200 MG IVPB (06:03)
[2023-09-05 07:44] VITALS: BP 155/90; PULSE 62; RESP 17; TEMP 36.9; O2SAT 98
[2023-09-05] MEDS: Normal Saline Flush 10 ML SYR IVP ×8 (08:32→19:58)
[2023-09-05] MEDS: Psyllium PKT 1 EACH PO (08:33)
[2023-09-05] MEDS: Allopurinol 100 MG TAB PO (08:34)
[2023-09-05] MEDS: Gabapentin 300 MG CAP PO ×4 (08:34→19:58)
[2023-09-05] MEDS: Lisinopril 20 MG TAB PO (08:34)
[2023-09-05] MEDS: Sertraline 100 MG TAB PO (08:34)
[2023-09-05] MEDS: Omeprazole 20 MG CAPCR 40 MG PO (08:34)
[2023-09-05] MEDS: tiZANidine 4 MG TABLET PO ×3 (08:48→22:00)
--- NOTE | 2023-09-05 10:21 | PDOC.CMPRO ---
Date of service: 09/05/23 Time of Service: 10:22 Care Management Progress Note Progress Note Text Progress Note Text: Delaney was lying down with the HOB slightly elevated with CM met with her. She is guarding her abdomen with a folded blanket. Reports 7/10 pain, RN aware. Inpatient admission continues for wound care and pain management following the recent dehiscence of her surgical site. Per surgical, closure may require a wound vac. CM will continue to follow and support discharge planning considerations. A: 52 year old female admitted to [facility] on 09/02/23 Post op wound evisceration requiring closer. Discharge Potential Discharge Needs: PCP F/U Appt and Surgical F/U Appt Anticipated Barriers to Discharge: None Identified Patient/Family Education Needs: Review discharge instructions, discuss Ask Me Three Transportation: Private vehicle Plan: Wound closure will be better known towards the end of the week, pt may need a wound vac. Anticipate, Delaney will discharge home when medically ready with outpatient follow up with Surgery and PCP. Delaney may need [facility] RN services for wound care. will transport. CM is following. SDOH(Care Management) Screening Will the Patient Participate in the Screening?: Yes Do you worry about having a steady place to live?: no Problems where you live: no known problems In the past 12 months, have you had to go without electric, gas, oil or water in your home?: no Have you or anyone in your house had to go without enough food to eat?: no Has lack of transportation kept you from medical appointments or from doing things needed for daily living?: no Has anyone in your support network made you feel unsafe for any reason?: no
--- NOTE | 2023-09-05 11:55 | PHACLINREV_ITS ---
Pharmacy Admission Review Admission Clinical Review Admission Pharmacy Review: Abdominal wound dehiscence (Acute) doxycycline Allergy (Intermediate, Verified 09/03/23 09:52) hives Tetracyclines Allergy (Intermediate, Verified 09/03/23 09:52) hives adhesive Allergy (Unknown, Verified 09/03/23 09:52) skin rash nortriptyline Adverse Reaction (Mild, Verified 09/03/23 09:52) hyperactivity manager monitoring tabs Allergy (Severe, Uncoded 09/03/23 09:52) severe skin rash with blisters Resuscitation Status Full Code Height 5 ft 5 in Weight 85 kg Pharmacy Admission Review Renal Dosing Renal Dosing: BUN 7 mg/dL (7-18) 09/03/23 10:04 Creatinine 0.8 mg/dL (0.55-1.02) 09/03/23 10:04 Medications needing adjustments: Reviewed (CrCl 88.49 mL/min) List of meds needing interventions: Current medications are okay Anticoagulation Anticoagulation: Hgb 12.3 g/dL (11.2-15.7) 09/03/23 10:04 Hct 38.0 % (36.0-46.0) 09/03/23 10:04 Plt Count 412 10^3/uL (130-400) H 09/03/23 10:04 Creatinine 0.8 mg/dL (0.55-1.02) 09/03/23 10:04 DVT Prophylaxis: Reviewed Medications: Enoxaparin (40mg daily) Opiate Usage Evaluate Pain Scale/Pains Meds: Reviewed (PRN hydromorphone q6h and prior to dressing change, PRN oxycodone) Scheduled Bowel Reg ordered if on Opiates?: No Relevant Labs Relevant Labs: Sodium 141 mmol/L (136-145) 09/03/23 10:04 Potassium 4.1 mmol/L (3.5-5.1) 09/03/23 10:04 Chloride 105 mmol/L (98-107) 09/03/23 10:04 Electrolytes, C-Reactive P, ESR: Reviewed (Labs pending) Cardiac Review BP, HR, EF%: Reviewed (HR WNL, BP 155/90) QTc Review QTc: Reviewed (445 from 07/12/21 - most recent EKG) IV to PO Switch IV Medications: Reviewed (ACETAMINOPHEN, CEFAZOLIN, HYDROMORPHONE, ONDANSETRON) Home Meds Home Med List reviewed: Reviewed Relevent Home Meds Not ordered & why?: hydrocortisone ointment and nitroglycerin (PRN) Auryxia brought in by patient, order put in as patient's own and bottle sent up to floor Current Meds Current Medication Order Review: Reviewed Pharmacy Antibiotic Review Pharmacy Antibiotic Activity: Reviewed, no change Comments: Patient is POD #1 on cefazolin
[2023-09-05 13:22] LABS: HGB 10.9 g/dL (11.2-15.7); MCH 31.2 pg (27.0-33.0); MCHC 32.1 % (32.0-36.0); MCV 97 fL (80-95); MPV 10.2 fL (8.0-11.0); Platelet Count 366 10^3/uL (130-400); RBC 3.49 10^6/uL (3.93-5.22); RDW 14.7 % (11.7-14.6); RDW-SD 51.3 fL; WBC 9.86 10^3/uL (4.4-10.8)
[2023-09-05 14:45] VITALS: BP 115/76; PULSE 63; RESP 18; TEMP 36.5; O2SAT 97
[2023-09-05] MEDS: ceFAZolin 2 GM/50 ML BAG IVPB ×2 (14:58→22:01)
--- NOTE | 2023-09-05 17:10 | W.PM.PROGNOT ---
Date of Service Date of service: 09/05/23 Time of Service: 17:10 Assessment and Plan Assessment and plan (1) Abdominal wound dehiscence: Status: Acute Assessment and plan: Will continue with wet-to-dry dressings through tonight and tomorrow and reassess the wound. I will defer to Dr. Tse regarding delayed primary closure versus negative pressure wound therapy. Subjective Subjective Interval history since last seen: Delaney looks very good today, and her pain seems better controlled than yesterday. She has been up out of bed a little bit. Exam GI Other: Abdomen is soft, and appropriately tender. She is not distended. Wound is clean. Objective Last Vital Signs Temp 97.7 F 09/05/23 14:45 Pulse 63 09/05/23 14:45 Resp 18 09/05/23 14:45 BP 115/76 09/05/23 14:45 Pulse Ox 97 09/05/23 14:45 Laboratory Results - last 24 hr 09/05/23 12:54 WBC 9.86 RBC 3.49 L Hgb 10.9 L Hct 34.0 L MCV 97 H MCH 31.2 MCHC 32.1 RDW 14.7 H Plt Count 366 MPV 10.2 Time Spent with Patient Time Spent with Patient: <25 minutes Time was spent: preparing to see the patient(eg.review tests) and counseling the patient
[2023-09-05] MEDS: Enoxaparin 40 MG/0.4 ML SYR SC (17:46)
[2023-09-05] MEDS: traZODone 100 MG TAB PO (22:00)
[2023-09-05] MEDS: LORazepam 2 MG/ML VIAL 0.5 MG IVP (22:00)
[2023-09-06 00:58] VITALS: BP 89/56; PULSE 61; RESP 17; TEMP 36.4; O2SAT 95
[2023-09-06] MEDS: ACETAMINOPHEN 1,000 MG/100 ML BTL 400 MG IVPB ×4 (03:27→20:24)
[2023-09-06 03:30] VITALS: BP 101/52; PULSE 56; RESP 18; TEMP 37.1; O2SAT 92
[2023-09-06] MEDS: ceFAZolin 2 GM/50 ML BAG IVPB ×3 (05:49→20:23)
[2023-09-06] MEDS: oxyCODONE 5 MG TAB PO ×3 (06:41→15:57)
[2023-09-06 07:41] VITALS: BP 127/67; PULSE 58; RESP 16; TEMP 36.5; O2SAT 96
--- NOTE | 2023-09-06 08:41 | CMPROGNOTE_ITS ---
Date of service: 09/06/23 Time of Service: 08:41 Care Management Progress Note Progress Note Text Progress Note Text: S/O: Delaney was lying in bed watching TV when CM met with her. Her pain is better controlled today, other than during her shower. Delaney appears more upbeat today, she anticipates finding out what the next step is for closure of her abdominal incision this afternoon. Per surgical, closure may require a wound vac. In the meantime, Delaney continues to require inpatient admission for wound care and pain management. CM will continue to follow and support discharge planning considerations. A: 52 year old female admitted to [facility] on 09/02/23 Post op wound evisceration requiring closer. Discharge Plan: Awaiting plan for wound closure, pt may need a wound vac. Anticipate, Delaney will discharge home when medically ready with outpatient follow up with Surgery and PCP. Delaney may need [facility] RN services for wound care. will transport. CM is following. SDOH(Care Management) Screening Will the Patient Participate in the Screening?: Yes Do you worry about having a steady place to live?: no Problems where you live: no known problems In the past 12 months, have you had to go without electric, gas, oil or water in your home?: no Have you or anyone in your house had to go without enough food to eat?: no Has lack of transportation kept you from medical appointments or from doing things needed for daily living?: no Has anyone in your support network made you feel unsafe for any reason?: no
[2023-09-06] MEDS: Omeprazole 20 MG CAPCR 40 MG PO (09:10)
[2023-09-06] MEDS: Lisinopril 20 MG TAB PO (09:10)
[2023-09-06] MEDS: Sertraline 100 MG TAB PO (09:10)
[2023-09-06] MEDS: tiZANidine 4 MG TABLET PO ×2 (09:10→15:56)
[2023-09-06] MEDS: Gabapentin 300 MG CAP PO ×4 (09:10→20:25)
[2023-09-06] MEDS: Allopurinol 100 MG TAB PO (09:10)
[2023-09-06] MEDS: Psyllium PKT 1 EACH PO (09:10)
[2023-09-06] MEDS: HYDROmorphone 2 MG/ML SYR 0.5 MG IVP ×3 (09:11→20:24)
[2023-09-06] MEDS: Normal Saline Flush 10 ML SYR IVP ×5 (09:11→20:25)
[2023-09-06 15:00] VITALS: O2SAT 95
[2023-09-06 15:33] VITALS: BP 104/64; PULSE 61; RESP 16; TEMP 36.3; O2SAT 96
[2023-09-06] MEDS: Enoxaparin 40 MG/0.4 ML SYR SC (17:36)
[2023-09-06 19:57] VITALS: BP 115/74; PULSE 60; RESP 16; TEMP 35.9; O2SAT 97
[2023-09-06] MEDS: traZODone 100 MG TAB PO (20:25)
[2023-09-06] MEDS: LORazepam 0.5 MG TAB PO (20:25)
--- NOTE | 2023-09-06 21:12 | W.PM.PROGNOT ---
Date of Service Date of service: 09/06/23 Time of Service: 21:12 Assessment and Plan Assessment and plan (1) Essential hypertension: Status: Chronic (2) Hyperlipidemia: Status: Chronic Qualifiers: Hyperlipidemia type: mixed hyperlipidemia Qualified Code(s): E78.2 - Mixed hyperlipidemia (3) Overweight (BMI 25.0-29.9): Status: Acute (4) Chronic GERD: Status: Chronic (5) Abdominal wound dehiscence: Status: Acute Assessment and plan: - Tomorrow we will plan on wound washout and exploration. If everything looks healthy then we will plan on tertiary closure. If she does not look like she is a good candidate then we will place a wound VAC. Risks include wound breakdown and need to heal by secondary intent, infection, hernia, and complications from anesthesia. She has no pulmonary reserve and desaturates very quickly, and is also asthmatic. I strongly encouraged her to stop smoking. She does not have good lungs. I think her smoking is a significant factor in nonhealing of the wound. She is very high risk for developing hernia at this point. Hopefully she will be able to go home once she has recovered from surgery. She should not need any further supplies or home care upon discharge. Again I strongly encouraged her to get into a smoking cessation plan (6) Anemia due to blood loss, acute: Status: Acute Assessment and plan: Also of chronic disease. We will give a dose of Venofer. Her last ferritin was down to 59. (7) Asthma: Status: Chronic Qualifiers: Asthma complication type: uncomplicated Asthma persistence: intermittent Asthma severity: mild Qualified Code(s): J45.20 - Mild intermittent asthma, uncomplicated (8) Chronic obstructive lung disease: Status: Chronic (9) Smoker: Status: Chronic Subjective Subjective Interval history since last seen: Pt is doing well. no headaches. No CP or SOB. no productive cough. no dysuria. no leg pain or swelling. Patient is frustrated by her setback. She is worried about going home and trying to understand what she did wrong I assured her that she did nothing wrong. I did encourage her to stop smoking. We discussed incision care at home and warning signs. Her bowels have been doing better. She is doing 2 fiber caps in the morning and 2 in the PM and she is having 1-2 stools a day. She does have good control. She is not having any diarrhea from the antibiotics. Exam Narrative Exam Narrative: PHYSICAL EXAM GENERAL APPEARANCE: Alert, healthy appearance, oriented, x 3,? in no acute distress HYDRATION: Well hydrated HEAD, EYES, EARS, NECK, THROAT: Head is normocephalic, pupils equal, round, reactive to light and accommodation, ocular movement intact, sclera clear and no jaundice. ?Dentition intact. LUNGS: normal respiration/normal chest excursion. ?Clear to auscultation bilaterally. ?No wheeze. ?HEART: Regular rate and rhythm. no murmurs EXTREMITY: No edema or cyanosis.? no leg pain, redness, swelling.? ABDOMEN: Periwound tissue shows no redness or drainage. The wound shows good granulation tissue with the fascia healthy and intact. Objective Last Vital Signs Temp 35.9 C L 09/06/23 19:57 Pulse 60 09/06/23 19:57 Resp 16 09/06/23 19:57 BP 115/74 09/06/23 19:57 Pulse Ox 97 09/06/23 19:57 Time Spent with Patient Time Spent with Patient: 25-34 minutes Time was spent: preparing to see the patient(eg.review tests), obtaining and/or reviewing separately otained hiistory, ordering medications,tests, procedures, referring, communicating with other health care transitions nurse, indepentently interpreting results, counseling the patient and care coordination
[2023-09-06] MEDS: IRON SUCROSE COMPLEX 200 MG in Normal Saline 100 ML 400 MG IVPB (22:05)
[2023-09-07] VITALS (24 sets, daily range): BP systolic 93–153; BP diastolic 42–79; PULSE 56–82; RESP 10–18; TEMP 36.4–36.5; O2SAT 89–96; BMI 31.1
[2023-09-07] MEDS: HYDROmorphone 2 MG/ML SYR 0.5 MG IVP ×2 (03:25→10:08)
[2023-09-07] MEDS: ACETAMINOPHEN 1,000 MG/100 ML BTL 400 MG IVPB ×2 (03:25→08:31)
[2023-09-07] MEDS: oxyCODONE 5 MG TAB PO (05:03)
[2023-09-07] MEDS: ceFAZolin 2 GM/50 ML BAG IVPB ×2 (05:03→14:20)
[2023-09-07] MEDS: Allopurinol 100 MG TAB PO (08:29)
[2023-09-07] MEDS: Gabapentin 300 MG CAP PO ×2 (08:29→14:19)
[2023-09-07] MEDS: Sertraline 100 MG TAB PO (08:30)
[2023-09-07] MEDS: Lisinopril 20 MG TAB PO (08:30)
[2023-09-07] MEDS: Normal Saline Flush 10 ML SYR IVP ×2 (08:31→10:09)
--- NOTE | 2023-09-07 08:32 | CMPROGNOTE_ITS ---
Date of service: 09/07/23 Time of Service: 08:32 Care Management Progress Note Progress Note Text Progress Note Text: S/O: Delaney was ambulating in the hallway when CM met with her. She is planning on going down to the OR later today for a washout and exploration, which may require a wound vac. Delaney appears upbeat again today and is she would like to discharge home after surgery, if able. CM will continue to follow and support discharge planning considerations. A: 52 year old female admitted to [facility] on 09/02/23 Post op wound evisceration requiring closer. Discharge Potential Discharge Needs: PCP F/U Appt and Surgical F/U Appt Patient/Family Education Needs: Review discharge instructions, discuss Ask Me Three Transportation: Private vehicle Plan: Surgical intervention in the OR today. Awaiting plan for wound closure, pt may need a wound vac. Anticipate, Delaney will discharge home when medically ready w ith outpatient follow up with Surgery and PCP. Delaney may need [facility] RN services for wound care. will transport. CM is following. SDOH(Care Management) Screening Will the Patient Participate in the Screening?: Yes Do you worry about having a steady place to live?: no Problems where you live: no known problems In the past 12 months, have you had to go without electric, gas, oil or water in your home?: no Have you or anyone in your house had to go without enough food to eat?: no Has lack of transportation kept you from medical appointments or from doing things needed for daily living?: no Has anyone in your support network made you feel unsafe for any reason?: no
[2023-09-07] MEDS: Psyllium PKT 1 EACH PO (08:38)
--- NOTE | 2023-09-07 10:28 | ANES.PREOP_ITS ---
General Info Date of Service Date Performed: 09/07/23 Height: 5 ft 5 in Weight: 85 kg Body Mass Index (BMI): 31.1 Surgical Procedure: Operation Date: 09/03/23 10:40 Proposed Procedure Side Surgeon p Exploratory Laparotomy Pierre Santiago MD Actual Procedure Side Surgeon p Re-opening of Recent Laparotomy w/Wound Closure for Evisceration Not Applicable Pierre Santiago MD Pre-Op Diagnosis Post-Op Diagnosis Abdominal wound dehiscence Abdominal wound dehiscence Operation Date: 09/07/23 11:40 Proposed Procedure Side Surgeon p Wound Closure/Washout Pierre Santiago MD Meds Allergies and Home Medications Allergies Allergy/AdvReac Type Severity Reaction Status Date / Time doxycycline Allergy Intermediate hives Verified 09/03/23 09:52 Tetracyclines Allergy Intermediate hives Verified 09/03/23 09:52 adhesive Allergy Unknown skin rash Verified 09/03/23 09:52 nortriptyline AdvReac Mild hyperactivi Verified 09/03/23 09:52 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 Allergy Severe severe Uncoded 09/03/23 09:52 skin rash with blisters Home Medication Medication Instructions Recorded omeprazole 40 mg capsule,delayed 40 mg PO DAILY #90 caps 09/05/18 release acetaminophen 500 mg tablet 500 mg PO Q6H PRN pain #60 tabs 06/19/22 sertraline 100 mg tablet 100 mg PO DAILY anxiety #90 tabs 08/25/22 albuterol sulfate 90 mcg/actuation 2 puff inhalation Q6H PRN 03/20/23 aerosol inhaler shortness of breath or wheezing #24 grams allopurinol 100 mg tablet 100 mg PO DAILY stone prevention 05/08/23 #90 tabs lisinopril 20 mg tablet 20 mg PO DAILY #90 tabs 06/05/23 nitroglycerin 0.4 mg sublingual 0.4 mg sublingual Q5-15M PRN chest 06/05/23 tablet pain #30 tabs tizanidine 4 mg tablet See Rx Instructions .Route 07/30/23 .COMPLEX #30 tabs ferric citrate 210 mg iron tablet 210 mg PO BID #60 tabs 08/23/23 (Auryxia) gabapentin 300 mg capsule 300 mg PO QHS #90 caps 08/23/23 hydrocortisone 2.5 % topical 1 applic topical BID #20 grams 08/23/23 ointment psyllium husk-calcium 1 gram-60 mg 2 - 4 cap PO DAILY #120 caps 08/23/23 capsule (Metamucil Plus Calcium) trazodone 100 mg tablet 100 mg PO QHS PRN sleep #30 tabs 08/23/23 hydrocodone 5 mg-acetaminophen 325 1 tab PO BID PRN pain #60 tabs 08/25/23 mg tablet Current Visit Medications: Current Medications Generic Name Dose Route Start Last Admin Trade Name Freq PRN Reason Stop Dose Admin Albuterol Sulfate 2 puff 09/03/23 14:07 Albuterol Hfa 8 Gm 60 Puff Inh IH Q6H PRN PRN shortness of breath or wheezing Allopurinol 100 mg 09/04/23 08:30 09/07/23 08:29 Allopurinol 100 Mg Tab PO 10/04/23 08:29 100 mg DAILY ZAYRA Administration Device 1 each 09/03/23 14:07 Inhaler, Assist Device MC 10/03/23 12:59 DIRECTED ZAYRA Enoxaparin Sodium 40 mg 09/03/23 16:00 09/06/23 17:36 Enoxaparin 40 Mg/0.4 Ml Syr SC 10/03/23 15:59 40 mg Q24H ZAYRA Administration Gabapentin 300 mg 09/03/23 20:00 09/06/23 20:25 Gabapentin 300 Mg Cap PO 300 mg HS ZAYRA Administration Gabapentin 300 mg 09/04/23 14:00 09/07/23 08:29 Gabapentin 300 Mg Cap PO 300 mg TID ZAYRA Administration Hydromorphone HCl 0.5 mg 09/03/23 14:07 09/07/23 10:08 Hydromorphone 2 Mg/Ml Syr IVP 10/03/23 12:40 0.5 mg Q6H PRN PRN Administration Hydromorphone HCl 0.5 mg 09/04/23 16:07 09/06/23 10:31 Hydromorphone 2 Mg/Ml Syr IVP 0.5 mg DIRECTED PRN Administration Acetaminophen 1,000 mg in 100 mls @ 400 mls/hr 09/04/23 16:00 09/07/23 08:51 Ofirmev IVPB Infused Q6H ZAYRA Infusion Cefazolin Sodium/Dextrose 2 gm in 50 mls @ 100 mls/hr 09/05/23 14:00 09/07/23 07:27 Ancef Duplex IVPB Infused Q8H ZAYRA Infusion IV Miscellaneous Supplies 1 each 09/03/23 14:07 Iv Access IV 10/03/23 12:44 DIRECTED ZAYRA Lisinopril 20 mg 09/04/23 08:30 09/07/23 08:30 Lisinopril 20 Mg Tab PO 10/04/23 08:29 20 mg DAILY ZAYAR Administration Lorazepam 0.5 mg 09/04/23 16:05 09/06/23 20:25 Lorazepam 0.5 Mg Tab PO 0.5 mg QID PRN PRN Administration Nicotine 2 mg 09/04/23 07:48 Nicotine 2 Mg Lozg SUC Q2H PRN PRN Omeprazole 40 mg 09/04/23 07:30 09/07/23 07:36 Omeprazole 20 Mg Capcr PO Not Given DAILY@0730 ZAYRA Ondansetron HCl 4 mg 09/03/23 14:07 09/04/23 21:27 Ondansetron 4 Mg/2 Ml Vial IVP 10/03/23 12:40 4 mg Q4H PRN PRN Administration Oxycodone HCl 5 mg 09/04/23 13:29 09/07/23 05:03 Oxycodone 5 Mg Tab PO 5 mg Q3H PRN PRN Administration Patient's Own 1 each 09/04/23 08:00 09/07/23 07:29 Medication (Auryxia PO Not Given [Ferric Citrate] 210 DAILY@0800,1700 ZAYRA Mg Tablet) Psyllium Hydrophilic Mucilloid 1 each 09/04/23 08:30 09/07/23 08:38 Psyllium Pkt PO 1 each DAILY ZAYRA Administration Sertraline HCl 100 mg 09/04/23 08:30 09/07/23 08:30 Sertraline 100 Mg Tab PO 10/04/23 08:29 100 mg DAILY ZAYRA Administration Sodium Chloride 0 ml 09/03/23 14:07 09/07/23 10:09 Normal Saline Flush 10 Ml Syr IVP 10/03/23 12:40 10 ml PRN PRN Administration Sodium Chloride 0 ml 09/03/23 20:00 09/07/23 08:31 Normal Saline Flush 10 Ml Syr IVP 10/03/23 19:59 10 ml BID ZAYRA Administration Sodium Chloride 0 ml 09/03/23 14:07 Normal Saline 10 Ml Vial IJ 10/03/23 12:40 DIRECTED PRN Tizanidine HCl 4 mg 09/04/23 13:37 09/06/23 15:56 Tizanidine 4 Mg Tablet PO 4 mg Q6H PRN PRN Administration Trazodone HCl 100 mg 09/03/23 14:07 09/06/23 20:25 Trazodone 100 Mg Tab PO 100 mg HS PRN PRN Administration sleep PFSH Active Problems Active Problems: Problem Status Onset Code Abdominal wound dehiscence T81.30XA Wound drainage T14.8XXA Anemia due to blood loss, acute D62 Villous adenoma of rectum D37.5 Painful total knee replacement, right T84.84XA, Z96.651 Asthma 11/20/12 J45.909 Chronic low back pain 11/20/12 M54.5, G89.29 Chronic obstructive lung disease 08/01/12 J44.9 Essential hypertension 05/25/16 I10 Urinary, incontinence, stress female N39.3 Hyperlipidemia 04/18/12 E78.5 Smoker 11/20/12 F17.200 Chronic GERD 11/20/12 K21.9 Tendinitis of left rotator cuff M75.82 Mammography less than 12 months ago Z78.9 Chronic pain syndrome G89.4 Overweight (BMI 25.0-29.9) E66.3 Anxiety F41.9 Right knee pain M25.561 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, Z96.659 Achilles tendinitis of right lower extremity M76.61 Medical History Medical History Migraine headache Gout Bilateral kidney stones Plantar wart Uric acid renal calculus Hypertension COPD (chronic obstructive pulmonary disease) Hoarseness of voice secondary to reflux Medical History Comments:: smoked 1 cigarette this am Surgical History Surgical History History of hemicolectomy (~08/2023) History of colonoscopy (~07/2023) History of total right knee replacement (TKR) (01/15/12) History of cystoscopy Cysto/laser/retorgrade History of salpingo-oophorectomy (06/06/17) Ligation of fallopian tube Replacement of total knee joint (01/15/12) right Open Carpal Tunnel release RIGHT Oophrectomy, Left (06/06/17) L oophorectomy. Bilateral salpingectomy. Benign indications. Yosi Fundoplication (~2002) Manipulation, Under Anesthesia (03/13/12) right TKA GASTROPEXY Endoscopy (~2004) NEG Tobacco Smoking/Tobacco Use Status: Current every day Tobacco Type: cigarettes Smoking packs per day: 1 Smoking cigarettes per day: 20.0 Years smoked: 30 Smoking pack- years: 30.00 Passive smoking exposure: Yes Second hand exposure: Yes Alcohol Alcohol Intake: never Substance Use Substance use: Never Substance use type: does not use Vital Signs and Lab Results Vital Signs Most Recent Vital Signs in EMR: Most Recent Vital Signs Temp Pulse Resp BP Pulse Ox 36.4 C L 62 18 153/73 H 96 09/07/23 07:20 09/07/23 07:20 09/07/23 07:20 09/07/23 07:20 09/07/23 07:20 Lab Results 09/05/23 12:54 09/03/23 10:04 Blood Type / Crossmatch: 2 No Data to Display Complete Blood Count: 2 White Blood Count 9.86 10^3/uL (4.4-10.8) 09/05/23 12:54 Red Blood Count 3.49 10^6/uL (3.93-5.22) L 09/05/23 12:54 Hemoglobin 10.9 g/dL (11.2-15.7) L 09/05/23 12:54 Hematocrit 34.0 % (36.0-46.0) L 09/05/23 12:54 Platelet Count 366 10^3/uL (130-400) 09/05/23 12:54 Complete Metabolic Panel: 2 Sodium 141 mmol/L (136-145) 09/03/23 10:04 Potassium 4.1 mmol/L (3.5-5.1) 09/03/23 10:04 Chloride 105 mmol/L (98-107) 09/03/23 10:04 Carbon Dioxide 26.7 mmol/L (21.0-32.0) 09/03/23 10:04 BUN 7 mg/dL (7-18) 09/03/23 10:04 Creatinine 0.8 mg/dL (0.55-1.02) 09/03/23 10:04 Est GFR (CKD-EPI 2020) 88.60 (mL/min/1.73m2) 09/03/23 10:04 Magnesium 1.8 mg/dL (1.8-2.4) 08/15/23 06:23 Calcium 9.0 mg/dL (8.5-10.1) 09/03/23 10:04 Albumin 3.4 g/dL (3.4-5.0) 09/03/23 10:04 Glucose 120 mg/dL (74-106) H 09/03/23 10:04 Liver Function Panel: 2 Alanine Aminotransferase (ALT/SGPT) 24 U/L (14-59) 09/03/23 10: 04 Aspartate Amino Transf (AST/SGOT) 22 U/L (15-37) 09/03/23 10:04 Coagulation Panel: 2 No Data to Display Cardiac Panel: 2 No Data to Display Arterial Blood Gas: 2 No Data to Display Venous Blood Gas: 2 No Data to Display Pancreas Panel: 2 No Data to Display Thyroid Panel: 2 No Data to Display Infectious Disease: 2 No Data to Display Blood Cultures: 2 No Data to Display Toxicology Panel: 2 No Data to Display Panel: 2 No Data to Display Imaging and Studies Imaging and Studies Study information below may be from another EMR and interpreted by another provider. Please see original notes in EMR for more complete details. EKG Summary: Conclusion Sinus rhythm...normal P axis, V-rate 60- 99 07/12/21 Stress Test Summary: Stress ECG Conclusion 1. The resting electrocardiogram showed minor inferolateral ST-T abnormalities 2. Patient exercised on the Cristóbal protocol and completed a workload of 10.06 METS, stopping due to fatigue 3. Normal heart rate and blood pressure response to exercise. Patient achieved 85% of predicted heart rate for age 4. There was no electrocardiographic evidence of myocardial ischemia 5. There were no significant dysrhythmias Real Treadmill Score is 7.6 which is Low risk. 07/14/21 Anesthesia Assessment and Plan Anesthesia History Personal History: No History of Anesthesia Complications Family History: No Family History of Anesthesia Complications Exercise Tolerance Exercise Tolerance: Metabolic Equivalents>4 Cardiac & Pulmonary Exam Cardiac Exam: Normal S1/S2 Heart Sounds Pulmonary Exam: Clear Bilateral Breath Sounds Implantable Cardiac Device Does patient have a Pacemaker or an ICD?: No Airway Exam Known Difficult Airway: No Mallampati Class: 2 Mouth Opening: Normal (> 3cm) Thyromental Distance: Greater than 3 cm Neck Range of Motion: Full ROM Neck Circumference: Normal Teeth Condition: Generalized Poor Dentition Airway Comments: Missing teeth- one tooth on upper left. Missing lower molars ASA Classification ASA Score: ASA 2 Emergency Case?: No NPO Status NPO Status: NPO Clears >2 hours, Solids >8 hours Status Status: Not Relevant due to Medical History Anesthesia Plan Resuscitation Status: Full Code Anesthesia Technique: General Anesthesia Airway Planned: Natural Airway Monitors Used: Standard Monitors
--- NOTE | 2023-09-07 12:03 | W.PM.PROGNOT ---
Date of Service Date of service: 09/07/23 Time of Service: 12:03 Assessment and Plan Assessment and plan (1) Abdominal wound dehiscence: Status: Acute Assessment and plan: We reviewed the plan for washout of the wound, and potential closure. I think she has a good understanding of the nature of the operation. We talked about the risks, and the possibility of future wound complications. I think she understands all of this, she is eager to proceed. Subjective Subjective Interval history since last seen: Delaney feels good, and she is quite eager to have the wound closed, and hopefully discharged home. Exam GI Other: Abdomen is soft and nondistended. She is not tender. Objective Last Vital Signs Temp 97.5 F L 09/07/23 07:20 Pulse 62 09/07/23 07:20 Resp 18 09/07/23 07:20 BP 153/73 H 09/07/23 07:20 Pulse Ox 96 09/07/23 07:20 Time Spent with Patient Time Spent with Patient: 25-34 minutes Time was spent: preparing to see the patient(eg.review tests) and counseling the patient
[2023-09-07] MEDS: Lactated Ringers 1,000 ML 50 ML IV (12:04)
[2023-09-07] MEDS: Bupivacaine LIPOSOME/PF 133 MG/10 ML VIAL IJ (12:23)
[2023-09-07] MEDS: Bupivacaine 0.25% Pres-Free W/EPI 30 ML VIAL (12:24)
--- NOTE | 2023-09-07 12:48 | W.PM.OP ---
Date of service: 09/07/23 Time of Service: 12:48 Operative Note Operative Note DATE OF PROCEDURE: 09/03/23 PRE-OP DIAGNOSIS: Surgical wound dehiscence POST-OP DIAGNOSIS: same PROCEDURE: Washout and delayed primary closure of previous abdominal surgical wound SURGEON: Pierre Santiago ANESTHESIA TYPE: Local By Surgeon and General LMA/ETT Refer to Anesthesia Record ESTIMATED BLOOD LOSS: 25 PATHOLOGY: none sent Patient was transported to: PACU Patient's condition: stable Implants: Washout delayed primary closure of previous abdominal surgical wound Indications: Delaney is 52 years old. She previously underwent laparoscopic right hemicolectomy. Unfortunately, during the postoperative course, she dehisced her fascial incision and eviscerated some peritoneal contents. She was brought to the operating room and washed out. Fascia was reapproximated. She has been treated with wet-to-dry dressing changes, and the wound appears clean, with no evidence of infections Findings: 12 cm x 4 cm x 4 cm surgical wound with healthy granulation tissue Procedure Description: Delaney was brought to the operating room, and general anesthesia was induced by way of a natural airway. Next, I prepped and draped the anterior abdominal wall after removing all of the previous abdominal dressings. The wound was clean, and there was no sign of infection. There is granulation tissue covering approximately 85% of the bed of the wound. Fascia is all intact and closed nicely. Next, I established a generous field block using local anesthetic with Exparel. Next, I irrigated the wound. Some simple mechanical debridement was performed with a Ray-Brenda sponge. Tissue is healthy, with appropriate bleeding. The deep layer was closed with interrupted 2-0 Vicryl stitches, and the skin was reapproximated with interrupted 3-0 Vicryl suture. Skin was closed with surgical stapler. A ni negative pressure wound dressing was applied according to the machine fancy stitcher's instructions, the patient was allowed awaken from anesthetic and transferred to the recovery unit.
[2023-09-07] MEDS: fentaNYL 100 MCG/2 ML VIAL IVP ×2 (13:03→13:17)
--- NOTE | 2023-09-07 14:27 | W.ANESPOSTOP ---
Postoperative Evaluation Date, Time and Location Date Performed: 09/07/23 Time Performed: 13:15 Patient Location: PACU Vital Signs Most Recent Imported Vital Signs: Most Recent Vital Signs Temp Pulse Resp BP Pulse Ox 36.4 C L 62 15 129/56 L 95 09/07/23 13:30 09/07/23 13:25 09/07/23 13:26 09/07/23 13:25 09/07/23 13:26 Most Recent Vital Signs Temp Pulse Resp BP Pulse Ox 36.8 C 80 17 104/72 94 09/03/23 14:04 09/03/23 14:04 09/03/23 14:04 09/03/23 14:04 09/03/23 14:04 Pain Score Most Recent Pain Score: Most Recent Pain Score Pain Level [Abdomen] 4 09/07/23 10:34 Pain Level 1 09/07/23 13:30 Assessment Mental Status: Awake (Alert & Oriented to Patient Baseline) Airway and Respiratory Function: Patent airway with normal (patient baseline) respiratory exam Cardiovascular Function: Hemodynamically Stable Hydration Status: Adequately Hydrated Nausea & Vomiting: No Nausea or Vomiting Pain: Pain is tolerable per patient Peripheral Nerve Block: Patient did not receive a nerve block
--- NOTE | 2023-09-07 14:38 | DSE_ITS ---
Date of service: 09/07/23 Time of Service: 14:38 DS: Diagnosis Discharge Diagnosis (1) Abdominal wound dehiscence: Status: Acute Discharge Plan Disposition Patient Disposition: Home Condition: Stable Condition: Good Discharge Details Reason For Visit: abd prob Admit Date/Time: 09/05/23 12:42 Admit Provider: Pierre Santiago Attending Provider: Pierre Santiago Primary Care Provider: Laureano Benoit Hospital Course Hospital Course: see addendum Home Meds and New Rx's Prescriptions: No Action allopurinol 100 mg tablet 100 mg PO DAILY Qty: 90 4RF Auryxia 210 mg iron tablet 210 mg PO BID Qty: 60 6RF Rx Instructions: administer with a meal gabapentin 300 mg capsule 300 mg PO QHS Qty: 90 12RF Rx Instructions: 300 mg qam and 600 mg qpm trazodone 100 mg tablet 100 mg PO QHS PRN (Reason: sleep) Qty: 30 12RF Metamucil Plus Calcium 1-60 gram-mg capsule 2 - 4 cap PO DAILY Qty: 120 12RF Rx Instructions: administer with large glass of water hydrocortisone 2.5 % ointment 1 applic topical BID Qty: 20 2RF Rx Instructions: apply to affected area L flank for 7 days acetaminophen 500 mg tablet 500 mg PO Q6H PRN (Reason: pain) Qty: 60 2RF sertraline 100 mg tablet 100 mg PO DAILY Qty: 90 3RF omeprazole 40 mg capsule,delayed release(DR/EC) 40 mg PO DAILY Qty: 90 3RF albuterol sulfate 90 mcg/actuation HFA aerosol inhaler 2 puff IH Q6H PRN (Reason: shortness of breath or wheezing) Qty: 24 2RF lisinopril 20 mg tablet 20 mg PO DAILY Qty: 90 3RF nitroglycerin 0.4 mg tablet, sublingual 0.4 mg sublingual Q5-15M PRN (Reason: chest pain) Qty: 30 0RF Patient Comments: only taken once in the ER here at [facility] per pt Rx Instructions: do not exceed 3 doses per episode tizanidine 4 mg tablet See Rx Instructions .ROUTE .COMPLEX Qty: 30 3RF Dose Instruction: TAKE ONE TABLET BY MOUTH EVERY DAY AT BEDTIME Rx Instructions: TAKE ONE TABLET BY MOUTH EVERY DAY AT BEDTIME hydrocodone-acetaminophen 5-325 mg tablet 1 tab PO BID MDD 2 tab PRN (Reason: pain) Qty: 60 0RF Discharge Instructions Additional Instructions: Keep an ice bag on the incision. 20 minutes on and 20 minutes off. Ice keeps the swelling down and swelling causes pain. Make sure you wrap the ice pack in a towel and don't apply directly to the skin. -No driving for 5 days or of you are taking narcotic pain medications. -We will change the JAYDA at your clinic appointment. [facility] Surgery Clinic: [phone] 09/12 @ 3pm -Leave PICOS in place. -wear abdominal binder continuously -Follow-up with Dr. Tse in 1 week. -Controlled carb diet -Metamucil capsules- 2 in am and 2 in pm -It is ok to shower. No bathe, soaking, swimming or hot tubs -Protein supplements daily. You may find that your appetite is smaller. Eat 3-6 small meals throughout the day. It is important to drink lots of water after surgery, 6-10 glasses a day. -If you were given an incentive spirometry (breathing watch crystal grinder?), continue to do this 10x/hour while awake. -We do want you up walking, at least 5-6 times per day. This is very important to prevent pneumonia and blood clots. You can climb stairs, take them slowly. -No lifting over 5 pounds. This is very important to avoid developing a hernia in your incision. -You may find that you are very tired after surgery- this is normal. -please do not smoke for a minimum of 72 hours after surgery. Now is a great time to quit smoking Activity:: see above Equipment/Supplies:: No Equipment Needed Diet:: Carb Counting DS: Summary Quality:SDOH Health Related Social Needs: No Data to Display DS: Data Vitals/I&O Vitals and I&O: Vital Signs Temperature 36.4 C L 09/07/23 13:30 Temperature Source Tympanic 09/07/23 07:20 Pulse 62 09/07/23 13:25 Pulse Rhythm Regular 09/07/23 09:29 Pulse 66 09/07/23 13:26 Respiratory Rate 15 09/07/23 13:26 Respiratory Effort Normal, Non-Labored 09/07/23 09:29 Respiratory Depth Normal 09/07/23 09:29 Respiratory Pattern Normal 09/07/23 09:29 Blood Pressure 129/56 L 09/07/23 13:25 Blood Pressure Mean 80 09/07/23 13:25 Blood Pressure Position Sitting 09/03/23 10:08 Pulse Oximetry 95 09/07/23 13:26 Respiratory End-tidal CO2 36 09/07/23 13:26 Oxygen Delivery Method Room Air 09/07/23 13:30 Oxygen Flow Rate 2 09/07/23 13:00 Pain Level 1 09/07/23 13:30 Comment manual 98/60 09/03/23 16:00 Intake & Output 09/06/23 09/07/23 09/07/23 23:59 11:59 23:59 Intake Total 1620 / 1970 260 / 880 620 / 880 Output Total 400 / 1500 900 / 905 5 / 905 Balance 1220 / 470 -640 / -25 615 / -25 Weight 85 kg Intake: IV 420 / 670 260 / 660 400 / 660 Oral 1200 / 1300 220 / 220 Output: Urine 400 / 1500 900 / 900 Estimated Blood Loss 5 / 5 Other: Urine Color Pale Yellow Urine Appearance Clear Clear Urine Odor Normal Comment patiebt weas up to the bathroom pt states she went to the bathroom a little bit ago Stool Size Moderate Stool Characteristics Soft Formed Black Emesis Description None Voiding Methods Toilet Toilet Data Completed and Pending Labs on day of discharge: 09/06/23 11:30 Abdomen Anaerobic Culture - Pending Preliminary micro results at discharge 09/06/23 11:30 Wound Culture - Preliminary Abdomen 09/06/23 11:30 Anaerobic Culture - Pending Abdomen PFSH All Active Problems Abdominal wound dehiscence (Acute) Wound drainage (Acute) Anemia due to blood loss, acute (Acute) Villous adenoma of rectum (Acute) Painful total knee replacement, right (Acute) Asthma (Chronic 11/20/12) Chronic low back pain (Chronic 11/20/12) Chronic obstructive lung disease (Chronic 08/01/12) Essential hypertension (Chronic 05/25/16) Urinary, incontinence, stress female (Chronic) Hyperlipidemia (Chronic 04/18/12) Smoker (Chronic 11/20/12) Chronic GERD (Chronic 11/20/12) CHRONIC HOARSENESS SECONDARY TO GERD Tendinitis of left rotator cuff (Chronic) Mammography less than 12 months ago (Chronic) Right breast microcyst Chronic pain syndrome (Chronic) Overweight (BMI 25.0-29.9) (Acute) Anxiety (Chronic) Right knee pain (Acute) 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 - 05/09/22 Achilles tendinitis of right lower extremity (Acute) Medical History Migraine headache Gout Bilateral kidney stones Plantar wart Uric acid renal calculus Hypertension COPD (chronic obstructive pulmonary disease) Hoarseness of voice secondary to reflux Surgical History History of hemicolectomy (~08/2023) History of colonoscopy (~07/2023) History of total right knee replacement (TKR) (01/15/12) History of cystoscopy Cysto/laser/retorgrade History of salpingo-oophorectomy (06/06/17) Ligation of fallopian tube Replacement of total knee joint (01/15/12) right Open Carpal Tunnel release RIGHT Oophrectomy, Left (06/06/17) L oophorectomy. Bilateral salpingectomy. Benign indications. Yosi Fundoplication (~2002) Manipulation, Under Anesthesia (03/13/12) right TKA GASTROPEXY Endoscopy (~2004) NEG Family History Mother Essential hypertension Hyperlipidemia Father Diabetes Essential hypertension Heart disease Hyperlipidemia Stroke Asthma Sister Essential hypertension Sister Essential hypertension Brother No problems noted. 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 Pets and animals: cat(s) and dog(s) Sexually active: No Do you think of yourself as: straight/heterosexual Current gender identity: female What is your relationship status?: How often do you talk on the phone with friends or family?: three or more times per week How often do you get together with friends or relatives?: twice per week How often do you attend jain or faith services?: decline to answer Do you belong to any clubs or organized social groups?: no Panel score (0-1 are the most socially isolated patients): 2 What type of physical activity do you participate in: walking Duration: 45-60 minutes/day Frequency: 3-4 times per week Dottie/Hinduism: None Special dottie needs: No Seatbelt use: always Drive 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
--- NOTE | 2023-09-07 15:35 | DSE_ITS ---
Date of service: 09/07/23 Time of Service: 15:36 DS: Diagnosis Discharge Diagnosis (1) Abdominal wound dehiscence: Status: Acute Discharge Plan Disposition Patient Disposition: Home Condition: Good Discharge Details Reason For Visit: abd prob Admit Date/Time: 09/05/23 12:42 Admit Provider: Pierre Santiago Attending Provider: Pierre Santiago Primary Care Provider: Laureano Benoit Hospital Course Hospital Course: see addendum Home Meds and New Rx's Prescriptions: New hydromorphone [Dilaudid] 2 mg tablet 2 mg PO Q6H PRNQty: 12 0RF Rx Instructions: take one tablet by mouth up to every 6 hours if needed for more severe pain. Continued allopurinol 100 mg tablet 100 mg PO DAILY Qty: 90 4RF Auryxia 210 mg iron tablet 210 mg PO BID Qty: 60 6RF Rx Instructions: administer with a meal gabapentin 300 mg capsule 300 mg PO QHS Qty: 90 12RF Rx Instructions: 300 mg qam and 600 mg qpm trazodone 100 mg tablet 100 mg PO QHS PRN (Reason: sleep) Qty: 30 12RF Metamucil Plus Calcium 1-60 gram-mg capsule 2 - 4 cap PO DAILY Qty: 120 12RF Rx Instructions: administer with large glass of water hydrocortisone 2.5 % ointment 1 applic topical BID Qty: 20 2RF Rx Instructions: apply to affected area L flank for 7 days acetaminophen 500 mg tablet 500 mg PO Q6H PRN (Reason: pain) Qty: 60 2RF sertraline 100 mg tablet 100 mg PO DAILY Qty: 90 3RF omeprazole 40 mg capsule,delayed release(DR/EC) 40 mg PO DAILY Qty: 90 3RF albuterol sulfate 90 mcg/actuation HFA aerosol inhaler 2 puff IH Q6H PRN (Reason: shortness of breath or wheezing) Qty: 24 2RF lisinopril 20 mg tablet 20 mg PO DAILY Qty: 90 3RF nitroglycerin 0.4 mg tablet, sublingual 0.4 mg sublingual Q5-15M PRN (Reason: chest pain) Qty: 30 0RF Patient Comments: only taken once in the ER here at [facility] per pt Rx Instructions: do not exceed 3 doses per episode tizanidine 4 mg tablet See Rx Instructions .ROUTE .COMPLEX Qty: 30 3RF Dose Instruction: TAKE ONE TABLET BY MOUTH EVERY DAY AT BEDTIME Rx Instructions: TAKE ONE TABLET BY MOUTH EVERY DAY AT BEDTIME Discontinued hydrocodone-acetaminophen 5-325 mg tablet 1 tab PO BID MDD 2 tab PRN (Reason: pain) Qty: 60 0RF Discharge Instructions Additional Instructions: Keep an ice bag on the incision. 20 minutes on and 20 minutes off. Ice keeps the swelling down and swelling causes pain. Make sure you wrap the ice pack in a towel and don't apply directly to the skin. -No driving for 5 days or of you are taking narcotic pain medications. -We will change the JAYDA at your clinic appointment. [facility] Surgery Clinic: [phone] 09/12 @ 3pm -Leave PICOS in place. -wear abdominal binder continuously -Follow-up with Dr. Tse in 1 week. -Controlled carb diet -Metamucil capsules- 2 in am and 2 in pm -It is ok to shower. No bathe, soaking, swimming or hot tubs -Protein supplements daily. You may find that your appetite is smaller. Eat 3-6 small meals throughout the day. It is important to drink lots of water after surgery, 6-10 glasses a day. -If you were given an incentive spirometry (breathing automotive welder?), continue to do this 10x/hour while awake. -We do want you up walking, at least 5-6 times per day. This is very important to prevent pneumonia and blood clots. You can climb stairs, take them slowly. -No lifting over 5 pounds. This is very important to avoid developing a hernia in your incision. -You may find that you are very tired after surgery- this is normal. -please do not smoke for a minimum of 72 hours after surgery. Now is a great time to quit smoking Activity:: see above Equipment/Supplies:: No Equipment Needed Diet:: Carb Counting DS: Summary Time Spent with Patient providing and/or coordinating discharge services: Less than 30 minutes Status at Discharge Functional status at discharge: independent ambulation Overall status at discharge: patient is progressing back to baseline Mental Status: mental status grossly normal Speech and Movement: speech and movement normal Mood: congruent mood Affect: normal affect Quality:SDOH Health Related Social Needs: No Data to Display Exam Psych Mental Status: mental status grossly normal Speech and Movement: speech and movement normal Mood: congruent mood Affect: normal affect DS: Data Vitals/I&O Vitals and I&O: Vital Signs Temperature 97.7 F 09/07/23 15:26 Temperature Source Tympanic 09/07/23 15:26 Pulse 82 09/07/23 15:26 Pulse Rhythm Regular 09/07/23 09:29 Pulse 66 09/07/23 13:26 Respiratory Rate 17 09/07/23 15:26 Respiratory Effort Normal, Non-Labored 09/07/23 09:29 Respiratory Depth Normal 09/07/23 09:29 Respiratory Pattern Normal 09/07/23 09:29 Blood Pressure 119/79 09/07/23 15:26 Blood Pressure Mean 80 09/07/23 13:25 Blood Pressure Position Sitting 09/03/23 10:08 Pulse Oximetry 95 09/07/23 15:26 Respiratory End-tidal CO2 36 09/07/23 13:26 Oxygen Delivery Method Room Air 09/07/23 15:26 Oxygen Flow Rate 0 09/07/23 15:26 Pain Level 6 09/07/23 15:26 Comment manual 98/60 09/03/23 16:00 Intake & Output 09/06/23 09/07/23 09/07/23 23:59 11:59 23:59 Intake Total 1620 / 1970 260 / 880 620 / 880 Output Total 400 / 1500 900 / 905 5 / 905 Balance 1220 / 470 -640 / -25 615 / -25 Weight 187 lb 6.287 oz Intake: IV 420 / 670 260 / 660 400 / 660 Oral 1200 / 1300 220 / 220 Output: Urine 400 / 1500 900 / 900 Estimated Blood Loss 5 / 5 Other: Urine Color Pale Yellow Urine Appearance Clear Clear Urine Odor Normal Comment patiebt weas up to the bathroom pt states she went to the bathroom a little bit ago Stool Size Moderate Stool Characteristics Soft Formed Black Emesis Description None Voiding Methods Toilet Toilet Data Completed and Pending Labs on day of discharge: 09/06/23 11:30 Abdomen Anaerobic Culture - Pending Preliminary micro results at discharge 09/06/23 11:30 Wound Culture - Preliminary Abdomen 09/06/23 11:30 Anaerobic Culture - Pending Abdomen PFSH All Active Problems Abdominal wound dehiscence (Acute) Wound drainage (Acute) Anemia due to blood loss, acute (Acute) Villous adenoma of rectum (Acute) Painful total knee replacement, right (Acute) Asthma (Chronic 11/20/12) Chronic low back pain (Chronic 11/20/12) Chronic obstructive lung disease (Chronic 08/01/12) Essential hypertension (Chronic 05/25/16) Urinary, incontinence, stress female (Chronic) Hyperlipidemia (Chronic 04/18/12) Smoker (Chronic 11/20/12) Chronic GERD (Chronic 11/20/12) CHRONIC HOARSENESS SECONDARY TO GERD Tendinitis of left rotator cuff (Chronic) Mammography less than 12 months ago (Chronic) Right breast microcyst Chronic pain syndrome (Chronic) Overweight (BMI 25.0-29.9) (Acute) Anxiety (Chronic) Right knee pain (Acute) 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 - 05/09/22 Achilles tendinitis of right lower extremity (Acute) Medical History Migraine headache Gout Bilateral kidney stones Plantar wart Uric acid renal calculus Hypertension COPD (chronic obstructive pulmonary disease) Hoarseness of voice secondary to reflux Surgical History History of hemicolectomy (~08/2023) History of colonoscopy (~07/2023) History of total right knee replacement (TKR) (01/15/12) History of cystoscopy Cysto/laser/retorgrade History of salpingo-oophorectomy (06/06/17) Ligation of fallopian tube Replacement of total knee joint (01/15/12) right Open Carpal Tunnel release RIGHT Oophrectomy, Left (06/06/17) L oophorectomy. Bilateral salpingectomy. Benign indications. Yosi Fundoplication (~2002) Manipulation, Under Anesthesia (03/13/12) right TKA GASTROPEXY Endoscopy (~2004) NEG Family History Mother Essential hypertension Hyperlipidemia Father Diabetes Essential hypertension Heart disease Hyperlipidemia Stroke Asthma Sister Essential hypertension Sister Essential hypertension Brother No problems noted. 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 Pets and animals: cat(s) and dog(s) Sexually active: No Do you think of yourself as: straight/heterosexual Current gender identity: female What is your relationship status?: How often do you talk on the phone with friends or family?: three or more times per week How often do you get together with friends or relatives?: twice per week How often do you attend mu-ism or christianity services?: decline to answer Do you belong to any clubs or organized social groups?: no Panel score (0-1 are the most socially isolated patients): 2 What type of physical activity do you participate in: walking Duration: 45-60 minutes/day Frequency: 3-4 times per week Dottie/Orthodoxy: None Special dottie needs: No Seatbelt use: always Drive intox or ride w/intox auto crane driver: No Do you feel safe at home: Yes Do you feel safe in your relationship?: Yes Time Spent with Patient Time Spent with Patient: <45 minutes Time was spent: preparing to see the patient(eg.review tests), ordering medications,tests, procedures, counseling the patient and care coordination
== END 2023-09-07 16:06 | disposition home or self-care (01) | DRG 902 ==
LOC: ER 10:22 → SUR 11:30 → MS 14:02
PROVIDERS: Admitting Provider Surgery; Emergency Provider Registered Nurse Emergency; PCP Nurse Practitioner Family; Visit Provider Surgery
PROC: 0JB80ZZ Excision of Abdomen Subcutaneous Tissue and Fascia, Open Approach (ICD-10-PCS; CPT 49000; principal; 2023-09-03 10:40)
PROC: 0WQFXZZ Repair Abdominal Wall, External Approach (ICD-10-PCS; CPT 49900; principal; 2023-09-07 11:30)
DX: T81.30XA Disruption of wound, unspecified, initial encounter (principal); D62 Acute posthemorrhagic anemia; E78.2 Mixed hyperlipidemia; I10 Essential (primary) hypertension; K21.9 Gastro-esophageal reflux disease without esophagitis; E66.3 Overweight; Z68.31 Body mass index [BMI] 31.0-31.9, adult; J45.20 Mild intermittent asthma, uncomplicated; J44.9 Chronic obstructive pulmonary disease, unspecified; F17.210 Nicotine dependence, cigarettes, uncomplicated; M54.50 Low back pain, unspecified; G89.29 Other chronic pain; E78.5 Hyperlipidemia, unspecified; F41.9 Anxiety disorder, unspecified; N39.3 Stress incontinence (female) (male); G43.909 Migraine, unspecified, not intractable, without status migrainosus; M10.9 Gout, unspecified; Z96.651 Presence of right artificial knee joint; Z90.49 Acquired absence of other specified parts of digestive tract
CPT/HCPCS: 49900; 11043; 36415; 80053; 85027; 94640; 96365; 96375; 99285; J1650; 85025; 87070; 87075; 87205; C9290; J0131; J0690; J1100; J1170; J1756; J1885; J2001; J2060; J2250; J2270; J2371; J2405; J2704; J3010; J3475; J3490; J7620

== ENCOUNTER 2023-09-13 15:42 | Observation (INO) | payer OTHER, SELFPAY ==
--- NOTE | 2023-09-13 15:47 | HPE_ITS ---
Date of service: 09/13/23 Time of Service: 16:10 Assessment and Plan Assessment and plan (1) Anxiety: Status: Chronic (2) Essential hypertension: Status: Chronic (3) Hyperlipidemia: Status: Chronic Qualifiers: Hyperlipidemia type: mixed hyperlipidemia Qualified Code(s): E78.2 - Mixed hyperlipidemia (4) Overweight (BMI 25.0-29.9): Status: Acute (5) Chronic GERD: Status: Chronic (6) Villous adenoma of rectum: Status: Acute (7) Abdominal wound dehiscence: Status: Acute Assessment and plan: resolved (8) Urinary, incontinence, stress female: Status: Chronic (9) Anemia due to blood loss, acute: Status: Acute (10) Aseptic loosening of prosthetic knee: Status: Acute (11) Chronic low back pain: Status: Chronic (12) Chronic pain syndrome: Status: Chronic (13) Asthma: Status: Chronic Qualifiers: Asthma complication type: uncomplicated Asthma persistence: i ntermittent Asthma severity: mild Qualified Code(s): J45.20 - Mild intermittent asthma, uncomplicated (14) Chronic obstructive lung disease: Status: Chronic (15) Smoker: Status: Chronic (16) Gout: (17) Wound infection after surgery: Status: Acute Assessment and plan: Cellulitis very with her Ceftriaxone and Flagyl DVT and pulmonary prophylaxis Trend labs in a.m. Chronic I did attempt to open the incision. The skin edges well are well- approximated. Will check ultrasound in a.m. for fluid collection This document was created with voice activated software and may contain errors. 30 mins spent in direct pt care and 30 in non face to face time History of Present Illness Narrative: Patient is well-known to me. She is a 52-year-old female who underwent laparoscopic postoperatively she did well and was discharged home right hemicolectomy for a large unresectable tubular adenomatous polyp on . She was discharged home with routine postoperative instructions 08/17. Postoperatively she was admitted to hospital on 09/01 with a postop fascial dehiscence. She went to the OR for fascial reconstruction and repair IV antibiotics and wound care. Subsequent wound cultures were all negative. She was given the choice between a wound VAC and having her wound reapproximated with the understanding that she is at risk for wound infection. This was on 09/06. She was discharged home with routine instructions. Today she follows up with the clinic her wound is erythematous and tender. She denies any fever or chills. She has had since her surgery. This is controlled on Metamucil 2 in the morning and 2 in the PM. She had some nausea and vomiting earlier today. She feels very tired and rundown. She is having significant amount of pain. There has been no wound drainage or bleeding. She does have significant amount of redness and tenderness. The fascia is intact. She has not been having any fever or chills. She denies any trauma. She denies any fever or chills. no headaches. No CP or SOB. no productive cough. no dysuria. no leg pain or swelling. Review of Systems All systems reviewed & are unremarkable except as noted in HPI and below PFSH All Active Problems Wound infection after surgery (Acute) Abdominal wound dehiscence (Acute) Wound drainage (Acute) Anemia due to blood loss, acute (Acute) Villous adenoma of rectum (Acute) Painful total knee replacement, right (Acute) Asthma (Chronic 11/20/12) Chronic low back pain (Chronic 11/20/12) Chronic obstructive lung disease (Chronic 08/01/12) Essential hypertension (Chronic 05/25/16) Urinary, incontinence, stress female (Chronic) Hyperlipidemia (Chronic 04/18/12) Smoker (Chronic 11/20/12) Chronic GERD (Chronic 11/20/12) CHRONIC HOARSENESS SECONDARY TO GERD Tendinitis of left rotator cuff (Chronic) Mammography less than 12 months ago (Chronic) Right breast microcyst Chronic pain syndrome (Chronic) Overweight (BMI 25.0-29.9) (Acute) Anxiety (Chronic) Right knee pain (Acute) 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 - 05/09/22 Achilles tendinitis of right lower extremity (Acute) Medical History Migraine headache Gout Bilateral kidney stones Plantar wart Uric acid renal calculus Hypertension COPD (chronic obstructive pulmonary disease) Hoarseness of voice secondary to reflux Surgical History History of hemicolectomy (~08/2023) History of colonoscopy (~07/2023) History of total right knee replacement (TKR) (01/15/12) History of cystoscopy Cysto/laser/retorgrade History of salpingo-oophorectomy (06/06/17) Ligation of fallopian tube Replacement of total knee joint (01/15/12) right Open Carpal Tunnel release RIGHT Oophrectomy, Left (06/06/17) L oophorectomy. Bilateral salpingectomy. Benign indications. Yosi Fundoplication (~2002) Manipulation, Under Anesthesia (03/13/12) right TKA GASTROPEXY Endoscopy (~2004) NEG Family History Mother Essential hypertension Hyperlipidemia Father Diabetes Essential hypertension Heart disease Hyperlipidemia Stroke Asthma Sister Essential hypertension Sister Essential hypertension Brother No problems noted. 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 Pets and animals: cat(s) and dog(s) Sexually active: No Do you think of yourself as: straight/heterosexual Current gender identity: female What is your relationship status?: How often do you talk on the phone with friends or family?: three or more times per week How often do you get together with friends or relatives?: twice per week How often do you attend mandaeism or uatsdin services?: decline to answer Do you belong to any clubs or organized social groups?: no Panel score (0-1 are the most socially isolated patients): 2 What type of physical activity do you participate in: walking Duration: 45-60 minutes/day Frequency: 3-4 times per week Dottie/Judaism: None Special dottie needs: No Seatbelt use: always Drive intox or ride w/intox services delivery driver: No Do you feel safe at home: Yes Do you feel safe in your relationship?: Yes Meds Allergies and Home Medications Allergies Allergy/AdvReac Type Severity Reaction Status Date / Time doxycycline Allergy Intermediate hives Verified 09/03/23 09:52 Tetracyclines Allergy Intermediate hives Verified 09/03/23 09:52 adhesive Allergy Unknown skin rash Verified 09/03/23 09:52 nortriptyline AdvReac Mild hyperactivi Verified 09/03/23 09:52 ty quality assurance monitor body tabs Allergy Severe severe Uncoded 09/03/23 09:52 skin rash with blisters Home Medications Medication Instructions Recorded Confirmed Type omeprazole 40 mg capsule,delayed 40 mg PO DAILY #90 caps 09/05/18 09/12/23 Rx release acetaminophen 500 mg tablet 500 mg PO Q6H PRN pain #60 tabs 06/19/22 09/12/23 Rx sertraline 100 mg tablet 100 mg PO DAILY anxiety #90 tabs 08/25/22 09/12/23 Rx albuterol sulfate 90 mcg/actuation 2 puff inhalation Q6H PRN 03/20/23 09/12/23 Rx aerosol inhaler shortness of breath or wheezing #24 grams allopurinol 100 mg tablet 100 mg PO DAILY stone prevention 05/08/23 09/12/23 Rx #90 tabs lisinopril 20 mg tablet 20 mg PO DAILY #90 tabs 06/05/23 09/12/23 Rx nitroglycerin 0.4 mg sublingual 0.4 mg sublingual Q5-15M PRN chest 06/05/23 09/12/23 Rx tablet pain #30 tabs tizanidine 4 mg tablet See Rx Instructions .Route 07/30/23 09/12/23 Rx .COMPLEX #30 tabs ferric citrate 210 mg iron tablet 210 mg PO BID #60 tabs 08/23/23 09/12/23 Rx (Auryxia) hydrocortisone 2.5 % topical 1 applic topical BID #20 grams 08/23/23 09/12/23 Rx ointment psyllium husk-calcium 1 gram-60 mg 2 - 4 cap PO DAILY #120 caps 08/23/23 09/12/23 Rx capsule (Metamucil Plus Calcium) trazodone 100 mg tablet 100 mg PO QHS PRN sleep #30 tabs 08/23/23 09/12/23 Rx hydromorphone 2 mg tablet 2 mg PO Q6H PRN pain #12 tabs 09/10/23 09/12/23 Rx (Dilaudid) ondansetron HCl 8 mg tablet 8 mg PO Q12H PRN nausea and 09/11/23 09/12/23 Rx vomiting #20 tabs gabapentin 300 mg capsule 300 mg PO DIRECTED 09/13/23 09/13/23 History Exam Narrative Exam Narrative: PHYSICAL EXAM GENERAL APPEARANCE: Alert, healthy appearance, oriented, x 3,? in no acute distress HYDRATION: Well hydrated HEAD, EYES, EARS, NECK, THROAT: Head is normocephalic, pupils equal, round, reactive to light and accommodation, ocular movement intact, sclera clear and no jaundice. Edentulous LUNGS: normal respiration/normal chest excursion. ?Clear to auscultation bilaterally. ?No wheeze. ?HEART: Regular rate and rhythm. no murmurs EXTREMITY: No edema or cyanosis.? no leg pain, redness, swelling.? ABDOMEN: She has good bowel sounds. Her abdomen is tender and red around the incision. Results Labs 09/13/23 16:23 Anemia profile 2 Hgb 12.2 g/dL (11.2-15.7) 09/13/23 Hct 38.0 % (36.0-46.0) 09/13/23 MCV 98 fL (80-95) H 09/13/23 RDW 14.4 % (11.7-14.6) 09/13/23 Ferritin 83 ng/mL (8-252) 09/13/23 Basic Metabolic 2 Sodium 141 mmol/L (136-145) 09/03/23 Potassium 4.1 mmol/L (3.5-5.1) 09/03/23 Chloride 105 mmol/L (98-107) 09/03/23 Carbon Dioxide 26.7 mmol/L (21.0-32.0) 09/03/23 BUN 7 mg/dL (7-18) 09/03/23 Creatinine 0.8 mg/dL (0.55-1.02) 09/03/23 Estimated GFR/1.73 m2 >= 60.00 (mL/min/1.73m2) 07/12/21 Glucose 120 mg/dL (74-106) H 09/03/23 CBC 2 White Blood Count 8.77 10^3/uL (4.4-10.8) 09/13/23 Red Blood Count 3.86 10^6/uL (3.93-5.22) L 09/13/23 Hemoglobin 12.2 g/dL (11.2-15.7) 09/13/23 Hematocrit 38.0 % (36.0-46.0) 09/13/23 Mean Corpuscular Volume 98 fL (80-95) H 09/13/23 Mean Corpuscular Hemoglobin 31.6 pg (27.0-33.0) 09/13/23 Mean Corpuscular Hemoglobin Concent 32.1 % (32.0-36.0) 09/30 Red Cell Distribution Width 14.4 % (11.7-14.6) 09/13/23 Platelet Count 277 10^3/uL (130-400) 09/13/23 Mean Platelet Volume 10.1 fL (8.0-11.0) 09/13/23 Neutrophils % 51.0 % 09/13/23 Lymphocytes % 38.0 % 09/13/23 Monocytes % 5.0 % 09/13/23 Eosinophils % 5.0 % 09/13/23 Basophils % 0.0 % 09/13/23 Immature Granulocytes % See Differential 09/13/23 Comprehensive Metabolic Panel 2 Sodium 141 mmol/L (136-145) 09/03/23 10:04 Potassium 4.1 mmol/L (3.5-5.1) 09/03/23 10:04 Chloride 105 mmol/L (98-107) 09/03/23 10:04 Carbon Dioxide 26.7 mmol/L (21.0-32.0) 09/03/23 10:04 BUN 7 mg/dL (7-18) 09/03/23 10:04 Creatinine 0.8 mg/dL (0.55-1.02) 09/03/23 10:04 Estimated GFR/1.73 m2 >= 60.00 (mL/min/1.73m2) 07/12/21 08:20 Glucose 120 mg/dL (74-106) H 09/03/23 10:04 Calcium 9.0 mg/dL (8.5-10.1) 09/03/23 10:04 Total Bilirubin 0.3 mg/dL (0.2-1.0) 09/03/23 10:04 ALT 24 U/L (14-59) 09/03/23 10:04 AST 22 U/L (15-37) 09/03/23 10:04 Alkaline Phosphatase 94 U/L (46-116) 09/03/23 10:04 Total Protein 7.7 g/dL (6.4-8.2) 09/03/23 10:04 Albumin 3.4 g/dL (3.4-5.0) 09/03/23 10:04 Diabetes results 2 Glucose 120 mg/dL (74-106) H 09/03/23 Total Cholesterol 215 mg/dL (50-200) H 07/12/18 LDL Cholesterol Direct 144 mg/dL (<100) H 07/12/18 HDL Cholesterol 43 mg/dL (40-60) 07/12/18 Triglycerides 112 mg/dL (30-150) 07/12/18 BUN 7 mg/dL (7-18) 09/03/23 Creatinine 0.8 mg/dL (0.55-1.02) 09/03/23 Estimated GFR/1.73 m2 >= 60.00 (mL/min/1.73m2) 07/12/21 Est GFR (CKD-EPI 2020) 88.60 (mL/min/1.73m2) 09/03/23 Sodium 141 mmol/L (136-145) 09/03/23 Potassium 4.1 mmol/L (3.5-5.1) 09/03/23 Chloride 105 mmol/L (98-107) 09/03/23 Carbon Dioxide 26.7 mmol/L (21.0-32.0) 09/03/23 Calcium 9.0 mg/dL (8.5-10.1) 09/03/23 AST 22 U/L (15-37) 09/03/23 ALT 24 U/L (14-59) 09/03/23 Total Protein 7.7 g/dL (6.4-8.2) 09/03/23 Albumin 3.4 g/dL (3.4-5.0) 09/03/23 TSH 0.43 uIU/mL (0.36-3.74) 05/27/16 Lipid profile 2 Total Cholesterol 215 mg/dL (50-200) H 07/12/18 HDL Cholesterol 43 mg/dL (40-60) 07/12/18 LDL Cholesterol Direct 144 mg/dL (<100) H 07/12/18 Triglycerides 112 mg/dL (30-150) 07/12/18 Stool tests ([facility]) 2 No Data to Display Time Spent Time spent with Patient: 40-54 minutes Time was spent: preparing to see the patient(eg.review tests), obtaining and/or reviewing separately otained hiistory, ordering medications,tests, procedures, referring, communicating with other health foster care therapist, indepentently interpreting results, counseling the patient and care coordination
[2023-09-13 16:11] VITALS: BP 124/72; PULSE 78; RESP 20; TEMP 36.2; O2SAT 98
[2023-09-13 16:34] LABS: Abs Immature Grans 0.03 10^3/uL (0.0-0.06); HGB 12.2 g/dL (11.2-15.7); MCH 31.6 pg (27.0-33.0); MCHC 32.1 % (32.0-36.0); MCV 98 fL (80-95); MPV 10.1 fL (8.0-11.0); Platelet Count 277 10^3/uL (130-400); RBC 3.86 10^6/uL (3.93-5.22); RDW 14.4 % (11.7-14.6); RDW-SD 52.2 fL; WBC 8.77 10^3/uL (4.4-10.8)
[2023-09-13] MEDS: Enoxaparin 40 MG/0.4 ML SYR SC (16:43)
[2023-09-13] MEDS: Normal Saline Flush 10 ML SYR IVP (16:43)
[2023-09-13] MEDS: Nicotine 14 MG/24 HR PATCH TD (16:44)
[2023-09-13 16:46] LABS: C-Reactive Protein 0.79 mg/dL (<or=0.5)
[2023-09-13 16:47] LABS: Absolute Eosinophil Count 0.44 10^3/uL (0.0-0.7); Absolute Lymphocyte Count 3.42 10^3/uL (1.2-3.4); Absolute Monocyte Count 0.44 10^3/uL (0.1-0.8); Absolute Neutrophil Count 4.47 10^3/uL (1.2-6.7); Atypical Lymphocytes % 1 %; Diff Comment Manual Differential; RBC Morphology Normal
[2023-09-13 17:07] LABS: Ferritin 83 ng/mL (8-252)
[2023-09-13] MEDS: cefTRIAXone 2 GM/50 ML BAG IVPB (17:24)
[2023-09-13] MEDS: metroNIDAZOLE 500 MG/100 ML BAG 100 MG IVPB (18:06)
[2023-09-13 20:52] VITALS: BP 114/70; PULSE 62; RESP 20; TEMP 36.1; O2SAT 95
[2023-09-13] MEDS: Gabapentin 300 MG CAP 600 MG PO (20:55)
[2023-09-13] MEDS: tiZANidine 4 MG TABLET PO (20:56)
[2023-09-13] MEDS: traZODone 100 MG TAB PO (20:56)
[2023-09-13 23:51] VITALS: BP 129/70; PULSE 71; RESP 18; TEMP 36.8; O2SAT 92
[2023-09-14] MEDS: metroNIDAZOLE 500 MG/100 ML BAG 100 MG IVPB ×3 (02:31→19:45)
[2023-09-14 07:22] VITALS: BP 132/71; PULSE 71; RESP 15; TEMP 36.2; O2SAT 95
[2023-09-14] MEDS: Psyllium PKT 1 EACH PO (09:20)
[2023-09-14] MEDS: Omeprazole 20 MG CAPCR 40 MG PO (09:21)
[2023-09-14] MEDS: Lisinopril 20 MG TAB PO (09:21)
[2023-09-14] MEDS: Sertraline 100 MG TAB PO (09:21)
[2023-09-14] MEDS: Nicotine 14 MG/24 HR PATCH TD (09:21)
[2023-09-14] MEDS: Allopurinol 100 MG TAB PO (09:21)
[2023-09-14] MEDS: Gabapentin 300 MG CAP PO (09:21)
[2023-09-14] MEDS: Normal Saline Flush 10 ML SYR IVP ×4 (09:22→20:15)
--- NOTE | 2023-09-14 12:03 | PDOC.CMIN ---
Date of service: 09/14/23 Time of Service: 12:03 Care Management Initial Assmt Initial Assessment Reason for Hospitalization: Wound infection after surgery Functional Status/Living Situation Patient Presentation: Delaney was awake and lying in bed visiting with her friend and mother when CM met with her. Per pt, she was doing ok following her recent discharge, however she now has an infection and needs IV ABX. Town of Residence: [place] Resides with: Spouse (Jama) Significant Other/Family: Local Natural Supports: Mother lives locally Employment Status: Employed Instrumental Activities of Daily Living (ADLs): Independent Medications Medication Management: No Issues/Barriers identified Physical Functioning/Mobility Assistive Device: None Advance Directives Advance Directives: Do you have an Advance Directive: N 02/07/18 12:10 AD On File at [facility]: N 02/07/18 12:10 Date Asked 09/13/23 09/13/23 16:00 AD Date Reviewed COLST On File at [facility] No 09/03/23 09:47 COLST Date Scanned Code Status Resuscitation Status DNR/DNI Insurance Coverage/Financial Issues Insurance: [employer] Member: Yes Care Team Visit Care Team Role Provider Type Laureano Arevalo NP Primary Care Provider NURSE PRACTITIONER Dinora Tse DO Admit Provider OSTEOPATHIC DOCTOR Attending Provider Discharge Potential Discharge Needs: PCP F/U Appt and Surgical F/U Appt Anticipated Barriers to Discharge: None Identified Patient/Family Education Needs: Review discharge instructions, discuss Ask Me Three Transportation: Facility Transport Plan: Delaney requires IV ABX for a wound infection after surgery. Anticipate, pt will discharge home via private vehicle when medically ready. Delaney will need a follow up appointment with Surgical and PCP. CM will follow. PFSH All Active Problems Wound infection after surgery (Acute) Abdominal wound dehiscence (Acute) Wound drainage (Acute) Anemia due to blood loss, acute (Acute) Villous adenoma of rectum (Acute) Painful total knee replacement, right (Acute) Asthma (Chronic 11/20/12) Chronic low back pain (Chronic 11/20/12) Chronic obstructive lung disease (Chronic 08/01/12) Essential hypertension (Chronic 05/25/16) Urinary, incontinence, stress female (Chronic) Hyperlipidemia (Chronic 04/18/12) Smoker (Chronic 11/20/12) Chronic GERD (Chronic 11/20/12) CHRONIC HOARSENESS SECONDARY TO GERD Tendinitis of left rotator cuff (Chronic) Mammography less than 12 months ago (Chronic) Right breast microcyst Chronic pain syndrome (Chronic) Overweight (BMI 25.0-29.9) (Acute) Anxiety (Chronic) Right knee pain (Acute) 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 - 05/09/22 Achilles tendinitis of right lower extremity (Acute) Medical History Migraine headache Gout Bilateral kidney stones Plantar wart Uric acid renal calculus Hypertension COPD (chronic obstructive pulmonary disease) Hoarseness of voice secondary to reflux Surgical History History of hemicolectomy (~08/2023) History of colonoscopy (~07/2023) History of total right knee replacement (TKR) (01/15/12) History of cystoscopy Cysto/laser/retorgrade History of salpingo-oophorectomy (06/06/17) Ligation of fallopian tube Replacement of total knee joint (01/15/12) right Open Carpal Tunnel release RIGHT Oophrectomy, Left (06/06/17) L oophorectomy. Bilateral salpingectomy. Benign indications. Yosi Fundoplication (~2002) Manipulation, Under Anesthesia (03/13/12) right TKA GASTROPEXY Endoscopy (~2004) NEG Family History Mother Essential hypertension Hyperlipidemia Father Diabetes Essential hypertension Heart disease Hyperlipidemia Stroke Asthma Sister Essential hypertension Sister Essential hypertension Brother No problems noted. 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 Pets and animals: cat(s) and dog(s) Sexually active: No Do you think of yourself as: straight/heterosexual Current gender identity: female What is your relationship status?: How often do you talk on the phone with friends or family?: three or more times per week How often do you get together with friends or relatives?: twice per week How often do you attend pentecostal or pentecostal services?: decline to answer Do you belong to any clubs or organized social groups?: no Panel score (0-1 are the most socially isolated patients): 2 What type of physical activity do you participate in: walking Duration: 45-60 minutes/day Frequency: 3-4 times per week Dottie/Spiritism: None Special dottie needs: No Seatbelt use: always Drive intox or ride w/intox log truck driver: No Do you feel safe at home: Yes Do you feel safe in your relationship?: Yes Readmission Within the Past 30 Days Yes or No: Yes Date of First Admission Date of 1st Admission: 09/05/23 Date of this Admission Date of Admission: 09/13/23 This admission was: Direct Admit (Surgical office directly admitted patient during her follow up visit) Office Visit Since 1st Admission Have you seen your PCP in the office since discharge?: No Had an appointment Been Scheduled?: No Speicalist Appointments Have you seen any other specialist since your 1st Admission?: Yes Date you saw the Specialist: 09/13/23 Specialist Seen: Surgical I. Interview patient and/or Family Difficulty reaching your doctor or getting an office appt?: No Have you had trouble purchasing/ or taking medication?: No Have you had trouble with getting meals at home?: No Did you feel ready for discharge when you left the last time: Yes Were services received that you thought were set up on disch: Yes Did you call your physician beore you came to the ED?: No Did your physician tell you to come in?: No How do you think you became sick enough to come back?: Infected [place] If the patient had a VNA ordered Did the patient have a VNA order?: No Assessment for Readmission Summary of readmission circumstances, based upon interviews: Per Dr. Tse: Patient had a laparoscopic right hemicolectomy for unresectable polyp. She has had a complicated postop course complicated by a wound dehiscence-which was not related to infection. She now has a cellulitis of the wound. SDOH(Care Management) Screening Will the Patient Participate in the Screening?: Declined to provide
--- NOTE | 2023-09-14 12:55 | PGE_ITS ---
Date of Service Date of service: 09/14/23 Time of Service: 10:00 Assessment and Plan Assessment and plan (1) Wound infection after surgery: Status: Acute Assessment and plan: (1) Wound remains intact without openings or drainage at this time. (2) Abdominal wound dehiscence: Status: Acute Assessment and plan: (1) Mild erythema surrounding midline wound. (2) Continue Rocephin and Flagyl Subjective Subjective Interval history since last seen: Patient seen and examined on morning rounds today covering Dr. Tse. Patient is alert, good-spirited, non-toxic appearing. Exam Eyes Other: Non-icteric Neck Other: Neck is supple GI Other: Abdomen is soft, non-tender, BS are present, there is no guarding and no re bound. Midline incision from (1) Lap right-mariano and (2) subsequent takeback for fascial dehiscense, and (3) subsequent takeback for skin closure appears to be intact. The wound has mild erythema, but no openings and no drainage. Extrem Other: There is no calf pain. Objective Last Vital Signs Temp 97.2 F L 09/14/23 07:22 Pulse 71 09/14/23 07:22 Resp 15 09/14/23 07:22 BP 132/71 09/14/23 07:22 Pulse Ox 95 09/14/23 07:22 Laboratory Results - last 24 hr 09/13/23 09/13/23 16:13 16:23 WBC 8.77 RBC 3.86 L Hgb 12.2 Hct 38.0 MCV 98 H MCH 31.6 MCHC 32.1 RDW 14.4 Plt Count 277 MPV 10.1 Immature Gran % See Differential Neutrophils % 51.0 Lymphocytes % 38.0 Atypical Lymphs % 1 Monocytes % 5.0 Eosinophils % 5.0 Basophils % 0.0 Nucleated RBC % 0.0 Absolute Neutrophils 4.47 Absolute Lymphocytes 3.42 H Absolute Monocytes 0.44 Absolute Eosinophils 0.44 Absolute Basophils 0.00 RBC Morphology Normal Ferritin 83 C-Reactive Protein 0.79 H Time Spent with Patient Time Spent with Patient: <25 minutes Time was spent: preparing to see the patient(eg.review tests), indepentently interpreting results and counseling the patient
--- NOTE | 2023-09-14 14:32 | CHAPLAIN ---
Delaney was up in the chair when I visited. She's here because of an infection. She said this is the third time she's been here recently, and she may be discharged tomorrow. She's in touch with family and friends, she said.
[2023-09-14 15:15] VITALS: BP 105/64; PULSE 80; RESP 16; TEMP 36.1; O2SAT 94
[2023-09-14] MEDS: cefTRIAXone 2 GM/50 ML BAG IVPB (16:07)
[2023-09-14] MEDS: Enoxaparin 40 MG/0.4 ML SYR SC (16:08)
[2023-09-14] MEDS: traZODone 100 MG TAB PO (20:14)
[2023-09-14] MEDS: tiZANidine 4 MG TABLET PO (20:15)
[2023-09-14] MEDS: Gabapentin 300 MG CAP 600 MG PO (20:15)
[2023-09-14] MEDS: Acetaminophen 500 MG TAB PO (20:15)
[2023-09-14 23:30] VITALS: BP 110/55; PULSE 66; RESP 16; TEMP 36; O2SAT 91
[2023-09-15] MEDS: metroNIDAZOLE 500 MG/100 ML BAG 100 MG IVPB ×2 (02:58→10:07)
[2023-09-15 07:45] VITALS: BP 122/72; PULSE 64; RESP 17; TEMP 36.6; O2SAT 95
[2023-09-15] MEDS: Omeprazole 20 MG CAPCR 40 MG PO (08:01)
[2023-09-15] MEDS: Allopurinol 100 MG TAB PO (08:01)
[2023-09-15] MEDS: Normal Saline Flush 10 ML SYR IVP (08:02)
[2023-09-15] MEDS: Gabapentin 300 MG CAP PO (08:02)
[2023-09-15] MEDS: Lisinopril 20 MG TAB PO (08:02)
[2023-09-15] MEDS: Sertraline 100 MG TAB PO (08:02)
[2023-09-15] MEDS: Nicotine 14 MG/24 HR PATCH TD (09:35)
[2023-09-15] MEDS: Acetaminophen 500 MG TAB PO (10:13)
--- NOTE | 2023-09-15 10:59 | DSE_ITS ---
Date of service: 09/15/23 Time of Service: 11:00 DS: Diagnosis Discharge Diagnosis (1) Wound infection after surgery: Status: Acute Asessment and Plan: (a) Patient has responded well to IV antibiotics (b) Wound erythema as regressed and wound remains intact, clean, dry, and without drainage (c) All skin nya removed and tincture of Benzoin and steri strips applied. (d) Wound care instructions given. (2) Abdominal wound dehiscence: Status: Acute Asessment and Plan: (a) Wound remains intact without disruption Discharge Plan Disposition Patient Disposition: Home Condition: Good Discharge Details Reason For Visit: wound infection Admit Date/Time: 09/13/23 15:42 Admit Provider: Dinora Tse Attending Provider: Dinora Tse Primary Care Provider: Laureano Benoit [place] [facility] Course Hospital Course: Patient has history of large non-malignant polyp non-amenable to endoscopic resection. Patient underwent laparoscopic-assisted right hemicolectomy. She subsequently had fascial dehiscence and required return to the operating room for fascial closure. She was then return once more to the operating room for skin closure. She was discharged home only to return with wound cellulitis and superficial wound infection. She has been treated with IV Rocephin and Flagyl. The cellulitis has essentially resolved. The wound has improved, remains intact, and is clean, dry, and without drainage. Will plan for patient to be discharged today to home on Augmentin 875mg PO BID for next 7 days. She will follow-up in the General Surgery Office in the next 7-10 days. Home Meds and New Rx's Prescriptions: New amoxicillin-pot clavulanate [Augmentin] 500-125 mg tablet 1 tab PO BID Qty: 14 0RF Rx Instructions: Take one by mouth twice daily (one about every 12hrs) for 7 days. Continued allopurinol 100 mg tablet 100 mg PO DAILY Qty: 90 4RF Auryxia 210 mg iron tablet 210 mg PO BID Qty: 60 6RF Rx Instructions: administer with a meal trazodone 100 mg tablet 100 mg PO QHS PRN (Reason: sleep) Qty: 30 12RF Metamucil Plus Calcium 1-60 gram-mg capsule 2 - 4 cap PO DAILY Qty: 120 12RF Rx Instructions: administer with large glass of water hydrocortisone 2.5 % ointment 1 applic topical BID Qty: 20 2RF Rx Instructions: apply to affected area L flank for 7 days acetaminophen 500 mg tablet 500 mg PO Q6H PRN (Reason: pain) Qty: 60 2RF sertraline 100 mg tablet 100 mg PO DAILY Qty: 90 3RF omeprazole 40 mg capsule,delayed release(DR/EC) 40 mg PO DAILY Qty: 90 3RF albuterol sulfate 90 mcg/actuation HFA aerosol inhaler 2 puff IH Q6H PRN (Reason: shortness of breath or wheezing) Qty: 24 2RF lisinopril 20 mg tablet 20 mg PO DAILY Qty: 90 3RF nitroglycerin 0.4 mg tablet, sublingual 0.4 mg sublingual Q5-15M PRN (Reason: chest pain) Qty: 30 0RF Patient Comments: only taken once in the ER here at [facility] per pt Rx Instructions: do not exceed 3 doses per episode tizanidine 4 mg tablet See Rx Instructions .ROUTE .COMPLEX Qty: 30 3RF Dose Instruction: TAKE ONE TABLET BY MOUTH EVERY DAY AT BEDTIME Rx Instructions: TAKE ONE TABLET BY MOUTH EVERY DAY AT BEDTIME hydromorphone [Dilaudid] 2 mg tablet 2 mg PO Q6H MDD 6 tabs PRN (Reason: pain) Qty: 12 0RF Rx Instructions: take one tablet by mouth up to every 6 hours if needed for more severe pain. ondansetron HCl 8 mg tablet 8 mg PO Q12H PRN (Reason: nausea and vomiting) Qty: 20 0RF gabapentin 300 mg capsule 300 mg PO DIRECTED Rx Instructions: 300 mg qam and 600 mg qpm Discharge Instructions Additional Instructions: (a) Keep wound clean and dry (b) May shower on Sunday or Sunday, pat wound dry. (c) Leave all steri-stips in place, they will fall off. (d) No tub bathing, no swimming. (e) Resume all usual home meds and diet (f) Rx: Augmentin 500mg Take one by mouth twice daily x 7 days. No Refills (g) Follow-up in the General Surgery Office in about 7-10 days. Call Sunday for an appointment. Care Plan Goals: Complete wound healing. Stand Alone Forms: Nursing Discharge Form Referrals: Dege Irina,Laureano, [employer] PRESS OPERATOR [Primary Care Provider] - (please call Sunday and make a follow up appointment for 1-2 weeks! ) Dinora Tse DO [OSTEOPATHIC DOCTOR] - (Follow-up after hospital admission for post-op wound infection.) Activity:: No heavy lifting. Equipment/Supplies:: No Equipment Needed Diet:: Normal Diet Discharge Orders Discharge Orders: Discharge Order (Routine); Ordered 09/15/23 Ordered By: Ted Jason DS: Summary Time Spent with Patient providing and/or coordinating discharge services: Greater than 30 minutes Status at Discharge Functional status at discharge: independent ambulation Overall status at discharge: patient is progressing back to baseline Mental Status: mental status grossly normal Speech and Movement: speech and movement normal Mood: congruent mood Affect: normal affect Quality:SDOH Health Related Social Needs: No Data to Display Exam Const General: cooperative, comfortable and no acute distress Eyes Other: Non-icteric Neck Other: Neck supple Resp Other: Non-tachypneic GI Other: Abdomen soft, non-tender, BS are present, there is no guarding and no rebound. Wound erythema has resolved and wound remains intact without drainage or recurrent dehiscence. Skin Other: Removed all skin nya and applied steri-strips. Extrem Other: There is no calf pain or any open sores, wounds, or ulcers. Psych Mental Status: mental status grossly normal Speech and Movement: speech and movement normal Mood: congruent mood Affect: normal affect DS: Data Vitals/I&O Vitals and I&O: Vital Signs Temperature 97.9 F 09/15/23 07:45 Temperature Source Skin 09/15/23 07:45 Pulse 64 09/15/23 07:45 Pulse Rhythm Regular 09/15/23 10:51 Respiratory Rate 17 09/15/23 07:45 Respiratory Effort Normal, Non-Labored 09/15/23 10:51 Respiratory Depth Normal 09/15/23 10:51 Respiratory Pattern Normal 09/15/23 10:51 Blood Pressure 122/72 09/15/23 07:45 Pulse Oximetry 95 09/15/23 07:45 Oxygen Delivery Method Room Air 09/15/23 07:45 Oxygen Flow Rate 0 09/15/23 07:45 Pain Level 0 09/15/23 07:45 Comment RN Notified 09/14/23 23:30 Intake & Output 06/10/3009/14/23 09/15/23 11:59 23:59 11:59 Intake Total 710 / 2320 1610 / 2320 580 / 580 Output Total 900 / 900 Balance -190 / 1420 1610 / 1420 580 / 580 Intake: IV 110 / 320 210 / 320 100 / 100 Oral 600 / 2000 1400 / 2000 480 / 480 Output: Urine 900 / 900 Other: Urine Color Yellow Urine Appearance Clear Clear Clear Comment independent to bathroom Uses the bathroom independently. Voiding Methods Toilet Toilet Toilet Data Completed and Pending Labs on day of discharge: Preliminary micro results at discharge 09/13/23 16:23 Blood Culture - Preliminary Blood NO GROWTH 24 HOURS 09/13/23 16:13 Blood Culture - Preliminary Blood NO GROWTH 24 HOURS PFSH All Active Problems Wound infection after surgery (Acute) Abdominal wound dehiscence (Acute) Wound drainage (Acute) Anemia due to blood loss, acute (Acute) Villous adenoma of rectum (Acute) Painful total knee replacement, right (Acute) Asthma (Chronic 11/20/12) Chronic low back pain (Chronic 11/20/12) Chronic obstructive lung disease (Chronic 08/01/12) Essential hypertension (Chronic 05/25/16) Urinary, incontinence, stress female (Chronic) Hyperlipidemia (Chronic 04/18/12) Smoker (Chronic 11/20/12) Chronic GERD (Chronic 11/20/12) CHRONIC HOARSENESS SECONDARY TO GERD Tendinitis of left rotator cuff (Chronic) Mammography less than 12 months ago (Chronic) Right breast microcyst Chronic pain syndrome (Chronic) Overweight (BMI 25.0-29.9) (Acute) Anxiety (Chronic) Right knee pain (Acute) 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 - 05/09/22 Achilles tendinitis of right lower extremity (Acute) Medical History Migraine headache Gout Bilateral kidney stones Plantar wart Uric acid renal calculus Hypertension COPD (chronic obstructive pulmonary disease) Hoarseness of voice secondary to reflux Surgical History History of hemicolectomy (~08/2023) History of colonoscopy (~07/2023) History of total right knee replacement (TKR) (01/15/12) History of cystoscopy Cysto/laser/retorgrade History of salpingo-oophorectomy (06/06/17) Ligation of fallopian tube Replacement of total knee joint (01/15/12) right Open Carpal Tunnel release RIGHT Oophrectomy, Left (06/06/17) L oophorectomy. Bilateral salpingectomy. Benign indications. Yosi Fundoplication (~2002) Manipulation, Under Anesthesia (03/13/12) right TKA GASTROPEXY Endoscopy (~2004) NEG Family History Mother Essential hypertension Hyperlipidemia Father Diabetes Essential hypertension Heart disease Hyperlipidemia Stroke Asthma Sister Essential hypertension Sister Essential hypertension Brother No problems noted. 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 Pets and animals: cat(s) and dog(s) Sexually active: No Do you think of yourself as: straight/heterosexual Current gender identity: female What is your relationship status?: How often do you talk on the phone with friends or family?: three or more times per week How often do you get together with friends or relatives?: twice per week How often do you attend holiness or synagogue services?: decline to answer Do you belong to any clubs or organized social groups?: no Panel score (0-1 are the most socially isolated patients): 2 What type of physical activity do you participate in: walking Duration: 45-60 minutes/day Frequency: 3-4 times per week Dottie/Religious: None Special dottie needs: No Seatbelt use: always Drive intox or ride w/intox taxi cab driver: No Do you feel safe at home: Yes Do you feel safe in your relationship?: Yes Time Spent with Patient Time Spent with Patient: 45-69 minutes Time was spent: preparing to see the patient(eg.review tests), referring, communicating with other health md do resident urgent care, indepentently interpreting results and counseling the patient
--- NOTE | 2023-09-15 11:59 | PDOC.CMDIS ---
Date of service: 09/15/23 Time of Service: 11:59 LACE Index Scoring Tool Questions: Length of Stay (in days): 2 Was the patient admitted via the E.D.?: No Comorbidities: Chronic Pulmonary Disease E.D. Visits: 2 Answers: Total Score: 6 Risk of Readmission: Low Risk Care Management Discharge Plan Reason for Hospitalization: wound infection Discharge Plan: Delaney will be discharged home with no new services. She will follow up with surgery and her plan of care and transport with family. Patient/Family Education Needs: Review discharge instructions, wound care, limitations, follow up plan, discuss Ask Me Three [facility] Health Related Social Needs: No Data to Display
== END 2023-09-15 11:34 | disposition home or self-care (01) ==
PROVIDERS: Admitting Provider Surgery; PCP Nurse Practitioner Family; Visit Provider Surgery
DX: L03.311 Cellulitis of abdominal wall (principal); F41.9 Anxiety disorder, unspecified; I10 Essential (primary) hypertension; K21.9 Gastro-esophageal reflux disease without esophagitis; E66.3 Overweight; Z68.30 Body mass index [BMI] 30.0-30.9, adult; N39.3 Stress incontinence (female) (male); D62 Acute posthemorrhagic anemia; T81.41XA Infection following a procedure, superficial incisional surgical site, initial encounter; M54.50 Low back pain, unspecified; F17.210 Nicotine dependence, cigarettes, uncomplicated; J44.9 Chronic obstructive pulmonary disease, unspecified; T81.49XA Infection following a procedure, other surgical site, initial encounter; Z90.49 Acquired absence of other specified parts of digestive tract; Z86.010 Personal history of colon polyps; G89.4 Chronic pain syndrome; J45.20 Mild intermittent asthma, uncomplicated
CPT/HCPCS: 00123; 87040; 96365; 96366; 96367; 96372; J1650; 82728; 85025; 86140; 87070; 87205; G0378; J0696; J1836; J3490

== ENCOUNTER 2023-10-03 10:47 | Outpatient (CLI) | payer OTHER, SELFPAY ==
[2023-10-03 08:01] LABS: Abs Immature Grans 0.02 10^3/uL (0.0-0.06); Absolute Basophil Count 0.03 10^3/uL (0.0-0.2); Absolute Lymphocyte Count 1.86 10^3/uL (1.2-3.4); Absolute Monocyte Count 0.38 10^3/uL (0.1-0.8); Absolute Neutrophil Count 3.34 10^3/uL (1.2-6.7); Basophils % 0.5 %; Eosinophils % 3.4 %; HCT 44.9 % (36.0-46.0); HGB 14.5 g/dL (11.2-15.7); Immature Grans % 0.3 %; Lymphocytes % 31.9 %; MCH 31.3 pg (27.0-33.0); MCHC 32.3 % (32.0-36.0); MCV 97 fL (80-95); Monocytes % 6.5 %; Neutrophils % 57.4 %; Platelet Count 282 10^3/uL (130-400); RBC 4.64 10^6/uL (3.93-5.22); RDW 13.2 % (11.7-14.6); RDW-SD 47.3 fL; WBC 5.83 10^3/uL (4.4-10.8)
[2023-10-03 08:42] LABS: Ferritin 60 ng/mL (8-252); Folate 6.1 ng/mL (8.6-20.0); Vitamin B12 460 pg/mL (193-986)
== END 2023-10-03 10:48 | disposition home or self-care (01) ==
LOC: LBO 10:47
PROVIDERS: PCP Nurse Practitioner Family; Visit Provider Surgery
DX: K21.9 Gastro-esophageal reflux disease without esophagitis (principal); F17.200 Nicotine dependence, unspecified, uncomplicated; J45.20 Mild intermittent asthma, uncomplicated; J44.9 Chronic obstructive pulmonary disease, unspecified; G89.4 Chronic pain syndrome; E78.2 Mixed hyperlipidemia; I10 Essential (primary) hypertension; D62 Acute posthemorrhagic anemia; C50.919 Malignant neoplasm of unspecified site of unspecified female breast
CPT/HCPCS: 36415; 82607; 82728; 82746; 85025

== ENCOUNTER 2024-05-16 00:43 | Outpatient (CLI) | payer OTHER, SELFPAY ==
--- NOTE | 2024-05-16 10:05 | DI.MRI_ITS ---
Exam(s) MR LUMBAR SPINE WO EXAM: MR LUMBAR SPINE WO CLINICAL HISTORY: Rt leg pain, M79.604, numbness/heaviness. TECHNIQUE: Multiplanar multisequence MRI of the Lumbar spine was performed. COMPARISON: CT CT ABDOMEN PELVIS W from 07/27/2023 FINDINGS: Bones: The last intervertebral disc space is designated the L5/S1 level for the numbering purpose of this ex amination. The vertebral body heights are well maintained. Schmorl's node superior endplate of L1-2. Alignment: Unremarkable. The marrow signal characteristics are unremarkable. Cord: The conus tip ends at the T12 level. It is of normal size and signal intensity. T12-L1: No focal disc herniation is present. No central spinal canal stenosis.No neural foraminal st enosis. L1-2: No focal disc herniation is present. No central spinal canal stenosis.No neural foraminal sten osis. L2-3: No focal disc herniation is present. No central spinal canal stenosis.No neural foraminal isabel nosis. L3-4: Disc height is preserved. Minimal posterior disc bulging. No focal disc herniation is present . No central spinal canal stenosis.No neural foraminal stenosis. L4-5: No focal disc herniation is present. Mild facet joint degenerative changes. No central spinal canal stenosis.No neural foraminal stenosis. L5-S1: Disc height is preserved. Minimal posterior disc bulging.No focal disc herniation is present. Mild facet degenerative changes. No central spinal canal stenosis.No neural foraminal stenosis. The visualized SI joints and sacrum are unremarkable. Soft tissues: The paraspinal soft tissues are unremarkable. IMPRESSION: No evidence of disc herniation. Mild degenerative disc changes and facet degenerative changes. No evidence of significant spinal stenosis or neuroforaminal narrowing. DATA REPOSITORY:
== END 2024-05-16 01:03 ==
LOC: DI 00:43
PROVIDERS: PCP Nurse Practitioner Family; Visit Provider Orthopaedic Surgery
DX: M51.26 Other intervertebral disc displacement, lumbar region (principal)
CPT/HCPCS: 72148

== ENCOUNTER 2024-11-14 00:46 | Outpatient (CLI) | payer OTHER, SELFPAY ==
--- NOTE | 2024-11-14 06:30 | DI.CTLCSR_ITS ---
Exam(s) CT CHEST LUNG CANCER SCREEN EXAM: CT CHEST LUNG CANCER SCREEN CLINICAL HISTORY: Screening for lung cancer,cigarette smoker, f17.210. TECHNIQUE: Imaging Protocol: Low Dose Technique CONTRAST MATERIAL: None COMPARISON: No exams were available for comparison FINDINGS: CHEST: LUNGS: There are no ominous pulmonary nodules. There are no confluent infiltrates. No pleural effusions. MEDIASTINUM: There is no obvious hilar nor mediastinal adenopathy. CARDIAC: Heart size is normal. There is no pericardial effusion.Caliber of the thoracic aorta is within normal limits. OTHER: There is evidence of previous surgery the GE junction region of the stomach. OSSEOUS: No significant osseous lesions.No fractures. IMPRESSION: 1. No significant pulmonary nodules. 2. No infiltrates nor pleural effusions nor intrathoracic adenopathy. 3. Lung RADS Cat 1 - Negative: No nodules and definitely benign nodules Lung-RADS 1.0 CATEGORIES: Category 0 - Prior chest CT exam(s) being located for comparison. Category 1 - Annual screening in 12 months. No nodules or definitely benign nodules. Category 2 - Annual screening in 12 months. Benign appearance. Nodules with low likelihood of becoming active cancer. Category 3 - 6-month follow-up. Probably benign. Short-term follow-up suggested. Nodules with low likelihood of becoming active cancer. Category 4A - 3-month follow-up and CT/PET if >8 mm in size. Suspicious finding. Findings which require additional testing. Category 4B - Findings which require additional testing and tissue sampling. Category 4X - Category 3 or 4 nodules with additional features or imaging findings that increases the suspicion of malignancy. Modifier S- Potentially clinically significant findings (non lung cancer) RADIATION DOSE DELIVERED: 29.96mGy.cm Total DLP DATA REPOSITORY: All CT scans at this facility are submitted to the National Radiology Data Registry (NRDR) Dose Index Registry (DIR) with the [employer] (ACR). RADIATION OPTIMIZATION: All CT scans at this facility use at least one of these dose optimization techniques: automated exposure control; mA and/or kV adjustment per patient size (includes targeted exams where dose is matched to clinical indication); or iterative reconstruction.
--- NOTE | 2024-11-14 06:36 | DI.MAMMO_ITS ---
Exam(s) MAMMO SCREENING EXAM: MAMMO SCREENING CLINICAL HISTORY: screening,z12.39. TECHNIQUE: Bilateral full field digital CC and MLO mammographic images were obtained with 3D tomosynthesis and utilizing computer aided detection (CAD). COMPARISON: Prior mammograms were reviewed. FINDINGS: There are no CAD designations in either breast. In the right breast there is a new benign calcification noted. No malignant- appearing microcalcification groups. Asymmetric density in the right breast is unchanged from 2021. In the left breast there is an asymmetric density-possibly nodule best seen on 3D imaging CC view located 8 cm in from the nipple, lateral of center and measuring approximately 7 x 6 mm. Spot compression view recommended. There are no malignant-appearing microcalcification groups in this region or elsewhere in either breast. There is no significant architectural distortion nor skin thickening-retraction. IMPRESSION: 1. No radiographic evidence of malignancy in right breast. 2. Asymmetric density-possible nodule in the left breast as described above. Spot compression cc view and complete breast ultrasound recommended. BI-RADS Category 0 - Incomplete: Need additional imaging evaluation Breast Density - Category B - There are scattered areas of fibroglandular density. Breast density Category C or D implies that the patient has dense breast tissue. Dense breast tissue can make it harder to find cancer on a mammogram. Dense breast tissue is also associated with an increased risk of breast cancer. This information about the result of the mammogram report was provided to the patient to raise their awareness. Use this report when you speak with the patient about their risks for breast cancer, which includes their family history. At that time, you may recommend additional screening tests (Ultrasound or MRI) as these tests may add significant information. A negative radiographic report should not delay biopsy if a dominant or clinically suspicious mass is present. Up to ten percent of cancers are not identified on mammography. A negative report may reinforce clinical impression. Adenosis and dense breasts may obscure an underlying neoplasm. False positive reports average 6 to 10%. Patient will receive a letter notifying them of these results.
== END 2024-11-14 01:06 ==
LOC: DI 00:46
PROVIDERS: PCP Nurse Practitioner Family; Visit Provider Nurse Practitioner Family
DX: F17.210 Nicotine dependence, cigarettes, uncomplicated (principal); Z12.31 Encounter for screening mammogram for malignant neoplasm of breast; R92.323 Mammographic fibroglandular density, bilateral breasts
CPT/HCPCS: 71271; 77063; 77067

== ENCOUNTER 2024-11-14 01:04 | Outpatient (CLI) | payer OTHER, SELFPAY ==
[2024-11-14 09:24] LABS: ALT 21 U/L (14-59); AST 12 U/L (15-37); Albumin 3.7 g/dL (3.4-5.0); Alkaline Phosphatase 109 U/L (46-116); Anion Gap 7.2 mmol/L (3-11); BUN 16 mg/dL (7-18); Bilirubin, Total 0.3 mg/dL (0.2-1.0); CO2 29.8 mmol/L (21.0-32.0); Calcium 9.2 mg/dL (8.5-10.1); Calculated LDL 144 mg/dL (<100); Chloride 102 mmol/L (98-107); Cholesterol 245 mg/dL (<200); Estimated GFR 102.71 (mL/min/1.73m2); Glucose 106 mg/dL (74-106); HDL Cholesterol 34 mg/dL (>or=50); Potassium 3.9 mmol/L (3.5-5.1); Sodium 139 mmol/L (136-145); Total Protein 7.9 g/dL (6.4-8.2); Triglyceride 335 mg/dL (<150)
[2024-11-15 09:42] LABS: HIV-1/2 Ag & Ab Screen Negative (Negative)
[2024-11-17 10:47] LABS: Hepatitis C Ab w Rflx HCV PCR Negative (Negative)
[2024-11-17 10:49] LABS: HBs Antibody, Quant 3.9 mIU/mL (See Note); Hepatitis B Surface Antigen Negative (Negative)
== END 2024-11-14 01:05 | disposition home or self-care (01) ==
LOC: LBO 01:04
PROVIDERS: PCP Nurse Practitioner Family; Visit Provider Nurse Practitioner Family
DX: Z13.220 Encounter for screening for lipoid disorders (principal); Z11.59 Encounter for screening for other viral diseases
CPT/HCPCS: 36415; 80053; 80061; 86704; 86706; 86803; 87340; 87389

== ENCOUNTER 2024-11-21 00:22 | Outpatient (CLI) | payer OTHER, SELFPAY ==
--- NOTE | 2024-11-21 | DI.MAMMO_ITS ---
Exam(s) MAMMO SCREEN CALL BACK UNI EXAM: MAMMO SCREEN CALL BACK UNI CLINICAL HISTORY: ASYMMETRIC DENSITY POSSIBLE NODULE LT BREAST R92.8 ABNL MAMMO TECHNIQUE: Spot compression CC with tomographic imaging were performed. COMPARISON: 14 November 2024 and exams back to 2016 FINDINGS: No suspicious masses or suspicious microcalcifications are seen. No persistent abnormality is seen on the additional views performed. The findings are consistent with overlying fibroglandular tissue. There has been no significant change from prior exams. IMPRESSION: BI-RADS Category 1, Negative Yearly screening mammography is recommended. Breast Density - Category B - There are scattered areas of fibroglandular density. Breast density Category C or D implies that the patient has dense breast tissue. Dense breast tissue can make it harder to find cancer on a mammogram. Dense breast tissue is also associated with an increased risk of breast cancer. This information about the result of the mammogram report was provided to the patient to raise their awareness. Use this report when you speak with the patient about their risks for breast cancer, which includes their family history. At that time, you may recommend additional screening tests (Ultrasound or MRI) as these tests may add significant information. A negative radiographic report should not delay biopsy if a dominant or clinically suspicious mass is present. Up to ten percent of cancers are not identified on mammography. A negative report may reinforce clinical impression. Adenosis and dense breasts may obscure an underlying neoplasm. False positive reports average 6 to 10%. Patient will receive a letter notifying them of these results.
== END 2024-11-21 00:42 ==
PROVIDERS: PCP Nurse Practitioner Family; Visit Provider Nurse Practitioner Family
DX: Z12.31 Encounter for screening mammogram for malignant neoplasm of breast (principal); R92.8 Other abnormal and inconclusive findings on diagnostic imaging of breast
CPT/HCPCS: 77063; 77067

== ENCOUNTER 2025-01-16 03:07 | Outpatient (CLI) | payer OTHER, SELFPAY ==
--- NOTE | 2025-01-16 05:45 | DI.CT_ITS ---
Exam(s) CT ABDOMEN PELVIS W EXAM: CT ABDOMEN PELVIS W CLINICAL HISTORY: Surgical planning,incisional hernia,k43.2 TECHNIQUE: Imaging Protocol: Axial computed tomography images with coronal and sagittal reformatted images were created and reviewed. CONTRAST MATERIAL: Intravenous: Omnipaque 350 Contrast volume:75 mL Oral: Yes CT CT ABDOMEN PELVIS W from 02/04/[address] ABDOMEN PELVIS W from 07/27/[address] CHEST LUNG CANCER SCREEN from 11/14/2024 FINDINGS: ABDOMEN: Lung Bases: There are surgical clips around the gastroesophageal junction. Liver: Normal density. No measurable mass. Portal, Superior Mesenteric, and Splenic Veins: Unremarkable. Gallbladder and Biliary Tract: The gallbladder is contracted. No stones or biliary ductal dilatation are identified. Pancreas: Normal density, no abnormal calcifications or inflammatory process. Spleen: Normal. Adrenals: No masses seen. Kidneys: Normal size, contour and axis. There is bilateral nephrolithiasis. There is no obstructive uropathy. No masses seen. Abdominal Aorta: Abdominal portion non-dilated. Atherosclerotic calcification is present. Bowel: No obstruction or bowel wall thickening. There is no evidence of appendicitis. Peritoneal Cavity: No ascites, collection or mesenteric inflammatory response. No free air. Lymph Nodes: Within normal limits. Bones: Within normal limits for the patient's age. Soft Tissues: There is a fat containing small umbilical hernia again seen. There is a larger fat containing anterior abdominal wall hernia superior to the umbilicus. PELVIS: Bladder: Symmetric distention, no gross wall thickening. Reproductive Organs: There is an IUD in place. Lymph Nodes: Within normal limits. Bones: Within normal limits for the patient's age. IMPRESSION: 1. Large fat containing supraumbilical anterior abdominal wall hernia. 2. Smaller fat containing umbilical hernia is again seen. RADIATION DOSE DELIVERED: 407.28mGy.cm Total DLP DATA REPOSITORY: All CT scans at this facility are submitted to the National Radiology Data Registry (NRDR) Dose Index Registry (DIR) with the [employer] (A[employer]). RADIATION OPTIMIZATION: All CT scans at this facility use at least one of these dose optimization techniques: automated exposure control; mA and/or kV adjustment per patient size (includes targeted exams where dose is matched to clinical indication); or iterative reconstruction.
[2025-01-16 07:34] LABS: Estimated GFR 102.71 (mL/min/1.73m2)
[2025-01-16] MEDS: Barium Sulfate 2% W/V-Berry Smoothie 450 ML BTL PO (07:52)
[2025-01-16] MEDS: Barium Sulfate 2% W/V-Creamy Vanilla Smoothie 450 ML BTL PO (07:53)
[2025-01-16] MEDS: Omnipaque 350 MG/ML 500 ML BTL-Imaging package IJ (07:54)
[2025-01-16] MEDS: Normal Saline - Diluent 50 ML VIAL IJ (07:55)
[2025-01-16] MEDS: Normal Saline Flush 10 ML SYR IVP (07:56)
== END 2025-01-16 03:27 ==
LOC: DI 03:07
PROVIDERS: PCP Nurse Practitioner Family; Visit Provider Surgery
DX: K43.2 Incisional hernia without obstruction or gangrene (principal)
CPT/HCPCS: 74177; 82565